=== PATIENT | female | born 1960 | race Caucasian/White ===

== ENCOUNTER 2022-11-18 07:51 | Outpatient (RCR) | payer BC, SELFPAY | END 2023-03-21 15:03 | disposition home or self-care (01) | LOC: PT 07:51 | DX: M54.16 Radiculopathy, lumbar region (principal) | CPT/HCPCS: 97012; 97110; 97112; 97140; 97162 ==

== ENCOUNTER 2022-12-25 09:05 | Outpatient (OUT) | payer BC, SELFPAY ==
--- NOTE | 2022-12-25 | CONS_ITS ---
CONSULTATION DATE: ??12/25/2022 TO:? Dr. Stacie Bowen/Maria Luisa Farooq CHIEF COMPLAINT:? Includes right hip pain, buttock pain. HISTORY OF PRESENT ILLNESS:? Review of systems, past medical/surgical history were obtained and documented on the health questionnaire and is available upon request. She is a 62-year-old female who reports having pain in the above mentioned areas for the last three years.? She says at times she has been on varying doses of various non-steroidal agents; most recently ibuprofen 800 mg one up to t.i.d. p.r.n.? She has had to use this almost on a daily basis, as she reports the pain in general is 4-7/10, sharp in character, increased with activities such as standing, walking and performing transitioning maneuvers.? She feels most comfortable in the semi-recumbent.? Denies any change in bowel and bladder habits or new sensorimotor changes in the lower extremities. EXAMINATION:? Notable for patient having no clinical radiculopathy or myelopathy involving the lower extremities. ??Patient did have dysesthesia and hyperesthesia overlying the distribution of the right superior gluteal nerve.? She had significant myofascial spasm of the right gluteus medius muscle, as well as myofascial spasm along the lumbar paravertebral muscles on the right side.? 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 RECOMMENDATIONS: At this point, I have recommended she continue with her physical therapy program.? I have placed her on baclofen 5 mg pills, half a pill to one pill at h.s., and to proceed with diagnostic right superior gluteal nerve injection under fluoroscopic guidance. As part of providing excellent, safe, comprehensive care, the following was completed at our patient's visit: 1. A medication reconciliation and review to ensure accurate knowledge of current/active medications, including asking our patients to inform us about any [id number] medications or herbal remedies/nutritional supplements/alternative remedies. 2. A review to specifically ensure our patients have had annual screening for: elevated body mass index (BMI, see intake chart for exact total), tobacco use, screening for depression, and screening for unhealthy alcohol use.? When screening is concerning, patients are provided with education and the specific recommendation to discuss the concerning health issue and treatment options with their primary care provider. SIMRAN
== END 2022-12-25 09:06 | disposition home or self-care (01) ==
PROVIDERS: Visit Provider Anesthesiology Pain Medicine
DX: G58.8 Other specified mononeuropathies (principal); G89.29 Other chronic pain; M62.838 Other muscle spasm
CPT/HCPCS: G0463

== ENCOUNTER 2023-01-14 06:54 | Day surgery (SDC) | payer BC, SELFPAY ==
[2023-01-14 07:27] VITALS: BP 136/69; PULSE 68; RESP 16; TEMP 36.3; O2SAT 95
[2023-01-14] MEDS: BUPIVACAINE HCL 0.25% PF 25 MG/10 ML VIAL INJ (07:51)
[2023-01-14 07:52] VITALS: BP 157/74; PULSE 70; RESP 18; O2SAT 97
[2023-01-14 07:53] VITALS: BP 148/82; PULSE 69; RESP 18; O2SAT 97
--- NOTE | 2023-01-14 09:01 | W.PM.PROCNOT ---
Date of procedure: 01/14/23 Pre-op diagnosis: Right superior gluteal nerve injection Post-op diagnosis: same as pre-op Procedure: Right superior gluteal nerve injection Performed under fluoroscopic guidance Immediate complications none Anesthesia: none Solution used for injection: In each syringe, 2 milliliters 0.25% Marcaine 2.5 mL is used for injection for each side Time out process compliant After informed consent obtained patient was brought to the procedure room placed in the prone position skin overlying the area was prepped and draped in a sterile fashion using betadine. 25 gauge spinal needle Insert over each of the target areas identified in fluoroscopy corresponding needles were advanced Under fluoroscopic guidance until the target/targets encountered , no indication of intravascular or Intraneuronal needle tip placement. Solution injected. [place] removed post procedurally. patient transferred to recovery room in stable condition to be discharged home after meeting criteria Anesthesia: Local Surgeon: Lilly Gutierrez Condition: stable
== END 2023-01-14 07:59 | disposition home or self-care (01) ==
LOC: SURGOUT 06:54
PROVIDERS: Visit Provider Anesthesiology Pain Medicine
DX: G58.8 Other specified mononeuropathies (principal)
CPT/HCPCS: 64450

== ENCOUNTER 2023-01-22 09:49 | Outpatient (OUT) | payer BC, SELFPAY ==
--- NOTE | 2023-01-22 09:48 | PM.CN ---
Consult Note: HPI Data of Consult Patient: known to practice within the last 3 years Requesting Physician: Seda Redd NP Primary Care Provider: Non-Staff Physician, Family Provider: ROCIO Consult Narrative Reason for consult: injection f/u Narrative: Saida renee pleasant 62 year old female presents to office for evaluation of chronic low back and right buttock. Most recently she underwent a Right superior gluteal nerve injection on 01/14/23 with >80% pain relief and functional improvement immediately following and hours after the procedure. Today rating her pain 8/10 in low right back and buttock. Patient would like to proceed with thermal RFA of right superior gluteal nerve. cc:: CC: Seda Redd NP Review of Systems ROS Status of ROS 10 or more systems reviewed and unremarkable except as noted in history and below Musculoskeletal Reports: back pain and other PFSH PFSH Medical History Surgical History Meds Home Medications and Allergies Home Medications Medication Instructions Recorded Confirmed Type amlodipine 5 mg tablet 5 mg PO DAILY 12/25/22 01/14/23 History simvastatin 40 mg tablet 40 mg PO DAILY 12/25/22 01/14/23 History ibuprofen 800 mg tablet 800 mg PO TID 01/14/23 01/14/23 History multivitamin 1 tab PO DAILY 01/14/23 01/14/23 History Allergies Allergy/AdvReac Type Severity Reaction Status Date / Time dextromethorphan Allergy Verified 01/14/23 07:30 [From NyQuil] doxylamine [From NyQuil] Allergy Verified 01/14/23 07:30 latex Allergy Verified 01/14/23 07:30 pseudoephedrine [From NyQuil] Allergy Verified 01/14/23 07:30 Exam Constitutional Documenting provider has reviewed patient's vital signs: yes Common normals: no apparent distress, oriented x3, healthy appearing, alert and well nourished General appearance: cooperative Nutritional appearance: overweight HENMT Common normals: normocephalic, hearing grossly normal bilaterally and moist oral mucous membranes Head and scalp: normocephalic Eye Common normals: PERRL Pupil: PERRL Neck & C-Spine Common normals: full ROM General: normal visual inspection Chest Common normals: inspection of chest normal Respiratory Common normals: normal respiratory effort, no retractions and no use of accessory muscles Back & Pelvis Lumbar spine/lower back: ROM limited and pain with ROM Sacroiliac joints: SI joint(s) abnormal Other: right sided low back and buttock pain without radiculopathy. tender over PSIS. positive [place], thigh thrust, clint exam. Extremity Common normals: normal to inspection and full ROM Neuro Common normals: oriented x3, CN's II-XII intact bilaterally, moves all extremities, no focal motor deficits, no sensory deficits noted and deep tendon reflexes 2+ bilaterally Sensorium/orientation: alert Speech: speech normal Gait (neuro): normal gait Motor exam: strength 5/5 throughout and no movement abnormalities noted Psych Common normals: mental status grossly normal, thought process normal, cooperative, affect normal, speech normal and activity/motor behavior normal Speech: normal speech Thought process: normal thought process Results Additional Findings Additional findings: I have checked an [place] report on this patient today and there are no aberrancies noted in the prescribing history.?? A drug screen was completed and reviewed within the last year, and if there has not been a drug screen completed we ordered one today to monitor higher risk, state monitored pain medication use. As part of providing excellent, safe, comprehensive care, the following was completed at our patient's visit: 1. A medication reconciliation and review to ensure accurate knowledge of current/active medications, including asking our patients to inform us about any [id number] medications or herbal remedies/nutritional supplements/alternative remedies. 2. A review to specifically ensure our patients have had annual screening for: elevated body mass index (BMI), tobacco use, screening for depression, and screening for unhealthy alcohol use. When screening is concerning, patients are provided with education and the specific recommendation to discuss the concerning health issue and treatment options with their primary care provider. Assessment and Plan Assessment and Plan (1) Neuritis: (2) Obesity (BMI 30.0-34.9): Assessment and Plan: The patient was counseled that proper dietary changes and consistent participation in a home exercise plan can lead to weight loss. Weight loss can help to improve functionality in patients with chronic pain.? (3) Hypertension: Assessment and Plan: Blood pressure is elevated today. No signs or symptoms of ME/CVA including chest pain, SOB, left sided acute neck, arm, or jaw pain (separate from chronic pain complaint), diaphoresis, facial drooping, new acute neuro changes in both upper and lower extremities (other than those mentioned in the note above). Recommend follow up with PCP for further evaluation and treatment.? Plan proceed with right superior gluteal nerve thermal RFA under fluoroscopy without sedation continue ibuprofen as needed continue HEP f/u 1 month after RFA
== END 2023-01-22 09:50 | disposition home or self-care (01) ==
LOC: PM 09:49
PROVIDERS: Visit Provider Nurse Practitioner
DX: M79.2 Neuralgia and neuritis, unspecified (principal); E66.9 Obesity, unspecified; I10 Essential (primary) hypertension
CPT/HCPCS: G0463

== ENCOUNTER 2023-02-25 08:44 | Day surgery (SDC) | payer BC, SELFPAY ==
[2023-02-25 09:12] VITALS: BP 140/84; PULSE 77; RESP 16; TEMP 36.5; O2SAT 98
[2023-02-25 10:11] VITALS: BP 162/77; PULSE 67; RESP 18; O2SAT 97
[2023-02-25 10:20] VITALS: BP 147/70; PULSE 70; RESP 18; O2SAT 97
[2023-02-25] MEDS: BUPIVACAINE HCL 0.25% PF 25 MG/10 ML VIAL 4 ML INJ (10:26)
[2023-02-25] MEDS: LIDOCAINE HCL 2% 400 MG/20 ML MDV 10 ML INJ (10:26)
[2023-02-25] MEDS: METHYLPREDNISOLONE ACETATE 40 MG/ML VIAL INJ (10:27)
--- NOTE | 2023-02-25 10:44 | W.PM.PROCNOT ---
Date of procedure: 02/25/23 Pre-op diagnosis: Right Superior Gluteal Neuritis Post-op diagnosis: same as pre-op Procedure: Right Superior Gluteal nerve Radiofrequency ablation PreOp diagnosis: pain secondary to include lateral cutaneous iliohypogastric neuritis Postop diagnosis same Under fluoroscopic guidance Rhizotomy was created using radio frequency ablation at 80?C for 90 seconds 1 to 2 lesions created at each site. Post lesioning injection of 2 mL each of 0.25% Marcaine and 2% lidocaine with Depo-Medrol 40mg. 0.5 to 1 mL injected at each site IV in place no If Intravenous fluids: NS at KVO Anesthesia local 2% lidocaine for Anesthesia Other: local Timeout process compliant After informed consent obtained. Patient brought to the procedure room placed in the prone position skin overlying the area was prepped and draped in a sterile fashion using betadine. 25 gauge needle was used to create a skin wheal over each of the targeted areas utilizing 2% lidocaine. A rhizotomy needle with a 10 mm active tip was inserted over each of the anesthetized areas and directed towards four different areas in the distribution of the lateral cutaneous branches of the iliohypogastric nerve, accomplished under fluoroscopic guidance. After encountering the same we had positive sensory stimulation, negative motor stimulation was noted. lesions were then created. Post lesioning, steroid solution was injected needles removed. Patient was transferred to recovery room in stable condition to be discharged home after meeting criteria. Anesthesia: Local Surgeon: Lilly Gutierrez Condition: stable
== END 2023-02-25 10:30 | disposition home or self-care (01) ==
PROVIDERS: Visit Provider Anesthesiology Pain Medicine
DX: G58.8 Other specified mononeuropathies (principal)
CPT/HCPCS: 64640; 77002; J1030

== ENCOUNTER 2023-03-27 08:09 | Outpatient (OUT) | payer BC, SELFPAY ==
--- NOTE | 2023-03-27 08:42 | P.CN_ITS ---
Consult Note: HPI Data of Consult Patient: known to practice within the last 3 years Requesting Physician: Seda Redd NP Primary Care Provider: Non-Staff Physician, Family Provider: DMISC Consult Narrative Reason for consult: f/u Narrative: Saida renee pleasant 62 year old female presents for follow up after right superior gluteal nerve RFA. Patient reporting 95-100% pain relief in that area, noticing functional improvement as well. Patient is able to rake leaves, do yard work, and sit for longer periods of time. cc:: CC: Seda Redd NP Review of Systems ROS Status of ROS 10 or more systems reviewed and unremarkable except as noted in history and below Musculoskeletal Reports: other [facility] Medical History Surgical History History of appendectomy ?Z90.49 - Acquired absence of other specified parts of digestive tract (ICD- 10) Meds Home Medications and Allergies Home Medications Medication Instructions Recorded Confirmed Type amlodipine 5 mg tablet 5 mg PO DAILY 12/25/22 02/25/23 History simvastatin 40 mg tablet 40 mg PO DAILY 12/25/22 02/25/23 History ibuprofen 800 mg tablet 800 mg PO TID 01/14/23 02/25/23 History multivitamin 1 tab PO DAILY 01/14/23 02/25/23 History Allergies Allergy/AdvReac Type Severity Reaction Status Date / Time dextromethorphan Allergy Verified 02/25/23 09:11 [From NyQuil] doxylamine [From NyQuil] Allergy Verified 02/25/23 09:11 latex Allergy Verified 02/25/23 09:11 pseudoephedrine [From NyQuil] Allergy Verified 02/25/23 09:11 Exam Constitutional Documenting provider has reviewed patient's vital signs: yes Common normals: no apparent distress, oriented x3, healthy appearing, alert and well nourished General appearance: cooperative Nutritional appearance: overweight HENMT Common normals: normocephalic, hearing grossly normal bilaterally and moist oral mucous membranes Head and scalp: normocephalic Eye Common normals: PERRL Pupil: PERRL Neck & C-Spine Common normals: full ROM General: normal visual inspection Chest Common normals: inspection of chest normal Respiratory Common normals: normal respiratory effort, no retractions and no use of accessory muscles Back & Pelvis Sacroiliac joints: SI joints normal Extremity Common normals: normal to inspection and full ROM Neuro Common normals: oriented x3, CN's II-XII intact bilaterally, moves all extremities, no focal motor deficits, no sensory deficits noted and deep tendon reflexes 2+ bilaterally Sensorium/orientation: alert Speech: speech normal Gait (neuro): normal gait Motor exam: strength 5/5 throughout and no movement abnormalities noted Psych Common normals: mental status grossly normal, thought process normal, cooperative, affect normal, speech normal and activity/motor behavior normal Speech: normal speech Thought process: normal thought process Assessment and Plan Assessment and Plan (1) Neuritis: Plan continue HEP f/u as needed
== END 2023-03-27 08:10 | disposition home or self-care (01) ==
LOC: PM 08:10
PROVIDERS: Visit Provider Nurse Practitioner
DX: M79.2 Neuralgia and neuritis, unspecified (principal)
CPT/HCPCS: G0463

== ENCOUNTER 2024-02-26 09:28 | Outpatient (OUT) | payer BC, SELFPAY ==
--- OUTSIDE RECORDS SUMMARY | 2024-02-26 09:42 | XMS_ITS | CCD ---
Author Organization 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 Name Role Phone CHAPARRO TAYLOR Unavailable Unavailable RHONDA BRENNER Unavailable Unavailable Sheets Stacie LOWE Primary Care Provider MISC, DR THOMAS Primary Care Unavailable ELTAHAWY, DR HART Attending Unavailable ELTAHAWY, DR HART Consulting Unavailable ELTAHAWY, DR HART Admitting Unavailable ALIS LOZOYA Consulting Unavailable MISC, DR THOMAS Consulting Unavailable ALISSA CORDERO Admitting Unavailable MISC, DR THOMAS Primary Care Unavailable ALISSA CORDERO Attending Unavailable ALISSA CORDERO Consulting Unavailable Sheets Stacie LOWE Primary Care Provider Sheets DOStacie Primary Care Provider [phone] Sheets, DO Stacie Martines Primary Care Provider Self, Referral Attending Provider Unavailable Maria Luisa Farooq Unavailable Sheets, DO Stacie Martines Primary Care Provider RAJNI Farooq Attending Provider STACIE FAIRBANKS Referring Unavailable SHEETS, STACIE C Primary Care Unavailable SHEETSAARONLY C Referring Unavailable SHEETS, STACIE C Primary Care Unavailable Sheets, DO Stacie C Primary Care Provider Sheets, DO Stacie Martines Referring Provider [phone] Self, Referral Attending Provider Unavailable Maria Luisa Farooq Admitting Unavailable Maria Luisa Farooq Attending Unavailable Stacie Fairbanks Primary Care Unavailable Afrooq, Maria Luisa Admitting Unavailable Farooq, Maria Luisa Attending Unavailable Sheets, Stacie Martines Primary Care Unavailable Farooq, Maria Luisa Admitting Unavailable Farooq, Maria Luisa Attending Unavailable Sheets, Stacie Martines Primary Care Unavailable Sheets, Stacie C Primary Care Unavailable Sheets, Stacie C Referring Unavailable Self, Referral Admitting Unavailable Self, Referral Attending Unavailable Sheets Stacie LOWE Primary Care Provider [phone] [facility] U navailable SHEETS, STACIE Martines Attending Unavailable SHEETS, STACIE Martines Primary Care Unavailable SHEETS, STACIE C Referring Unavailable SHEETS, STACIE Martines Attending Unavailable SHEETS, STACIE Martines Primary Care Unavailable ALISSA CORDERO Attending Unavailable HELEN MEEK Attending Unavailable Allergies Allergy Classification Reported Allergen(s) Allergy Type Date of Onset Reaction(s) Facility Acetaminophen / Dextromethorphan / Doxylamine / Pseudoephedrine (1 source) Acetaminophen / Dextromethorphan / Doxylamine / Pseudoephedrine Drug Allergy 12-21-19 16 Unknown [facility] Baclofen (1 source) Baclofen Drug Allergy 02-01-20 23 Other: See Comments [facility] cyclobenzaprine (1 source) cyclobenzaprine Drug Allergy 02-01-20 23 Other: See Comments [facility] HMG-CoA Reductase Inhibitors (statins) (1 source) rosuvastatin Drug Allergy 12-21-19 16 Diarrhea, Vomiting, Other: See Comments [facility] Latex (1 source) Latex Substance Allergy 12-27-19 15 Unknown [facility] Pheniramine (1 source) Pheniramine Drug Allergy 12-27-19 15 Unknown [facility] (20 sources) Acetaminophen / Dextromethorphan / Doxylamine / Pseudoephedrine; Translations: [[id number] CETAMINOPHEN] Drug Allergy 12-21-19 16 Unknown [facility] (20 sources) Latex; Translations: [LATEX] Propensity to adverse reactions to drug 12-27-19 15 Unknown [facility] (20 sources) Pheniramine; Translations: [PHENIRAMINE] Drug Allergy 12-27-19 15 Unknown [facility] (20 sources) rosuvastatin; Translations: [ROSUVASTATIN CALCIUM] Drug Allergy 12-21-19 16 Diarrhea, Vomiting, Other: See Comments [facility] (1 source) Latex Drug allergy (disorder) 01-04-20 16 [facility] Rep[facility] (1 source) Pseudoephedrine Drug Allergy [facility] (1 source) strawberry allergenic extract Drug Allergy [facility] (6 sources) NyQuil Drug allergy (disorder) Unknown [facility] (10 sources) Baclofen; Translations: [BACLOFEN] Drug Allergy 02-01-20 Other: See Comments [facility] (10 sources) cyclobenzaprine; Translations: [CYCLOBENZAPRINE] Drug Allergy 02-01-20 Other: See Comments [facility] (1 source) Acetaminophen Drug Allergy 03-12-20 [facility] Repository (1 source) Dextromethorphan Drug Allergy 03-12-20 [facility] Rep[facility] (1 source) Doxylamine Drug Allergy 03-12-20 [facility] Repository (1 source) Latex Drug allergy (disorder) 03-12-20 [facility] Rep[facility] (1 source) Pseudoephedrine Drug Allergy 03-12-20 [facility] Rep[facility] Medications Current Medications Medication Drug Class(es) Dates Sig (Normalized) Sig (Original) [id number] 200 actuat albuterol 0.09 mg/actuat metered dose inhaler (20 sources) beta2-Adrenergic Agonist Start: 12-15-2023 End: 12-15-2023 take 2 puff(s) by inhalation every four hours as needed albuterol HFA (PROVENTIL HFA, VENTOLIN HFA) 90 mcg/actuation inhaler 2 puff(s) every 4 hours as needed 1 Each 3 12/15/2023 Active Comment on above: 2 puff(s) every 4 ho urs as needed amLODIPine 5 mg oral tablet (20 sources) Dihydropyridine Calcium Channel James Start: 08-09-2016 take 1 tablet by mouth once daily amLODIPine (NORVASC) 5 mg tablet Take 5 mg by mouth once daily. 08/09/2016 Active Comment on above: Take 5 mg by mouth o nce daily. atorvastatin 40 mg oral tablet (8 sources) HMG-CoA Reductase Inhibitor Start: 01-31-2023 End: 01-27-2024 take 1 tablet by mouth once daily atorvastatin (LIPITOR) 40 mg tablet Indications: Mixed hyperlipidemia take 1 tablet by mouth every day 90 tablet 1 01/27/2024 Active Comment on above: Take 1 tablet by lon th once daily. take 1 tablet by lon th every day betamethasone 0.5 mg/ml topical cream (20 sources) Corticosteroid Start: 06-09-2023 betamethasone dipropionate (DIPROSONE) 0.05 % cream Indications: Dermatitis apply to affected area twice a day 45 g 5 06/09/2023 Active Start: 09-22-2020 End: 01-31-2023 betamethasone dipropionate ( DIPROSONE) 0.05 % cream Indications: Dermatitis Apply to affected area twice daily. APPLY TO AFFECTED AREA 45 g 5 01/31/2023 Active betamethasone di propionate, augmented (DIPROLENE) 0.05 % cream betamethasone, augmented 0.05 % topical cream Active Comment on above: betamethasone, augme nted 0.05 % topical cream Apply to affected ar ea twice daily. APPLY TO AFFECTED AR EA TWICE A DAY Apply to affected ar ea twice daily. APPLY TO AFFECTED AREA CBD gummies (5 sources) CBD gummies Acti ve cholecalciferol 0.025 mg oral tablet (20 sources) Vitamin D take 1 tablet by mouth once daily cholecalciferol (VITAMIN D3) 1,000 unit tab tablet Take 1,000 Units by mouth once daily. Active Comment on above: Take 1,000 Units by mouth once daily. Fish Oils (5 sources) take 1 capsule by mouth once daily Fish Oil 1000 MG 1 capsule Orally Once a day Active 120 actuat fluticasone propionate 0.11 mg/actuat metered dose inhaler (20 sources) Corticosteroid Start: 2015 take 1 puff(s) by inhalation twice daily fluticasone (FLOVENT) 110 mcg/actuation inhaler Indications: Asthma, chronic, moderate persistent, uncomplicated Inhale 1 Puff as instructed twice daily. 1 Inhaler 1 03/29/2016 Active Comment on above: Inhale 1 Puff as ins tructed twice daily. ibuprofen 800 mg oral tablet (20 sources) Nonsteroidal Anti-inflammatory Drug Start: 2020 take 1 tablet by mouth every eight hours as needed ibuprofen (MOTRIN) 800 mg tablet TAKE 1 TABLET BY MOUTH EVERY 8 HOURS NEEDED 90 tablet 11 08/13/2021 Active Comment on above: TAKE 1 TABLET BY LON EVERY 8 HOURS NEEDED lidocaine 0.05 mg/mg medicated patch (9 sources) Antiarrhythmic, Amide Local Anesthetic Start: 2022 Lidocaine 5 % 1 patch remove after 12 hours Externally Once a day for 30 days Dec, Active Metamucil Fiber (5 sources) Metamucil Fiber Active Multivitamin capsule (20 sources) take 1 capsule by mouth once daily Multivitamin capsule Take 1 capsule by mouth once daily. Active take 1 capsule by mouth once mila ly Multivitamin capsule Take 1 capsule by mouth once daily. 0 Active Comment on above: Take 1 capsule by mo [facility] once daily. omega-3 fatty acids (FISH OI L CONCENTRATE ORAL) (20 sources) omega-3 fatty ac ids (FISH OIL CONCENTRATE ORAL) Take by mouth. Active omega-3 fatty ac ids (FISH OIL CONCENTRATE ORAL) Take by mouth. 0 Active Comment on above: Take by mouth. OTC PRODUCT (20 sources) OTC PRODUCT CBD gummies as needed Active OTC PRODUCT CBD gummies as needed 0 Active End: 07-13-2021 OTC PRODUCT CBD oil occasion ally 0 07/13/2021 Discontinued (Other) Comment on above: CBD gummies as neede d CBD oil occasionally Vitamin C 1000 MG (5 sources) take 1 tablet by mouth once daily Vitamin C 1000 MG 1 tablet Orally Once a day Active Womens Multivitamin (5 sources) Womens Multivita min Active Zinc (5 sources) Zinc Active Completed/Discontinued Medications Medication Drug Class(es) Dates Sig (Normalized) Sig (Original) cyclobenzaprine hydrochloride 10 mg oral tablet (7 sources) Muscle Relaxant Start: 09-09-2022 End: 01-31-2023 take 5-10 mg by mouth every twenty-four hours as needed cyclobenzaprine (FLEXERIL) 10 mg tablet Take 0.5-1 tablets by mouth at bedtime as needed. 30 tablet 0 09/09/2022 01/31/2023 Discontinued (Other) Comment on above: Take 0.5-1 tablets b y mouth at bedtime as needed. simvastatin 40 mg oral tablet (20 sources) HMG-CoA Reductase Inhibitor Start: 02-08-2022 End: 01-31-2023 take 1 tablet by mouth once daily at bedtime simvastatin (ZOCOR) 40 mg tablet Indications: Mixed hyperlipidemia take 1 tablet by mouth everyday at bedtime 90 tablet 0 01/29/2023 01/31/2023 Discontinued Start: 07-16-2021 End: 02-08-2022 take 1 tablet by mouth once daily at bedtime simvastatin (ZOCOR) 20 mg tablet Indications: Mixed hyperlipidemia TAKE 1 TABLET BY MOUTH EVERYDAY AT BEDTIME 30 tablet 2 09/20/2021 02/08/2022 Discontinued Start: 08-07-2020 End: 07-16-2021 take 1 tablet by mouth once daily simvastatin (ZOCOR) 10 mg tablet Indications: Mixed hyperlipidemia TAKE 1 TABLET BY MOUTH EVERY DAY 90 tablet 0 08/07/2020 07/16/2021 Discontinued Comment on above: TAKE 1 TABLET BY LON TH EVERY DAY Take 1 tablet by lon th daily at bedtime. TAKE 1 TABLET BY LON TH EVERYDAY AT BEDTIME Problems Active Problems Problem Classification Problem Date Documented Date Episodic/Chronic Disorders of lipid metabolism (20 sources) Mixed hyperlipidemia; Translations: [Mixed hyperlipidemia] Onset: 09-27-2016 Resolved: 04-15-2017 04-15-2017 Chronic Essential hypertension (20 sources) Essential hypertension; Translations: [Essential (primary) hypertension] Onset: 09-27-2016 Chronic Nutritional deficiencies (3 sources) Vitamin D deficiency; Translations: [Vitamin D deficiency, unspecified] Chronic Osteoarthritis (5 sources) Osteoarthritis of right hip joint; Translations: [Unilateral primary osteoarthritis, right hip] Onset: 10-01-2023 Chronic Other connective tissue disease (2 sources) Trochanteric bursitis, right hip Episodic Other non-traumatic joint disorders (1 source) Pain in right hip joint; Translations: [Pain in right hip] Episodic Other nutritional; endocrine; and metabolic disorders (20 sources) Body mass index 30+ - obesity; Translations: [Body mass index (BMI) 36.0-36.9, adult] Onset: 03-24-2020 Chronic Other nutritional; endocrine; and metabolic disorders (6 sources) Obese class II; Translations: [Obesity, unspecified] Onset: 07-13-2021 Chronic Other nutritional; endocrine; and metabolic disorders (20 sources) Obese class I; Translations: [Obesity, unspecified] Onset: 07-13-2021 Chronic Other nutritional; endocrine; and metabolic disorders (3 sources) Body mass index (BMI) 33.0-33.9, adult Chronic Other nutritional; endocrine; and metabolic disorders (1 source) Obesity, unspecified; Translations: [Obesity, Class I, BMI 30-34.9] Onset: 01-17-2022 Chronic Other nutritional; endocrine; and metabolic disorders (1 source) Weight loss; Translations: [Abnormal weight loss] Episodic Other screening for suspected conditions (not mental disorders or infectious disease) (1 source) Patient encounter status; Translations: [Encounter for screening mammogram for malignant neoplasm of breast] Episodic Residual codes; unclassified (2 sources) Asymptomatic menopausal state Episodic Screening and history of mental health and substance abuse codes (2 sources) Encounter for screening for depression Episodic Spondylosis; intervertebral disc disorders; other back problems (9 sources) Inflammation of sacroiliac joint; Translations: [Sacroiliitis, not elsewhere classified] Chronic Unclassified (1 source) Encounter for screening mammogram for malignant neoplasm of breast; Translations: [Encounter for screening mammogram for malignant neoplasm of breast] Onset: 06-07-2023 Unclassified (1 source) Encounter for screening for osteoporosis; Translations: [Encounter for screening for osteoporosis] Onset: 12-02-2022 Past or Other Problems Problem Classification Problem Date Documented Da te Episodic/Chronic Allergic reactions (9 sources) Inflammatory dermatosis; Translations: [Dermatitis, unspecified] Onset: 01-31-2023 Episodic Other connective tissue disease (20 sources) Fibromyalgia; Translations: [Fibromyalgia] Onset: 08-01-2021 Episodic Other connective tissue disease (1 source) Fibromyalgia; Translations: [Fibromyalgia] Onset: 08-01-2021 Episodic Residual codes; unclassified (4 sources) Localized edema; Translations: [LOCALIZED EDEMA] Onset: 01-20-2021 Episodic Spondylosis; intervertebral disc disorders; other back problems (20 sources) Sciatica; Translations: [Sciatica, right side] Onset: 10-31-2022 Episodic Results Test Name Value Interpretation Reference Range Facility Office Visiton 02-18-2024 Follow-up visit [id number] Gisel Corbin 1960 F Date Provider Department Center 02/18/2024 [facility] CORDERO [facility] No family history on file Level of Service:73103 [facility] OFFICE/OUTPATIENT ESTABLISHED LOW MDM 20 MIN Reason for Visit and Comments: Hypertension [109224] Hyperlipidemia [182] Normal [facility] CNOVon 10-01-2023 CNOV Office Visit (SANDRA WALLACE) -------- SAIDA CORBIN ([id number]) 1960 F Date Time Provider Department 10/01/23 11:20 AM STACIE FAIRBANKS During your visit today, we recorded the following information about you: Temperature Pulse Respiration Blood pressure 97.6 degrees 62/minute 16/minute 114/68 Weight Height 97.5 kg 1.727 m Stacie Fairbanks DO 10/18/2023 11:49 AM Signed Subjective The history is provided by the patient. Hypertension This is a chronic problem. The current episode started more than 1 year ago. The problem is unchanged. The problem is controlled. Pertinent negatives include no blurred vision, chest pain, headaches, malaise/fatigue, palpitations or shortness of breath. She has pain all over from fibromyalgia She wears patches on her right leg all the time She is not sleeping well because of the pain She takes ibuprofen in the morning Tylenol does not work well She had a nerve root ablation in her lower back She was in PT, but she will be doing exercises in the water now that it is summer and does not want to go to PT at this time ALLERGIES Allergen Reactions Baclofen Other: See Comments Shaky, chest tightness, difficulty talking Crestor [Rosuvastat* Diarrhea, Vomiting, Other: See Comments Nausea Cyclobenzaprine Other: See Comments Shaky, chest tightness, difficulty talking Latex Unknown Nyquil [Doxylamin-P* Unknown Pheniramine Unknown Current Outpatient Medications Medication Sig Dispense Refill atorvastatin (LIPITOR) 40 mg tablet take 1 tablet by mouth every day 90 tablet 1 betamethasone dipropionate (DIPROSONE) 0.05 % cream apply to affected area twice a day 45 g 5 ibuprofen (MOTRIN) 800 mg tablet TAKE 1 TABLET BY MOUTH EVERY 8 HOURS NEEDED 90 tablet 11 OTC PRODUCT CBD gummies as needed omega-3 fatty acids (FISH OIL CONCENTRATE ORAL) Take by mouth. Multivitamin capsule Take 1 capsule by mouth once daily. cholecalciferol (VITAMIN D3) 1,000 unit tab tablet Take 1,000 Units by mouth once daily. betamethasone dipropionate, augmented (DIPROLENE) 0.05 % cream betamethasone, augmented 0.05 % topical cream amLODIPine (NORVASC) 5 mg tablet Take 5 mg by mouth once daily. fluticasone (FLOVENT) 110 mcg/actuation inhaler Inhale 1 Puff as instructed twice daily. 1 Inhaler 1 albuterol HFA (PROVENTIL HFA, VENTOLIN HFA) 90 mcg/actuation inhaler 2 puff(s) every 4 hours as needed No current facility-administered medications for this visit. ACTIVE PROBLEM LIST Essential Hypertension Mixed Hyperlipidemia Bmi 30.0-30.9,Adult Obesity, Class I, Bmi 30-34.9 Fibromyalgia Chronic Midline Low Back Pain Dermatitis Social History Tobacco Use Smoking status: Never Smokeless tobacco: Never Substance Use Topics Alcohol use: Yes Comment: wine Drug use: No Comment: No reported history Family History Problem Relation Age of Onset Alzheimer's Disease Father Hypertension Father Prostate Cancer Father Hypertension Mother Reviewed past medical history, family history and surgeries. All medications and supplements were reviewed with the patient. Review of Systems Constitutional: Negative for chills, diaphoresis, fever, malaise/fatigue and weight loss. HENT: Negative for ear pain and hearing loss. Eyes: Negative for blurred vision and double vision. Respiratory: Negative for cough and shortness of breath. Cardiovascular: Negative for chest pain, palpitations and leg swelling. Gastrointestinal: Negative for constipation, diarrhea and heartburn. Genitourinary: Negative for dysuria and frequency. Musculoskeletal: Positive for joint pain and myalgias. Negative for back pain and falls. Skin: Negative for itching and rash. Neurological: Negative for dizziness, weakness and headaches. Endo/Heme/Allergies: Does not bruise/bleed easily. Psychiatric/Behavioral: Negative for depression and substance abuse. The patient does not have insomnia. Objective BP 114/68 Pulse 62 Temp 36.4 ?C (97.6 ?F) Resp 16 Ht 172.7 cm (5' 8 ) Wt 97.5 kg (215 lb) SpO2 94% BMI 32.69 kg/m? Physical Exam Constitutional: Appearance: Normal appearance. She is obese. HENT: Head: Normocephalic and atraumatic. Nose: Nose normal. Mouth/Throat: Mouth: Mucous membranes are moist. Dentition: Normal dentition. Eyes: General: Lids are normal. Extraocular Movements: Extraocular movements intact. Conjunctiva/sclera: Conjunctivae normal. Pupils: Pupils are equal, round, and reactive to light. Neck: Thyroid: No thyroid mass or thyromegaly. Vascular: No carotid bruit. Trachea: Phonation normal. Cardiovascular: Rate and Rhythm: Normal rate and regular rhythm. Heart sounds: Normal heart sounds. No murmur heard. No friction rub. No gallop. Pulmonary: Effort: Pulmonary effort is normal. Breath sounds: Normal breath sounds. No wheezing or ra (more content not included)... Normal [facility] MM screening mammo BI w/CADo n 06-09-2023 MM screening mammo BI w/CAD [facility] [address] [place] [address] Mammography Report Signed Patient: Saida Corbin MR#: [id number] : 1960 Acct:[id number] Age/Sex: 62 / F ADM Date: 06/07/23 Loc: [place] Room: Type: [facility] Attending Dr: Referral Self Copies to: Stacie Fairbanks DO SELF,REFERRAL Ordering Provider: SELF,REFERRAL Date of Service: 06/07/23 MM/MM screening mammo BI w/CAD: SCREENING BILATERAL Screening Full Field digital mammogram with 3-D imaging. Full field digital CC and MLO imaging performed. CAD utilized. COMPARISON: 06/01/2022 HISTORY: Annual screening BREAST COMPOSITION: Scattered fibroglandular densities of the breast parenchyma identified BENIGN BREAST CALCIFICATIONS: Present VASCULAR CALCIFICATIONS: None DEVELOPING ARCHITECTURAL DISTORTION: None DEVELOPING BREAST NODULE: None DEVELOPING MALIGNANT CALCIFICATIONS: None AXILLARY LYMPH NODES: Normal POSTSURGICAL CHANGES: None MM/MM screening mammo BI w/CAD IMPRESSION: No mammographic evidence of malignancy. Routine follow-up recommended in one year. RESULT CODE: 2 Benign Findings(s) DENSITY CODE: 2 (approximately 25-50% glandular) FOLLOW UP: 1YR THE FALSE-NEGATIVE RATE OF MAMMOGRAPHY IS APPROXIMATELY 10%. IMAGING OF A PALPABLE ABNORMALITY MUST BE BASED ON CLINICAL GROUNDS. PATIENT WAS ENTERED INTO A REMINDER SYSTEM WITH A TARGET DUE DATE FOR THE NEXT MAMMOGRAM. Impression dictated by: Nicholas Man M.D.06/09/2023 7:49 AM Dictation Location: [facility] Transcribed By: [facility] 06/09/23 0749 Dictated By: Nicholas Man DO 06/09/23 0747 Signed By: 06/09/23 0749 [facility] CNPRenu 06-02-2023 CNPN Telephone (AGFAMPLE) -------- SAIDA CORBIN ([id number]) 1960 F Date Time Provider Department 06/02/23 STACIE FAIRBANKS During your visit today, we recorded the following information about you: Brynn Paulino MA 06/02/2023 8:10 AM Signed ----- Message from Hubert Nava MA sent at 05/06/2023 1:48 PM EST ----- Remind pt. Time to recheck FLP/LFT . CHICA Franks Kimberly C, DO 06/02/2023 10:57 AM Signed Order attached DO [place]di [place] Kimberly C, DO 06/02/2023 10:57 AM Signed Addended by: STACIE FAIRBANKS on: 06/02/2023 10:57 AM Modules accepted: Orders Hubert Nava MA 06/02/2023 11:02 AM Signed Lm on pt. with all information. Hubert Nava MA Allergies As of Date: 06/02/2023 Noted Allergy Reaction BACLOFEN 01/31/2023 14 - Other: See Comments Comments: Shaky, chest tightness, difficulty talking CRESTOR (ROSUVASTATIN CALCIUM) 12/21/2015 6 - Diarrhea 11 - Vomiting 14 - Other: See Comments Comments: Nausea CYCLOBENZAPRINE 01/31/2023 14 - Other: See Comments Comments: Shaky, chest tightness, difficulty talking LATEX 12/26/2014 16 - Unknown NYQUIL ([id number] IN*12/21/2015 16 - Unknown PHENIRAMINE 12/26/2014 16 - Unknown Date Reviewed: 01/31/2023 Reviewed by: Stacie Fairbanks DO - Fully Assessed Reason for Visit: Lab Orders [1688] Primary Visit Diagnosis:Mixed hyperlipidemia [E78.2] Order(s):LIPID PANEL BASIC [SQLIPB] Order #: [id number] FUTURE HEPATIC FUNCTION PNL [SQHFP] Order #: [id number] FUTURE Prescriptions as of 06/02/2023 - betamethasone dipropionate (DIPROSONE) 0.05 % cream Apply to affected area twice daily. APPLY TO AFFECTED AREA - atorvastatin (LIPITOR) 40 mg tablet Take 1 tablet by mouth once daily. - ibuprofen (MOTRIN) 800 mg tablet TAKE 1 TABLET BY MOUTH EVERY 8 HOURS NEEDED - OTC PRODUCT CBD gummies as needed - omega-3 fatty acids (FISH OIL CONCENTRATE ORAL) Take by mouth. - Multivitamin capsule Take 1 capsule by mouth once daily. - cholecalciferol (VITAMIN D3) 1,000 unit tab tablet Take 1,000 Units by mouth once daily. - betamethasone dipropionate, augmented (DIPROLENE) 0.05 % cream betamethasone, augmented 0.05 % topical cream - amLODIPine (NORVASC) 5 mg tablet Take 5 mg by mouth once daily. - fluticasone (FLOVENT) 110 mcg/actuation inhaler Inhale 1 Puff as instructed twice daily. - albuterol HFA (PROVENTIL HFA, VENTOLIN HFA) 90 mcg/actuation inhaler 2 puff(s) every 4 hours as needed Problem List As Of Date 06/02/2023 Noted Resolved Essential hypertension [I10] 09/27/2016 Hyperlipidemia [E78.5] 09/27/2016 04/15/2017 Mixed hyperlipidemia [E78.2] 04/15/2017 BMI 30.0-30.9,adult [Z68.30] 03/24/2020 Obesity, Class I, BMI 30-34.9 [E66.9] 07/13/2021 Fibromyalgia [M79.7] 08/01/2021 Chronic midline low back pain [M54.50, G89.29] 02/16/2023 Dermatitis [L30.9] 02/16/2023 Encounter Status:Closed by BRYNN PAULINO on 06/02/23 [facility] CNPNon 05-06-2023 CNPN Telephone (AGFAMPLE) -------- SAIDA CORBIN ([id number]) 1960 F Date Time Provider Department 05/06/23 STACIE FAIRBANKS AGFAMPLE During your visit today, we recorded the following information about you: Brynn Paulino MA 05/06/2023 7:29 AM Signed ----- Message from Brynn Paulino MA sent at 02/03/2023 8:17 AM EDT ----- FLP/LFT in 3 months Stacie Fairbanks DO 05/06/2023 1:31 PM Signed Please put reminder in for 06/01 thanks DO Vini Park Mary, MA 05/06/2023 1:48 PM Signed Reminder placed. Hubert Nava MA Allergies As of Date: 05/06/2023 Noted Allergy Reaction BACLOFEN 01/31/2023 14 - Other: See Comments Comments: Shaky, chest tightness, difficulty talking CRESTOR (ROSUVASTATIN CALCIUM) 12/21/2015 6 - Diarrhea 11 - Vomiting 14 - Other: See Comments Comments: Nausea CYCLOBENZAPRINE 01/31/2023 14 - Other: See Comments Comments: Shaky, chest tightness, difficulty talking LATEX 12/26/2014 16 - Unknown NYQUIL ([id number]-ACETAM IN*12/21/2015 16 - Unknown PHENIRAMINE 12/26/2014 16 - Unknown Date Reviewed: 01/31/2023 Reviewed by: Sheets, Stacie C, DO - Fully Assessed Reason for Visit: Lab Orders [7378] Prescriptions as of 05/06/2023 - betamethasone dipropionate (DIPROSONE) 0.05 % cream Apply to affected area twice daily. APPLY TO AFFECTED AREA - atorvastatin (LIPITOR) 40 mg tablet Take 1 tablet by mouth once daily. - ibuprofen (MOTRIN) 800 mg tablet TAKE 1 TABLET BY MOUTH EVERY 8 HOURS NEEDED - OTC PRODUCT CBD gummies as needed - omega-3 fatty acids (FISH OIL CONCENTRATE ORAL) Take by mouth. - Multivitamin capsule Take 1 capsule by mouth once daily. - cholecalciferol (VITAMIN D3) 1,000 unit tab tablet Take 1,000 Units by mouth once daily. - betamethasone dipropionate, augmented (DIPROLENE) 0.05 % cream betamethasone, augmented 0.05 % topical cream - amLODIPine (NORVASC) 5 mg tablet Take 5 mg by mouth once daily. - fluticasone (FLOVENT) 110 mcg/actuation inhaler Inhale 1 Puff as instructed twice daily. - albuterol HFA (PROVENTIL HFA, VENTOLIN HFA) 90 mcg/actuation inhaler 2 puff(s) every 4 hours as needed Problem List As Of Date 05/06/2023 Noted Resolved Essential hypertension [I10] 09/27/2016 Hyperlipidemia [E78.5] 09/27/2016 04/15/2017 Mixed hyperlipidemia [E78.2] 04/15/2017 BMI 30.0-30.9,adult [Z68.30] 03/24/2020 Obesity, Class I, BMI 30-34.9 [E66.9] 07/13/2021 Fibromyalgia [M79.7] 08/01/2021 Chronic midline low back pain [M54.50, G89.29] 02/16/2023 Dermatitis [L30.9] 02/16/2023 Encounter Status:Closed by BRYNN PAULINO on 05/06/23 [facility] Demar 03-04-2023 BATSHEVA Telephone (MARGO) -------- SAIDA CORBIN ([id number]) 1960 F Date Time Provider Department 03/04/23 HUBERT NAVA During your visit today, we recorded the following information about you: Hubert Nava MA 03/04/2023 10:38 AM Signed ----- Message from Stacie Fairbanks DO sent at 03/04/2023 10:11 AM EDT ----- Please notify pt her cholesterol is slightly elevated, but greatly improved. She should continue her current meds, follow low fat high fiber diet, exercise 30 minutes per day DO [place], [place] 03/04/2023 10:38 AM Signed Patient aware. Hubert Nava MA Allergies As of Date: 03/04/2023 Noted Allergy Reaction BACLOFEN 01/31/2023 14 - Other: See Comments Comments: Shaky, chest tightness, difficulty talking CRESTOR (ROSUVASTATIN CALCIUM) 12/21/2015 6 - Diarrhea 11 - Vomiting 14 - Other: See Comments Comments: Nausea CYCLOBENZAPRINE 01/31/2023 14 - Other: See Comments Comments: Shaky, chest tightness, difficulty talking LATEX 12/26/2014 16 - Unknown NYQUIL ([id number]-WT-ACETAM IN*12/21/2015 16 - Unknown PHENIRAMINE 12/26/2014 16 - Unknown Date Reviewed: 01/31/2023 Reviewed by: Stacie Fairbanks DO - Fully Assessed Reason for Visit: Results [95] Prescriptions as of 03/04/2023 - betamethasone dipropionate (DIPROSONE) 0.05 % cream Apply to affected area twice daily. APPLY TO AFFECTED AREA - atorvastatin (LIPITOR) 40 mg tablet Take 1 tablet by mouth once daily. - ibuprofen (MOTRIN) 800 mg tablet TAKE 1 TABLET BY MOUTH EVERY 8 HOURS NEEDED - OTC PRODUCT CBD gummies as needed - omega-3 fatty acids (FISH OIL CONCENTRATE ORAL) Take by mouth. - Multivitamin capsule Take 1 capsule by mouth once daily. - cholecalciferol (VITAMIN D3) 1,000 unit tab tablet Take 1,000 Units by mouth once daily. - betamethasone dipropionate, augmented (DIPROLENE) 0.05 % cream betamethasone, augmented 0.05 % topical cream - amLODIPine (NORVASC) 5 mg tablet Take 5 mg by mouth once daily. - fluticasone (FLOVENT) 110 mcg/actuation inhaler Inhale 1 Puff as instructed twice daily. - albuterol HFA (PROVENTIL HFA, VENTOLIN HFA) 90 mcg/actuation inhaler 2 puff(s) every 4 hours as needed Problem List As Of Date 03/04/2023 Noted Resolved Essential hypertension [I10] 09/27/2016 Hyperlipidemia [E78.5] 09/27/2016 04/15/2017 Mixed hyperlipidemia [E78.2] 04/15/2017 BMI 30.0-30.9,adult [Z68.30] 03/24/2020 Obesity, Class I, BMI 30-34.9 [E66.9] 07/13/2021 Fibromyalgia [M79.7] 08/01/2021 Chronic midline low back pain [M54.50, G89.29] 02/16/2023 Dermatitis [L30.9] 02/16/2023 Encounter Status:Closed by HUBERT NAVA on 03/04/23 Normal [facility] CBC panel Auto (Bld)on 02-27 Erythrocyte distribution width (RBC) [Ratio] 12.6 % Normal 11.5-15.0 [facility] Comment on above: Order Comment: Carlos mckeon Type: BLOOD SPECIMEN Ordering Facility: [facility] Address: [address] [place] [address] Performed By: #### 5 8410-2 #### [facility] CLIA [id number] [address] [facility] [address] [place] Hematocrit (Bld) [Volume fraction] 42.0 % Normal 36.0-46.0 [facility] Comment on above: Order Comment: Carlos mckeon Type: BLOOD SPECIMEN Ordering Facility: [facility] Address: [address] [place] [address] Performed By: #### 5 8410-2 #### [facility] CLIA [id number] [place] [address] [place] Hemoglobin (Bld) [Mass/Vol] 13.9 g/dL Normal 11.5-15.5 [facility] Comment on above: Order Comment: Speci men Type: BLOOD SPECIMEN Ordering Facility: [facility] Address: [address] [place] [address] Performed By: #### 5 8410-2 #### [facility] CLIA [id number] [place] [address] [place] MCH (RBC) [Entitic mass] 29.0 pg Normal 26.0-34.0 [facility] Comment on above: Order Comment: Speci men Type: BLOOD SPECIMEN Ordering Facility: [facility] Address: [address] [place] [address] Performed By: #### 5 8410-2 #### [facility] IA [id number] [address] [place] [address] [place] MCHC (RBC) [Mass/Vol] 33.1 g/dL Normal 30.5-36.0 [facility] Comment on above: Order Comment: Speci men Type: BLOOD SPECIMEN Ordering Facility: [facility] Address: [address] [place] [address] Performed By: #### 5 8410-2 #### [facility] IA [id number] [address] [place] [address] [place] MCV (RBC) [Entitic vol] 87.5 fL Normal 80.0-100.0 [facility] Comment on above: Order Comment: Speci men Type: BLOOD SPECIMEN Ordering Facility: [facility] Address: [address] [place] [address] Performed By: #### 5 8410-2 #### [facility] IA [id number] [address] [place] [address] [place] Nucleated RBC (Bld) [#/Vol] 10*3/uL Normal <0.01 [facility] Comment on above: Order Comment: Speci men Type: BLOOD SPECIMEN Ordering Facility: [facility] Address: [address] [place] [address] Performed By: #### 5 8410-2 #### [facility] CLIA [id number] [address] [place] [address] [place] Platelet mean volume (Bld) [Entitic vol] 9.8 fL Normal 9.0-12.7 [facility] Comment on above: Order Comment: Speci men Type: BLOOD SPECIMEN Ordering Facility: [facility] Address: [address] [place] [address] Performed By: #### 5 8410-2 #### [facility] CLIA [id number] [address] [place] [address] [place] Platelets (Bld) [#/Vol] 267 10*3/uL Normal 150-400 [facility] Comment on above: Order Comment: Speci men Type: BLOOD SPECIMEN Ordering Facility: [facility] Address: [address] [place] [address] Performed By: #### 5 8410-2 #### [facility] IA [id number] [address] [place] [address] [place] RBC (Bld) [#/Vol] 4.80 10*6/uL Normal 3.90-5.20 [facility] Comment on above: Order Comment: Speci men Type: BLOOD SPECIMEN Ordering Facility: [facility] Address: [address] [place] [address] Performed By: #### 5 8410-2 #### [facility] CLIA [id number] [address] [place] [address] [place] WBC (Bld) [#/Vol] 10.48 10*3/uL Normal 3.70-11.00 [facility] Comment on above: Order Comment: Speci men Type: BLOOD SPECIMEN Ordering Facility: [facility] Address: [address] [place] [address] Performed By: #### 5 8410-2 #### [facility] IA [id number] [address] [place] [address] [place] [facility] [place] Comprehensive metabolic 2000 panelon 02-27-2023 Albumin [Mass/Vol] 4.8 g/dL Normal 3.9-4.9 [facility] Comment on above: Order Comment: Speci men Type: BLOOD SPECIMEN Ordering Facility: [facility] Address: [address] [place] [address] Performed By: #### 2 4323-8, 82988-0 #### [facility] CLIA [id number] [address] [place] [address] [place] ALP [Catalytic activity/Vol] 108 U/L Normal 34-123 [facility] Comment on above: Order Comment: Speci men Type: BLOOD SPECIMEN Ordering Facility: [facility] Address: [address] [place] [address] Performed By: #### 2 432-8, 23060-6 #### [facility] CLIA [id number] [address] [place] [address] [place] ALT [Catalytic activity/Vol] 27 U/L Normal 7-38 [facility] Comment on above: Order Comment: Speci men Type: BLOOD SPECIMEN Ordering Facility: [facility] Address: [address] [place] [address] Performed By: #### 2 432-8, 37194-6 #### [facility] CLIA [id number] [address] [place] [address] [place] Anion gap [Moles/Vol] 11 mmol/L Normal 9-18 [facility] Comment on above: Order Comment: Speci men Type: BLOOD SPECIMEN Ordering Facility: [facility] Address: [address] [place] [address] Performed By: #### 2 432-8, 44939-3 #### [facility] CLIA [id number] [address] [place] [address] [place] AST [Catalytic activity/Vol] 22 U/L Normal 13-35 [facility] Comment on above: Order Comment: Speci men Type: BLOOD SPECIMEN Ordering Facility: [facility] Address: [address] [place] [address] Performed By: #### 2 4323-8, 66359-9 #### [facility] CLIA [id number] [address] [place] [address] [place] Bilirubin [Mass/Vol] 0.4 mg/dL Normal 0.2-1.3 [facility] Comment on above: Order Comment: Speci men Type: BLOOD SPECIMEN Ordering Facility: [facility] Address: [address] [place] [address] Performed By: #### 2 4323-8, 63701-5 #### [facility] CLIA [id number] [address] [place] [address] [place] Calcium [Mass/Vol] 9.9 mg/dL Normal 8.5-10.2 [facility] Comment on above: Order Comment: Speci men Type: BLOOD SPECIMEN Ordering Facility: [facility] Address: [address] [place] [address] Performed By: #### 2 4323-8, 98195-8 #### [facility] CLIA [id number] [address] [place] [address] [place] Chloride [Moles/Vol] 102 mmol/L Normal 97-105 [facility] Comment on above: Order Comment: Speci men Type: BLOOD SPECIMEN Ordering Facility: [facility] Address: [address] [place] [address] Performed By: #### 2 4323-8, 38882-6 #### [facility] CLIA [id number] [address] [place] [address] [place] CO2 [Moles/Vol] 28 mmol/L Normal 22-30 [facility] Comment on above: Order Comment: Speci men Type: BLOOD SPECIMEN Ordering Facility: [facility] Address: [address] [place] [address] Performed By: #### 2 4323-8, 26725-0 #### [facility] CLIA [id number] [address] [place] [address] [place] Creatinine [Mass/Vol] 0.63 mg/dL Normal 0.58-0.96 [facility] Comment on above: Order Comment: Speci men Type: BLOOD SPECIMEN Ordering Facility: [facility] Address: [address] [place] [address] Performed By: #### 2 4323-8, 41564-3 #### [facility] CLIA [id number] [address] [facility] [address] [place] Creatinine and Glomerular filtration rate.predicted panel (S/P/Bld) 100 mL/min/1.73m??? Normal >=60 [facility] Comment on above: Order Comment: Carlos mckeon Type: BLOOD SPECIMEN Ordering Facility: [facility] Address: [address] [place] [address] Result Comment: Kati mated Glomerular Filtration Rate (eGFR) is calculated using the 2020 CKD-EPI creatinine equation. This equation utilizes serum creatinine, sex, and age as parameters. The creatinine assay has traceable calibration to isotope dilution-mass spectrometry. Refer to KDIGO guidelines for clinical interpretation. In patients with unstable renal function, e.g. those with acute kidney injury, the eGFR may not accurately reflect actual GFR. Performed By: #### 2 4323-8, 82884-0 #### [facility] CLIA [id number] [address] [facility] [address] [place] Glucose [Mass/Vol] 95 mg/dL Normal 74-99 [facility] Comment on above: Order Comment: Carlos mckeon Type: BLOOD SPECIMEN Ordering Facility: [facility] Address: [address] [place] [address] Result Comment: The [place] Diabetes Association (ADA) provides guidance for cutoff values for fasting glucose and random glucose. The ADA defines fasting as no caloric intake for at least 8 hours. Fasting plasma glucose results between 100 to 125 mg/dL indicate increased risk for diabetes (prediabetes). Fasting plasma glucose results greater than or equal to 126 mg/dL meet the criteria for diagnosis of diabetes. In the absence of unequivocal hyperglycemia, results should be confirmed by repeat testing. In a patient with classic symptoms of hyperglycemia or hyperglycemic crisis, random plasma glucose results greater than or equal to 200 mg/dL meet the criteria for diagnosis of diabetes. Reference: Standards of Medical Care in Diabetes 2016, [place] [employer] Association. Diabetes Care. 2016.39(Suppl 1). Performed By: #### 2 4323-8, 61836-6 #### [facility] CLIA [id number] [address] [place] [address] [place] Potassium [Moles/Vol] 4.4 mmol/L Normal 3.7-5.1 [facility] Comment on above: Order Comment: Speci men Type: BLOOD SPECIMEN Ordering Facility: [facility] Address: [address] [place] [address] Performed By: #### 2 4323-8, 95868-1 #### [facility] CLIA [id number] [address] [place] [address] [place] Protein [Mass/Vol] 7.4 g/dL Normal 6.3-8.0 [facility] Comment on above: Order Comment: Speci men Type: BLOOD SPECIMEN Ordering Facility: [facility] Address: [address] [place] [address] Performed By: #### 2 4323-8, 04988-8 #### [facility] CLIA [id number] [address] [place] [address] [place] Sodium [Moles/Vol] 141 mmol/L Normal 136-144 [facility] Comment on above: Order Comment: Speci men Type: BLOOD SPECIMEN Ordering Facility: [facility] Address: [address] [place] [address] Performed By: #### 2 4323-8, 69289-5 #### [facility] CLIA [id number] [address] [place] [address] [place] Urea nitrogen [Mass/Vol] 16 mg/dL Normal 7-21 [facility] Comment on above: Order Comment: Speci men Type: BLOOD SPECIMEN Ordering Facility: [facility] Address: [address] [place] [address] Performed By: #### 2 4323-8, 18802-9 #### [facility] CLIA [id number] [address] [place] [address] [place] Lipid 1996 panelon 3 Cholesterol [Mass/Vol] 203 mg/dL High <200 [facility] Comment on above: Order Comment: Speci men Type: BLOOD SPECIMEN Ordering Facility: [facility] Address: [address] [place] [address] Result Comment: <200 mg/dL, Desirable 200-239 mg/dL, Borderline high >239 mg/dL, High Performed By: #### 2 4323-8, 00462-8 #### [facility] CLIA [id number] [address] [facility] [address] [facility] Cholesterol in HDL [Mass/Vol] 55 mg/dL Normal >39 [facility] Comment on above: Order Comment: Carlos mckeon Type: BLOOD SPECIMEN Ordering Facility: [facility] Address: [address] [place] [address] Result Comment: 40-5 9 mg/dL, Acceptable >59 mg/dL, High: Negative risk factor for coronary heart disease <40 mg/dL, Low: Positive risk factor for coronary heart disease Performed By: #### 2 4323-8, 35762-9 #### [facility] CLIA [id number] [address] [facility] [address] [facility] Cholesterol in LDL [Mass/Vol] 113 mg/dL High <100 [facility] Comment on above: Order Comment: Carlos mckeon Type: BLOOD SPECIMEN Ordering Facility: [facility] Address: [address] [place] [address] Result Comment: <100 mg/dL, Optimal 100-129 mg/dL, Near optimal/above optimal 130-159 mg/dL, Borderline high 160-189 mg/dL, High >189 mg/dL, Very high Secondary prevention optimal LDL Cholesterol levels are recommended to be < 70 mg/dL Performed By: #### 2 4323-8, 84052-3 #### [facility] CLIA [id number] [address] [facility] [address] [facility] Cholesterol in LDL/Cholesterol in HDL [Mass ratio] 2.05 {ratio} Normal <2.54 [facility] Comment on above: Order Comment: Carlos mckeon Type: BLOOD SPECIMEN Ordering Facility: [facility] Address: [address] [place] [address] Result Comment: Refe rence: 1. National Cholesterol Education Program ATP III Guideline At-A-Glance Quick Desk Reference: National Heart, Lung, and Blood [place]. National Institutes of Health. 2001: NIH Publication No. 01-3305. 2. An International Atherosclerosis Society position paper: global recommendations for the management of dyslipidemia: executive summary, Atherosclerosis. 2014: 232(2):410-413. Performed By: #### 2 4323-8, 81734-6 #### [facility] CLIA [id number] [address] [facility] [address] [facility] [place] Cholesterol in VLDL [Mass/Vol] 35 mg/dL High <30 [facility] Comment on above: Order Comment: Carlos men Type: BLOOD SPECIMEN Ordering Facility: [facility] Address: [address] [place] [address] Performed By: #### 2 4323-8, #### [facility] [place] [id number] [address] [facility] [place], [place] [address] [place] [address] [place] Cholesterol non HDL [Mass/Vol] 148 mg/dL High <130 [facility] Comment on above: Order Comment: Carlos mckeon Type: BLOOD SPECIMEN Ordering Facility: [facility] Address: [address] [place] [address] Result Comment: <130 mg/dL, Optimal 130-159 mg/dL, Near optimal/above optimal 160-189 mg/dL, Borderline high 190-219 mg/dL, High >219 mg/dL, Very high Secondary prevention optimal non HDL Cholesterol levels are recommended to be <100 mg/dL Performed By: #### 2 4323-8, 51057-6 #### [facility] CLIA [id number] [address] [facility] [address] [place] Cholesterol.total /Cholesterol in HDL [Mass ratio] 3.69 {ratio} Normal <5.10 [facility] Comment on above: Order Comment: Carlos [facility] Type: BLOOD SPECIMEN Ordering Facility: [facility] Address: [address] [place] [address] Performed By: #### 2 4323-8, #### [facility] CLIA [id number] [address] [facility] [address] [place] FASTING TIME 15 hrs Normal [facility] Comment on above: Order Comment: Carlos [facility] Type: BLOOD SPECIMEN Ordering Facility: [facility] Address: [place] [address] Performed By: #### 2 4323-8, 82082-0 #### [facility] CLIA [id number] [address] [place] [address] [facility] Triglyceride [Mass/Vol] 173 mg/dL High <150 [facility] Comment on above: Order Comment: Speci men Type: BLOOD SPECIMEN Ordering Facility: [facility] Address: [address] [place] [address] Result Comment: <150 mg/dL, Normal 150-199 mg/dL, Borderline high 200-499 mg/dL, High >499 mg/dL, Very high Performed By: #### 2 4323-8, 05720-0 #### [facility] CLIA [id number] [address] [place] [address] [facility] Office Visiton 02-27-2023 Follow-up visit [id number] Gisel Corbin 1960 F Date Provider Department Center 02/27/2023 [facility] No family history on file Level of Service:60693 [facility] OFFICE/OUTPATIENT ESTABLISHED LOW MDM 20-29 MIN Normal [facility] CNOVon 01-31-2023 CNOV Office Visit (AGSUSAN WALLACE) -------- SAIDA CORBIN ([id number]) 1960 F Date Time Provider Department 01/31/23 10:00 AM STACIE FAIRBANKS During your visit today, we recorded the following information about you: Temperature Pulse Respiration Blood pressure 97.5 degrees 52/minute 16/minute 118/70 Weight Height 89.7 kg 1.727 m Stacie Fairbanks DO 02/16/2023 8:08 PM Signed Subjective The history is provided by the patient and the spouse. Hypertension This is a chronic problem. The current episode started more than 1 year ago. The problem is unchanged. The problem is controlled. Pertinent negatives include no blurred vision, chest pain, headaches, malaise/fatigue, palpitations or shortness of breath. She has chronic back pain and is under the care of the neurosurgery dept at [facility], sees Maria Luisa Farooq NP She has been in PT for the pain, doing exercises at home She will be getting nerve root ablation by their office on 02/25 She had covid 19 in the past, and lost her sense of taste, and it has not come back ALLERGIES Allergen Reactions Baclofen Other: See Comments Shaky, chest tightness, difficulty talking Crestor [Rosuvastat* Diarrhea, Vomiting, Other: See Comments Nausea Cyclobenzaprine Other: See Comments Shaky, chest tightness, difficulty talking Latex Unknown Nyquil [Doxylamin-P* Unknown Pheniramine Unknown Current Outpatient Medications Medication Sig Dispense Refill simvastatin (ZOCOR) 40 mg tablet take 1 tablet by mouth everyday at bedtime 90 tablet 0 betamethasone dipropionate (DIPROSONE) 0.05 % cream APPLY TO AFFECTED AREA TWICE A DAY 45 g 5 ibuprofen (MOTRIN) 800 mg tablet TAKE 1 TABLET BY MOUTH EVERY 8 HOURS NEEDED 90 tablet 11 OTC PRODUCT CBD gummies as needed omega-3 fatty acids (FISH OIL CONCENTRATE ORAL) Take by mouth. Multivitamin capsule Take 1 capsule by mouth once daily. cholecalciferol (VITAMIN D3) 1,000 unit tab tablet Take 1,000 Units by mouth once daily. betamethasone dipropionate, augmented (DIPROLENE) 0.05 % cream betamethasone, augmented 0.05 % topical cream amLODIPine (NORVASC) 5 mg tablet Take 5 mg by mouth once daily. fluticasone (FLOVENT) 110 mcg/actuation inhaler Inhale 1 Puff as instructed twice daily. 1 Inhaler 1 albuterol HFA (PROVENTIL HFA, VENTOLIN HFA) 90 mcg/actuation inhaler 2 puff(s) every 4 hours as needed cyclobenzaprine (FLEXERIL) 10 mg tablet Take 0.5-1 tablets by mouth at bedtime as needed. (Patient not taking: Reported on 01/31/2023) 30 tablet 0 No current facility-administered medications for this visit. ACTIVE PROBLEM LIST Essential Hypertension Mixed Hyperlipidemia Bmi 30.0-30.9,Adult Obesity, Class I, Bmi 30-34.9 Fibromyalgia Social History Tobacco Use Smoking status: Never Smokeless tobacco: Never Substance Use Topics Alcohol use: Yes Comment: wine Drug use: No Comment: No reported history Family History Problem Relation Age of Onset Alzheimer's Disease Father Hypertension Father Prostate Cancer Father Hypertension Mother Reviewed past medical history, family history and surgeries. All medications and supplements were reviewed with the patient. Review of Systems Constitutional: Negative for chills, diaphoresis, fever, malaise/fatigue and weight loss. HENT: Negative for ear pain and hearing loss. Eyes: Negative for blurred vision and double vision. Respiratory: Negative for cough and shortness of breath. Cardiovascular: Negative for chest pain, palpitations and leg swelling. Gastrointestinal: Negative for constipation, diarrhea and heartburn. Genitourinary: Negative for dysuria and frequency. Musculoskeletal: Positive for back pain. Negative for falls, joint pain and myalgias. Skin: Negative for itching and rash. Neurological: Positive for sensory change. Negative for dizziness, weakness and headaches. Endo/Heme/Allergies: Does not bruise/bleed easily. Psychiatric/Behavioral: Negative for depression and substance abuse. The patient does not have insomnia. Objective BP 118/70 Pulse (!) 52 Temp 36.4 ?C (97.5 ?F) Resp 16 Ht 172.7 cm (5' 8 ) Wt 89.7 kg (197 lb 12.8 oz) SpO2 96% BMI 30.08 kg/m? Physical Exam Constitutional: Appearance: Normal appearance. She is obese. HENT: Head: Normocephalic and atraumatic. Nose: Nose normal. Mouth/Throat: Mouth: Mucous membranes are moist. Dentition: Normal dentition. Eyes: General: Lids are normal. Extraocular Movements: Extraocular movements intact. Conjunctiva/sclera: Conjunctivae normal. Pupils: Pupils are equal, round, and reactive to light. Neck: Thyroid: No thyroid mass or thyromegaly. Vascular: No carotid bruit. Trachea: Phonation normal. Cardiovascular: Rate and Rhythm: Normal rate and regular rhythm. Heart sounds: Normal heart sounds. No murmur heard. No friction ru (more content not included)... Normal [facility] 01-31-2023 CNPN Telephone (AGFAMPLE) -------- SAIDA CORBIN ([id number]) 1960 F Date Time Provider Department 01/31/23 STACIE FAIRBANKS AGFAMPRODRIGO During your visit today, we recorded the following information about you: Stacie Fairbanks DO 01/31/2023 5:39 PM Signed Please call pt- there is a possible interaction between simvastatin and amlodipine. Because of that, I would like for her to stop taking simvastatin, and I will send in Rx for atorvastatin. I would like for her to get FLP/LFT in 3 months DO Macrina Park Julie, MA 02/03/2023 8:17 AM Signed Patient is informed Brynn Paulino MA Allergies As of Date: 01/31/2023 Noted Allergy Reaction BACLOFEN 01/31/2023 14 - Other: See Comments Comments: Shaky, chest tightness, difficulty talking CRESTOR (ROSUVASTATIN CALCIUM) 12/21/2015 6 - Diarrhea 11 - Vomiting 14 - Other: See Comments Comments: Nausea CYCLOBENZAPRINE 01/31/2023 14 - Other: See Comments Comments: Shaky, chest tightness, difficulty talking LATEX 12/26/2014 16 - Unknown NYQUIL (LDNQQBMMV-ACM-LO-ACETAM IN*12/21/2015 16 - Unknown PHENIRAMINE 12/26/2014 16 - Unknown Date Reviewed: 01/31/2023 Reviewed by: Stacie Fairbanks DO - Fully Assessed Reason for Visit: Medication Problem [65] Primary Visit Diagnosis:Mixed hyperlipidemia [E78.2] Order(s):atorvastatin (LIPITOR) 40 mg tabletTake 1 tablet by mouth once daily.Disp: 90 tabletRfl: 1 Prescriptions as of 02/03/2023 - betamethasone dipropionate (DIPROSONE) 0.05 % cream Apply to affected area twice daily. APPLY TO AFFECTED AREA - atorvastatin (LIPITOR) 40 mg tablet Take 1 tablet by mouth once daily. - ibuprofen (MOTRIN) 800 mg tablet TAKE 1 TABLET BY MOUTH EVERY 8 HOURS NEEDED - OTC PRODUCT CBD gummies as needed - omega-3 fatty acids (FISH OIL CONCENTRATE ORAL) Take by mouth. - Multivitamin capsule Take 1 capsule by mouth once daily. - cholecalciferol (VITAMIN D3) 1,000 unit tab tablet Take 1,000 Units by mouth once daily. - betamethasone dipropionate, augmented (DIPROLENE) 0.05 % cream betamethasone, augmented 0.05 % topical cream - amLODIPine (NORVASC) 5 mg tablet Take 5 mg by mouth once daily. - fluticasone (FLOVENT) 110 mcg/actuation inhaler Inhale 1 Puff as instructed twice daily. - albuterol HFA (PROVENTIL HFA, VENTOLIN HFA) 90 mcg/actuation inhaler 2 puff(s) every 4 hours as needed Problem List As Of Date 01/31/2023 Noted Resolved Essential hypertension [I10] 09/27/2016 Hyperlipidemia [E78.5] 09/27/2016 04/15/2017 Mixed hyperlipidemia [E78.2] 04/15/2017 BMI 30.0-30.9,adult [Z68.30] 03/24/2020 Obesity, Class I, BMI 30-34.9 [E66.9] 07/13/2021 Fibromyalgia [M79.7] 08/01/2021 Prescriptions ordered this encounter Disp Refills Start End ATORVASTATIN 40 MG TABLET 90 t* 1 01/31/2023 Route: ORAL Sig: Take 1 tablet by mouth once daily. Encounter Status:Closed by BRYNN PAULINO on 02/03/23 [facility] CNPN Telephone (AGFAMPLE) -------- SAIDA CORBIN ([id number]) 1960 F Date Time Provider Department 01/31/23 STACIE FAIRBANKS During your visit today, we recorded the following information about you: Caterina Prakash MA 01/31/2023 2:41 PM Signed [facility] Prescriber Response Form regarding patient's amlodipine and simvastatin placed in Dr. Fairbanks green folder to be filled out signed. Caterina Prakash MA Allergies As of Date: 01/31/2023 Noted Allergy Reaction BACLOFEN 01/31/2023 14 - Other: See Comments Comments: Shaky, chest tightness, difficulty talking CRESTOR (ROSUVASTATIN CALCIUM) 12/21/2015 6 - Diarrhea 11 - Vomiting 14 - Other: See Comments Comments: Nausea CYCLOBENZAPRINE 01/31/2023 14 - Other: See Comments Comments: Shaky, chest tightness, difficulty talking LATEX 12/26/2014 16 - Unknown NYQUIL (CJWGGIGEN-YMP-HA-ACETAM IN*12/21/2015 16 - Unknown PHENIRAMINE 12/26/2014 16 - Unknown Date Reviewed: 01/31/2023 Reviewed by: Stacie Fairbanks DO - Fully Assessed Reason for Visit: Forms [913] Cmt: [facility] Prescriber Response Form regarding patient's amlodipine and simvastatin Prescriptions as of 01/31/2023 - betamethasone dipropionate (DIPROSONE) 0.05 % cream Apply to affected area twice daily. APPLY TO AFFECTED AREA - simvastatin (ZOCOR) 40 mg tablet take 1 tablet by mouth everyday at bedtime - ibuprofen (MOTRIN) 800 mg tablet TAKE 1 TABLET BY MOUTH EVERY 8 HOURS NEEDED - OTC PRODUCT CBD gummies as needed - omega-3 fatty acids (FISH OIL CONCENTRATE ORAL) Take by mouth. - Multivitamin capsule Take 1 capsule by mouth once daily. - cholecalciferol (VITAMIN D3) 1,000 unit tab tablet Take 1,000 Units by mouth once daily. - betamethasone dipropionate, augmented (DIPROLENE) 0.05 % cream betamethasone, augmented 0.05 % topical cream - amLODIPine (NORVASC) 5 mg tablet Take 5 mg by mouth once daily. - fluticasone (FLOVENT) 110 mcg/actuation inhaler Inhale 1 Puff as instructed twice daily. - albuterol HFA (PROVENTIL HFA, VENTOLIN HFA) 90 mcg/actuation inhaler 2 puff(s) every 4 hours as needed Problem List As Of Date 01/31/2023 Noted Resolved Essential hypertension [I10] 09/27/2016 Hyperlipidemia [E78.5] 09/27/2016 04/15/2017 Mixed hyperlipidemia [E78.2] 04/15/2017 BMI 30.0-30.9,adult [Z68.30] 03/24/2020 Obesity, Class I, BMI 30-34.9 [E66.9] 07/13/2021 Fibromyalgia [M79.7] 08/01/2021 Encounter Status:Closed by CATERINA PRAKASH on 01/31/23 Normal [facility] XR dexa axial skeletonon XR dexa axial skeleton [employer] Other MR lumbar spine wo conon MR lumbar spine wo con [facility] [address] MRI Report Signed Patient: Saida Corbin MR#: [id number] : 1960 Acct:[id number] Age/Sex: 62 / F ADM Date: 12/02/22 Loc: [facility] Room: [facility] Attending Dr: Maria Luisa URBAN Copies to: RAJNI Austin Ordering Provider: RAJNI Austin Date of Service: 12/02/22 MR/MR lumbar spine wo con: m54.16 MR lumbar spine wo con 12/02/2022 10:54 AM SIGNS AND SYMPTOMS: Low back pain with right gluteal pain. PROTOCOL: Multiplanar multisequence MR images of the lumbar spine were obtained without IV contrast COMPARISON: 09/09/2022 FINDINGS: The bones of the lumbar spine are in anatomic alignment. There is preservation of vertebral body heights. There is desiccation and mild disc height loss at L2-L3 and L3-L4. There is moderate disc height loss at L4-L5. There is mild disc height loss at L5-S1. Mild Modic type II fatty endplate degenerative changes noted at L3-L4, L4-5, and L5-S1. The marrow signal is within normal limits, otherwise. The conus terminates at the inferior endplate of the L1 vertebral body level. No epidural or paraspinous fluid collection is appreciated. At T12-L1: There is a normal disc, central canal, and neural foramen. At L1-L2: There is a normal disc, central canal, and neural foramen. At L2-L3: There is a broad-based disc bulge with facet hypertrophy. There is mild narrowing of the spinal canal with no significant neural foraminal stenosis. At L3-L4: There is a broad-based disc bulge with facet hypertrophy. There is mild spinal canal narrowing with mild to moderate right and mild left neural foraminal narrowing. At L4-L5: There is a broad-based disc bulge with facet hypertrophy. There is mild spinal canal stenosis. Endplate osteophyte formation is present. There is mild to moderate bilateral neural foraminal narrowing. At L5-S1: Facet hypertrophy is present bilaterally. No significant stenosis. MR/MR lumbar spine wo con IMPRESSION: At L2-L3: There is a broad-based disc bulge with facet hypertrophy. There is mild narrowing of the spinal canal with no significant neural foraminal stenosis. At L3-L4: There is a broad-based disc bulge with facet hypertrophy. There is mild spinal canal narrowing with mild to moderate right and mild left neural foraminal narrowing. At L4-L5: There is a broad-based disc bulge with facet hypertrophy. There is mild spinal canal stenosis. Endplate osteophyte formation is present. There is mild to moderate bilateral neural f oraminal narrowing. Impression dictated by: Colt Duran M.D.12/02/2022 2:13 PM Dictation Location: [place] [address] Transcribed By: [facility] 12/02/22 1413 Dictated By: Colt Duran II, MD 12/02/22 1407 Signed By: 12/02/22 1413 [facility] MR lumbar spine wo con [facility] [employer] Other MR lumbar spine wo con [facility] [employer] Other MR lumbar spine wo con [address] [place] [address] [employer] Other [place] [address] [employer] Other MR lumbar spine wo con MRI Report [employer] Other MR lumbar spine wo con Signed [employer] Other MR lumbar spine wo con Patient: Saida Corbin MR#: [id number] [employer] Other MR lumbar spine wo con 4038 [employer] Other MR lumbar spine wo con : 1960 Acct:[id number] [employer] Other MR lumbar spine wo con Age/Sex: 62 / F ADM Date: 12/02/22 [employer] Other MR lumbar spine wo con Loc: [facility] Room: [facility] [employer] Other MR lumbar spine wo con Attending Dr: Maria Luisa Farooq [employer] Other MR lumbar spine wo con Copies to: Maria Luisa Farooq [employer] Other MR lumbar spine wo con Ordering Provider: Maria Luisa Farooq [employer] Other MR lumbar spine wo con Date of Service: 12/02/22 [employer] Other MR lumbar spine wo con MR/MR lumbar spine wo con: m54.16 [employer] Other MR lumbar spine wo con MR lumbar spine wo con 12/02/2022 10:54 AM [employer] Other MR lumbar spine wo con SIGNS AND SYMPTOMS: Low back pain with right gluteal pain. [employer] Other MR lumbar spine wo con PROTOCOL: Multiplanar multisequence MR images of the lumbar spine were obtained without IV contrast [employer] Other MR lumbar spine wo con COMPARISON: 09/09/2022 [employer] Other MR lumbar spine wo con FINDINGS: The bones of the lumbar spine are in anatomic alignment. There is preservation of [employer] Other MR lumbar spine wo con vertebral body heights. There is desiccation and mild disc height loss at L2-L3 and L3-L4. There is [employer] Other MR lumbar spine wo con moderate disc height loss at L4-L5. There is mild disc height loss at L5-S1. Mild Modic type II [employer] Other MR lumbar spine wo con fatty endplate degenerative changes noted at L3-L4, L4-5, and L5-S1. The marrow signal is within [employer] Other MR lumbar spine wo con normal limits, otherwise. The conus terminates at the inferior endplate of the L1 vertebral body [employer] Other MR lumbar spine wo con level. No epidural or paraspinous fluid collection is appreciated. [employer] Other MR lumbar spine wo con At T12-L1: There is a normal disc, central canal, and neural foramen. [employer] Other MR lumbar spine wo con At L1-L2: There is a normal disc, central canal, and neural foramen. [employer] Other MR lumbar spine wo con At L2-L3: There is a broad-based disc bulge with facet hypertrophy. There is mild narrowing of the [employer] Other MR lumbar spine wo con spinal canal with no significant neural foraminal stenosis. [employer] Other MR lumbar spine wo con At L3-L4: There is a broad-based disc bulge with facet hypertrophy. There is mild spinal canal [employer] Other MR lumbar spine wo con narrowing with mild to moderate right and mild left neural foraminal narrowing. [employer] Other MR lumbar spine wo con At L4-L5: There is a broad-based disc bulge with facet hypertrophy. There is mild spinal canal [employer] Other MR lumbar spine wo con stenosis. Endplate osteophyte formation is present. There is mild to moderate bilateral neural [employer] Other MR lumbar spine wo con foraminal narrowing. [employer] Other MR lumbar spine wo con At L5-S1: Facet hypertrophy is present bilaterally. No significant stenosis. [employer] Other MR lumbar spine wo con MR/MR lumbar spine wo con [employer] Other MR lumbar spine wo con IMPRESSION: [employer] Other MR lumbar spine wo con stenosis. Endplate osteophyte formation is present. There is mild to moderate bilateral neural f [employer] Other MR lumbar spine wo con oraminal narrowing. [employer] Other MR lumbar spine wo con Impression dictated by: Colt Duran M.D.12/02/2022 2:13 PM [employer] Other MR lumbar spine wo con Dictation Location: [place] [address] [employer] Other MR lumbar spine wo con Transcribed By: MIRA 12/02/22 [facility] [employer] Other MR lumbar spine wo con Dictated By: Colt Duran II, MD 12/02/22 [facility] [employer] Other MR lumbar spine wo con Signed By: [employer] Other MR lumbar spine wo con 12/02/22 [facility] [employer] Other XR lumbar spine 6V w bending on 10-31-2022 XR lumbar spine 6V w bending [facility] [employer] Other XR lumbar spine 6V w bending [facility] [employer] Other XR lumbar spine 6V w bending [address] [place] [address] [employer] Other XR lumbar spine 6V [place] [address] [employer] Other XR lumbar spine 6V w bending XRay Report [employer] Other XR lumbar spine 6V w bending Signed [employer] Other XR lumbar spine 6V w bending Patient: Saida Corbin MR#: [id number] [employer] Other XR lumbar spine 6V w bending 4038 [employer] Other XR lumbar spine 6V w bending : 1960 Acct:[id number] [employer] Other XR lumbar spine 6V w bending Age/Sex: 62 / F ADM Date: 10/31/22 [employer] Other XR lumbar spine 6V w bending Loc: XD Room: [facility] [employer] Other XR lumbar spine 6V w bending Attending Dr: Maria Luisa GREENC [employer] Other XR lumbar spine 6V w bending Copies to: RAJNI Austin [employer] Other XR lumbar spine 6V w bending Ordering Provider: RAJNI Austin [employer] Other XR lumbar spine 6V w bending Date of Service: 10/31/22 [employer] Other XR lumbar spine 6V w bending XR/XR lumbar spine 6V w bending: M54.16 [employer] Other XR lumbar spine 6V w bending LUMBAR SPINE WITH FLEXION, EXTENSION AND BENDING VIEWS - 6 views: [employer] Other XR lumbar spine 6V w bending CLINICAL HISTORY: Low back pain radiating down the legs with numbness and tingling. No injury. [employer] Other XR lumbar spine 6V w bending COMPARISON: 09/09/2022 [employer] Other XR lumbar spine 6V w bending Standing AP neutral, right left bending and lateral views with neutral, flexion and extension were [employer] Other XR lumbar spine 6V w bending obtained. No acute fractures are identified. There is minimal retrolisthesis of L4 and L5. [employer] Other XR lumbar spine 6V w bending Alignment does not change significantly with flexion or extension. There is disc space narrowing at [employer] Other XR lumbar spine 6V w bending L4-5 and the lumbosacral junction. There is minor endplate spurring. There is lower lumbar facet [employer] Other XR lumbar spine 6V w bending disease. The SI joints are intact. No paraspinal soft tissue abnormalities are present. [employer] Other XR lumbar spine 6V w bending XR/XR lumbar spine 6V w bending [employer] Other XR lumbar spine 6V w bending IMPRESSION: [employer] Other XR lumbar spine 6V w bending LOWER LUMBAR DEGENERATIVE CHANGES. [employer] Other XR lumbar spine 6V w bending Impression dictated by: Maria Eugenia Yusuf M.D.10/31/2022 10:33 AM [employer] Other XR lumbar spine 6V w bending Dictation Location: [place] [address] [employer] Other XR lumbar spine 6V w bending Transcribed By: MIRA 10/31/22 1033 [employer] Other XR lumbar spine 6V w bending Dictated By: Maria Eugenia Yusuf MD 10/31/22 1032 [employer] Other XR lumbar spine 6V w bending Signed By: [employer] Other XR lumbar spine 6V w bending 10/31/22 1033 [employer] Other XR lumbar spine 6V w bending [facility] Main [place] [id number] XRay Report Signed Patient: Saida Corbin MR#: [id number] : 1960 Acct:[id number] Age/Sex: 62 / F ADM Date: 10/31/22 Loc: XD Room: [facility] Attending Dr: Maria Luisa Farooq NP-C Copies to: RAJNI Austin Ordering Provider: RAJNI Austin Date of Service: 10/31/22 XR/XR lumbar spine 6V w bending: M54.16 LUMBAR SPINE WITH FLEXION, EXTENSION AND BENDING VIEWS - 6 views: CLINICAL HISTORY: Low back pain radiating down the legs with numbness and tingling. No injury. COMPARISON: 09/09/2022 Standing AP neutral, right left bending and lateral views with neutral, flexion and extension were obtained. No acute fractures are identified. There is minimal retrolisthesis of L4 and L5. Alignment does not change significantly with flexion or extension. There is disc space narrowing at L4-5 and the lumbosacral junction. There is minor endplate spurring. There is lower lumbar facet disease. The SI joints are intact. No paraspinal soft tissue abnormalities are present. XR/XR lumbar spine 6V w bending IMPRESSION: LOWER LUMBAR DEGENERATIVE CHANGES. Impression dictated by: Maria Eugenia Yusuf M.D.10/31/2022 10:33 AM Dictation Location: [place] [address] Transcribed By: [facility] 10/31/22 1033 Dictated By: Maria Eugenia Yusuf MD 10/31/22 1032 Signed By: 10/31/22 1033 [facility] CBC panel Auto (Bld)on 09-09 Erythrocyte distribution width (RBC) [Ratio] 12.5 % 11.5 - 15.0 % [facility] Hematocrit (Bld) [Volume fraction] 43.6 % 36.0 - 46.0 % [facility] Hemoglobin (Bld) [Mass/Vol] 14.4 g/dL 11.5 - 15.5 g/dL [facility] MCH (RBC) [Entitic mass] 29.0 pg 26.0 - 34.0 pg [facility] MCHC (RBC) [Mass/Vol] 33.0 g/dL 30.5 - 36.0 g/dL [facility] MCV (RBC) [Entitic vol] 87.9 fL 80.0 - 100.0 fL [facility] Platelet mean volume (Bld) [Entitic vol] 9.9 fL 9.0 - 12.7 fL [facility] Platelets (Bld) [#/Vol] 263 10*3/uL 150 - 400 k/uL [facility] RBC (Bld) [#/Vol] 4.96 10*6/uL 3.90 - 5.2 0 m/uL [facility] WBC (Bld) [#/Vol] 8.87 10*3/uL 3.70 - 11. 00 k/uL [facility] Hepatic function 2000 panelo n 06-01-2022 Albumin [Mass/Vol] 4.7 g/dL Normal 3.9-4.9 [facility] Comment on above: Order Comment: Speci men Type: BLOOD SPECIMEN Ordering Facility: [facility] Address: [address] [place] [address] Performed By: #### 2 4325-3 #### [facility] CLIA [id number] [address] [place] [address] [place] ALP [Catalytic activity/Vol] 101 U/L Normal 34-123 [facility] Comment on above: Order Comment: Josephi men Type: BLOOD SPECIMEN Ordering Facility: [facility] Address: [address] [place] [address] Performed By: #### 2 4325-3 #### [facility] CLIA [id number] [address] [place] [address] [place] ALT [Catalytic activity/Vol] 19 U/L Normal 7-38 [facility] Comment on above: Order Comment: Josephi men Type: BLOOD SPECIMEN Ordering Facility: [facility] Address: [address] [place] [address] Performed By: #### 2 4325-3 #### [facility] CLIA [id number] [address] [place] [address] [place] AST [Catalytic activity/Vol] 23 U/L Normal 13-35 [facility] Comment on above: Order Comment: Speci men Type: BLOOD SPECIMEN Ordering Facility: [facility] Address: [address] [place] [address] Performed By: #### 2 4325-3 #### [facility] CLIA [id number] [place], [place] [id number] [place] [address] [place] Bilirubin [Mass/Vol] 0.3 mg/dL Normal 0.2-1.3 [facility] Comment on above: Order Comment: Speci men Type: BLOOD SPECIMEN Ordering Facility: [facility] Address: [address] [place] [address] Performed By: #### 2 4325-3 #### [facility] CLIA [id number] [place] Bilirubin.conjuga diamond [Mass/Vol] mg/dL Normal <0.2 [facility] Comment on above: Order Comment: Speci men Type: BLOOD SPECIMEN Ordering Facility: [facility] Address: [address] [place] [address] Performed By: #### 2 4325-3 #### [facility] CLIA [id number] [address] [place] [address] [place] Protein [Mass/Vol] 7.1 g/dL Normal 6.3-8.0 [facility] Comment on above: Order Comment: Speci men Type: BLOOD SPECIMEN Ordering Facility: [facility] Address: [address] [place] [address] Performed By: #### 2 4325-3 #### [facility] CLIA [id number] [address] [place] [address] [place] Lipid 1996 panelon 3 Cholesterol [Mass/Vol] 216 mg/dL High <200 [facility] Comment on above: Order Comment: Speci men Type: BLOOD SPECIMEN Ordering Facility: [facility] Address: [address] [place] [address] Result Comment: <200 mg/dL, Desirable 200-239 mg/dL, Borderline high >239 mg/dL, High Performed By: #### 2 4331-1 #### [facility] CLIA [id number] [facility] [address] [facility] Cholesterol in HDL [Mass/Vol] 53 mg/dL Normal >39 [facility] Comment on above: [facility]: [facility] Type: BLOOD SPECIMEN Ordering Facility: [facility] Address: [address] [place] [address] Result Comment: 40-5 9 mg/dL, Acceptable >59 mg/dL, High: Negative risk factor for coronary heart disease <40 mg/dL, Low: Positive risk factor for coronary heart disease Performed By: #### 2 4331-1 #### [facility] CLIA [id number] [address] [facility] [place], [place] [id number] [place] [address] [facility] Cholesterol in LDL [Mass/Vol] 135 mg/dL High <100 [facility] Comment on above: Order Comment: [facility] Type: BLOOD SPECIMEN Ordering Facility: [facility] Address: [address] [place] [address] Result Comment: <100 mg/dL, Optimal 100-129 mg/dL, Near optimal/above optimal 130-159 mg/dL, Borderline high 160-189 mg/dL, High >189 mg/dL, Very high Secondary prevention optimal LDL Cholesterol levels are recommended to be < 70 mg/dL Performed By: #### 2 4331-1 #### [facility] CLIA [id number] [address] [facility] [address] [facility] Cholesterol in LDL/Cholesterol in HDL [Mass ratio] 2.55 {ratio} High <2.54 [facility] Comment on above: Order Comment: [facility] Type: BLOOD SPECIMEN Ordering Facility: [facility] Address: [address] [address] Result Comment: Esvin rodgers: 1. National Cholesterol Education Program ATP III Guideline At-A-Glance Quick Desk Reference: National Heart, Lung, and Blood [place]. National Institutes of Health. 2001: NIH Publication No. 01-3305. 2. An International Atherosclerosis Society position paper: global recommendations for the management of dyslipidemia: executive summary, Atherosclerosis. 2014: 232(2):410-413. Performed By: #### 2 4331-1 #### [facility] [place] [id number] [facility] [address] [place] Cholesterol in VLDL [Mass/Vol] 28 mg/dL Normal <30 [facility] Comment on above: Order Comment: Speci men Type: BLOOD SPECIMEN Ordering Facility: [facility] Address: [address] [address] Performed By: #### 2 4331-1 #### [facility] [place] [id number] [facility] [address] [place] Cholesterol non HDL [Mass/Vol] 163 mg/dL High <130 [facility] Comment on above: Order Comment: Speci men Type: BLOOD SPECIMEN Ordering Facility: [facility] Address: [address] [place] [address] Result Comment: <130 mg/dL, Optimal 130-159 mg/dL, Near optimal/above optimal 160-189 mg/dL, Borderline high 190-219 mg/dL, High >219 mg/dL, Very high Secondary prevention optimal non HDL Cholesterol levels are recommended to be <100 mg/dL Performed By: #### 2 4331-1 #### [facility] [place] [id number] [address] [place] [id number] [place] Cholesterol.total /Cholesterol in HDL [Mass ratio] 4.08 {ratio} Normal <5.10 [facility] Comment on above: Order Comment: Speci men Type: BLOOD SPECIMEN Ordering Facility: [facility] Address: [address] [address] Performed By: #### 2 4331-1 #### [facility] [place] [id number] [facility] [address] [place] FASTING TIME 12 hrs Normal [facility] Comment on above: Order Comment: Speci men Type: BLOOD SPECIMEN Ordering Facility: [facility] Address: [address] [address] Performed By: #### 2 4331-1 #### [facility] [place] [id number] [facility] [address] [place] Triglyceride [Mass/Vol] 140 mg/dL Normal <150 [facility] Comment on above: Order Comment: Speci men Type: BLOOD SPECIMEN Ordering Facility: [facility] Address: [place] [address] Result Comment: <150 mg/dL, Normal 150-199 mg/dL, Borderline high 200-499 mg/dL, High >499 mg/dL, Very high Performed By: #### 2 4331-1 #### [facility] CLIA [id number] [place] [address] [facility] VITAMIN D 25 HYDROXYon 01-18 25-hydroxyvitamin D3 [Mass/Vol] 76.7 ng/mL >=30.0 ng/mL [facility] Comprehensive metabolic 2000 panelon 01-17-2022 Albumin [Mass/Vol] 5.1 g/dL High 3.9 - 4.9 g/dL [facility] ALP [Catalytic activity/Vol] 108 U/L 34 - 123 U/L [facility] ALT With P-5'-P [Catalytic activity/Vol] 30 U/L 7 - 38 U/L [facility] Anion gap [Moles/Vol] 11 mmol/L 9 - 18 mmol/L [facility] AST With P-5'-P [Catalytic activity/Vol] 24 U/L 13 - 35 U/L [facility] Bilirubin [Mass/Vol] 0.3 mg/dL 0.2 - 1.3 mg/dL [facility] Calcium [Mass/Vol] 10.1 mg/dL 8.5 - 10.2 mg/dL [facility] Chloride [Moles/Vol] 103 mmol/L 97 - 105 mmol/L [facility] CO2 [Moles/Vol] 28 mmol/L 22 - 30 mmol/L [facility] Creatinine [Mass/Vol] 0.62 mg/dL 0.58 - 0.96 mg/dL [facility] Estimated Glomerular Filtration Rate 101 mL/min/1.73m >=60 mL/min/1.73m [facility] Glucose [Mass/Vol] 107 mg/dL High 74 - 99 mg/dL [facility] Potassium [Moles/Vol] 4.5 mmol/L 3.7 - 5.1 mmol/L [facility] Protein [Mass/Vol] 7.4 g/dL 6.3 - 8.0 g/dL [facility] Sodium [Moles/Vol] 142 mmol/L 136 - 144 mmol/L [facility] Urea nitrogen [Mass/Vol] 15 mg/dL 7 - 21 mg/dL [facility] Lipid 1996 panelon Cholesterol [Mass/Vol] 223 mg/dL High <200 mg/dL [facility] Cholesterol in HDL [Mass/Vol] 40 mg/dL >39 mg/dL [facility] Cholesterol in LDL [Mass/Vol] 150 mg/dL High <100 mg/dL [facility] Cholesterol in LDL/Cholesterol in HDL [Mass ratio] 3.75 {ratio} High <2.54 [facility] Cholesterol in VLDL [Mass/Vol] 33 mg/dL High <30 mg/dL [facility] Cholesterol non HDL [Mass/Vol] 183 mg/dL High <130 mg/dL [facility] Cholesterol.total /Cholesterol in HDL [Mass ratio] 5.58 {ratio} High <5.10 [facility] Fasting Time 12 hrs [facility] Triglyceride [Mass/Vol] 163 mg/dL High <150 mg/dL [facility] TSH BLDon 01-17-2022 TSH Qn 2.300 m[IU]/L 0.270 - 4.200 mIU/L [facility] LIPID PROFILEon 10-31-2021 CHOL-HDL RATIO NORM SEE BELOW Normal [facility] Comment on above: Result Comment: 3.3 - 4.4 LOW RISK 4.4 - 7.1 AVERAGE RISK 7.1 - 11.0 MODERATE RISK >11.0 HIGH RISK Performed By: #### L SAY LIPID #### [facility] [address] [place] [address] Dr. Ivelisse Mendoza Cholesterol [Mass/Vol] 209 mg/dL Critically high <=200 [facility] Comment on above: Performed By: #### L SAY LIPID #### [facility] [address] [address] [address] Ivelisse Mendoza Cholesterol in HDL [Mass/Vol] 44 mg/dL Normal 40-60 [facility] Comment on above: Performed By: #### L SAY LIPID #### [facility] [address] [address] [address] Ivelisse Mendoza Cholesterol in LDL [Mass/Vol] 147.4 mg/dL Normal [facility] Comment on above: Performed By: #### L IVER, LIPID #### [facility] [address] [address] [address] Ivelisse Mendoza Cholesterol.total /Cholesterol in HDL [Mass ratio] 4.8 {ratio} Normal [facility] Comment on above: Performed By: #### L IVER, LIPID #### [facility] [address] [address] [address] Ivelisse Mendoza HDL NORMAL > or = 60 mg/dl - LO W CARDIOVASCULAR RISK <40 mg/dl - HIGH CARDIOVASCULAR RISK Normal [facility] Comment on above: Performed By: #### L IVER, LIPID #### [facility] [address] [address] [address] Ivelisse Mendoza LDL CALC NORMAL SEE BELOW Normal [facility] Comment on above: Result Comment: <100 mg/dl OPTIMAL 100 - 129 mg/dl NEAR OR ABOVE OPTIMAL 130 - 159 mg/dl BORDERLINE HIGH 160 - 189 mg/dl HIGH >190 mg/dl VERY HIGH Performed By: #### L IVER, LIPID #### [facility] [address] [address] [address] Ivelisse Mendoza Triglyceride [Mass/Vol] 88 mg/dL Normal <=150 [facility] Comment on above: Performed By: #### L IVER, LIPID #### [facility] [address] [address] [address] Ivelisse Mendoza VLDL CALC 17.6 mg/dL Normal [facility] Comment on above: Performed By: #### L IVER, LIPID #### [facility] [address] [address] [address] Ivelisse Mendoza LIVER PROFILEon 10-31-2021 Albumin [Mass/Vol] 4.2 g/dL Normal 3.4-5.0 [facility] Comment on above: Performed By: #### L IVER, LIPID #### [facility] [address] [address] [address] Ivelisse Mendoza Albumin/Globulin [Mass ratio] 1.3 {ratio} Normal [facility] Comment on above: Performed By: #### L IVER, LIPID #### [facility] [address] [address] [address] Ivelisse Mendoza ALP [Catalytic activity/Vol] 101 U/L Normal 46-116 [facility] Comment on above: Performed By: #### L IVER, LIPID #### [facility] [address] [address] [address] Ivelisse Mendoza ALT [Catalytic activity/Vol] 38 U/L Normal 14-59 [facility] Comment on above: Performed By: #### L IVER, LIPID #### [facility] [address] [address] [address] Ivelisse Mendoza AST [Catalytic activity/Vol] 20 U/L Normal 15-37 [facility] Comment on above: Performed By: #### L IVER, LIPID #### [facility] [address] [address] [address] Ivelisse Mendoza BILI, CONJUGATED 0.0 mg/dL Normal 0.0-0.2 [facility] Comment on above: Performed By: #### L IVER, LIPID #### [facility] [address] [address] [address] Ivelisse Mendoza Bilirubin [Mass/Vol] 0.3 mg/dL Normal 0.2-1.0 [facility] Comment on above: Performed By: #### L IVER, LIPID #### [facility] [address] [address] [address] Ivelisse Mendoza Globulin (S) [Mass/Vol] 3.3 g/dL Normal [facility] Comment on above: Performed By: #### L IVER, LIPID #### [facility] [address] [address] [address] Ivelisse Mendoza Protein [Mass/Vol] 7.5 g/dL Normal 6.4-8.2 [facility] Comment on above: Performed By: #### L IVER, LIPID #### [facility] [address] [address] [address] Ivelisse Benz 10-16-2021 CNPN Telephone ([facility]) -------- SAIDA CORBIN ([id number]) 1960 F Date Time Provider Department 10/16/21 STACIE FAIRBANKS During your visit today, we recorded the following information about you: Caterina Prakash MA 10/16/2021 7:10 AM Signed ----- Message from Hubert Nava MA sent at 07/16/2021 3:04 PM EST ----- Remind patient time to recheck FLP/LFT after starting zocor. CHICA Franks MA 10/16/2021 7:12 AM Signed ----- Message from Caterina Prakash MA sent at 07/16/2021 3:07 PM EST ----- Patient due for 3 month recheck vitamin D after starting 1000 units daily. CHICA Palma DO 10/16/2021 1:03 PM Signed Order for blood work attached DO Caterina Park MA 10/16/2021 1:29 PM Signed Patient informed of fasting lab orders. Caterina Prakash MA Allergies As of Date: 10/16/2021 Noted Allergy Reaction CRESTOR (ROSUVASTATIN CALCIUM) 12/21/2015 6 - Diarrhea 11 - Vomiting 14 - Other: See Comments Comments: Nausea LATEX 12/26/2014 16 - Unknown NYQUIL ([id number]-JTT-QT-ACETAM IN*12/21/2015 16 - Unknown PHENIRAMINE 12/26/2014 16 - Unknown Date Reviewed: 07/13/2021 Reviewed by: Stacie Fairbanks DO - Fully Assessed Reason for Visit: Lab Orders [1688] Primary Visit Diagnosis:Vitamin D deficiency [E55.9] Other Visit Diagnosis:Mixed hyperlipidemia [E78.2] Order(s):LIPID PANEL BASIC [SQLIPB] Order #: [id number] FUTURE HEPATIC FUNCTION PNL [SQHFP] Order #: [id number] FUTURE VITAMIN D 25 HYDROXY [SQVITD] Order #: [id number] FUTURE Prescriptions as of 10/16/2021 - simvastatin (ZOCOR) 20 mg tablet TAKE 1 TABLET BY MOUTH EVERYDAY AT BEDTIME - ibuprofen (MOTRIN) 800 mg tablet TAKE 1 TABLET BY MOUTH EVERY 8 HOURS NEEDED - betamethasone dipropionate (DIPROSONE) 0.05 % cream APPLY TO AFFECTED AREA TWICE A DAY - OTC PRODUCT CBD gummies as needed - omega-3 fatty acids (FISH OIL CONCENTRATE ORAL) Take by mouth. - Multivitamin capsule Take 1 capsule by mouth once daily. - cholecalciferol (VITAMIN D) 1,000 unit tab tablet Take 1,000 Units by mouth once daily. - betamethasone dipropionate, augmented (DIPROLENE) 0.05 % cream betamethasone, augmented 0.05 % topical cream - amLODIPine (NORVASC) 5 mg tablet Take 5 mg by mouth once daily. - fluticasone (FLOVENT) 110 mcg/actuation inhaler Inhale 1 Puff as instructed twice daily. - albuterol HFA (PROAIR HFA) 90 mcg/actuation inhaler 2 puff(s) every 4 hours as needed Problem List As Of Date 10/16/2021 Noted Resolved Essential hypertension [I10] 09/27/2016 Hyperlipidemia [E78.5] 09/27/2016 04/15/2017 Mixed hyperlipidemia [E78.2] 04/15/2017 BMI 36.0-36.9,adult [Z68.36] 03/24/2020 Obesity, Class II, BMI 35-39.9 [E66.9] 07/13/2021 Fibromyalgia [M79.7] 08/01/2021 Encounter Status:Closed by CATERINA PRAKASH on 10/16/21 [facility] 07-16-2021 BATSHEVA Telephone ([facility]) -------- SHAQUILLESAIDA ([id number]) 1960 F Date Time Provider Department 07/16/21 TSACIE FAIRBANKS During your visit today, we recorded the following information about you: Stacie Fairbanks DO 07/16/2021 1:48 PM Signed Please call pt - vitamin d level is low. Is she taking vitamin d 1000 international unit(s) Daily? Cholesterol is slightly elevated - I would like for her to increase zocor from 10 mg to 20 mg - is she willing to do that? DO Hubert Park MA 07/16/2021 1:57 PM Signed Patient states she stopped taking vitamin d 1000 international unit(s) about a month ago. She ran out. Patient is willing to take zocor 20mg. Please send to pharmacy and advised on vitamin d. Thanks. CHICA Franks DO 07/16/2021 3:01 PM Signed Rx for zocor 20 mg sent to pharmacy. Please put in reminder for pt to have FLP/LFT in 3 months DO Hubert Park MA 07/16/2021 3:04 PM Signed Patient wants to know how much vitamin d she should take. Please advise. Reminder placed. CIHCA Franks DO 07/16/2021 3:06 PM Signed Please have pt take 1000 international unit(s) Vitamin d daily, and we should recheck vitamin d level in 3 months when we check the FLP/LFT DO Caterina Park MA 07/16/2021 3:08 PM Signed Patient informed of vitamin D directions. Reminder placed for recheck. Caterina Prakash MA Allergies As of Date: 07/16/2021 Noted Allergy Reaction CRESTOR (ROSUVASTATIN CALCIUM) 12/21/2015 6 - Diarrhea 11 - Vomiting 14 - Other: See Comments Comments: Nausea LATEX 12/26/2014 16 - Unknown NYQUIL ([id number]-BFY-CQ-ACETAM IN*12/21/2015 16 - Unknown PHENIRAMINE 12/26/2014 16 - Unknown Date Reviewed: 07/13/2021 Reviewed by: Stacie Fairbanks DO - Fully Assessed Reason for Visit: Results [95] Visit Diagnosis:Mixed hyperlipidemia [E78.2] Order(s):simvastatin (ZOCOR) 20 mg tabletTake 1 tablet by mouth daily at bedtime.Disp: 30 tabletRfl: 2 Prescriptions as of 07/16/2021 - simvastatin (ZOCOR) 20 mg tablet Take 1 tablet by mouth daily at bedtime. - OTC PRODUCT CBD gummies as needed - omega-3 fatty acids (FISH OIL CONCENTRATE ORAL) Take by mouth. - Multivitamin capsule Take 1 capsule by mouth once daily. - cholecalciferol (VITAMIN D) 1,000 unit tab tablet Take 1,000 Units by mouth once daily. - betamethasone dipropionate (DIPROSONE) 0.05 % cream Apply to affected area twice daily. - ibuprofen (MOTRIN) 800 mg tablet TAKE 1 TABLET BY MOUTH EVERY 8 HOURS NEEDED - betamethasone dipropionate, augmented (DIPROLENE) 0.05 % cream betamethasone, augmented 0.05 % topical cream - amLODIPine (NORVASC) 5 mg tablet Take 5 mg by mouth once daily. - fluticasone (FLOVENT) 110 mcg/actuation inhaler Inhale 1 Puff as instructed twice daily. - albuterol HFA (PROAIR HFA) 90 mcg/actuation inhaler 2 puff(s) every 4 hours as needed Problem List As Of Date 07/16/2021 Noted Resolved Essential hypertension [I10] 09/27/2016 Hyperlipidemia [E78.5] 09/27/2016 04/15/2017 Mixed hyperlipidemia [E78.2] 04/15/2017 Obesity, Class I, BMI 30-34.9 [E66.9] 10/14/2017 BMI 34.0-34.9,adult [Z68.34] 03/24/2020 Obesity, Class II, BMI 35-39.9 [E66.9] 07/13/2021 Prescriptions ordered this encounter Disp Refills Start End SIMVASTATIN 20 MG TABLET 30 t* 2 07/16/2021 Route: ORAL Sig: Take 1 tablet by mouth daily at bedtime. Medications Discontinued During This Encounter Prescriptions - simvastatin (ZOCOR) 10 mg tablet (Discontinued) TAKE 1 TABLET BY MOUTH EVERY DAY Encounter Status:Closed by CATERINA PRAKASH on 07/16/21 [facility] CBC panel Auto (Bld)on 07-13 Erythrocyte distribution width (RBC) [Ratio] 13.3 % 11.5 - 15.0 % [facility] Hematocrit (Bld) [Volume fraction] 43.3 % 36.0 - 46.0 % [facility] Hemoglobin (Bld) [Mass/Vol] 14.2 g/dL 11.5 - 15.5 g/dL [facility] MCH (RBC) [Entitic mass] 29.2 pg 26.0 - 34.0 pg [facility] MCHC (RBC) [Mass/Vol] 32.8 g/dL 30.5 - 36.0 g/dL [facility] MCV (RBC) [Entitic vol] 88.9 fL 80.0 - 100.0 fL [facility] Platelet mean volume (Bld) [Entitic vol] 9.4 fL 9.0 - 12.7 fL [facility] Platelets (Bld) [#/Vol] 256 10*3/uL 150 - 400 k/uL [facility] RBC (Bld) [#/Vol] 4.87 10*6/uL 3.90 - 5.2 0 m/uL [facility] WBC (Bld) [#/Vol] 9.43 10*3/uL 3.70 - 11. 00 k/uL [facility] CNOVon 07-13-2021 CNALEJANDRO Office Visit ([facility]A [facility]) -------- SAIDA CORBIN ([id number]) 1960 F Date Time Provider Department 07/13/21 9:20 AM STACIE FAIRBANKS During your visit today, we recorded the following information about you: Temperature Pulse Respiration Blood pressure 97.9 degrees 65/minute 16/minute 128/74 Weight Height 108.5 kg 1.727 m Stacie Fairbanks DO 08/01/2021 3:36 PM Signed Subjective The history is provided by the patient. Hypertension This is a chronic problem. The current episode started more than 1 year ago. The problem is unchanged. The problem is controlled. Pertinent negatives include no blurred vision, chest pain, headaches, malaise/fatigue, palpitations or shortness of breath. There are no associated agents to hypertension. Risk factors for coronary artery disease include obesity and post-menopausal state. Has chronic lower back pain She is seeing a chiropractor He puts her in antigravity chair and does manipulations She sees him once a month, which helps a lot She is not sure she wants to see pain management Feels like her fibromyalgia is getting worse She has tried CBD oil, which works She has a handicapped placard, which has helped her greatly ALLERGIES Allergen Reactions - Crestor [Rosuvastat* Diarrhea, Vomiting, Other: See Comments Nausea - Latex Unknown - Nyquil [Doxylamin-P* Unknown - Pheniramine Unknown Current Outpatient Medications Medication Sig Dispense Refill - OTC PRODUCT CBD gummies as needed - omega-3 fatty acids (FISH OIL CONCENTRATE ORAL) Take by mouth. - Multivitamin capsule Take 1 capsule by mouth once daily. - cholecalciferol (VITAMIN D) 1,000 unit tab tablet Take 1,000 Units by mouth once daily. - betamethasone dipropionate (DIPROSONE) 0.05 % cream Apply to affected area twice daily. 45 g 5 - simvastatin (ZOCOR) 10 mg tablet TAKE 1 TABLET BY MOUTH EVERY DAY 90 tablet 0 - ibuprofen (MOTRIN) 800 mg tablet TAKE 1 TABLET BY MOUTH EVERY 8 HOURS NEEDED 90 tablet 11 - betamethasone dipropionate, augmented (DIPROLENE) 0.05 % cream betamethasone, augmented 0.05 % topical cream - amLODIPine (NORVASC) 5 mg tablet Take 5 mg by mouth once daily. - fluticasone (FLOVENT) 110 mcg/actuation inhaler Inhale 1 Puff as instructed twice daily. 1 Inhaler 1 - albuterol HFA (PROAIR HFA) 90 mcg/actuation inhaler 2 puff(s) every 4 hours as needed - zoster vaccine, recombinant, adjuvanted, (SHINGRIX) 50 mcg/0.5 mL injection Inject 0.5 mL intramuscularly now and repeat 2nd dose in 2-6 months (Patient not taking: Reported on 07/13/2021 ) 1 Each 1 No current facility-administered medications for this visit. ACTIVE PROBLEM LIST Essential Hypertension Mixed Hyperlipidemia Obesity, Class I, Bmi 30-34.9 Bmi 34.0-34.9,Adult Obesity, Class II, Bmi 35-39.9 Social History Tobacco Use - Smoking status: Never Smoker - Smokeless tobacco: Never Used Substance Use Topics - Alcohol use: Yes Comment: wine - Drug use: No Comment: No reported history Family History Problem Relation Age of Onset - Alzheimer's Disease Father - Hypertension Father - Prostate Cancer Father - Hypertension Mother Reviewed past medical history and surgeries Review of Systems Constitutional: Negative for chills, diaphoresis, fever, malaise/fatigue and weight loss. HENT: Negative for ear pain and hearing loss. Eyes: Negative for blurred vision and double vision. Respiratory: Negative for cough and shortness of breath. Cardiovascular: Negative for chest pain, palpitations and leg swelling. Gastrointestinal: Negative for constipation, diarrhea and heartburn. Genitourinary: Negative for dysuria and frequency. Musculoskeletal: Positive for joint pain and myalgias. Negative for back pain and falls. Skin: Negative for itching and rash. Neurological: Negative for dizziness, weakness and headaches. Endo/Heme/Allergies: Does not bruise/bleed easily. Psychiatric/Behavioral: Negative for depression and substance abuse. The patient does not have insomnia. Objective BP 128/74 (BP Site: Left Arm, BP Position: Sitting, BP Cuff Size: Regular Adult) Pulse 65 Temp 36.6 ?C (97.9 ?F) Resp 16 Ht 172.7 cm (5' 8 ) Wt 108.5 kg (239 lb 3.2 oz) SpO2 98% BMI 36.37 kg/m? Physical Exam Constitutional: Appearance: Normal appearance. She is obese. HENT: Head: Normocephalic and atraumatic. Nose: Nose normal. Mouth/Throat: Mouth: Mucous membranes are moist. Dentition: Normal dentition. Eyes: General: Lids are normal. Extraocular Movements: Extraocular movements intact. Conjunctiva/sclera: Conjunctivae normal. Pupils: Pupils are equal, round, and reactive to light. Neck: Thyroid: No thyroid mass or thyromegaly. Vascular: No carotid bruit. Trachea: Phonation normal. Cardiovascular: Rate and Rhythm: Normal rate and regular rhythm. Heart sounds: Normal hear (more content not included)... Normal [facility] metabolic 2000 panelon 07-13-2021 Albumin [Mass/Vol] 5.0 g/dL High 3.9 - 4.9 g/dL [facility] ALP [Catalytic activity/Vol] 127 U/L High 34 - 123 U/L [facility] ALT With P-5'-P [Catalytic activity/Vol] 75 U/L High 7 - 38 U/L [facility] Anion gap [Moles/Vol] 14 mmol/L 9 - 18 mmol/L [facility] AST With P-5'-P [Catalytic activity/Vol] 40 U/L High 13 - 35 U/L [facility] Bilirubin [Mass/Vol] 0.4 mg/dL 0.2 - 1.3 mg/dL [facility] Calcium [Mass/Vol] 10.1 mg/dL 8.5 - 10.2 mg/dL [facility] Chloride [Moles/Vol] 103 mmol/L 97 - 105 mmol/L [facility] CO2 [Moles/Vol] 26 mmol/L 22 - 30 mmol/L [facility] Creatinine [Mass/Vol] 0.67 mg/dL 0.58 - 0.96 mg/dL [facility] Estimated Glomerular Filtration Rate 100 mL/min/1.73m >=60 mL/min/1.73m [facility] Glucose [Mass/Vol] 107 mg/dL High 74 - 99 mg/dL [facility] Potassium [Moles/Vol] 4.3 mmol/L 3.7 - 5.1 mmol/L [facility] Protein [Mass/Vol] 7.7 g/dL 6.3 - 8.0 g/dL [facility] Sodium [Moles/Vol] 143 mmol/L 136 - 144 mmol/L [facility] Urea nitrogen [Mass/Vol] 12 mg/dL 7 - 21 mg/dL [facility] LIPID PANEL BASICon 07-14-19 22 Cholesterol [Mass/Vol] 214 mg/dL High <200 mg/dL [facility] Cholesterol in HDL [Mass/Vol] 53 mg/dL >39 mg/dL [facility] Cholesterol in LDL [Mass/Vol] 125 mg/dL High <100 mg/dL [facility] Cholesterol in LDL/Cholesterol in HDL [Mass ratio] 2.36 {ratio} <2.54 [facility] Cholesterol in VLDL [Mass/Vol] 36 mg/dL High <30 mg/dL [facility] Cholesterol non HDL [Mass/Vol] 161 mg/dL High <130 mg/dL [facility] Cholesterol.total /Cholesterol in HDL [Mass ratio] 4.04 {ratio} <5.10 [facility] Fasting Time 12 hrs [facility] Triglyceride [Mass/Vol] 182 mg/dL High <150 mg/dL [facility] VITAMIN D 25 HYDROXYon 07-13 25-hydroxyvitamin D3 [Mass/Vol] 25.8 ng/mL Low 30.0 - 100.0 ng/mL [facility] CNPNon 05-14-2021 CNPN Telephone ([facility]) -------- SAIDA CORBIN ([id number]) 1960 F Date Time Provider Department 05/14/21 STACIE FAIRBANKS During your visit today, we recorded the following information about you: Caterina Prakash MA 05/14/2021 4:32 PM Signed Patient states she has been seeing a chiropractor for the last year for right hip pain and he told her that it is not anything that would need surgery. Patient states it keeps going out on her, is painful and she has trouble walking long distances and has been using a cane. Patient states she asked her chiropractor for an order for a handicap parking placard and he told her that would have to come from Dr. Fairbanks. Patient would like it mailed to her if possible. Please advise. CHICA Palma DO 05/14/2021 5:11 PM Signed order attached DO Bruna Park MA 05/14/2021 5:25 PM Signed Called patient and left vm and Informed her that Dr. Fairbanks placed the order. CHICA Gutierrez MA 05/15/2021 8:04 AM Signed Patient informed order placed and mailed to her. Caterina Prakash MA Allergies As of Date: 05/14/2021 Noted Allergy Reaction CRESTOR (ROSUVASTATIN CALCIUM) 12/21/2015 6 - Diarrhea 11 - Vomiting 14 - Other: See Comments Comments: Nausea LATEX 12/26/2014 16 - Unknown NYQUIL ([id number] IN*12/21/2015 16 - Unknown PHENIRAMINE 12/26/2014 16 - Unknown Date Reviewed: 09/22/2020 Reviewed by: Stacie Fairbanks DO - Fully Assessed Reason for Visit: Patient Question [1097] Primary Visit Diagnosis:Impaired gait [R26.9] Order(s):PARKING FOR HANDICAPPED [[id number]] Order #: [id number] Prescriptions as of 05/15/2021 - omega-3 fatty acids (FISH OIL CONCENTRATE ORAL) Take by mouth. - Multivitamin capsule Take 1 capsule by mouth once daily. - cholecalciferol (VITAMIN D) 1,000 unit tab tablet Take 1,000 Units by mouth once daily. - betamethasone dipropionate (DIPROSONE) 0.05 % cream Apply to affected area twice daily. - zoster vaccine, recombinant, adjuvanted, (SHINGRIX) 50 mcg/0.5 mL injection Inject 0.5 mL intramuscularly now and repeat 2nd dose in 2-6 months - simvastatin (ZOCOR) 10 mg tablet TAKE 1 TABLET BY MOUTH EVERY DAY - ibuprofen (MOTRIN) 800 mg tablet TAKE 1 TABLET BY MOUTH EVERY 8 HOURS NEEDED - betamethasone dipropionate, augmented (DIPROLENE) 0.05 % cream betamethasone, augmented 0.05 % topical cream - amLODIPine (NORVASC) 5 mg tablet Take 5 mg by mouth once daily. - fluticasone (FLOVENT) 110 mcg/actuation inhaler Inhale 1 Puff as instructed twice daily. - albuterol HFA (PROAIR HFA) 90 mcg/actuation inhaler 2 puff(s) every 4 hours as needed Problem List As Of Date 05/14/2021 Noted Resolved Essential hypertension [I10] 09/27/2016 Hyperlipidemia [E78.5] 09/27/2016 04/15/2017 Mixed hyperlipidemia [E78.2] 04/15/2017 Obesity, Class I, BMI 30-34.9 [E66.9] 10/14/2017 BMI 34.0-34.9,adult [Z68.34] 03/24/2020 Encounter Status:Closed by BRUNA GREEN on 05/14/21 Normal [facility] JOAN DOP LEG LTon 01-22-20 JOAN DOP LEG LT LEFT LOWER EXTREMITY VENOUS DUPLEX CLINICAL HISTORY: Localized edema. COMPARISON: None. FINDINGS: Duplex Doppler evaluation of the deep venous system of the left lower extremity from the common femoral vein to the popliteal vein including color Doppler and spectral/pulsed waveform analysis was performed. The right iliac vein where visualized is patent. The left iliac vein also appears to be patent. The common femoral vein demonstrates appropriate compressibility and waveform variability. There is compressibility/patency of the great saphenous vein at the proximal thigh. The femoral vein demonstrates appropriate compressibility and waveform variability. The deep femoral vein demonstrates appropriate compressibility and waveform variability. The popliteal vein demonstrates appropriate compressibility and waveform variability. The limited visualized vessels distal to the popliteal vein where imaged appear to be unremarkable with no acute process. IMPRESSION: No left femoropopliteal venous thrombosis. If clinical concern/symptoms persist or worsen, short-interval follow-up study is suggested. Electronically authenticated by: ALIS LOZOYA Date: 2021-01-20 23:17 Normal [facility] Demar 12-26-2020 BATSHEVA Telephone (MARGO) -------- SAIDA CORBIN ([id number]) 1960 F Date Time Provider Department 12/26/20 STACIE FAIRBANKS During your visit today, we recorded the following information about you: Caterina Prakash MA 12/26/2020 1:30 PM Signed [facility] Prescriber Response Form regarding amlodipine and ibuprofen use placed in Dr. Magdi siddiqui folder to be filled out and signed. Caterina Prakash MA Allergies As of Date: 12/26/2020 Noted Allergy Reaction CRESTOR (ROSUVASTATIN CALCIUM) 12/21/2015 6 - Diarrhea 11 - Vomiting 14 - Other: See Comments Comments: Nausea LATEX 12/26/2014 16 - Unknown NYQUIL ([id number]-ACETAM IN*12/21/2015 16 - Unknown PHENIRAMINE 12/26/2014 16 - Unknown Date Reviewed: 09/22/2020 Reviewed by: Stacie Fairbanks DO - Fully Assessed Reason for Visit: Forms [913] Cmt: [facility] Prescriber Response Form regarding amlodipine and ibuprofen use Prescriptions as of 01/30/2021 - omega-3 fatty acids (FISH OIL CONCENTRATE ORAL) Take by mouth. - Multivitamin capsule Take 1 capsule by mouth once daily. - cholecalciferol (VITAMIN D) 1,000 unit tab tablet Take 1,000 Units by mouth once daily. - betamethasone dipropionate (DIPROSONE) 0.05 % cream Apply to affected area twice daily. - zoster vaccine, recombinant, adjuvanted, (SHINGRIX) 50 mcg/0.5 mL injection Inject 0.5 mL intramuscularly now and repeat 2nd dose in 2-6 months - simvastatin (ZOCOR) 10 mg tablet TAKE 1 TABLET BY MOUTH EVERY DAY - ibuprofen (MOTRIN) 800 mg tablet TAKE 1 TABLET BY MOUTH EVERY 8 HOURS NEEDED - betamethasone dipropionate, augmented (DIPROLENE) 0.05 % cream betamethasone, augmented 0.05 % topical cream - amLODIPine (NORVASC) 5 mg tablet Take 5 mg by mouth once daily. - fluticasone (FLOVENT) 110 mcg/actuation inhaler Inhale 1 Puff as instructed twice daily. - albuterol HFA (PROAIR HFA) 90 mcg/actuation inhaler 2 puff(s) every 4 hours as needed Problem List As Of Date 12/26/2020 Noted Resolved Essential hypertension [I10] 09/27/2016 Hyperlipidemia [E78.5] 09/27/2016 04/15/2017 Mixed hyperlipidemia [E78.2] 04/15/2017 Obesity, Class I, BMI 30-34.9 [E66.9] 10/14/2017 BMI 34.0-34.9,adult [Z68.34] 03/24/2020 Encounter Status:Closed by CATERINA PRAKASH on 01/30/21 [facility] SURGICAL PATH REPORTon 10-03 SURGICAL PATH REPORT [facility] Department [id number] [facility], [phone]: SAIDA CORBIN : 1960 [facility] [id number] Number:Gender: [facility] Kyle [facility]LOR: Provider: Ordering CHAPARRO TAYLOR Provider:Consulting: Surgical Pathology ReportACCESSION: COLLECTED DATE/TIME: RECEIVED DATE/TIME: PATHOLOGIST:[id number] 10/01/2017 16:30 EDT 10/02/2017 13:43 EDT LASHONDA DAVIS, DOLORES Silva DiagnosisReport for [facility] FALLOPIAN TUBE AND OVARY:- OVARIAN MATURE CYSTIC TERATOMA; DERMOID CYST. - ASSOCIATED ATROPHIC OVARY WITH SIMPLE CYSTS AND CORPORA ALBICANS - FOCI OF DYSTROPHIC CALCIFICATION PRESENT. - ACCOMPANYING COMPLETE TRANSVERSE TRANSVERSE FALLOPIAN TUBE WITH FIMBRIATED END; NO PATHOLOGIC CHANGE.DOLORES REDDYEPATHOLOGIST(Elec tronic Signature)Date Verified 10/03/2017 VBClinical DataPRE-OP DIAGNOSIS: Not specifiedPOST-OP DIAGNOSIS: Left ovarian dermoid cystPROCEDURES: Diagnostic laparoscopy with left salpingo-oophorectomySPE CIMEN: Left fallopian tube and left ovaryVISIT #[id number] / ambulatory surgeryGross DescriptionReceived in formalin is a left fallopian tube and a left ovary. The fallopian tube consists of a cylindrical segment which is pink purple to red. It includes one end which is fimbriated. On its apparent proximal portion is an area of discontinuity. The included segment measures 6.0 cm in length and has a cross diameter ranging from 0.3 to 0.5 cm proximal to distal. The left ovary weighs 18 grams and is a fluctuant cystic structure. It is hernandez pink and measures Accession [id number] Print Date/ 10/03/2017 15:29 EDTNumber: Time: General Department [id number] [place], [place] [phone]: SAIDA CORBIN : 1960 [facility] [id number] Number:Gender: Female Location: [facility] 57 years Attending Kyle TAYLOR: Provider: Ordering CHAPARRO TAYLOR Provider:Consulting: Surgical Pathology ReportACCESSION: COLLECTED DATE/TIME: RECEIVED DATE/TIME: PATHOLOGIST:[id number] 10/01/2017 16:30 EDT 10/02/2017 13:43 EDT LASHONDA DAVIS, DOLORES GODOYross Description 4.8 x 3.5 x 2.0 cm. On cut section it is filled with hernandez yellow pasty material and hair. [employer] Faculty Member sections are submitted in five cassettes.MP:[id number] 18Tissue pathology report for: [facility], OHIOPATHOLOGY SERVICES PROVIDED BY [employer] (CLIA #[id number]) in cooperation with [facility] at [address] [place] [address] (CLIA #[id number])CodesCPT CODE: [id number] Accession [id number] Print Date10/03/2017 15:29 EDTNumber: Time: [facility] Comment on above: Performed By: #### [id number] ####[facility] [id number] [place] [address] Medical Director: Denzel Juarez MD Vital Signs Date Time Vital Sign Value Performing Clinician Facility 10-01-2023 11:18-0400 Body height 172.7 cm Stacie Sheets DO Work Phone: [facility] 10-01-2023 11:18-0400 Body mass index (BMI) [Ratio] 32.69 kg/m2 Stacie Sheets DO Work Phone: [facility] 10-01-2023 11:18-0400 Body temperature 97.59 [degF] Stacie Sheets DO Work Phone: [facility] 10-01-2023 11:18-0400 Body weight 97.52 kg Stacie Sheets DO Work Phone: [facility] 10-01-2023 11:18-0400 Diastolic blood pressure 68 mm[Hg] Stacie Sheets DO Work Phone: [facility] 10-01-2023 11:18-0400 Heart rate 62 /min Stacie Sheets DO Work Phone: [facility] 10-01-2023 11:18-0400 Respiratory rate 16 /min Stacie Sheets DO Work Phone: [facility] 10-01-2023 11:18-0400 SaO2% (BldA) [Mass fraction] 94 % Stacie Sheets DO Work Phone: [facility] 10-01-2023 11:18-0400 Systolic blood pressure 114 mm[Hg] Stacie Sheets DO Work Phone: [facility] 03-12-2023 09:20-0400 Body height 165.1 cm Maria Luisa Farooq Other [employer] Other 03-12-2023 09:20-0400 Body mass index (BMI) [Ratio] 32.95 kg/m2 Maria Luisa Farooq Other [employer] Other 03-12-2023 09:20-0400 Body weight 89.81 kg Maria Luisa Farooq Other [employer] Other 01-31-2023 10:14-0400 Body height 172.7 cm Stacie Sheets DO Work Phone: [facility] 01-31-2023 10:14-0400 Body temperature 97.5 [degF] Stacie Sheets DO Work Phone: [facility] 01-31-2023 10:14-0400 Body weight 89.72 kg Stacie Sheets DO Work Phone: [facility] 01-31-2023 10:14-0400 Diastolic blood pressure 70 mm[Hg] Stacie Sheets DO Work Phone: [facility] 01-31-2023 10:14-0400 Heart rate 52 /min Stacie Sheets DO Work Phone: [facility] 01-31-2023 10:14-0400 Respiratory rate 16 /min Stacie Sheets DO Work Phone: [facility] 01-31-2023 10:14-0400 SaO2% (BldA) [Mass fraction] 96 % Stacie Sheets DO Work Phone: [facility] 01-31-2023 10:14-0400 Systolic blood pressure 118 mm[Hg] Stacie Sheets DO Work Phone: [facility] 12-10-2022 09:20-0400 Body height 165.1 cm Maria Luisa Farooq Other [employer] Other 12-10-2022 09:20-0400 Body mass index (BMI) [Ratio] 33.94 kg/m2 Maria Luisa Farooq Other [employer] Other 12-10-2022 09:20-0400 Body weight 92.53 kg Maria Luisa Farooq Other [employer] Other 12-10-2022 09:20-0400 Diastolic blood pressure 82 mm[Hg] Maria LuisaViacor Other [employer] Other 12-10-2022 09:20-0400 Systolic blood pressure 130 mm[Hg] Maria LuisaBackdoor Other [employer] Other 10-31-2022 08:20-0400 Body height 165.1 cm Maria LuisaBackdoor Other [employer] Other 10-31-2022 08:20-0400 Body mass index (BMI) [Ratio] 33.78 kg/m2 Maria LuisaBackdoor Other [employer] Other 10-31-2022 08:20-0400 Body weight 92.08 kg Maria LuisaBackdoor Other [employer] Other 10-31-2022 08:20-0400 Diastolic blood pressure 78 mm[Hg] Maria LuisaViacor Other [employer] Other 10-31-2022 08:20-0400 Systolic blood pressure 136 mm[Hg] Maria LuisaBackdoor Other [employer] Other 09-09-2022 13:41-0400 Body height 172.7 cm Stacie Sheets DO Work Phone: [facility] 09-09-2022 13:41-0400 Body temperature 98.01 [degF] Stacie Sheets DO Work Phone: [facility] 09-09-2022 13:41-0400 Body weight 90.9 kg Stacie Sheets DO Work Phone: [facility] 09-09-2022 13:41-0400 Diastolic blood pressure 74 mm[Hg] Stacie Sheets DO Work Phone: [facility] 09-09-2022 13:41-0400 Heart rate 58 /min Stacie Sheets DO Work Phone: [facility] 09-09-2022 13:41-0400 Respiratory rate 16 /min Stacie Sheets DO Work Phone: [facility] 09-09-2022 13:41-0400 SaO2% (BldA) [Mass fraction] 97 % Stacie Sheets DO Work Phone: [facility] 09-09-2022 13:41-0400 Systolic blood pressure 128 mm[Hg] Stacie Sheets DO Work Phone: [facility] 01-17-2022 09:00-0400 Body height 172.7 cm Stacie Sheets DO Work Phone: [facility] 01-17-2022 09:00-0400 Body temperature 97.81 [degF] Stacie Sheets DO Work Phone: [facility] 01-17-2022 09:00-0400 Body weight 91.81 kg Stacie Sheets DO Work Phone: [facility] 01-17-2022 09:00-0400 Diastolic blood pressure 72 mm[Hg] Stacie Sheets DO Work Phone: [facility] 01-17-2022 09:00-0400 Heart rate 59 /min Stacie Sheets DO Work Phone: [facility] 01-17-2022 09:00-0400 Respiratory rate 16 /min Stacie Sheets DO Work Phone: [facility] 01-17-2022 09:00-0400 SaO2% (BldA) [Mass fraction] 98 % Stacie Sheets DO Work Phone: [facility] 01-17-2022 09:00-0400 Systolic blood pressure 128 mm[Hg] Stacie Sheets DO Work Phone: [facility] 07-13-2021 09:12-0500 Body height 172.7 cm Stacie Sheets DO Work Phone: [facility] 07-13-2021 09:12-0500 Body temperature 97.9 [degF] Stacie Sheets DO Work Phone: [facility] 07-13-2021 09:12-0500 Body weight 108.5 kg Stacie Sheets DO Work Phone: [facility] 07-13-2021 09:12-0500 Diastolic blood pressure 74 mm[Hg] Stacie Sheets DO Work Phone: [facility] 07-13-2021 09:12-0500 Heart rate 65 /min Stacie Sheets DO Work Phone: [facility] 07-13-2021 09:12-0500 Respiratory rate 16 /min Stacie Sheets DO Work Phone: [facility] 07-13-2021 09:12-0500 SaO2% (BldA) [Mass fraction] 98 % Stacie Sheets DO Work Phone: [facility] 07-13-2021 09:12-0500 Systolic blood pressure 128 mm[Hg] Stacie Sheets DO Work Phone: [facility] Encounters Encounter Date Encounter Type Care Provider Facility Start: 02-18-2024 End: 02-18-2024 [facility] Start: 01-24-2024 End: 01-27-2024 Refill Stacie C Sheets DO Work Phone: [facility] Comment on above: Refill Request Start: 12-15-2023 Refill Stacie C She ets DO Work Phone: [facility] Comment on above: Refill Request Start: 10-01-2023 End: 10-01-2023 Patient encounter procedure Stacie C Sheets DO Work Phone: [facility] Comment on above: Essential hypertensi on (Primary Dx); Mixed hyperlipidemia; Chronic midline low back pain, unspecified whether sciatica present; Obesity, Class I, BMI 30-34.9 Start: 10-01-2023 End: 10-01-2023 ambulatory STACIE C SHEETS Facility:[facility] Start: 07-26-2023 Refill Stacie C She ets DO Work Phone: [facility] Comment on above: Refill Request Start: 06-07-2023 End: 06-07-2023 ambulatory Stacie C Sheets Facility:[facility] Start: 06-07-2023 End: 06-07-2023 ambulatory DO Stacie C Sheets Work Phone: [facility] Work Phone: Start: 06-07-2023 End: 06-07-2023 Patient encounter procedure DO Stacie Sheets Work Phone: [facility] Work Phone: Start: 03-12-2023 End: 03-12-2023 ambulatory Maria Luisa Oseas Other [facility] [employer] Other Start: 03-12-2023 Office outpatient vi sit 15 minutes Maria Luisa Farooq [facility] Start: 03-12-2023 End: 03-12-2023 Patient encounter procedure DO Stacie Sheets Work Phone: [facility] Work Phone: Start: 03-04-2023 Telephone encounter Hubert Nava MA [facility] Comment on above: Results Start: 02-27-2023 End: 02-27-2023 ambulatory [facility] Start: 02-27-2023 End: 02-28-2023 ambulatory STACIE C SHEETS Facility:[facility] Start: 01-31-2023 Telephone encounter Stacie C Sheets DO Work Phone: [facility] Comment on above: Forms ([facility] Prescriber Response Form regarding patient's amlodipine and simvastatin) Medication Problem Start: 01-31-2023 End: 01-31-2023 Patient encounter procedure Stacie C Sheets DO Work Phone: [facility] Comment on above: Essential hypertensi on (Primary Dx); Dermatitis; Mixed hyperlipidemia; Fibromyalgia; Chronic midline low back pain, unspecified whether sciatica present; Obesity, Class I, BMI 30-34.9 Start: 01-31-2023 End: 01-31-2023 ambulatory STACEI C SHEETS Facility:[facility] Start: 01-29-2023 Refill Stacie C She ets DO Work Phone: [facility] Comment on above: Refill Request Start: 12-10-2022 End: 12-10-2022 ambulatory Maria Luisa Farooq Other [facility] [employer] Other Start: 12-10-2022 Office outpatient vi sit 15 minutes Maria Luisa Farooq [facility] Start: 12-09-2022 End: 12-09-2022 ambulatory Maria Luisa Farooq Other [facility] [employer] Other Start: 12-09-2022 Telephone encounter Maria Luisa Farooq [facility] [employer] Start: 12-02-2022 End: 12-02-2022 ambulatory Maria Luisa Farooq Facility:[facility] Start: 12-02-2022 End: 12-02-2022 ambulatory Maria Luisa Farooq Facility:[facility] Start: 11-02-2022 Refill Stacie C She ets DO Work Phone: [facility] Comment on above: Refill Request Start: 10-31-2022 Encounter for other specified special examinations Maria Luisa Farooq [facility] Start: 10-31-2022 Office outpatient ne w 45 minutes Maria Luisa Farooq [facility] Start: 10-31-2022 End: 10-31-2022 ambulatory DO Stacie C Sheets Work Phone: [facility] Work Phone: Start: 10-31-2022 End: 10-31-2022 Patient encounter procedure DO Stacie Sheets Work Phone: [facility] [place] Work Phone: Start: 09-23-2022 Telephone encounter Stacie C Sheets DO Work Phone: [facility] Comment on above: Referral Request Start: 09-17-2022 Telephone encounter Stacie C Sheets DO Work Phone: [facility] Comment on above: Results Start: 09-09-2022 End: 09-09-2022 Subsequent hospital visit by physician [facility] Comment on above: Lumbar back pain [M5 4.50] Start: 09-09-2022 End: 09-09-2022 Patient encounter procedure Stacie C Sheets DO Work Phone: [facility] Comment on above: Essential hypertensi on (Primary Dx); Sciatica, right side; Lumbar back pain; Obesity, Class I, BMI 30-34.9 Start: 08-03-2022 Refill Stacie C She ets DO Work Phone: [facility] Comment on above: Refill Request Start: 06-04-2022 Telephone encounter Stacie C Sheets DO Work Phone: [facility] Comment on above: Results Start: 06-01-2022 End: 06-02-2022 ambulatory STACIE C SHEETS Facility:[facility] Start: 06-01-2022 End: 06-01-2022 ambulatory DO Stacie C Sheets Work Phone: [facility] Work Phone: Start: 06-01-2022 End: 06-01-2022 Patient encounter procedure DO Stacie Sheets Work Phone: [facility] Work Phone: Start: 05-10-2022 Telephone encounter Stacie C Sheets DO Work Phone: [facility] Comment on above: Lab Orders Start: 05-06-2022 Refill Stacie C She ets DO Work Phone: [facility] Comment on above: Refill Request Start: 02-07-2022 Telephone encounter Stacie Martines Sheets DO Work Phone: [facility] Comment on above: Results Start: 01-17-2022 End: 01-17-2022 Patient encounter procedure Stacie C Sheets DO Work Phone: [facility] Comment on above: Well adult exam (Yulissa hubert Dx); Essential hypertension; Mixed hyperlipidemia; Vitamin D deficiency; Weight loss; Encounter for screening mammogram for breast cancer; Obesity, Class I, BMI 30-34.9; BMI 30.0-30.9,adult Start: 01-17-2022 End: 01-17-2022 Patient encounter status Stacie C Sheets DO Work Phone: [facility] Start: 10-31-2021 End: 11-01-[address] DOCTOR GARCIA Facility: Start: 10-16-2021 Telephone encounter Stacie Martines Sheets DO Work Phone: [facility] Comment on above: Lab Orders Start: 09-20-2021 Refill Stacie Crump ets DO Work Phone: [facility] Comment on above: Refill Request Start: 08-24-2021 Refill Stacie C She ets DO Work Phone: [facility] Comment on above: Refill Request Start: 08-07-2021 Refill Stacie Martines She ets DO Work Phone: [facility] Comment on above: Refill Request Start: 07-13-2021 End: 07-13-2021 Patient encounter procedure Stacie C Sheets DO Work Phone: [facility] Comment on above: Essential hypertensi on (Primary Dx); Vitamin D deficiency; Fibromyalgia; BMI 36.0-36.9,adult; Obesity, Class II, BMI 35-39.9 Start: 01-20-2021 End: 01-21-[address] DOCTOR GARCIA Facility: Start: 10-01-2017 End: 10-02-2017 Ambulatory CHAPARRO TAYLOR Facility:[facility] Procedures Date Procedure Procedure Detail Performing Clinician Start: 02-27-2023 Lipid 1996 panel - S ami or Plasma Hubert Nava MA Start: 10-31-2022 X-ray of lumbar spin e, six views including bending views DO Stacie Sheets Work Phone: Start: 06-01-2022 Lipid 1996 panel - S ami or Plasma Stacie Sheets DO Work Phone: Start: 06-01-2022 Mammography Stacie S heets DO Work Phone: Start: 01-17-2022 Adult depression scr eening assessment Stacie Sheets DO Work Phone: Start: 04-09-2021 Mammography Stacie S heets DO Work Phone: Start: 09-22-2020 Adult depression scr eening assessment Stacie Sheets DO Work Phone: Start: 01-04-2016 Colonoscopy Stacie S heets DO Work Phone: Plan of Treatment Date Care Activity Detail Author Start: 09-22-2030 Urine microalbumin profile [facility] Start: 02-28-2028 Lipid 1996 panel - Serum or Plasma Lipid Screening [facility] Start: 02-28-2028 Lipid panel Lipid Screening [facility] Start: 06-01-2027 Lipid 1996 panel - Serum or Plasma Lipid Screening [facility] Start: 06-01-2027 LIPID SCREEN LIPID SCREEN [facility] Start: 01-17-2027 LIPID SCREEN LIPID SCREEN [facility] Start: 07-13-2026 LIPID SCREEN LIPID SCREEN [facility] Start: 02-27-2026 Diabetes Screening Diabetes Screenin [facility] Start: 01-17-2025 DIABETES [facility]CREEN [facility] Start: 01-17-2025 Diabetes Screening Diabetes Screenin g [facility] Start: 09-30-2024 Annual PCP Team Collet Maker maría elena Disease Visit Annual PCP Team Chronic Disease Visit [facility] Start: 09-30-2024 BP Controlled (<130/80) BP Controlle d (<130/80) [facility] Start: 09-30-2024 RSV Vaccine (1 - 1-d ose 60+ series) RSV Vaccine (1 - 1-dose 60+ series) [facility] Comment on above: Postponed from 07/10 (Declined at this time) Start: 07-13-2024 COLORECTAL CANCER SCREENING COLORECTAL CANCER SCREENING [facility] Comment on above: Postponed from 07/10 (Postponed To Appropriate Date) Start: 07-13-2024 DIABETES SCREEN DIABETES SCREEN [facility] Start: 07-13-2024 Screening for malign ant neoplasm of colon Colorectal Cancer Screening [facility] Comment on above: Postponed from 07/10 (Postponed To Appropriate Date) Start: 06-07-2024 Screening for malign ant neoplasm of breast Mammogram Screening [facility] Start: 03-09-2024 COLOGUARD (FIT-DNA) COLOGUARD (FIT-D NA) [facility] Start: 03-09-2024 Screening for malign ant neoplasm of colon Cologuard (FIT-DNA) [facility] Start: 02-01-2024 Annual PCP Team Collet Maker maría elena Disease Visit Annual PCP Team Chronic Disease Visit [facility] Start: 02-01-2024 BP Controlled (<130/80) BP Controlle d (<130/80) [facility] Start: 12-11-2023 HPV TESTING HPV TESTING [facility] Start: 12-11-2023 PAP TESTING PAP TESTING [facility] Start: 12-11-2023 Screening for malign ant neoplasm of cervix [facility] Start: 09-10-2023 ANNUAL PCP TEAM PRINCIPAL TECHNICAL SPECIALIST MARÍA ELENA DISEASE VISIT ANNUAL PCP TEAM CHRONIC DISEASE VISIT [facility] Start: 09-10-2023 BP CONTROLLED (<130/80) BP CONTROLLE D (<130/80) [facility] Start: 06-07-2023 MG Breast - bilatera l Screening [facility] Start: 06-07-2023 Screening mammograph y of bilateral breasts MM screening mammo BI w/CAD [facility] Start: 06-01-2023 Mammography [facility] Start: 06-01-2023 Screening for malign ant neoplasm of breast Mammogram Screening [facility] Start: 05-12-2023 Behavioral Health Screening Behavioral Health Screening [facility] Start: 05-12-2023 Depression Assessment Depression Ass essment [facility] Start: 01-31-2023 End: 04-02-2023 CBC panel - Blood by Automated count CBC Lab Routine Essential hypertension Expected: 01/31/2023, Expires: 04/02/2023 [facility] Work Phone: Comment on above: Expected: 01/31/2023 , Expires: 04/02/2023 Start: 01-31-2023 End: 04-02-2023 Comprehensive metabolic 2000 panel - Serum or Plasma COMP METABOLIC PANEL Lab Routine Essential hypertension Expected: 01/31/2023, Expires: 04/02/2023 [facility] Work Phone: Comment on above: Expected: 01/31/2023 , Expires: 04/02/2023 Start: 01-31-2023 End: 04-02-2023 Lipid 1996 panel - Serum or Plasma LIPID PANEL BASIC Lab Routine Mixed hyperlipidemia Expected: 01/31/2023, Expires: 04/02/2023 [facility] Work Phone: Comment on above: Expected: 01/31/2023 , Expires: 04/02/2023 Start: 01-17-2023 Adult depression screening assessment DEPRESSION SCREENING [facility] Start: 01-17-2023 ANNUAL PCP TEAM PRINCIPAL TECHNICAL SPECIALIST MARÍA ELENA DISEASE VISIT ANNUAL PCP TEAM CHRONIC DISEASE VISIT [facility] Start: 01-17-2023 BP CONTROLLED (<130/80) BP CONTROLLE D (<130/80) [facility] Start: 01-10-2023 Influenza vaccination C [facility] Start: 11-08-2022 Influenza vaccination INFLUENZA (#1) [facility] Comment on above: Postponed from 01/10 (Declined at this time) Start: 07-13-2022 ANNUAL PCP TEAM PRINCIPAL TECHNICAL SPECIALIST MARÍA ELENA DISEASE VISIT ANNUAL PCP TEAM CHRONIC DISEASE VISIT [facility] Start: 07-13-2022 BP CONTROLLED (<130/80) BP CONTROLLE D (<130/80) [facility] Start: 07-13-2022 COVID-19 VACCINE (#1) COVID-19 VACCI NE (#1) [facility] Comment on above: Postponed from 07/10 (Declined at this time) Postponed from 01/10 (Declined at this time) Start: 07-13-2022 COVID-19 VACCINE (1) COVID-19 VACCIN E (1) [facility] Comment on above: Postponed from 07/10 (Declined at this time) Start: 06-01-2022 MG Breast - bilatera l Screening [facility] Start: 06-01-2022 Screening mammograph y of bilateral breasts MM screening mammo BI w/CAD [facility] Start: 05-12-2022 DEPRESSION ASSESSMENT DEPRESSION ASS ESSMENT [facility] Start: 05-10-2022 End: 2022 Hepatic function 2000 panel - Serum or Plasma HEPATIC FUNCTION PNL Lab Routine Mixed hyperlipidemia Expected: 05/10/2022, Expires: 2022 [facility] Work Phone: Comment on above: Expected: 05/10/2022 , Expires: 2022 Start: 05-10-2022 End: 2022 Lipid 1996 panel - Serum or Plasma LIPID PANEL BASIC Lab Routine Mixed hyperlipidemia Expected: 05/10/2022, Expires: 2022 [facility] Work Phone: Comment on above: Expected: 05/10/2022 , Expires: 2022 Start: 04-09-2022 Mammography MAMMOGRAM [facility] Start: 01-10-2022 Influenza vaccination INFLUENZA (Sea son Ended) [facility] Start: 12-10-2021 Screening for malign ant neoplasm of cervix Cervical Cancer Screening [facility] Start: 11-08-2021 Influenza vaccination INFLUENZA (#1) [facility] Comment on above: Postponed from 01/10 (Declined at this time) Start: 10-16-2021 End: 12-16-2021 HEPATIC FUNCTION PNL HEPATIC FUNCTION PNL Lab Routine Mixed hyperlipidemia Expected: 10/16/2021, Expires: 12/16/2021 [facility] Work Phone: Comment on above: Expected: 10/16/2021 , Expires: 12/16/2021 Start: 10-16-2021 End: 12-16-2021 LIPID PANEL BASIC LIPID PANEL BASIC Lab Routine Mixed hyperlipidemia Expected: 10/16/2021, Expires: 12/16/2021 [facility] Work Phone: Comment on above: Expected: 10/16/2021 , Expires: 12/16/2021 Start: 10-16-2021 End: 12-16-2021 VITAMIN D 25 HYDROXY VITAMIN D 25 HYDROXY Lab Routine Vitamin D deficiency Expected: 10/16/2021, Expires: 12/16/2021 [facility] Work Phone: Comment on above: Expected: 10/16/2021 , Expires: 12/16/2021 Start: 09-22-2021 Adult depression screening assessment DEPRESSION SCREENING [facility] Start: 05-12-2021 DEPRESSION ASSESSMENT DEPRESSION ASS ESSMENT [facility] Start: 01-03-2021 Colonoscopy COLONOSCOPY [facility] Start: 01-03-2021 Screening for malign ant neoplasm of colon Colonoscopy [facility] Start: 2020 RSV Vaccine (1 - 1-d ose 60+ series) RSV Vaccine (1 - 1-dose 60+ series) [facility] Start: [address] COLONOGRAPHY [facility] Start: 2005 FECAL OCCULT BLOOD FECAL OCCULT BLOO D [facility] Start: 2005 Screening for malign ant neoplasm of colon [facility] Start: 2005 SIGMOIDOSCOPY SIGMOIDOSCOPY [facility] Start: 1978 Anxiety Screening Anxiety Screening [facility] Start: 1978 Depression Screening Depression Scre ening [facility] Start: 01-10-1961 COVID-19 VACCINE (#1) COVID-19 VACCI NE (#1) [facility] End: 10-09-2023 Radex spine lumbosacral minimum 4 views XR LUMBAR PARS DEFECT 4V AP/LAT/BOTH OBL Radiology Routine Lumbar back pain 1 Occurrences starting 09/09/2022 until 10/09/2023 [facility] Work Phone: Comment on above: 1 Occurrences starti ng 09/09/2022 until 10/09/2023 End: 09-09-2022 Radex spine lumbosacral minimum 4 views [facility] Work Phone: Comment on above: 1 Occurrences starti ng 09/09/2022 until 09/09/2022 End: 02-16-2023 Screening mammography bi 2-view breast inc cad MITCH SCREENING Radiology Routine Encounter for screening mammogram for breast cancer 1 Occurrences starting 01/17/2022 until 02/16/2023 [facility] Work Phone: Comment on above: 1 Occurrences starti ng 01/17/2022 until 02/16/2023 End: 10-17-2023 XR HIP GENERAL 3V PELV/AP/LAT RIGHT XR HIP GENERAL 3V PELV/AP/LAT RIGHT Radiology Routine Right hip pain 1 Occurrences starting 09/17/2022 until 10/17/2023 [facility] Work Phone: Comment on above: 1 Occurrences starti ng 09/17/2022 until 10/17/2023 [facility] Immunizations Immunization Date Immunization Notes Care Provider Anthony baltazar 12-12-2020 zoster vaccine recombinant Stacie Sheets DO Work Phone: [facility] 09-25-2020 zoster vaccine recombinant Stacie Sheets DO Work Phone: [facility] 09-22-2020 tetanus toxoid, redu ana maria diphtheria toxoid, and acellular pertussis vaccine, adsorbed Stacie Sheets DO Work Phone: [facility] 09-22-2020 zoster vaccine, recombinant, adjuvanted, (SHINGRIX) 50 mcg/0.5 mL injection Stacie Sheets DO Work Phone: [facility] Work Phone: Comment on above: Inject 0.5 mL intram uscularly now and repeat 2nd dose in 2-6 months Payers Date Payer Category Payer Self-pay [id number] 2022 Unknown [id number] 2017 Unknown 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 2017 Unknown [id number] 1960 Unknown [id number] 1960 Unknown [id number] 1959 Unknown [id number] 1959 Unknown [id number] Unknown [id number] Unknown [id number] Unknown [id number] Unknown [id number] Social History Date Type Detail Facility Start: 09-27-2016 Tobacco smoking stat [facility] Never smoked tobacco [facility] Work Phone: Start: 08-01-2021 End: 10-01-2023 Alcohol intake Current drinker of alcohol (finding) [facility] Start: 09-27-2016 History SDOH Alcohol Comment wine [facility] Start: 1960 Sex Assigned At Not on file C [facility] Start: 06-13-2021 End: 01-17-2022 Exposure to SARS-CoV-2 (event) Not sure [facility] Start: 09-27-2016 Tobacco use and exposure Smokeless tobacco non-user [facility] Start: 1960 Sex Assigned At Female F [facility] Start: 09-09-2022 End: 01-31-2023 Sex Assigned At [facility] Work Phone: Start: 09-09-2022 End: 01-31-2023 History of Social function [facility] Work Phone: Adult Depression Screening Assessment 0 [facility] Work Phone: Clinical Notes 09-27-2016 to 02-18-2024 Telephone Encounter - Estela Odonnell Student - 01/26/2024 1:12 PM EDTTelephone Encounter - Estela Odonnell Student - 01/26/2024 1:12 PM EDTSmaria fernanda, Stacie Martines, - 10/01/2023 11:25 AM EDT Note Date & Type Note Facility 02-18-2024 Note Cardiovascular Medic [facility] SUBJECTIVE Chief Complaint Patient presents with Hypertension Hyperlipidemia Saida Corbin is a 63 y.o. female here for follow-up. 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 Was worse with taking 40mg vs 20mg so she is currently only taking 20mg daily. Staying active, she was swimming over the summer. LE edema occurs at the end of the day. Stable. Denies c/o CP, dyspnea, orthopnea, PND, dizziness/LH, palpitations, syncope. She works for [employer]. Works typically 6m out of the year. Hoping to retire soon as her is retired. Patient Active Problem List Diagnosis BMI 30.0-30.9,adult Cardiac arrest (CMS/HCC) Dermatitis Chronic midline low back pain Hot flashes Hypertensive disorder Mixed hyperlipidemia Primary osteoarthritis of right hip Past Medical History: Diagnosis Date Hyperlipidemia Hypertension No family history on file. Allergies Allergen Reactions Baclofen Other Shaky, chest tightness, difficulty talking Cyclobenzaprine Other Shaky, chest tightness, difficulty talking Latex Other and Unknown ROS Constitutional: Positive for weight gain (19# since Feb 2023). Cardiovascular: Positive for leg swelling (resolves by morning). Musculoskeletal: Positive for joint pain. All other systems reviewed and are negative. OBJECTIVE Visit Vitals BP 138/80 (BP Location: Right arm, Patient Position: Sitting) Pulse 69 Ht 1.651 m (5' 5 ) Wt 98 kg (216 lb) SpO2 97% BMI 35.94 kg/m??? BSA 2.12 m??? Medications: Current Outpatient Medications: amLODIPine (Norvasc) 5 mg tablet, Take 1 tablet (5 mg) by mouth once daily as directed., Disp: 90 tablet, Rfl: 3 atorvastatin (Lipitor) 40 mg tablet, Take 20 mg by mouth in the morning., Disp: , Rfl: cholecalciferol (Vitamin D-3) 25 MCG (1000 units) tablet, Take 1,000 Units by mouth in the morning., Disp: , Rfl: Physical Exam Vitals reviewed. Constitutional: Appearance: Normal appearance. She is normal weight. HENT: Head: Normocephalic and atraumatic. Right Ear: External ear normal. Left Ear: External ear normal. Eyes: Extraocular Movements: Extraocular movements intact. Conjunctiva/sclera: Conjunctivae normal. Pupils: Pupils are equal, round, and reactive to light. Neck: Vascular: No carotid bruit. Cardiovascular: Rate and Rhythm: Normal rate and regular rhythm. Pulses: Normal pulses. Heart sounds: Normal heart sounds. Pulmonary: Effort: Pulmonary effort is normal. Breath sounds: Normal breath sounds. Abdominal: General: Bowel sounds are normal. Palpations: Abdomen is soft. Musculoskeletal: Cervical back: Neck supple. Right lower leg: No edema. Left lower leg: No edema. Skin: General: Skin is warm and dry. Neurological: General: No focal deficit present. Mental Status: She is alert and oriented to person, place, and time. Psychiatric: Mood and Affect: Mood normal. Behavior: Behavior normal. Thought Content: Thought content normal. Judgment: Judgment normal. Labs: 02/27/2023 Hgb 13.9, plt 267 Cr 0.63, BUN 16, K 4.4, Na 141, eGFR 100, AST 22, ALT 27 Chol 203, trig 173, HDL 55, LDL 113, VLDL 35 10/31/2021 AST 20, ALT 38 Chol 209, HDL 44, trig 88, LDL 147.4 Labs 07/13/2021: CBC-unremarkable CMP-creatinine 0.67, BUN 12, K4.3, GFR greater than 60, AST 48, ALT 75 Lipids: Cholesterol 214, trig 182, HDL 53, LDL 125 Testing/Procedures: Stress test, treadmill myoview 03/26/2016 No evidence of ischemia on perfusion No ischemic EKG changes ECHO 03/26/2016 LVEF 65%, normal diastolic function Normal RV systolic function No significant valvular abnormalities ASSESSMENT/PLAN: Diagnoses and all orders for this visit: Mixed hyperlipidemia - CBC; Future - Comprehensive metabolic panel; Future - Lipid panel; Future Essential hypertension - amLODIPine (Norvasc) 5 mg tablet; Take 1 tablet (5 mg) by mouth once daily as directed. - CBC; Future - Comprehensive metabolic panel; Future #HTN -BP is fairly controlled. Discussed BP goal of <130/90. She will resume checking at home and will let us know if it runs above this on average. -Continue amlodipine 5mg daily. -Continue routine exercise and heart healthy diet. -Routine labs ordered #HLD -LDL and triglycerides were elevated last year. VLDL also elevated at 35. -She is currently taking atorvastatin 20mg daily - she c/o joint achiness with this. Achiness worsens when she increases atorvastatin to 40mg daily. -Will check lipid panel and plan to switch to crestor. Can start out with every other day and increase to daily after a few weeks. -Limit intake of carbs, sugars, alcohol. Follow up in about 1 year (around 02/17/2025). Alissa Cordero NP [facility] 02-18-2024 Note Patient here for 1 y ear follow up hypertension and hyperlipidemia. No recent labs or imaging. She denies chest pain, SOB, and palpitations. Review of Systems Constitutional: Positive for weight gain (19# since Feb 2023). Cardiovascular: Positive for leg swelling (resolves by morning). Musculoskeletal: Positive for joint pain. All other systems reviewed and are negative. [facility] 01-26-2024 Telephone encounter Note pharmacy requesting refills as follows: Last office visit: 10/01/23 Last refill: 07/28/23 Requested Prescriptions Pending Prescriptions Disp Refills atorvastatin (LIPITOR) 40 mg tablet [Pharmacy Med Name: ATORVASTATIN 40 MG TABLET] 90 tablet 1 Sig: take 1 tablet by mouth every day Please review and advise. Estela Odonnell, Student [facility] 01-26-2024 Miscellaneous Notes pharmacy requesting refills as follows: Last office visit: 10/01/23 Last refill: 07/28/23 Requested Prescriptions Pending Prescriptions Disp Refills atorvastatin (LIPITOR) 40 mg tablet [Pharmacy Med Name: ATORVASTATIN 40 MG TABLET] 90 tablet 1 Sig: take 1 tablet by mouth every day Please review and advise. Tiffanie Bernardo documented in this encounter [facility] 12-15-2023 Telephone encounter Note Patient phones requesting refills as follows: Last seen 10/01/23. Requested Prescriptions Pending Prescriptions Disp Refills albuterol HFA (PROVENTIL HFA, VENTOLIN HFA) 90 mcg/actuation inhaler 1 Each 3 Si puff(s) every 4 hours as needed Please review and advise. Caterina Prakash MA [facility] 12-15-2023 Miscellaneous Notes Patient phones requesting refills as follows: Last seen 10/01/23. Requested Prescriptions Pending Prescriptions Disp Refills albuterol HFA (PROVENTIL HFA, VENTOLIN HFA) 90 mcg/actuation inhaler 1 Each 3 Si puff(s) every 4 hours as needed Please review and advise. Caterina Prakash MA documented in this encounter [facility] 10-01-2023 Note HNO ID: [id number] Author: STACIE FAIRBANKS, DO Service: ? Author Type: Physician Type: Progress Notes Filed: 10/18/2023 11:49 Note Text: Subjective The history is provided by the patient. Hypertension This is a chronic problem. The current episode started more than 1 year ago. The problem is unchanged. The problem is controlled. Pertinent negatives include no blurred vision, chest pain, headaches, malaise/fatigue, palpitations or shortness of breath. She has pain all over from fibromyalgia She wears patches on her right leg all the time She is not sleeping well because of the pain She takes ibuprofen in the morning Tylenol does not work well She had a nerve root ablation in her lower back She was in PT, but she will be doing exercises in the water now that it is summer and does not want to go to PT at this time ALLERGIES Allergen Reactions Baclofen Other: See Comments Shaky, chest tightness, difficulty talking Crestor [Rosuvastat* Diarrhea, Vomiting, Other: See Comments Nausea Cyclobenzaprine Other: See Comments Shaky, chest tightness, difficulty talking Latex Unknown Nyquil [Doxylamin-P* Unknown Pheniramine Unknown Current Outpatient Medications Medication Sig Dispense Refill atorvastatin (LIPITOR) 40 mg tablet take 1 tablet by mouth every day 90 tablet 1 betamethasone dipropionate (DIPROSONE) 0.05 % cream apply to affected area twice a day 45 g 5 ibuprofen (MOTRIN) 800 mg tablet TAKE 1 TABLET BY MOUTH EVERY 8 HOURS NEEDED 90 tablet 11 OTC PRODUCT CBD gummies as needed omega-3 fatty acids (FISH OIL CONCENTRATE ORAL) Take by mouth. Multivitamin capsule Take 1 capsule by mouth once daily. cholecalciferol (VITAMIN D3) 1,000 unit tab tablet Take 1,000 Units by mouth once daily. betamethasone dipropionate, augmented (DIPROLENE) 0.05 % cream betamethasone, augmented 0.05 % topical cream amLODIPine (NORVASC) 5 mg tablet Take 5 mg by mouth once daily. fluticasone (FLOVENT) 110 mcg/actuation inhaler Inhale 1 Puff as instructed twice daily. 1 Inhaler 1 albuterol HFA (PROVENTIL HFA, VENTOLIN HFA) 90 mcg/actuation inhaler 2 puff(s) every 4 hours as needed No current facility-administered medications for this visit. ACTIVE PROBLEM LIST Essential Hypertension Mixed Hyperlipidemia Bmi 30.0-30.9,Adult Obesity, Class I, Bmi 30-34.9 Fibromyalgia Chronic Midline Low Back Pain Dermatitis Social History Tobacco Use Smoking status: Never Smokeless tobacco: Never Substance Use Topics Alcohol use: Yes Comment: wine Drug use: No Comment: No reported history Family History Problem Relation Age of Onset Alzheimer's Disease Father Hypertension Father Prostate Cancer Father Hypertension Mother Reviewed past medical history, family history and surgeries. All medications and supplements were reviewed with the patient. Review of Systems Constitutional: Negative for chills, diaphoresis, fever, malaise/fatigue and weight loss. HENT: Negative for ear pain and hearing loss. Eyes: Negative for blurred vision and double vision. Respiratory: Negative for cough and shortness of breath. Cardiovascular: Negative for chest pain, palpitations and leg swelling. Gastrointestinal: Negative for constipation, diarrhea and heartburn. Genitourinary: Negative for dysuria and frequency. Musculoskeletal: Positive for joint pain and myalgias. Negative for back pain and falls. Skin: Negative for itching and rash. Neurological: Negative for dizziness, weakness and headaches. Endo/Heme/Allergies: Does not bruise/bleed easily. Psychiatric/Behavioral: Negative for depression and substance abuse. The patient does not have insomnia. Objective BP 114/68 Pulse 62 Temp 36.4 ?C (97.6 ?F) Resp 16 Ht 172.7 cm (5' 8 ) Wt 97.5 kg (215 lb) SpO2 94% BMI 32.69 kg/m? Physical Exam Constitutional: Appearance: Normal appearance. She is obese. HENT: Head: Normocephalic and atraumatic. Nose: Nose normal. Mouth/Throat: Mouth: Mucous membranes are moist. Dentition: Normal dentition. Eyes: General: Lids are normal. Extraocular Movements: Extraocular movements intact. Conjunctiva/sclera: Conjunctivae normal. Pupils: Pupils are equal, round, and reactive to light. Neck: Thyroid: No thyroid mass or thyromegaly. Vascular: No carotid bruit. Trachea: Phonation normal. Cardiovascular: Rate and Rhythm: Normal rate and regular rhythm. Heart sounds: Normal heart sounds. No murmur heard. No friction rub. No gallop. Pulmonary: Effort: Pulmonary effort is normal. Breath sounds: Normal breath sounds. No wheezing or rales. Abdominal: General: Bowel sounds are normal. There is no distension. Palpations: Abdomen is soft. There is no mass. Tenderness: There is no abdominal tenderness. Musculoskeletal: General: No swelling or tenderness. Normal range of motion. Cervical back: Normal range of motion and neck supple. No edema. Lymph (more content not included)... [facility] 10-01-2023 History of Presen t illness Narrative Subjective The history is provided by the patient. Hypertension This is a chronic problem. The current episode started more than 1 year ago. The problem is unchanged. The problem is controlled. Pertinent negatives include no blurred vision, chest pain, headaches, malaise/fatigue, palpitations or shortness of breath. She has pain all over from fibromyalgia She wears patches on her right leg all the time She is not sleeping well because of the pain She takes ibuprofen in the morning Tylenol does not work well She had a nerve root ablation in her lower back She was in PT, but she will be doing exercises in the water now that it is summer and does not want to go to PT at this time ALLERGIES Allergen Reactions Baclofen Other: See Comments Shaky, chest tightness, difficulty talking Crestor [Rosuvastat* Diarrhea, Vomiting, Other: See Comments Nausea Cyclobenzaprine Other: See Comments Shaky, chest tightness, difficulty talking Latex Unknown Nyquil [Doxylamin-P* Unknown Pheniramine Unknown Current Outpatient Medications Medication Sig Dispense Refill atorvastatin (LIPITOR) 40 mg tablet take 1 tablet by mouth every day 90 tablet 1 betamethasone dipropionate (DIPROSONE) 0.05 % cream apply to affected area twice a day 45 g 5 ibuprofen (MOTRIN) 800 mg tablet TAKE 1 TABLET BY MOUTH EVERY 8 HOURS NEEDED 90 tablet 11 OTC PRODUCT CBD gummies as needed omega-3 fatty acids (FISH OIL CONCENTRATE ORAL) Take by mouth. Multivitamin capsule Take 1 capsule by mouth once daily. cholecalciferol (VITAMIN D3) 1,000 unit tab tablet Take 1,000 Units by mouth once daily. betamethasone dipropionate, augmented (DIPROLENE) 0.05 % cream betamethasone, augmented 0.05 % topical cream amLODIPine (NORVASC) 5 mg tablet Take 5 mg by mouth once daily. fluticasone (FLOVENT) 110 mcg/actuation inhaler Inhale 1 Puff as instructed twice daily. 1 Inhaler 1 albuterol HFA (PROVENTIL HFA, VENTOLIN HFA) 90 mcg/actuation inhaler 2 puff(s) every 4 hours as needed No current facility-administered medications for this visit. ACTIVE PROBLEM LIST Essential Hypertension Mixed Hyperlipidemia Bmi 30.0-30.9,Adult Obesity, Class I, Bmi 30-34.9 Fibromyalgia Chronic Midline Low Back Pain Dermatitis Social History Tobacco Use Smoking status: Never Smokeless tobacco: Never Substance Use Topics Alcohol use: Yes Comment: wine Drug use: No Comment: No reported history Family History Problem Relation Age of Onset Alzheimer's Disease Father Hypertension Father Prostate Cancer Father Hypertension Mother Reviewed past medical history, family history and surgeries. All medications and supplements were reviewed with the patient. Review of Systems Constitutional: Negative for chills, diaphoresis, fever, malaise/fatigue and weight loss. HENT: Negative for ear pain and hearing loss. Eyes: Negative for blurred vision and double vision. Respiratory: Negative for cough and shortness of breath. Cardiovascular: Negative for chest pain, palpitations and leg swelling. Gastrointestinal: Negative for constipation, diarrhea and heartburn. Genitourinary: Negative for dysuria and frequency. Musculoskeletal: Positive for joint pain and myalgias. Negative for back pain and falls. Skin: Negative for itching and rash. Neurological: Negative for dizziness, weakness and headaches. Endo/Heme/Allergies: Does not bruise/bleed easily. Psychiatric/Behavioral: Negative for depression and substance abuse. The patient does not have insomnia. Objective BP 114/68 Pulse 62 Temp 36.4 C (97.6 F) Resp 16 Ht 172.7 cm (5' 8 ) Wt 97.5 kg (215 lb) SpO2 94% BMI 32.69 kg/m Physical Exam Constitutional: Appearance: Normal appearance. She is obese. HENT: Head: Normocephalic and atraumatic. Nose: Nose normal. Mouth/Throat: Mouth: Mucous membranes are moist. Dentition: Normal dentition. Eyes: General: Lids are normal. Extraocular Movements: Extraocular movements intact. Conjunctiva/sclera: Conjunctivae normal. Pupils: Pupils are equal, round, and reactive to light. Neck: Thyroid: No thyroid mass or thyromegaly. Vascular: No carotid bruit. Trachea: Phonation normal. Cardiovascular: Rate and Rhythm: Normal rate and regular rhythm. Heart sounds: Normal heart sounds. No murmur heard. No friction rub. No gallop. Pulmonary: Effort: Pulmonary effort is normal. Breath sounds: Normal breath sounds. No wheezing or rales. Abdominal: General: Bowel sounds are normal. There is no distension. Palpations: Abdomen is soft. There is no mass. Tenderness: There is no abdominal tenderness. Musculoskeletal: General: No swelling or tenderness. Normal range of motion. Cervical back: Normal range of motion and neck supple. No edema. Lymphadenopathy: Cervical: No cervical adenopathy. Skin: General: Skin is warm and dry. Findings: No erythema or rash. Nails: There is no clubbing. Neurological: Mental Status: She is alert and oriented to person, place, and time. Cranial Nerves: No cranial nerve deficit. Motor: Motor function is intact. Coordination: Coordination normal. Gait: Gait is intact. Psychiatric: Attention and Perception: Attention normal. Mood and Affect: Mood and affect normal. Speech: Speech normal. Behavior: Behavior normal. Behavior is cooperative. Thought Content: Thought content normal. Cognition and Memory: Cognition and memory normal. Judgment: Judgment normal. ASSESSMENT/PLAN: 1. Essential hypertension - ICD9: 401.9, ICD10: I10 (primary diagnosis) - Controlled - Recommend home blood pressure monitoring, to bring results to next visit - Encouraged sodium restriction, DASH or Mediterranean diet - Recommend regular aerobic exercise 2. Mixed hyperlipidemia - ICD9: 272.2, ICD10: E78.2 Continue lipitor 40 mg daily 3. Chronic midline low back pain, unspecified whether sciatica present - ICD9: 724.2, 338.29, ICD10: M54.50, G89.29 Under the care of pain management 4. Obesity, Class I, BMI 30-34.9 - ICD9: 278.00, ICD10: E66.9 Lifestyle modification recommended Stacie Fairbanks DO documented in this encounter [facility] 07-28-2023 Miscellaneous Notes Pharmacy requesting refills as follows: Last Office Visit 01/31/23 nov 10/01/23. Last Refill 01/31/23. Requested Prescriptions Pending Prescriptions Disp Refills atorvastatin (LIPITOR) 40 mg tablet [Pharmacy Med Name: ATORVASTATIN 40 MG TABLET] 90 tablet 1 Sig: take 1 tablet by mouth every day Please review and advise. Brynn Paulino MA documented in this encounter [facility] 03-12-2023 Evaluation note Encounter Date Diagnosis Assessment Notes Mar, Sacroiliac inflammation (ICD-10 - M46.1) She is doing well. [facility] sonservative thearpy, PT and Pain management are working well. States has not had any pain or concerns after recent Pain management procedure. Pharmacological management will continue with current medications as prescribed. Will follow up in 6 months. Mar, Lumbar radiculopathy (ICD-10 - M54.16) [employer] Other [id number] Miscellaneous Notes* Telephone Encounter - Hubert Nava MA - 03/04/2023 10:38 AM EDT Patient aware. Hubert Nava MA * Telephone Encounter - Hubert Nava MA - 03/04/2023 10:38 AM EDT ----- Message from Stacie Fairbanks DO sent at 03/04/2023 10:11 AM EDT ----- Please notify pt her cholesterol is slightly elevated, but greatly improved. She should continue her current meds, follow low fat high fiber diet, exercise 30 minutes per day Stacie Fairbanks DO [facility] Note Chief Complaint: Patient here for 1.5 year follow up hypertension and hyperlipidemia. PCP switched her to atorvastatin since last visit. She had routine labs done this morning. She denies chest pain, SOB, and palpitations. Has lost 22# since visit in September 2021 and is doing great. HPI: Saida Corbin is a 62 y.o. female Here in routine follow-up Doing well. No cardiovascular symptoms. Lipid profile shows an LDL of 111 and an elevated triglyceride level. She denies alcohol use. She is not diabetic. Cardiology ROS: Review of Systems Constitutional: Positive for weight loss (down 22# since September 2021). All other systems reviewed and are negative. Past Medical History She has no past medical history on file. Surgical History She has no past surgical history on file. Social History She has no history on file for tobacco use, alcohol use, and drug use. Family History No family history on file. Allergies Latex Medications Current Outpatient Medications: amLODIPine (Norvasc) 5 mg tablet, Take 1 tablet (5 mg) by mouth in the morning. TAKE 1 TABLET EVERY DAY, Disp: 90 tablet, Rfl: 3 Last Recorded Vitals BP 141/67 (BP Location: Right arm, Patient Position: Sitting) Pulse 78 Ht 1.651 m (5' 5 ) Wt 89.4 kg (197 lb) SpO2 98% BMI 32.78 kg/m??? Physical Examination: GENERAL: alert and oriented x3, well developed, in no acute distress. HEAD: atraumatic, normocephalic. EYES: KARAN, EOMI. NECK: trachea midline, no JVD present, no carotid bruits present. CARDIAC: S1, S2 present. RRR. No murmur, rubs, or gallops. RESPIRATORY: CTAB, no increased effort of breathing, no rales, rhonchi, or wheezing. ABDOMEN: soft, nontender, nondistended. EXTREMITIES: no lower extremity edema, peripheral pulses are 2+ bilaterally. No rash/skin discoloration present. NEURO: strength/sensation equal and symmetric in bilateral upper and lower extremities. PSYCH: appropriate mood, affect, and judgement. Assessment: Essential hypertension Dyslipidemia Plan: Continue current medical therapy; consider increasing Lipitor to 80 mg a day Monitor heart rate and blood pressure at home and let us know of any significant fluctuations Return to clinic in 1 year or sooner should problems arise Helen Meek MD, MPH, [facility], [facility], [facility] Interventional Cardiology Pager Email: [email or web address]09-25-2023 Miscellaneous Notes* Telephone Encounter - Brynn Paulino MA - 02/03/2023 8:17 AM EDT Patient is informed Brynn Paulino MA * Telephone Encounter - Stacie Fairbanks DO - 01/31/2023 5:38 PM EDT Please call pt- there is a possible interaction between simvastatin and amlodipine. Because of that, I would like for her to stop taking simvastatin, and I will send in Rx for atorvastatin. I would like for her to get FLP/LFT in 3 months Stacie Fairbanks DO documented in this encounter[facility]09-22-2023 Miscellaneous Notes* Telephone Encounter - Caterina Prakash MA - 01/31/2023 2:39 PM EDT [facility] Prescriber Response Form regarding patient's amlodipine and simvastatin placed in Dr. Fairbanks green folder to be filled out signed. Caterina Prakash MA documented in this encounterM[facility]09-22-2023 NoteHNO ID: [id number] Author: Stacie Fairbanks DO Service: ? Author Type: Physician Type: Progress Notes Filed: 02/16/2023 8:08 PM Note Text: Subjective The history is provided by the patient and the spouse. Hypertension This is a chronic problem. The current episode started more than 1 year ago. The problem is unchanged. The problem is controlled. Pertinent negatives include no blurred vision, chest pain, headaches, malaise/fatigue, palpitations or shortness of breath. She has chronic back pain and is under the care of the neurosurgery dept at [facility], sees Maria Luisa Farooq NP She has been in PT for the pain, doing exercises at home She will be getting nerve root ablation by their office on 02/25 She had covid 19 in the past, and lost her sense of taste, and it has not come back ALLERGIES Allergen Reactions Baclofen Other: See Comments Shaky, chest tightness, difficulty talking Crestor [Rosuvastat* Diarrhea, Vomiting, Other: See Comments Nausea Cyclobenzaprine Other: See Comments Shaky, chest tightness, difficulty talking Latex Unknown Nyquil [Doxylamin-P* Unknown Pheniramine Unknown Current Outpatient Medications Medication Sig Dispense Refill simvastatin (ZOCOR) 40 mg tablet take 1 tablet by mouth everyday at bedtime 90 tablet 0 betamethasone dipropionate (DIPROSONE) 0.05 % cream APPLY TO AFFECTED AREA TWICE A DAY 45 g 5 ibuprofen (MOTRIN) 800 mg tablet TAKE 1 TABLET BY MOUTH EVERY 8 HOURS NEEDED 90 tablet 11 OTC PRODUCT CBD gummies as needed omega-3 fatty acids (FISH OIL CONCENTRATE ORAL) Take by mouth. Multivitamin capsule Take 1 capsule by mouth once daily. cholecalciferol (VITAMIN D3) 1,000 unit tab tablet Take 1,000 Units by mouth once daily. betamethasone dipropionate, augmented (DIPROLENE) 0.05 % cream betamethasone, augmented 0.05 % topical cream amLODIPine (NORVASC) 5 mg tablet Take 5 mg by mouth once daily. fluticasone (FLOVENT) 110 mcg/actuation inhaler Inhale 1 Puff as instructed twice daily. 1 Inhaler 1 albuterol HFA (PROVENTIL HFA, VENTOLIN HFA) 90 mcg/actuation inhaler 2 puff(s) every 4 hours as needed cyclobenzaprine (FLEXERIL) 10 mg tablet Take 0.5-1 tablets by mouth at bedtime as needed. (Patient not taking: Reported on 01/31/2023) 30 tablet 0 No current facility-administered medications for this visit. ACTIVE PROBLEM LIST Essential Hypertension Mixed Hyperlipidemia Bmi 30.0-30.9,Adult Obesity, Class I, Bmi 30-34.9 Fibromyalgia Social History Tobacco Use Smoking status: Never Smokeless tobacco: Never Substance Use Topics Alcohol use: Yes Comment: wine Drug use: No Comment: No reported history Family History Problem Relation Age of Onset Alzheimer's Disease Father Hypertension Father Prostate Cancer Father Hypertension Mother Reviewed past medical history, family history and surgeries. All medications and supplements were reviewed with the patient. Review of Systems Constitutional: Negative for chills, diaphoresis, fever, malaise/fatigue and weight loss. HENT: Negative for ear pain and hearing loss. Eyes: Negative for blurred vision and double vision. Respiratory: Negative for cough and shortness of breath. Cardiovascular: Negative for chest pain, palpitations and leg swelling. Gastrointestinal: Negative for constipation, diarrhea and heartburn. Genitourinary: Negative for dysuria and frequency. Musculoskeletal: Positive for back pain. Negative for falls, joint pain and myalgias. Skin: Negative for itching and rash. Neurological: Positive for sensory change. Negative for dizziness, weakness and headaches. Endo/Heme/Allergies: Does not bruise/bleed easily. Psychiatric/Behavioral: Negative for depression and substance abuse. The patient does not have insomnia. Objective BP 118/70 Pulse (!) 52 Temp 36.4 ?C (97.5 ?F) Resp 16 Ht 172.7 cm (5' 8 ) Wt 89.7 kg (197 lb 12.8 oz) SpO2 96% BMI 30.08 kg/m? Physical Exam Constitutional: Appearance: Normal appearance. She is obese. HENT: Head: Normocephalic and atraumatic. Nose: Nose normal. Mouth/Throat: Mouth: Mucous membranes are moist. Dentition: Normal dentition. Eyes: General: Lids are normal. Extraocular Movements: Extraocular movements intact. Conjunctiva/sclera: Conjunctivae normal. Pupils: Pupils are equal, round, and reactive to light. Neck: Thyroid: No thyroid mass or thyromegaly. Vascular: No carotid bruit. Trachea: Phonation normal. Cardiovascular: Rate and Rhythm: Normal rate and regular rhythm. Heart sounds: Normal heart sounds. No murmur heard. No friction rub. No gallop. Pulmonary: Effort: Pulmonary effort is normal. Breath sounds: Normal breath sounds. No wheezing or rales. Abdominal: General: Bowel sounds are normal. There is no distension. Palpations: Abdomen is soft. There is no mass. Tenderness: There is no abdominal tenderness. Musculoskeletal: General: N (more content not included)...[facility]09-22-2023 History of Present illness Narrative* Stacie Fairbanks DO - 01/31/2023 10:45 AM EDT Subjective The history is provided by the patient and the spouse. Hypertension This is a chronic problem. The current episode started more than 1 year ago. The problem is unchanged. The problem is controlled. Pertinent negatives include no blurred vision, chest pain, headaches,malaise/fatigue, palpitations or shortness of breath. She has chronic back pain and is under the care of the neurosurgery dept at [facility], sees Maria Luisa Farooq NP She has been in PT for the pain, doing exercises at home She will be getting nerve root ablation by their office on 02/25 She had covid 19 in the past, and lost her sense of taste, and it has not come back ALLERGIES Allergen Reactions Baclofen Other: See Comments Shaky, chest tightness, difficulty talking Crestor [Rosuvastat* Diarrhea, Vomiting, Other: See Comments Nausea Cyclobenzaprine Other: See Comments Shaky, chest tightness, difficulty talking Latex Unknown Nyquil [Doxylamin-P* Unknown Pheniramine Unknown Current Outpatient Medications Medication Sig Dispense Refill simvastatin (ZOCOR) 40 mg tablet take 1 tablet by mouth everyday at bedtime 90 tablet 0 betamethasone dipropionate (DIPROSONE) 0.05 % cream APPLY TO AFFECTED AREA TWICE A DAY 45 g 5 ibuprofen (MOTRIN) 800 mg tablet TAKE 1 TABLET BY MOUTH EVERY 8 HOURS NEEDED 90 tablet 11 OTC PRODUCT CBD gummies as needed omega-3 fatty acids (FISH OIL CONCENTRATE ORAL) Take by mouth. Multivitamin capsule Take 1 capsule by mouth once daily. cholecalciferol (VITAMIN D3) 1,000 unit tab tablet Take 1,000 Units by mouth once daily. betamethasone dipropionate, augmented (DIPROLENE) 0.05 % cream betamethasone, augmented 0.05 % topical cream amLODIPine (NORVASC) 5 mg tablet Take 5 mg by mouth once daily. fluticasone (FLOVENT) 110 mcg/actuation inhaler Inhale 1 Puff as instructed twice daily. 1 Inhaler 1 albuterol HFA (PROVENTIL HFA, VENTOLIN HFA) 90 mcg/actuation inhaler 2 puff(s) every 4 hours as needed cyclobenzaprine (FLEXERIL) 10 mg tablet Take 0.5-1 tablets by mouth at bedtime as needed. (Patient not taking: Reported on 01/31/2023) 30 tablet 0 No current facility-administered medications for this visit. ACTIVE PROBLEM LIST Essential Hypertension Mixed Hyperlipidemia Bmi 30.0-30.9,Adult Obesity, Class I, Bmi 30-34.9 Fibromyalgia Social History Tobacco Use Smoking status: Never Smokeless tobacco: Never Substance Use Topics Alcohol use: Yes Comment: wine Drug use: No Comment: No reported history Family History Problem Relation Age of Onset Alzheimer's Disease Father Hypertension Father Prostate Cancer Father Hypertension Mother Reviewed past medical history, family history and surgeries. All medications and supplements were reviewed with the patient. Review of Systems Constitutional: Negative for chills, diaphoresis, fever, malaise/fatigue and weight loss. HENT: Negative for ear pain and hearing loss. Eyes: Negative for blurred vision and double vision. Respiratory: Negative for cough and shortness of breath. Cardiovascular: Negative for chest pain, palpitations and leg swelling. Gastrointestinal: Negative for constipation, diarrhea and heartburn. Genitourinary: Negative for dysuria and frequency. Musculoskeletal: Positive for back pain. Negative for falls, joint pain and myalgias. Skin: Negative for itching and rash. Neurological: Positive for sensory change. Negative for dizziness, weakness and headaches. Endo/Heme/Allergies: Does not bruise/bleed easily. Psychiatric/Behavioral: Negative for depression and substance abuse. The patient does not have insomnia. Objective BP 118/70 Pulse (!) 52 Temp 36.4 C (97.5 F) Resp 16 Ht 172.7 cm (5' 8 ) Wt 89.7 kg (197 lb 12.8 oz) SpO2 96% BMI 30.08 kg/m Physical Exam Constitutional: Appearance: Normal appearance. She is obese. HENT: Head: Normocephalic and atraumatic. Nose: Nose normal. Mouth/Throat: Mouth: Mucous membranes are moist. Dentition: Normal dentition. Eyes: General: Lids are normal. Extraocular Movements: Extraocular movements intact. Conjunctiva/sclera: Conjunctivae normal. Pupils: Pupils are equal, round, and reactive to light. Neck: Thyroid: No thyroid mass or thyromegaly. Vascular: No carotid bruit. Trachea: Phonation normal. Cardiovascular: Rate and Rhythm: Normal rate and regular rhythm. Heart sounds: Normal heart sounds. No murmur heard. No friction rub. No gallop. Pulmonary: Effort: Pulmonary effort is normal. Breath sounds: Normal breath sounds. No wheezing or rales. Abdominal: General: Bowel sounds are normal. There is no distension. Palpations: Abdomen is soft. There is no mass. Tenderness: There is no abdominal tenderness. Musculoskeletal: General: No swelling or tenderness. Normal range of motion. Cervical back: Normal range of motion and neck supple. No edema. Lymphadenopathy: Cervical: No cervical adenopathy. Skin: General: Skin is warm and dry. Findings: No erythema or rash. Nails: There is no clubbing. Neurological: Mental Status: She is alert and oriented to person, place, and time. Cranial Nerves: No cranial nerve deficit. Motor: Motor function is intact. Coordination: Coordination normal. Gait: Gait is intact. Psychiatric: Attention and Perception: Attention normal. Mood and Affect: Mood and affect normal. Speech: Speech normal. Behavior: Behavior normal. Behavior is cooperative. Thought Content: Thought content normal. Cognition and Memory: Cognition and memory normal. Judgment: Judgment normal. ASSESSMENT/PLAN: 1. Essential hypertension - ICD9: 401.9, ICD10: I10 (primary diagnosis) - Controlled - Recommend home blood pressure monitoring, to bring results to next visit - Encouraged sodium restriction, DASH or Mediterranean diet - Recommend regular aerobic exercise - CBC - COMP METABOLIC PANEL 2. Dermatitis - ICD9: 692.9, ICD10: L30.9 - BETAMETHASONE DIPROPIONATE 0.05 % TOPICAL CREAM 3. Mixed hyperlipidemia - ICD9: 272.2, ICD10: E78.2 Continue lipitor 40 mg daily - LIPID PANEL BASIC 4. Fibromyalgia - ICD9: 729.1, ICD10: M79.7 5. Chronic midline low back pain, unspecified whether sciatica present - ICD9: 724.2, 338.29, ICD10: M54.50, G89.29 Under the care of pain management 6. Obesity, Class I, BMI 30-34.9 - ICD9: 278.00, ICD10: E66.9 Lifestyle modification recommended Stacie Fairbanks DO documented [facility]23 Miscellaneous Notes* Telephone Encounter - Hubert Nava MA - 01/29/2023 7:21 AM EDT pt requesting refills: Last office visit 09/09/22. Last refill 11/04/22 nov 01/31/23 Requested Prescriptions Pending Prescriptions Disp Refills simvastatin (ZOCOR) 40 mg tablet [Pharmacy Med Name: SIMVASTATIN 40 MG TABLET] 90 tablet 0 Sig: take 1 tablet by mouth everyday at bedtime Please review and advise. Hubert Nava MA p documented in this encounterM[facility]08-[facility]23 Evaluation note* Encounter Date Diagnosis Assessment Notes Treatment Notes Treatment Clinical Notes Dec, Sacroiliac inflammation (ICD-10 - M46.1) Dec, Lumbar stenosis without neurogenic claudication (ICD-10 - M48.061) Doing well overall improvement of the Leg pain and denies having leg pain today. States back pain continues but again has improved. WIll continue with conservative therapy. Discussion of pain management in which patient has not followed up with. Advised that patient would likely benefit from SI injection. Pharmacological management patient will continue with current medications as prescribed. Follow-up in 12 weeks. Dec, BMI 33.0-33.9,adult (ICD-10 - Z68.33) Education completed on diet, exercise, sugary and caloric intake. Education on 1lb weight has 4lbs of pressure to the spine. [employer] Other 06-26-2023 Miscellaneous Notes* Telephone Encounter - Hubert Nava MA - 11/04/2022 7:30 AM EDT Pharmacy requesting refills: Last office visit 09/09/2022. Last refill 08/05/2022 nov 03/13/2023 Requested Prescriptions Pending Prescriptions Disp Refills simvastatin (ZOCOR) 40 mg tablet [Pharmacy Med Name: SIMVASTATIN 40 MG TABLET] 90 tablet 0 Sig: TAKE 1 TABLET BY MOUTH EVERYDAY AT BEDTIME Please review and advise. Hubert Nava MA documented in this encounterM[facility]06-22-2023 Evaluation note* Encounter Date Diagnosis Assessment Notes Treatment Notes Treatment Clinical Notes Oct, Lumbar radiculopathy (ICD-10 - M54.16) I will orderxray Lumbar 6view along with bilateral Hip/Pelvis xray. Will order MRI Lumbar spine to rule out cord compression. Will refer to Aqua therapy at [place]. Patient would likely benefit from Sacroiliac and Right Greater Trochanter Bursisit injection with Pain management Dr Crowell. WIll order DEXA scan with forearm. Follow up in 6 weeks. Medical decision making shows a new problem to me with further workup planned or suggested with the potential for extensive treatment options that were considered with the most applicable given this patient's situation as noted above. Treatment options considered include a combination of physical therapy approaches, pharmacologic management, and interventional procedures. Those most applicable to the patient were discussed at this time. Risk of complications and/or morbidity and mortality is high given that acute and chronic pain poses a threat to life and bodily function if undertreated, poorly treated or with failure to maintain adequate treatment and timely follow up. Given the serious and fluctuating nature of pain with extensive consideration for whenever pain changes, there always remains the possibility of prolonged functional impairment requiring constant patient reassessment and high-level medical decision making. The amount and complexity of data reviewed is high given that patient labs, radiology reports, and other test were obtained, reviewed and summarized as applicable from the physician portal and/or outside medical records. Pertinent positive and negative findings were considered in medical decision-making. Oct, Greater trochanteric bursitis, right (ICD-10 - M70.61) Oct, Sacroiliac inflammation (ICD-10 - M46.1) Oct, BMI 33.0-33.9,adult (ICD-10 - Z68.33) Oct, Depression screening (ICD-10 - Z13.31) Oct, Encounter for screening for tobacco use (ICD-10 - Z01.89) Oct, Post menopausal syndrome (ICD-10 - Z78.0) [employer] Other 05-15-2023 Miscellaneous Notes* Telephone Encounter - Hubert Nava MA - 09/23/2022 3:39 PM EDT Lm on referral placed and faxed. Hubert Nava MA * Telephone Encounter - Stacie Fairbanks DO - 09/23/2022 2:05 PM EDT Referral to Dr. Garduno attached Stacie Fairbanks DO * Telephone Encounter - Brynn Paulino MA - 09/23/2022 1:53 PM EDT Patient called and left a message requesting a referral to a Dr. Garduno ortho fax number is [phone] Brynn Paulion MA documented in this encounterM[facility]05-09-2023 Miscellaneous Notes* Telephone Encounter - Stacie Fairbanks DO - 09/17/2022 12:15 PM EDT She does not need to stop seeing the chiropractor, if she believes it is helping. However, if she has arthritis in the hip, health care coach probably will not help much. Does she have the name of anortho she would prefer to see? Stacie Fairbanks DO * Telephone Encounter - Hubert Nava MA - 09/17/2022 11:44 AM EDT Patient notified and voiced understanding. Patient is requesting referral to ortho (in [place]) she states she will follow up with ortho and see if they want x-rays ordered. Patient wants to know ifshe should stop seeing chiropractor. Please advise . After we call pt. Back she would like referral mailed to her. * Addendum Note - Stacie Fairbanks DO - 09/17/2022 11:29 AM EDTAddended by: STACIE FAIRBANKS on: 09/17/2022 11:29 AM Modules accepted: Orders * Telephone Encounter - Stacie Fairbanks DO - 09/17/2022 11:27 AM EDT Xray shows degenerative changes of the lumbar spine, and advanced arthritis of the right hip. I canorder an xray of the right hip and refer her to ortho. Does she want to see ortho close to her home? Stacie Fairbanks DO * Telephone Encounter - Brynn Paulino MA - 09/17/2022 8:50 AM EDT Patient is requesting x-ray results Brynn Paulino MA documented in this encounterM[facility]field Hospital05-01-[facility]23 History of Present illness Narrative* Stacie Fairbanks - 09/09/2022 2:13 PM EDT Subjective The history is provided by the patient and the spouse. Hypertension This is a chronic problem. The current episode started more than 1 year ago. The problem is unchanged. Pertinent negatives include no blurred vision, chest pain, headaches, malaise/fatigue, palpitations or shortness of breath. She has right sided sciatica The pain starts in her right lower back, and radiates to her right knee The pain is 8/10, constant, but waxes and wanes She takes a CBD gummie at bedtime, uses CBD cream over the painful area She is following the [employer] plan for weight loss and that is working She quit drinking alcohol one year ago for her diet She has lost 60 pounds She walks for exercise and does a lot of yardwork ALLERGIES Allergen Reactions Crestor [Rosuvastat* Diarrhea, Vomiting, Other: See Comments Nausea Latex Unknown Nyquil [Doxylamin-P* Unknown Pheniramine Unknown Current Outpatient Medications Medication Sig Dispense Refill simvastatin (ZOCOR) 40 mg tablet TAKE 1 TABLET BY MOUTH EVERYDAY AT BEDTIME 90 tablet 0 betamethasone dipropionate (DIPROSONE) 0.05 % cream APPLY TO AFFECTED AREA TWICE A DAY 45 g 5 ibuprofen (MOTRIN) 800 mg tablet TAKE 1 TABLET BY MOUTH EVERY 8 HOURS NEEDED 90 tablet 11 OTC PRODUCT CBD gummies as needed omega-3 fatty acids (FISH OIL CONCENTRATE ORAL) Take by mouth. Multivitamin capsule Take 1 capsule by mouth once daily. cholecalciferol (VITAMIN D3) 1,000 unit tab tablet Take 1,000 Units by mouth once daily. betamethasone dipropionate, augmented (DIPROLENE) 0.05 % cream betamethasone, augmented 0.05 % topical cream amLODIPine (NORVASC) 5 mg tablet Take 5 mg by mouth once daily. fluticasone (FLOVENT) 110 mcg/actuation inhaler Inhale 1 Puff as instructed twice daily. 1 Inhaler 1 albuterol HFA (PROVENTIL HFA, VENTOLIN HFA) 90 mcg/actuation inhaler 2 puff(s) every 4 hours as needed No current facility-administered medications for this visit. ACTIVE PROBLEM LIST Essential Hypertension Mixed Hyperlipidemia Bmi 30.0-30.9,Adult Obesity, Class I, Bmi 30-34.9 Fibromyalgia Social History Tobacco Use Smoking status: Never Smokeless tobacco: Never Substance Use Topics Alcohol use: Yes Comment: wine Drug use: No Comment: No reported history Family History Problem Relation Age of Onset Alzheimer's Disease Father Hypertension Father Prostate Cancer Father Hypertension Mother Reviewed past medical history, family history and surgeries. All medications and supplements were reviewed with the patient. Review of Systems Constitutional: Negative for chills, diaphoresis, fever, malaise/fatigue and weight loss. HENT: Negative for ear pain and hearing loss. Eyes: Negative for blurred vision and double vision. Respiratory: Negative for cough and shortness of breath. Cardiovascular: Negative for chest pain, palpitations and leg swelling. Gastrointestinal: Negative for constipation, diarrhea and heartburn. Genitourinary: Negative for dysuria and frequency. Musculoskeletal: Positive for back pain. Negative for falls, joint pain and myalgias. Skin: Negative for itching and rash. Neurological: Negative for dizziness, focal weakness, weakness and headaches. Endo/Heme/Allergies: Does not bruise/bleed easily. Psychiatric/Behavioral: Negative for depression and substance abuse. The patient does not have insomnia. Objective BP 128/74 Pulse (!) 58 Temp 36.7 C (98 F) Resp 16 Ht 172.7 cm (5' 8 ) Wt 90.9 kg (200 lb 6.4 oz) SpO2 97% BMI 30.47 kg/m Physical Exam Constitutional: Appearance: Normal appearance. HENT: Head: Normocephalic and atraumatic. Nose: Nose normal. Mouth/Throat: Mouth: Mucous membranes are moist. Dentition: Normal dentition. Eyes: General: Lids are normal. Extraocular Movements: Extraocular movements intact. Conjunctiva/sclera: Conjunctivae normal. Pupils: Pupils are equal, round, and reactive to light. Neck: Thyroid: No thyroid mass or thyromegaly. Vascular: No carotid bruit. Trachea: Phonation normal. Cardiovascular: Rate and Rhythm: Normal rate and regular rhythm. Heart sounds: Normal heart sounds. No murmur heard. No friction rub. No gallop. Pulmonary: Effort: Pulmonary effort is normal. Breath sounds: Normal breath sounds. No wheezing or rales. Abdominal: General: Bowel sounds are normal. There is no distension. Palpations: Abdomen is soft. There is no mass. Tenderness: There is no abdominal tenderness. Musculoskeletal: General: Tenderness (over right sciatic notch) present. No swelling. Normal range of motion. Cervical back: Normal range of motion and neck supple. No edema. Lymphadenopathy: Cervical: No cervical adenopathy. Skin: General: Skin is warm and dry. Findings: No erythema or rash. Nails: There is no clubbing. Neurological: Mental Status: She is alert and oriented to person, place, and time. Cranial Nerves: No cranial nerve deficit. Motor: Motor function is intact. Coordination: Coordination normal. Gait: Gait is intact. Psychiatric: Attention and Perception: Attention normal. Mood and Affect: Mood and affect normal. Speech: Speech normal. Behavior: Behavior normal. Behavior is cooperative. Thought Content: Thought content normal. Cognition and Memory: Cognition and memory normal. Judgment: Judgment normal. ASSESSMENT/PLAN: 1. Essential hypertension - ICD9: 401.9, ICD10: I10 (primary diagnosis) - good control - Recommended regular aerobic exercise. - Recommend home blood pressure monitoring, to bring results in on next visit - Goal of BP <130/80 - CBC 2. Sciatica, right side - ICD9: 724.3, ICD10: M54.31 - CONSULT TO PAIN MGT 3. Lumbar back pain - ICD9: 724.2, ICD10: M54.50 - XR LUMBAR PARS DEFECT 4V AP/LAT/BOTH OBL 4. Obesity, Class I, BMI 30-34.9 - ICD9: 278.00, ICD10: E66.9 Lifestyle modification recommended Stacie Fairbanks DO [facility]23 Miscellaneous Notes* Telephone Encounter - Brynn Paulino MA - 08/05/2022 7:59 AM EDT Pharmacy requesting refills as follows: Last Office Visit 01/17/22. Last Refill 12/27/22. Requested Prescriptions Pending Prescriptions Disp Refills simvastatin (ZOCOR) 40 mg tablet [Pharmacy Med Name: SIMVASTATIN 40 MG TABLET] 90 tablet Sig: TAKE 1 TABLET BY MOUTH EVERYDAY AT BEDTIME Please review and advise. Brynn Paulino MA documented in this encounterM[facility]01-24-2023 Miscellaneous Notes* Telephone Encounter - Brynn Paulino MA - 06/04/2022 5:09 PM EST Patient is informed Brynn Paulino MA * Telephone Encounter - Stacie Fairbanks DO - 06/04/2022 5:05 PM EST Please notify pt her mammogram showed benign findings, and a repeat in one year is recommended. Also, her blood work shows that her cholesterol has greatly improved, and her liver test was normal. She should continue her current medications Stacie Fairbanks DO * Telephone Encounter - Caterina Prakash MA - 06/04/2022 3:59 PM EST Received patient's mammogram results that she completed at [facility]. Placed in Dr. Fairbanks green folder to review. Please advise on results. Caterina Prakash MA documented in this encounterM[facility]01-03-2023 Miscellaneous Notes* Telephone Encounter - Hubert Nava MA - 05/14/2022 11:52 AM EST Patient notified. * Telephone Encounter - Stacie Fairbanks DO - 05/10/2022 8:16 PM EST Order attached Stacie Fairbanks DO * Telephone Encounter - Caterina Prakash MA - 05/10/2022 7:43 AM EST ----- Message from Hubert Nava MA sent at 02/08/2022 1:26 PM EDT ----- Remind pt time to madelin lipid panel after medication increased. Hubert Nava MA documented in this encounterM[facility]12-27-2022 Miscellaneous Notes* Telephone Encounter - Hubert Nava MA - 05/07/2022 9:02 AM EST Pharmacy requesting refills: Last office visit 01/17/2022. Last refill 02/08/2022 nov 07/18/2022 Requested Prescriptions Pending Prescriptions Disp Refills simvastatin (ZOCOR) 40 mg tablet [Pharmacy Med Name: SIMVASTATIN 40 MG TABLET] 30 tablet 2 Sig: TAKE 1 TABLET BY MOUTH EVERYDAY AT BEDTIME Please review and advise. Hubert Nava MA documented in this encounterM[facility]09-30-2022 Miscellaneous Notes* Telephone Encounter - Hubert Nava MA - 02/08/2022 2:41 PM EDT Reminder placed. Hubert Nava MA * Addendum Note - Stacie Fairbanks DO - 02/08/2022 1:36 PM EDTAddended by: STACIE FAIRBANKS on: 02/08/2022 01:36 PM Modules accepted: Orders * Telephone Encounter - Stacie Fairbanks DO - 02/08/2022 1:35 PM EDT Please put in reminder for FLP/LFT in 3 months thanks Stacie Fairbanks DO * Telephone Encounter - Hubert Nava MA - 02/08/2022 1:24 PM EDT Patient notified and is willing to increase medication. Pt is requesting us to order blood work in 3 months. Order placed. Hubert Nava MA * Telephone Encounter - Stacie Fairbanks DO - 02/07/2022 6:22 PM EDT Please call pt- her cholesterol is still elevated. I would like to increase her zocor to 40 mg per day - is she willing to do that? Stacie Fairbanks DO documented in this encounterM[facility]09-08-2022 History of Present illness Narrative* Stacie Fairbanks DO - 01/17/2022 9:16 AM EDT SUBJECTIVE: 61 year old female here with her for annual routine pap and checkup. I have fully reviewed the past medical, surgical, social and family history and updated the Histories section of [facility]. She is following the [employer] diet plan and is losing about 1 pound per week This is a high protein, high fiber, low fat diet with supplements from the program She has lost 37 pounds since July She sees a chiropractor for back pain. Since she has lost weight, her knee swelling has gone down and they do not hurt. He eczema is better since she stopped eating wheat. She has been walking for exercise, but is not working out because of hip and back pain. She is under the care of Dr. Meek, blow torch burner. No LMP recorded. ALLERGIES Allergen Reactions Crestor [Rosuvastat* Diarrhea, Vomiting, Other: See Comments Nausea Latex Unknown Nyquil [Doxylamin-P* Unknown Pheniramine Unknown Current Outpatient Medications Medication Sig Dispense Refill simvastatin (ZOCOR) 20 mg tablet TAKE 1 TABLET BY MOUTH EVERYDAY AT BEDTIME 30 tablet 2 betamethasone dipropionate (DIPROSONE) 0.05 % cream APPLY TO AFFECTED AREA TWICE A DAY 45 g 5 ibuprofen (MOTRIN) 800 mg tablet TAKE 1 TABLET BY MOUTH EVERY 8 HOURS NEEDED 90 tablet 11 OTC PRODUCT CBD gummies as needed omega-3 fatty acids (FISH OIL CONCENTRATE ORAL) Take by mouth. Multivitamin capsule Take 1 capsule by mouth once daily. cholecalciferol (VITAMIN D3) 1,000 unit tab tablet Take 1,000 Units by mouth once daily. betamethasone dipropionate, augmented (DIPROLENE) 0.05 % cream betamethasone, augmented 0.05 % topical cream amLODIPine (NORVASC) 5 mg tablet Take 5 mg by mouth once daily. fluticasone (FLOVENT) 110 mcg/actuation inhaler Inhale 1 Puff as instructed twice daily. 1 Inhaler 1 albuterol HFA (PROVENTIL HFA, VENTOLIN HFA) 90 mcg/actuation inhaler 2 puff(s) every 4 hours as needed No current facility-administered medications for this visit. ACTIVE PROBLEM LIST Essential Hypertension Mixed Hyperlipidemia Bmi 36.0-36.9,Adult Obesity, Class II, Bmi 35-39.9 Fibromyalgia Social History Tobacco Use Smoking status: Never Smokeless tobacco: Never Substance Use Topics Alcohol use: Yes Comment: wine Drug use: No Comment: No reported history Family History Problem Relation Age of Onset Alzheimer's Disease Father Hypertension Father Prostate Cancer Father Hypertension Mother Reviewed past medical history, family history and surgeries. All medications and supplements were reviewed with the patient. REVIEW OF SYSTEMS GENERAL: No weight loss, malaise or fevers HEENT: Negative for frequent or significant headaches, No changes in hearing or vision, no nose bleeds or other nasal problems NECK: Negative for lumps, goiter, pain and significant neck swelling RESPIRATORY: Negative for cough, hemoptysis, wheezing, COPD, dyspnea or shortness of breath CARDIOVASCULAR: Negative for chest pain, leg swelling, hypertension, CHF or palpitations GI: No nausea, vomiting, or diarrhea : No history of dysuria, frequency or incontinence MUSCULOSKELETAL: Positive for back pain SKIN: Negative for lesions, rash, and itching PSYCH: Negative for sleep disturbance, mood disorder and recent psychosocial stressors HEMATOLOGY/LYMPHOLOGY: Negative for prolonged bleeding, bruising easily or swollen nodes ENDOCRINE: Negative for cold or heat intolerance, polyuria, polydipsia and goiter NEURO: No history of headaches, syncope, paralysis, seizures or tremors PHYSICAL EXAMINATION: BP 128/72 (BP Site: Right Arm, BP Position: Sitting, BP Cuff Size: Regular Adult) Pulse (!) 59 Temp 36.6 C (97.8 F) Resp 16 Ht 172.7 cm (5' 8 ) Wt 91.8 kg (202 lb 6.4 oz) SpO2 98% BMI 30.77 kg/m General appearance: Well appearing, alert, in no acute distress, well-hydrated, obese. Skin: Skin color, texture, turgor normal, no suspicious rashes or lesions Head: Normocephalic, no masses, lesions, tenderness or abnormalities Eyes: Anicteric sclera. Pupils are equally round and reactive to light. Extraocular movements are intact. Ears: External ears normal, canals clear Nose/Sinuses: Nares normal, septum midline, mucosa normal, no drainage or sinus tenderness Oropharynx: Lips, mucosa, and tongue normal, teeth and gums normal, oropharynx normal Neck: Supple, no adenopathy; thyroid symmetric, normal size, no bruits Back: Normal exam Lungs: Lungs clear to auscultation. No wheezing, rhonchi, rales. Heart: RRR without murmur, gallop, or rubs. No ectopy Abdomen: Normal abdominal exam, Abdomen soft, non-tender. Bowel sounds normal. No masses, organomegaly Extremities: No deformities, edema, skin discoloration, clubbing or cyanosis. Good capillary refill. Musculoskeletal: No joint swelling, deformity, or tenderness Peripheral pulses: Normal Neuro: Gait normal. Reflexes normal and symmetric. Sensation grossly intact. ASSESSMENT/PLAN: 1. Well adult exam - ICD9: V70.0, ICD10: Z00.00 (primary diagnosis) - Counseled on healthy diet and regular exercise - Calcium intake with supplements or by diet of 1000 mg/day for under 50, 1200- 1500 mg/day for 50+ 2. Essential hypertension - ICD9: 401.9, ICD10: I10 - good control - Recommended regular aerobic exercise. - Recommend home blood pressure monitoring, to bring results in on next visit - Goal of BP <130/80 - COMP METABOLIC PANEL 3. Mixed hyperlipidemia - ICD9: 272.2, ICD10: E78.2 - good control - LIPID PANEL BASIC 4. Vitamin D deficiency - ICD9: 268.9, ICD10: E55.9 - VITAMIN D 25 HYDROXY 5. Weight loss - ICD9: 783.21, ICD10: R63.4 - TSH BLD 6. Encounter for screening mammogram for breast cancer - ICD9: V76.12, ICD10: Z12.31 - MITCH SCREENING 7. Obesity, Class I, BMI 30-34.9 - ICD9: 278.00, ICD10: E66.9 Weight decreasing 8. BMI 30.0-30.9,adult - ICD9: V85.30, ICD10: Z68.30 On [employer] diet Stacie Fairbanks DO documented in this encounterM[facility]06-07-2022 Miscellaneous Notes* Telephone Encounter - Caterina Prakash MA - 10/16/2021 1:29 PM EDT Patient informed of fasting lab orders. Caterina Prakash MA * Telephone Encounter - Stacie Fairbanks DO - 10/16/2021 1:03 PM EDT Order for blood work attached Stacie Fairbanks DO * Telephone Encounter - Caterina Prakash MA - 10/16/2021 7:12 AM EDT ----- Message from Caterina Prakash MA sent at 07/16/2021 3:07 PM EST ----- Patient due for 3 month recheck vitamin D after starting 1000 units daily. Caterina Prakash MA * Telephone Encounter - Caterina Prakash MA - 10/16/2021 7:10 AM EDT ----- Message from Hubert Nava MA sent at 07/16/2021 3:04 PM EST ----- Remind patient time to recheck FLP/LFT after starting zocor. Hubert Nava MA documented in this encounterM[facility]05-12-2022 Miscellaneous Notes* Telephone Encounter - Brynn Paulino MA - 09/20/2021 10:33 AM EDT pharmacy requesting refills as follows: Last Office Visit 07/13/21 nov 01/17/22. Last Refill 07/16/21. Pending Prescriptions Disp Refills SIMVASTATIN 20 MG TABLET 30 tablet 2 Sig: TAKE 1 TABLET BY MOUTH EVERYDAY AT BEDTIME CHINO: Yes Please review and advise. Brynn Paulino MA documented in this encounterM[facility]04-15-2022 Miscellaneous Notes* Telephone Encounter - Hubert Nava MA - 08/24/2021 3:13 PM EDT Pharmacy requesting refills: Last office visit 07/13/2021. Last refill on history ?? Last time it was filled 01/17/2022 Pending Prescriptions Disp Refills BETAMETHASONE DIPROPIONATE 0.05 % TOPICAL CREAM 45 g 5 Sig: APPLY TO AFFECTED AREA TWICE A DAY CHINO: Yes Please review and advise. Hubert Nava MA documented in this [facility]03-29-2022 Miscellaneous Notes* Telephone Encounter - Caterina Prakash MA - 08/07/2021 1:53 PM EDT Script was sent in 07/16/21 for #30 with 2 refills, new script not needed until 10/15/21. Caterina Prakash MA documented in this encounterM[facility]03-04-2022 NoteHNO ID: [id number] Author: Stacie Fairbanks, DO Service: ? Author Type: Physician Type: Progress Notes Filed: 08/01/2021 3:36 PM Note Text: Subjective The history is provided by the patient. Hypertension This is a chronic problem. The current episode started more than 1 year ago. The problem is unchanged. The problem is controlled. Pertinent negatives include no blurred vision, chest pain, headaches, malaise/fatigue, palpitations or shortness of breath. There are no associated agents to hypertension. Risk factors for coronary artery disease include obesity and post-menopausal state. Has chronic lower back pain She is seeing a chiropractor He puts her in antigravity chair and does manipulations She sees him once a month, which helps a lot She is not sure she wants to see pain management Feels like her fibromyalgia is getting worse She has tried CBD oil, which works She has a handicapped placard, which has helped her greatly ALLERGIES Allergen Reactions - Crestor [Rosuvastat* Diarrhea, Vomiting, Other: See Comments Nausea - Latex Unknown - Nyquil [Doxylamin-P* Unknown - Pheniramine Unknown Current Outpatient Medications Medication Sig Dispense Refill - OTC PRODUCT CBD gummies as needed - omega-3 fatty acids (FISH OIL CONCENTRATE ORAL) Take by mouth. - Multivitamin capsule Take 1 capsule by mouth once daily. - cholecalciferol (VITAMIN D) 1,000 unit tab tablet Take 1,000 Units by mouth once daily. - betamethasone dipropionate (DIPROSONE) 0.05 % cream Apply to affected area twice daily. 45 g 5 - simvastatin (ZOCOR) 10 mg tablet TAKE 1 TABLET BY MOUTH EVERY DAY 90 tablet 0 - ibuprofen (MOTRIN) 800 mg tablet TAKE 1 TABLET BY MOUTH EVERY 8 HOURS NEEDED 90 tablet 11 - betamethasone dipropionate, augmented (DIPROLENE) 0.05 % cream betamethasone, augmented 0.05 % topical cream - amLODIPine (NORVASC) 5 mg tablet Take 5 mg by mouth once daily. - fluticasone (FLOVENT) 110 mcg/actuation inhaler Inhale 1 Puff as instructed twice daily. 1 Inhaler 1 - albuterol HFA (PROAIR HFA) 90 mcg/actuation inhaler 2 puff(s) every 4 hours as needed - zoster vaccine, recombinant, adjuvanted, (SHINGRIX) 50 mcg/0.5 mL injection Inject 0.5 mL intramuscularly now and repeat 2nd dose in 2-6 months (Patient not taking: Reported on 07/13/2021 ) 1 Each 1 No current facility-administered medications for this visit. ACTIVE PROBLEM LIST Essential Hypertension Mixed Hyperlipidemia Obesity, Class I, Bmi 30-34.9 Bmi 34.0-34.9,Adult Obesity, Class II, Bmi 35-39.9 Social History Tobacco Use - Smoking status: Never Smoker - Smokeless tobacco: Never Used Substance Use Topics - Alcohol use: Yes Comment: wine - Drug use: No Comment: No reported history Family History Problem Relation Age of Onset - Alzheimer's Disease Father - Hypertension Father - Prostate Cancer Father - Hypertension Mother Reviewed past medical history and surgeries Review of Systems Constitutional: Negative for chills, diaphoresis, fever, malaise/fatigue and weight loss. HENT: Negative for ear pain and hearing loss. Eyes: Negative for blurred vision and double vision. Respiratory: Negative for cough and shortness of breath. Cardiovascular: Negative for chest pain, palpitations and leg swelling. Gastrointestinal: Negative for constipation, diarrhea and heartburn. Genitourinary: Negative for dysuria and frequency. Musculoskeletal: Positive for joint pain and myalgias. Negative for back pain and falls. Skin: Negative for itching and rash. Neurological: Negative for dizziness, weakness and headaches. Endo/Heme/Allergies: Does not bruise/bleed easily. Psychiatric/Behavioral: Negative for depression and substance abuse. The patient does not have insomnia. Objective BP 128/74 (BP Site: Left Arm, BP Position: Sitting, BP Cuff Size: Regular Adult) Pulse 65 Temp 36.6 ?C (97.9 ?F) Resp 16 Ht 172.7 cm (5' 8 ) Wt 108.5 kg (239 lb 3.2 oz) SpO2 98% BMI 36.37 kg/m? Physical Exam Constitutional: Appearance: Normal appearance. She is obese. HENT: Head: Normocephalic and atraumatic. Nose: Nose normal. Mouth/Throat: Mouth: Mucous membranes are moist. Dentition: Normal dentition. Eyes: General: Lids are normal. Extraocular Movements: Extraocular movements intact. Conjunctiva/sclera: Conjunctivae normal. Pupils: Pupils are equal, round, and reactive to light. Neck: Thyroid: No thyroid mass or thyromegaly. Vascular: No carotid bruit. Trachea: Phonation normal. Cardiovascular: Rate and Rhythm: Normal rate and regular rhythm. Heart sounds: Normal heart sounds. No murmur heard. No friction rub. No gallop. Pulmonary: Effort: Pulmonary effort is normal. Breath sounds: Normal breath sounds. No wheezing or rales. Abdominal: General: Bowel sounds are normal. There is no distension. Palpations: Abdomen is soft. There is no mass. Tenderness: There is no abdo (more content not included)...[facility]03-04-2022 Instructions* Patient Instructions* Stacie Fairbanks DO - 07/13/2021 9:31 AM EST Medical marijuana provider Address: [address] [place] [address] [id number], [place] [phone] documented in this encounterM[facility]03-04-2022 History of Present illness Narrative* Stacie Fairbanks DO - 07/13/2021 9:24 AM EST Subjective The history is provided by the patient. Hypertension This is a chronic problem. The current episode started more than 1 year ago. The problem is unchanged. The problem is controlled. Pertinent negatives include no blurred vision, chest pain, headaches,malaise/fatigue, palpitations or shortness of breath. There are no associated agents to hypertension. Risk factors for coronary artery disease include obesity and post-menopausal state. Has chronic lower back pain She is seeing a chiropractor He puts her in antigravity chair and does manipulations She sees him once a month, which helps a lot She is not sure she wants to see pain management Feels like her fibromyalgia is getting worse She has tried CBD oil, which works She has a handicapped placard, which has helped her greatly ALLERGIES Allergen Reactions Crestor [Rosuvastat* Diarrhea, Vomiting, Other: See Comments Nausea Latex Unknown Nyquil [Doxylamin-P* Unknown Pheniramine Unknown Current Outpatient Medications Medication Sig Dispense Refill OTC PRODUCT CBD gummies as needed omega-3 fatty acids (FISH OIL CONCENTRATE ORAL) Take by mouth. Multivitamin capsule Take 1 capsule by mouth once daily. cholecalciferol (VITAMIN D) 1,000 unit tab tablet Take 1,000 Units by mouth once daily. betamethasone dipropionate (DIPROSONE) 0.05 % cream Apply to affected area twice daily. 45 g 5 simvastatin (ZOCOR) 10 mg tablet TAKE 1 TABLET BY MOUTH EVERY DAY 90 tablet 0 ibuprofen (MOTRIN) 800 mg tablet TAKE 1 TABLET BY MOUTH EVERY 8 HOURS NEEDED 90 tablet 11 betamethasone dipropionate, augmented (DIPROLENE) 0.05 % cream betamethasone, augmented 0.05 % topical cream amLODIPine (NORVASC) 5 mg tablet Take 5 mg by mouth once daily. fluticasone (FLOVENT) 110 mcg/actuation inhaler Inhale 1 Puff as instructed twice daily. 1 Inhaler 1 albuterol HFA (PROAIR HFA) 90 mcg/actuation inhaler 2 puff(s) every 4 hours as needed zoster vaccine, recombinant, adjuvanted, (SHINGRIX) 50 mcg/0.5 mL injection Inject 0.5 mL intramuscularly now and repeat 2nd dose in 2-6 months (Patient not taking: Reported on 07/13/2021 ) 1 Each 1 No current facility-administered medications for this visit. ACTIVE PROBLEM LIST Essential Hypertension Mixed Hyperlipidemia Obesity, Class I, Bmi 30-34.9 Bmi 34.0-34.9,Adult Obesity, Class II, Bmi 35-39.9 Social History Tobacco Use Smoking status: Never Smoker Smokeless tobacco: Never Used Substance Use Topics Alcohol use: Yes Comment: wine Drug use: No Comment: No reported history Family History Problem Relation Age of Onset Alzheimer's Disease Father Hypertension Father Prostate Cancer Father Hypertension Mother Reviewed past medical history and surgeries Review of Systems Constitutional: Negative for chills, diaphoresis, fever, malaise/fatigue and weight loss. HENT: Negative for ear pain and hearing loss. Eyes: Negative for blurred vision and double vision. Respiratory: Negative for cough and shortness of breath. Cardiovascular: Negative for chest pain, palpitations and leg swelling. Gastrointestinal: Negative for constipation, diarrhea and heartburn. Genitourinary: Negative for dysuria and frequency. Musculoskeletal: Positive for joint pain and myalgias. Negative for back pain and falls. Skin: Negative for itching and rash. Neurological: Negative for dizziness, weakness and headaches. Endo/Heme/Allergies: Does not bruise/bleed easily. Psychiatric/Behavioral: Negative for depression and substance abuse. The patient does not have insomnia. Objective BP 128/74 (BP Site: Left Arm, BP Position: Sitting, BP Cuff Size: Regular Adult) Pulse 65 Temp 36.6 C (97.9 F) Resp 16 Ht 172.7 cm (5' 8 ) Wt 108.5 kg (239 lb 3.2 oz) SpO2 98% BMI 36.37kg/m Physical Exam Constitutional: Appearance: Normal appearance. She is obese. HENT: Head: Normocephalic and atraumatic. Nose: Nose normal. Mouth/Throat: Mouth: Mucous membranes are moist. Dentition: Normal dentition. Eyes: General: Lids are normal. Extraocular Movements: Extraocular movements intact. Conjunctiva/sclera: Conjunctivae normal. Pupils: Pupils are equal, round, and reactive to light. Neck: Thyroid: No thyroid mass or thyromegaly. Vascular: No carotid bruit. Trachea: Phonation normal. Cardiovascular: Rate and Rhythm: Normal rate and regular rhythm. Heart sounds: Normal heart sounds. No murmur heard. No friction rub. No gallop. Pulmonary: Effort: Pulmonary effort is normal. Breath sounds: Normal breath sounds. No wheezing or rales. Abdominal: General: Bowel sounds are normal. There is no distension. Palpations: Abdomen is soft. There is no mass. Tenderness: There is no abdominal tenderness. Musculoskeletal: General: No swelling or tenderness. Normal range of motion. Cervical back: Normal range of motion and neck supple. No edema. Lymphadenopathy: Cervical: No cervical adenopathy. Skin: General: Skin is warm and dry. Findings: No erythema or rash. Nails: There is no clubbing. Neurological: Mental Status: She is alert and oriented to person, place, and time. Cranial Nerves: No cranial nerve deficit. Motor: Motor function is intact. Coordination: Coordination normal. Gait: Gait is intact. Psychiatric: Attention and Perception: Attention normal. Mood and Affect: Mood and affect normal. Speech: Speech normal. Behavior: Behavior normal. Behavior is cooperative. Thought Content: Thought content normal. Cognition and Memory: Cognition and memory normal. Judgment: Judgment normal. ASSESSMENT/PLAN: 1. Essential hypertension - ICD9: 401.9, ICD10: I10 (primary diagnosis) - LIPID PANEL BASIC - CBC - COMP METABOLIC PANEL 2. Vitamin D deficiency - ICD9: 268.9, ICD10: E55.9 - VITAMIN D 25 HYDROXY 3. 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 BMI 36.0-36.9,adult - ICD9: V85.36, ICD10: Z68.36 Lifestyle modification recommended 5. Obesity, Class II, BMI 35-39.9 - ICD9: 278.00, ICD10: E66.9 Lifestyle modification recommended Stacie Fairbanks DO documented in this encounter[address]19-2017 History of Past illness Narrative* Problem Noted Date Resolved Date Hyperlipidemia 09/27/2016 04/15/2017 documented as of this encounter (statuses as of 08/01/2021) [address]19-2017 History of Past illness Narrative* Problem Noted Date Resolved Date Hyperlipidemia 09/27/2016 04/15/2017 documented as of this encounter (statuses as of 08/07/2021) [address]19-2017 History of Past illness Narrative* Problem Noted Date Resolved Date Hyperlipidemia 09/27/2016 04/15/2017 documented as of this encounter (statuses as of 08/24/2021) [facility] History of Past illness Narrative* Problem Noted Date Resolved Date Hyperlipidemia 09/27/2016 04/15/2017 documented as of this encounter (statuses as of 09/20/2021) [facility] History of Past illness Narrative* Problem Noted Date Resolved Date Hyperlipidemia 09/27/2016 04/15/2017 documented as of this encounter (statuses as of 10/16/2021) [address]19-2017 History of Past illness Narrative* Problem Noted Date Resolved Date Hyperlipidemia 09/27/2016 04/15/2017 documented as of this encounter (statuses as of 02/01/2022) [address]19-2017 History of Past illness Narrative* Problem Noted Date Resolved Date Hyperlipidemia 09/27/2016 04/15/2017 documented as of this encounter (statuses as of 02/08/2022) [address]19-2017 History of Past illness Narrative* Problem Noted Date Resolved Date Hyperlipidemia 09/27/2016 04/15/2017 documented as of this encounter (statuses as of 05/13/2022) [address]19-2017 History of Past illness Narrative* Problem Noted Date Resolved Date Hyperlipidemia 09/27/2016 04/15/2017 documented as of this encounter (statuses as of 05/16/2022) [facility] History of Past illness Narrative* Problem Noted Date Resolved Date Hyperlipidemia 09/27/2016 04/15/2017 documented as of this encounter (statuses as of 06/05/2022) [address]19-2017 History of Past illness Narrative* Problem Noted Date Resolved Date Hyperlipidemia 09/27/2016 04/15/2017 documented as of this encounter (statuses as of 08/05/2022) [address]19-2017 History of Past illness Narrative* Problem Noted Date Resolved Date Hyperlipidemia 09/27/2016 04/15/2017 documented as of this encounter (statuses as of 09/10/2022) [address]19-2017 History of Past illness Narrative* Problem Noted Date Resolved Date Hyperlipidemia 09/27/2016 04/15/2017 documented as of this encounter (statuses as of 09/10/2022) [address]19-2017 History of Past illness Narrative* Problem Noted Date Resolved Date Hyperlipidemia 09/27/2016 04/15/2017 documented as of this encounter (statuses as of 09/17/2022) [facility] History of Past illness Narrative* Problem Noted Date Resolved Date Hyperlipidemia 09/27/2016 04/15/2017 documented as of this encounter (statuses as of 09/24/2022) [facility] History of Past illness Narrative* Problem Noted Date Resolved Date Hyperlipidemia 09/27/2016 04/15/2017 documented as of this encounter (statuses as of 11/04/2022) [facility] History of Past illness Narrative* Problem Noted Date Diagnosed Date Resolved Date Hyperlipidemia 09/27/2016 04/15/2017 documented as of this encounter (statuses as of 01/29/2023) [facility] History of Past illness Narrative* Problem Noted Date Diagnosed Date Resolved Date Hyperlipidemia 09/27/2016 04/15/2017 documented as of this encounter (statuses as of 02/01/2023) [facility] History of Past illness Narrative* Problem Noted Date Diagnosed Date Resolved Date Hyperlipidemia 09/27/2016 04/15/2017 documented as of this encounter (statuses as of 02/03/2023) [address]2017 History of Past illness Narrative* Problem Noted Date Diagnosed Date Resolved Date Hyperlipidemia 09/27/2016 04/15/2017 documented as of this encounter (statuses as of 02/17/2023) [facility] History of Past illness Narrative* Problem Noted Date Diagnosed Date Resolved Date Hyperlipidemia 09/27/2016 04/15/2017 documented as of this encounter (statuses as of 03/04/2023) [facility] History of Past illness Narrative* Problem Noted Date Diagnosed Date Resolved Date Hyperlipidemia 09/27/2016 04/15/2017 documented as of this encounter (statuses as of 07/28/2023) [facility] Diagnosis Essential hypertension- Primary Unspecified essential hypertension Vitamin D deficiency Unspecified vitamin D deficiency Fibromyalgia Mylagia and myositis, unspecified BMI 36.0-36.9,adult Body Mass Index 36.0-36.9, adult Obesity, Class II, BMI 35-39.9 Obesity, unspecified [facility] Diagnosis Mixed hyperlipidemia [facility]* Diagnosis Dermatitis Contact dermatitis and other eczema, due to unspecified cause [facility] Diagnosis Mixed hyperlipidemia [facility] Diagnosis Vitamin D deficiency- Primary Unspecified vitamin D deficiency Mixed hyperlipidemia [facility]* Diagnosis Well adult exam- Primary Routine general medical examination at a health care facility Essential hypertension Unspecified essential hypertension Mixed hyperlipidemia Vitamin D deficiency Unspecified vitamin D deficiency Weight loss Loss of weight Encounter for screening mammogram for breast cancer Obesity, Class I, BMI 30-34.9 Obesity, unspecified BMI 30.0-30.9,adult Body Mass Index 30.0-30.9, adult [facility] Diagnosis Mixed hyperlipidemia [facility] Diagnosis Mixed hyperlipidemia- Primary [facility] noteNo assessment information availableOhio[facility] Work Phone: Evaluation note* Diagnosis Essential hypertension- Primary Unspecified essential hypertension Sciatica, right side Lumbar back pain Lumbago Obesity, Class I, BMI 30-34.9 Obesity, unspecified documented in this encounter [facility] note* Diagnosis Lumbar back pain Lumbago documented in this encounter [facility] note* Diagnosis Right hip pain- Primary Pain in joint, pelvic region and thigh documented in this encounter [facility] note* Diagnosis Primary osteoarthritis of right hip- Primary Primary localized osteoarthrosis, pelvic region and thigh documented in this encounter [facility] noteNo [facility]NoR[facility] [employer] Other evaluation note* Diagnosis Mixed hyperlipidemia documented in this encounter [facility] note* Diagnosis Mixed hyperlipidemia- Primary documented in this encounter [facility] note* Diagnosis Essential hypertension- Primary Unspecified essential hypertension Dermatitis Contact dermatitis and other eczema, due to unspecified cause Mixed hyperlipidemia Fibromyalgia Mylagia and myositis, unspecified Chronic midline low back pain, unspecified whether sciatica present Obesity, Class I, BMI 30-34.9 Obesity, unspecified documented in this encounter [facility] note* Diagnosis Mixed hyperlipidemia documented in this encounter [facility] note* Diagnosis Essential hypertension- Primary Unspecified essential hypertension Mixed hyperlipidemia Chronic midline low back pain, unspecified whether sciatica present Obesity, Class I, BMI 30-34.9 Obesity, unspecified documented in this encounter [facility] note* Diagnosis Mixed hyperlipidemia documented in this encounter [facility] Narrative - Reported* Type Description Date Medical History appendicitis Medical History Hypertension Medical History high cholesterol Medical History fibromyalgia [facility] [employer] Other reason for referral (narrative)* Diagnostic Procedure Only (Routine) - Pending Review Specialty Diagnoses / Procedures Referred By Jose D askew Referred To Contact [facility] Diagnoses Encounter for screening mammogram for breast cancer Procedures MITCH SCREENING SCREENING MAMMOGRAPHY BI 2-VIEW BREAST INC CAD Sheets, Stacie Martines, [address] [place] [address] [facility] [address] [place] [address] Referral ID Status Reason Start Date Expiration Date Visits Requested Visits Authorized [id number] Pending Review Auto-Generat ed Referral 01/17/2022 02/16/2023 1 1 [facility] for referral (narrative)* Diagnostic Procedure Only (Routine) - Closed Specialty Diagnoses / Procedures Referred By Contac t Referred To Contact XR IMAGING Diagnoses Lumbar back pain Procedures XR LUMBAR PARS DEFECT 4V AP/LAT/BOTH OBL RADEX SPINE LUMBOSACRAL MINIMUM 4 VIEWS Stacie Fairbanks, DO [address] [place] [address] Xr Imaging Referral ID Status Reason Start Date Expiration Date V isits Requested Visits Authorized [id number] Closed Auto-Generate d Referral 09/09/2022 10/09/2023 1 1 * Transition of Care (Routine) - Ref Not Required Specialty Diagnoses / Procedures Referred By Contac t Referred To Contact Pain Management / [facility] Department Diagnoses Sciatica, right side Procedures CONSULT TO PAIN MGT Stacie Fairbanks, DO [address] [place] [address] Morris Malin MD [address] [place] [address] Referral ID Status Reason Start Date Expiration Date Visits Requested Visits Authorized [id number] Ref Not Required PCP Requested Referral 09/09/2022 09/09/2023 1 1 [facility] for referral (narrative)* Diagnostic Procedure Only (Routine) - Closed Specialty Diagnoses / Procedures Referred By Contac t Referred To Contact XR IMAGING Diagnoses Lumbar back pain Procedures XR LUMBAR PARS DEFECT 4V AP/LAT/BOTH OBL RADEX SPINE LUMBOSACRAL MINIMUM 4 VIEWS Stacie Fairbanks DO [address] [place] [address] Xr Imaging Referral ID Status Reason Start Date Expiration Date V isits Requested Visits Authorized [id number] Closed Auto-Generate d Referral 09/09/2022 10/09/2023 1 1 [facility] for referral (narrative)* Diagnostic Procedure Only (Routine) - Pending Review Specialty Diagnoses / Procedures Referred By Contac t Referred To Contact XR IMAGING Diagnoses Right hip pain Procedures XR HIP GENERAL 3V PELV/AP/LAT RIGHT RADEX HIP UNILATERAL WITH PELVIS 2-3 VIEWS Stacie Fairbanks, DO [address] [place] [address] Xr Imaging Referral ID Status Reason Start Date Expiration Date Visits Requested Visits Authorized [id number] Pending Review Auto-Generat ed Referral 09/17/2022 10/17/2023 1 1 [facility] for visit Narrative* Diagnostic Procedure Only (Routine) - Closed Specialty Diagnoses / Procedures Referred By Contac t Referred To Contact XR IMAGING Diagnoses Lumbar back pain Procedures XR LUMBAR PARS DEFECT 4V AP/LAT/BOTH OBL RADEX SPINE LUMBOSACRAL MINIMUM 4 VIEWS Stacie Fairbanks, DO [address] [place] [address] Xr Imaging Referral ID Status Reason Start Date Expiration Date V isits Requested Visits Authorized [id number] Closed Auto-Generate d Referral 09/09/2022 10/09/2023 1 1 [facility] for visit NarrativePain Medicine Referral [facility] [employer] Other Summary Purpose Family History No Family History Records FoundNo Family History Records FoundNo Family History Records FoundNo Family History Records FoundNo Family History Records FoundNo Family History Records FoundNo Family History Records Found Advance Directives No Advanced Directives Records Found Advance Directive Response Recorded Date/ Time Advance Directives No March 05, 2017 4:34pm Advance Directive Response Recorded Date/ Time Advance Directives No March 05, 2017 5:34pm Chief Complaint and Reason for Visit Chief Complaint Screening Chief Complaint M54.16 Chief Complaint Low Back Pain F/U Screening Reason for Referral Specialty Diagnoses / Procedures Referred By Contac t Referred To Contact Diagnoses Primary osteoarthritis of right hip Procedures CONSULT TO ORTHOPAEDICS OFFICE/OUTPATIENT [facility] 60-74 MINUTES Stacie Fairbanks, DO [address] [place] [address] Uri Garduno [address] [address] Referral ID Status Reason Start Date Expiration Date Visits Requested Visits Authorized [id number] Authorized PCP Requested Referral 09/23/2022 09/23/2023 1 1 Reason evaluate and treat Diagnosis 1 Lumbar radiculopathy (M54.16) Referral Organization [facility] Referring Provider First Name Maria Luisa Referring Provider Last Name Oseas Referring Provider Specialty Nurse Pract itioner Referred Organization [facility] Referred Address [address] [place], [place],[address] Referred Provider Specialty Physical The rapist Referral Priority Routine Reason evaluate and treat Diagnosis 1 Lumbar radiculopathy (M54.16) [facility] Referring Provider First Name Maria Luisa Referring Provider Last Name Oseas Referring Provider Specialty Nurse Pract itioner Referred Organization [facility] Referred Provider Malik Gutierrez Referred Address [address] [place], [place],[address] Referred Provider Specialty Pain Medicin e Referral Priority Routine Reason evaluate and treat Diagnosis 1 Lumbar radiculopathy (M54.16) Referral Organization [facility] Referring Provider First Name Maria Luisa Referring Provider Last Name Oseas Referring Provider Specialty Nurse Pract itioner Referred Organization [facility] Referred Address [address] [place], [place],[address] Referred Provider Specialty Physical The rapist Referral Priority Routine General Notes Ana Lilia Reddy i 11/18/2022 12:03:26 PM > notes in chart Reason DECLINED evaluate and treat Diagnosis 1 Lumbar radiculopathy (M54.16) Referral Organization [facility] Referring Provider First Name Maria Luisa Referring Provider Last Name Oseas Referring Provider Specialty Nurse Pracazar itionesiria Referred Organization [facility] Referred Provider Malik Gutierrez Referred Address [address] [place], [place],[address] Referred Provider Specialty Pain Medicin e Referral Priority Routine General Notes Kaelyn Fritz 023 10:08:59 AM >Received today. [facility]'s office request us to fill out form and fax referral to them and they will review the referral and call patient. Referral was fax Kaelyn Fritz 11/08/2022 09:16:50 AM >Spoke with Cee at [facility]'s office and patient declined to schedule her appointment. Patient stated that she is getting ready to start her physical therapy and wants to go through that and if it does not work then she will schedule. I will hold this referral until end of November. If patient is not scheduled by November 30, 2022 then the referral will be closed Kaelyn Fritz 12/09/2022 10:33:08 AM >Spoke with Cee at [facility]'s office and patient did not call to schedule appointment. Kaelyn Fritz 12/09/2022 10:36:24 AM >Telephone encounter was sent Clinical Notes Office [phone] Additional Source Comments INFORMATION SOURCE (unrecogn ized section and content) DATE CREATED AUTHOR 10/29/2017 [facility] DATE CREATED AUTHOR AUTHOR'S ORGANIZ ATION 10/17/[address] [facility] DATE CREATED AUTHOR AUTHOR'S ORGANIZ ATION 12/24/2021 [facility] DATE CREATED AUTHOR AUTHOR'S ORGANIZ ATION 03/01/2023 [facility] DATE CREATED AUTHOR AUTHOR'S ORGANIZ ATION 06/20/2023 [facility] DATE CREATED AUTHOR AUTHOR'S ORGANIZ ATION 10/19/2023 [facility] DATE CREATED AUTHOR AUTHOR'S ORGANIZ ATION 02/20/2024 [facility] Source Comments (unrecognize d section and content) In the event this informatio n is protected by the Federal Confidentiality of Alcohol and Drug Abuse Patient Records regulations: The Federal rules restrict any use of the information to criminally investigate or prosecute any alcohol or drug abuse patient.[facility] the event this information is protected by the Federal Confidentiality of Alcohol and Drug Abuse Patient Records regulations: The Federal rules restrict any use of the information to criminally investigate or prosecute any alcohol or drug abuse patient.[facility] the event this information is protected by the Federal Confidentiality of Alcohol and Drug Abuse Patient Records regulations: The Federal rules restrict any use of the information to criminally investigate or prosecute any alcohol or drug abuse patient.[facility] the event this information is protected by the Federal Confidentiality of Alcohol and Drug Abuse Patient Records regulations: The Federal rules restrict any use of the information to criminally investigate or prosecute any alcohol or drug abuse patient.[facility] the event this information is protected by the Federal Confidentiality of Alcohol and Drug Abuse Patient Records regulations: The Federal rules restrict any use of the information to criminally investigate or prosecute any alcohol or drug abuse patient.[facility] the event this information is protected by the Federal Confidentiality of Alcohol and Drug Abuse Patient Records regulations: The Federal rules restrict any use of the information to criminally investigate or prosecute any alcohol or drug abuse patient.[facility] the event this information is protected by the Federal Confidentiality of Alcohol and Drug Abuse Patient Records regulations: The Federal rules restrict any use of the information to criminally investigate or prosecute any alcohol or drug abuse patient.[facility] the event this information is protected by the Federal Confidentiality of Alcohol and Drug Abuse Patient Records regulations: The Federal rules restrict any use of the information to criminally investigate or prosecute any alcohol or drug abuse patient.[facility] the event this information is protected by the Federal Confidentiality of Alcohol and Drug Abuse Patient Records regulations: The Federal rules restrict any use of the information to criminally investigate or prosecute any alcohol or drug abuse patient.[facility] the event this information is protected by the Federal Confidentiality of Alcohol and Drug Abuse Patient Records regulations: The Federal rules restrict any use of the information to criminally investigate or prosecute any alcohol or drug abuse patient.[facility] the event this information is protected by the Federal Confidentiality of Alcohol and Drug Abuse Patient Records regulations: The Federal rules restrict any use of the information to criminally investigate or prosecute any alcohol or drug abuse patient.[facility] the event this information is protected by the Federal Confidentiality of Alcohol and Drug Abuse Patient Records regulations: The Federal rules restrict any use of the information to criminally investigate or prosecute any alcohol or drug abuse patient.[facility] Hospital[facility] the event this information is protected by the Federal Confidentiality of Alcohol and Drug Abuse Patient Records regulations: The Federal rules restrict any use of the information to criminally investigate or prosecute any alcohol or drug abuse patient.[facility] the event this information is protected by the Federal Confidentiality of Alcohol and Drug Abuse Patient Records regulations: The Federal rules restrict any use of the information to criminally investigate or prosecute any alcohol or drug abuse patient.[facility] the event this information is protected by the Federal Confidentiality of Alcohol and Drug Abuse Patient Records regulations: The Federal rules restrict any use of the information to criminally investigate or prosecute any alcohol or drug abuse patient.[facility] the event this information is protected by the Federal Confidentiality of Alcohol and Drug Abuse Patient Records regulations: The Federal rules restrict any use of the information to criminally investigate or prosecute any alcohol or drug abuse patient.[facility] the event this information is protected by the Federal Confidentiality of Alcohol and Drug Abuse Patient Records regulations: The Federal rules restrict any use of the information to criminally investigate or prosecute any alcohol or drug abuse patient.[facility] HospitalIn the event this information is protected by the Federal Confidentiality of Alcohol and Drug Abuse Patient Records regulations: The Federal rules restrict any use of the information to criminally investigate or prosecute any alcohol or drug abuse patient.[facility] the event this information is protected by the Federal Confidentiality of Alcohol and Drug Abuse Patient Records regulations: The Federal rules restrict any use of the information to criminally investigate or prosecute any alcohol or drug abuse patient.[facility]In the event this information is protected by the Federal Confidentiality of Alcohol and Drug Abuse Patient Records regulations: The Federal rules restrict any use of the information to criminally investigate or prosecute any alcohol or drug abuse patient.[facility] HospitalIn the event this information is protected by the Federal Confidentiality of Alcohol and Drug Abuse Patient Records regulations: The Federal rules restrict any use of the information to criminally investigate or prosecute any alcohol or drug abuse patient.[facility] HospitalIn the event this information is protected by the Federal Confidentiality of Alcohol and Drug Abuse Patient Records regulations: The Federal rules restrict any use of the information to criminally investigate or prosecute any alcohol or drug abuse patient.[facility] HospitalIn the event this information is protected by the Federal Confidentiality of Alcohol and Drug Abuse Patient Records regulations: The Federal rules restrict any use of the information to criminally investigate or prosecute any alcohol or drug abuse patient.[facility] HospitalIn the event this information is protected by the Federal Confidentiality of Alcohol and Drug Abuse Patient Records regulations: The Federal rules restrict any use of the information to criminally investigate or prosecute any alcohol or drug abuse patient.[facility] HospitalIn the event this information is protected by the Federal Confidentiality of Alcohol and Drug Abuse Patient Records regulations: The Federal rules restrict any use of the information to criminally investigate or prosecute any alcohol or drug abuse patient.[facility] Reason for Visit (unrecogniz ed section and content) Reason Comments Hypertension 6 month follow up Reason Comments Refill Request Reason Comments Lab Orders Reason Comments F/U 6 Month HTN Reason Comments Results Reason Comments Hypertension 6 month follow up Reason Comments Results Reason Comments Referral Request Reason Comments Forms [facility] Prescri vicente Response Form regarding patient's amlodipine and simvastatin Reason Comments Medication Problem Reason Comments Hypertension Follow up. Will be g etting a nerve ablation in her back on 02/25/23 and is still doing therapy for 3 days a week Reason Comments Hypertension Follow up Reason Onset Date Comments Refill Request 12/15/2023 Care Teams (unrecognized sec tion and content) Team Status: Active Member Role Status Dates Stacie Fairbanks DO Primary Care Provider Active Team Status: Inactive Member Role Status Dates Stacie Fairbanks , DO Primary Care Provider Active RAJNI William Attending Provider Active Vehicle Dynamics Engineer Relationship Specialty Start Date End Date Stacie Fairbanks DO PCP - General 01/23/15 Vehicle Dynamics Engineer Relationship Specialty Start Date End Date Stacie Fairbanks DO PCP - General 01/23/15 Vehicle Dynamics Engineer Relationship Specialty Start Date End Date Stacie Fairbanks DO PCP - General 01/23/15 Vehicle Dynamics Engineer Relationship Specialty Start Date End Date Stacie Fairbanks DO PCP - General 01/23/15 Vehicle Dynamics Engineer Relationship Specialty Start Date End Date Sheets, Stacie Martines DO PCP - General 01/23/15 Vehicle Dynamics Engineer Relationship Specialty Start Date End Date Sheets, Stacie Martines DO PCP - General 01/23/15 Team Status: Inactive Member Role Status Dates Stacie Martines Sheets , DO Primary Care Provider Active Referral Self Attending Provider Active Vehicle Dynamics Engineer Relationship Specialty Start Date End Date Sheets, Stacie Martines DO PCP - General 01/23/15 Vehicle Dynamics Engineer Relationship Specialty Start Date End Date Sheets, Stacie Martines DO PCP - General 01/23/15 Vehicle Dynamics Engineer Relationship Specialty Start Date End Date Sheets, Stacie Martines DO PCP - General 01/23/15 Vehicle Dynamics Engineer Relationship Specialty Start Date End Date Sheets, Stacie Martines DO PCP - General 01/23/15 Vehicle Dynamics Engineer Relationship Specialty Start Date End Date Sheets, Stacie Martines DO PCP - General 01/23/15 Vehicle Dynamics Engineer Relationship Specialty Start Date End Date Sheets, Stacie Martines DO PCP - General 01/23/15 Vehicle Dynamics Engineer Relationship Specialty Start Date End Date SheetsStacie DO PCP - General 01/23/15 Vehicle Dynamics Engineer Relationship Specialty Start Date End Date Sheets, Stacie Martines DO PCP - General 01/23/15 Vehicle Dynamics Engineer Relationship Specialty Start Date End Date MagdiStacie DO PCP - General 01/23/15 Team Status: Inactive Member Role Status Dates RAJNI William Attending Provider Active Start: March 12, 2023 End: March 12, 2023 Team Status: Inactive Member Role Status Dates Stacie Fairbanks DO Primary Care Prov ider, Referring Provider Active Start: June 07, 2023 End: June 07, 2023 Referral Self Attending Provider Active Start: Yoel [email or web address] End: June 07, 2023 Vehicle Dynamics Engineer Relationship Specialty Start Date End Date Stacie Fairbanks DO PCP General 01/23/15 Vehicle Dynamics Engineer Relationship Specialty Start Date End Date Stacie Fairbanks DO PCP General 01/23/15 [facility] [address] [place] [address] 10/01/23 10/01/23 Vehicle Dynamics Engineer Relationship Specialty Start Date End Date Stacie Fairbanks DO PCP - General 01/23/15 Vehicle Dynamics Engineer Relationship Specialty Start Date End Date Stacie Fairbanks DO PCP - General 01/23/15 Goals (unrecognized section and content) Goals may be documented in a n alternate sectionNo InformationGoals may be documented in an alternate sectionNo InformationNo InformationNo InformationNo InformationGoals may be documented in an alternate section FOR RECORDS PERTAINING TO PATIENTS WHO ARE OR HAVE BEEN ENROLLED IN A CHEMICAL DEPENDENCY/SUBSTANCEABUSE PROGRAM, SOME INFORMATION MAY BE OMITTED. This clinical summary was aggregated from multiple sources. Caution should be exercised in using it in the provision of clinical care. This summary normalizes information from multiple sources, and as a consequence, information in this document may materially change the coding, format and clinical context of patient data. In addition, data may be omitted in some cases. CLINICAL DECISIONS SHOULD BE BASED ON THE PRIMARY CLINICAL RECORDS. [employer] [facility]. provides no warranty or guarantee of the accuracy or completeness of information in this document.
[2024-02-26 10:07] LABS: Basophils Absolute Auto 0.1 10^3/uL (0.0-0.1); Basophils Percent Auto 1.2 % (0.2-2.0); Eosinophils Absolute Auto 0.3 10^3/uL (0.0-0.7); Eosinophils Percent Auto 3.8 % (0.9-7.0); Hematocrit 41.4 % (36.0-48.0); Hemoglobin 13.7 g/dL (12.0-16.0); Immature Granulocytes Abs Auto 0.03 10^3/uL (0.00-0.03); Immature Granulocytes Pct Auto 0.5 % (0.0-0.5); Lymphocytes Absolute Auto 1.6 10^3/uL (1.2-3.8); Lymphocytes Percent Auto 23.7 % (20.5-60.0); Mean Corpuscular HGB Conc 33.1 g/dL (29.9-35.2); Mean Corpuscular Hemoglobin 29.3 pg (26.7-34.0); Mean Corpuscular Volume 88.5 fL (81.0-99.0); Mean Platelet Volume 9.5 fL (9.5-13.5); Monocytes Absolute Auto 0.6 10^3/uL (0.3-0.8); Monocytes Percent Auto 8.7 % (1.7-12.0); Neutrophils Absolute Auto 4.1 10^3/uL (1.4-6.5); Neutrophils Percent Auto 62.1 % (43.0-75.0); Platelet Count 230 10^3/uL (150-450); Red Blood Count 4.68 10^6/uL (4.20-5.40); Red Cell Distribution Width 12.8 % (11.0-15.0); White Blood Count 6.5 10^3/uL (4.0-11.0)
[2024-02-26 11:23] LABS: Alanine Aminotransferase 36 U/L (14-59); Albumin Globulin Ratio 1.3; Albumin Level 3.9 g/dL (3.4-5.0); Alkaline Phosphatase 114 U/L (46-116); Aspartate Amino Transferase 21 U/L (15-37); BUN Creatinine Ratio 22.1; Bilirubin Total 0.5 mg/dL (0.2-1.0); Calcium 9.6 mg/dL (8.5-10.1); Carbon Dioxide 27.6 mmol/L (21.0-32.0); Chloride 107 mmol/L (98-107); Chol HDL Ratio 3.3; Cholesterol 190 mg/dL (<=200); Estimated GFR (African America >60 (>=60 mL/min/1.73m^2); Estimated GFR (Non-African Ame >60 (>=60 mL/min/1.73m^2); Globulin 3.1 g/dL; Glucose 113 mg/dL (74-106); HDL Cholesterol 58 mg/dL (40-60); LDL Cholesterol Calculated 105.2 mg/dL; Potassium 4.6 mmol/L (3.5-5.1); Sodium 143 mmol/L (136-145); Triglycerides 134 mg/dL (<=150); VLDL CHOLESTEROL 26.8 mg/dL
== END 2024-02-26 09:29 | disposition home or self-care (01) ==
LOC: LAB 09:29
PROVIDERS: Visit Provider Nurse Practitioner Family
DX: E78.2 Mixed hyperlipidemia (principal); I10 Essential (primary) hypertension
CPT/HCPCS: 36415; 80053; 80061; 85025

== ENCOUNTER 2025-03-29 15:51 | Outpatient (REF) | payer BC, SELFPAY ==
--- OUTSIDE RECORDS SUMMARY | 2025-03-29 15:57 | XMS_ITS | Clinical Summary ---
Author Organization [facility] tem Address [id number] [address] [place] [address] Care Team Providers Care Machine Hostler Name Role Phone Unavailable Primary Care Provider Unavailabl e Social History Tobacco UseTypesPacks/DayYears UsedDateSmoking Tobacco: Never AssessedChildcare AnswerDate IwtmrjwsJwtbfktkgOcqyrye94/12/2019EmploymentAnswerDate Recorded AtomuhfpozWdlsbej49/12/2019Purpose - LifeAnswerDate RecordedPurpose and direction in qwkpYldorxa48/11/2021CommentsUnknownSex and Gender InformationValueDate RecordedSex Assigned at BirthNot on fileLegal SexFemale 01/17/2016 9:36 AM EDTGender IdentityNot on fileSexual OrientationNot on file Plan of Treatment Health MaintenanceDue DateLast InicWabxgrwyNbahfigejdv92/01/1961Depression Xtsutuhqu31/01/1973Tobacco Dljhhqirk34/01/1973Adult BMI Pawompxvg32/01/1979 DTaP,Tdap and Td Vaccines (1 - Tdap)07/11/1979Pap Smear1981Zoster (Shingles) Vaccine (1 of 2)2010Influenza Oezxqnx3401/10/2025RSV ( or age 60+ yrs) (1 - 1-dose 75+ series)07/11/2035 Medical Devices Not on file
--- OUTSIDE RECORDS SUMMARY | 2025-03-29 16:00 | XMS_ITS | CCD ---
Author Organization [facility] Care Team Providers Care Exercise Physiologist Certified Name Role Phone CHAPARRO TAYLOR Unavailable Unavailable [...] Care Provider Sheets DOStacie Primary Care Provider Sheets, DO [...] Provider Sheets, DO Stacie C Referring Provider Self, Referral Attending Provider Unavailable Maria [...] Unavailable Sheets DOLianetca Martines Primary Care Provider [phone] [facility] Unavailable Primary Care Provider Unavailriaz e ADORE [...] source)Acetaminophen / Dextromethorphan / Doxylamine / PseudoephedrineDrug Shmgfbj90-68-0046SohscxcRnnhdgfif ClinicBaclofen (1 source)BaclofenDrug Lrocwgx80-47-4771Euwef: See [facility] cyclobenzaprine (1 source)cyclobenzaprineDrug Jfbrlwo35-80-3818Nrrxy: See [facility] HospitalHMG-CoA Reductase Inhibitors (statins) (1 source)rosuvastatinDrug Xlhxqvd18-99-2960Cyrftrrm, Vomiting, Other: See [facility] HospitalLatex (1 source)LatexSubstance Mlwspkm81-03-8177VndtighXrmexxngs ClinicPheniramine (1 source)PheniramineDrug Upbjfya86-39-7491JpouapcHdypxkafp Clinic (20 sources)Acetaminophen / Dextromethorphan / Doxylamine / Pseudoephedrine; Translations: [PQVIQWOZU-KNG-KB-ACETAMINOPHEN]Drug Zciqslz94-85-9040Iaajyvo [facility] (20 sources)Latex; Translations: [LATEX]Propensity to adverse reactions to drug 77-92-6211CmxjxckDjkjpksbj Clinic (20 sources)Pheniramine; Translations: [PHENIRAMINE]Drug Dscmhbz37-49-0326 UnknownFisher-Titus Medical Center (20 sources)rosuvastatin; Translations: [ROSUVASTATIN CALCIUM]Drug Allergy 95-80-1528Madgdnru, Vomiting, Other: See CommentsFisher-Titus Medical Center (1 source)LatexDrug allergy (disorder)39-41-0272Pwn [facility] (1 source)PseudoephedrineDrug AllergyThe [facility] (1 source)strawberry allergenic extractDrug AllergyThe [facility] (6 sources)NyQuilDrug allergy (disorder)UnknownThe [facility] (14 sources)Baclofen; Translations: [BACLOFEN]Drug Yvcqczx72-13-8508Rgavo: See CommentsFisher-Titus Medical Center (15 sources)cyclobenzaprine; Translations: [CYCLOBENZAPRINE]Drug Allergy 94-24-4233Nxnax: See Comments, [place] (1 source)AcetaminophenDrug Ndstfmm23-65-7725UxcdsnpnhMercy Health St. [facility] (1 source)DextromethorphanDrug Diaxsqi81-29-4594FphzwegchMercy Health St. [facility] (1 source)DoxylamineDrug Duixcco47-91-0418QjpxdutyqMercy Health St[facility] (1 source)LatexDrug allergy (disorder)12-38-9438JitppkiouMercy Health St. [facility] (1 source)PseudoephedrineDrug Qsmihfa75-48-0383FchappcwuMercy Health St. [facility] (1 source)LatexAllergy to -56-8828Iosld, UnknownNOUniversity Hospital (1 source)Propylamine derivative antihistaminePropensity to adverse reactions 70-58-2980YbttnkzCPEX Healthcare (1 source)Rosuvastatin calciumPropensity to adverse zmyocvglk81-46-5256Lksmxzvv, Other, GI intoleranceNOUniversity Hospital (5 sources)HMG-CoA reductase inhibitor; Translations: [PKHBKVR-EAO-LVR REDUCTASE INHIBITORS]Drug Lfeopfwhtth55-23-2658JloflpqMlhpgzdsr Clinic (1 source)ANTIHISTAMINES - ALKYLAMINE; Translations: [ANTIHISTAMINES - ALKYLAMINE]Propensity to adverse reactions to drug (disorder)12-26-2014 [facility] Medications Current Medications MedicationDrug Class(es)DatesSig (Normalized)Sig (Original)[id number] 200 actuat albuterol 0.09 mg/actuat metered dose inhaler (20 sources)beta2-Adrenergic AgonistStart: 12-15-2023 End: 30-51-1009vynn 2 puff(s) by inhalation every four hours [...] oral tablet (20 sources)Dihydropyridine Calcium Channel BlockerStart: 54-83-1365bcid 1 tablet by mouth once dailyamLODIPine (NORVASC) 5 mg tablet Take 5 mg by mouth once daily. 08/09/2016 ActiveComment on above:Take 5 mg by mouth once daily. betamethasone 0.5 mg/ml topical cream (20 sources)CorticosteroidStart: 43-81-0924rxjxgmgkowupn dipropionate (DIPROSONE) 0.05 % cream Indications: Dermatitis apply to affected area twice a day 45 g 5 06/09/2023 ActiveStart: 09-22-2020 End: 89-69-0696ulexxjlgiimnn dipropionate (DIPROSONE) 0.05 % cream Indications: Dermatitis [...] MG 1 capsule Orally Once a day Gertqa167 actuat fluticasone propionate 0.11 mg/actuat metered dose inhaler (20 sources)CorticosteroidStart: 52-31-7492dfva 1 puff(s) by inhalation twice dailyfluticasone (FLOVENT) 110 mcg/actuation inhaler Indications: Asthma, chronic, moderate persistent, uncomplicated (HCC) Inhale 1 Puff as instructed twice daily. 1 Inhaler 1 03/29/2016 ActiveComment on above:Inhale 1 Puff as instructed twice daily.ibuprofen 800 mg oral tablet (20 sources)Nonsteroidal Anti-inflammatory DrugStart: 07-27-2020 End: 25-47-6695tplq 1 tablet by mouth every eight hours as needed for pain ibuprofen (MOTRIN) 800 mg tablet Indications: Chronic midline low back pain without sciatica Take 1tablet by mouth every 8 hours as needed for pain. 90 tablet 11 01/19/2025 ActiveComment on above:TAKE 1 TABLET BY MOUTH EVERY 8 HOURS NEEDEDlidocaine 0.05 mg/mg medicated patch (9 sources)Antiarrhythmic, Amide Local AnestheticStart: 11-02-6014Cbcntyiov 5 % 1 patch remove after 12 hours Externally Once a day for 30 days Dec, ActiveMetamucil Fiber (5 sources)Metamucil Fiber Ezbyif88 hr metoprolol succinate 25 mg extended release [...] mg oral tablet (1 source)HMG-CoA Reductase InhibitorStart: 15-03-2126rlatzcvkftjz (Crestor) 10 MG tablet Take by mouth 03/15/2024 ActivetraMADol hydrochloride 50 mg oral tablet (1 source)Opioid AgonistStart: 01-19-2025 End: 51-25-7533eevz 0.5-1 tablets by mouth every six hours [...] tablet (11 sources)HMG-CoA Reductase InhibitorStart: 01-31-2023 End: 69-10-6682gnnl 1 tablet by mouth once dailyatorvastatin (LIPITOR) 40 mg tablet Indications: Mixed hyperlipidemia take 1 tablet by mouth every day 90 tablet 1 01/27/2024 01/19/2025 Discontinued (Other)Comment on above:Take 1 tablet by mouth once daily.take 1 tablet by mouth every daycyclobenzaprine hydrochloride 10 mg oral tablet (7 sources)Muscle RelaxantStart: 09-09-2022 End: 55-62-2683grmd 5-10 mg by mouth every twenty-four hours as needed cyclobenzaprine (FLEXERIL) 10 mg tablet Take 0.5-1 tablets by mouth at bedtime as needed. 30 tablet0 09/09/2022 01/31/2023 Discontinued (Other)Comment on above:Take 0.5-1 tablets by mouth at bedtime as needed.OTC PRODUCT (20 sources) End: 06-85-2717UZO PRODUCT CBD gummies as needed 01/19/2025 Discontinued (Other) OTC PRODUCT CBD gummies as needed ActiveOTC PRODUCT CBD gummies as needed 0 Active End: 67-74-8060CVC PRODUCT CBD oil occasionally 0 07/13/2021 Discontinued (Other)Comment on above:CBD gummies as neededCBD oil occasionallysimvastatin 40 mg oral tablet (20 sources)HMG-CoA Reductase InhibitorStart: 02-08-2022 End: 55-30-2539rfop 1 tablet by mouth once daily at bedtimesimvastatin (ZOCOR) 40 mg tablet Indications: Mixed hyperlipidemia take 1 tablet by mouth everyday a t bedtime 90 tablet 0 01/29/2023 01/31/2023 DiscontinuedStart: 07-16-2021 End: 17-31-7765yaxx 1 tablet by mouth once daily at bedtimesimvastatin (ZOCOR) 20 mg tablet Indications: Mixed hyperlipidemia TAKE 1 TABLET BY MOUTH EVERYDAY A T BEDTIME 30 tablet 2 09/20/2021 02/08/2022 DiscontinuedStart: 08-07-2020 End: 85-15-8798dmfo 1 tablet by mouth once dailysimvastatin (ZOCOR) 10 mg tablet Indications: Mixed hyperlipidemia TAKE 1 TABLET BY MOUTH EVERY DAY90 tablet 0 08/07/2020 07/16/2021 DiscontinuedComment on above:TAKE 1 TABLET BY MOUTH EVERY DAYTake 1 tablet by mouth daily at bedtime.TAKE 1 TABLET BY MOUTH EVERYDAY AT BEDTIME Problems Active Problems Problem ClassificationProblemDateDocumented DateEpisodic/ChronicAsthma (2 sources)Mild intermittent asthma; Translations: [Mild intermittent asthma, uncomplicated]Onset: 499188-40-9808HaytwmpLifwknby (1 source)Bilateral cortical age-related cataract eyes; Translations: [Cortical age-related cataract, bilateral]76-08-3884WfxjxjpGnniagfvw of lipid metabolism (20 sources)Mixed hyperlipidemia; Translations: [Mixed hyperlipidemia]Onset: 09-27-2016 Resolved: 313509-50-1761JdeikwnJvijavcue hypertension (20 sources)Essential hypertension; Translations: [Essential (primary) hypertension]Onset: 77-36-4874OzgoiklMqynmdzcxnef with complications and secondary hypertension (2 sources)Hypertensive heart disease without heart failure; Translations: [Hypertensive heart disease withoutheart failure]Onset: 39-38-7590Ousqzht Nutritional deficiencies (3 sources)Vitamin D deficiency; Translations: [Vitamin D deficiency, unspecified]ChronicOsteoarthritis (10 sources)Osteoarthritis of right hip joint; Translations: [Unilateral primary osteoarthritis, right hip]Onset: 43-30-5462PulwoofFitvk connective tissue disease (2 sources)Trochanteric bursitis, right hipEpisodicOther nervous system disorders (1 source)Other chronic pain; Translations: [Chronic midline low back pain without sciatica]Onset: 32-74-3529FhhxppsTynna non-traumatic joint disorders (1 source)Pain in right hip joint; Translations: [Pain in right hip]Episodic Other non-traumatic joint disorders (1 source)Pain in right hip; Translations: [Pain in right hip]Onset: 03-09-2025 EpisodicOther nutritional; endocrine; and metabolic disorders (20 sources)Body mass index 30+ - obesity; Translations: [Body mass index (BMI) 36.0-36.9, adult]Onset: 94-92-6132GweqabxFismi nutritional; endocrine; and metabolic disorders (8 sources)Obese [...] screening mammogram for malignant neoplasm of breast]Onset: 54-54-5676NojxccgpQbadyrst codes; unclassified (2 sources)Asymptomatic menopausal stateEpisodicResidual codes; unclassified (3 sources)Other specified health status; Translations: [Other drug allergy] Onset: 541770-36-2103KysmtzssQyhjckdhd and history of mental health and substance [...] screening mammogram for malignant neoplasm of breast]Onset: 88-16-1656Nftocwkhaezo (1 source)Encounter for screening for osteoporosis; Translations: [Encounter for screening for osteoporosis]Onset: 44-22-8990Okhxzfiivszp (1 source)Chronic midline low back pain without sciatica; Translations: [Chronic midline low back pain without sciatica]Onset: 19-20-6084Tcjhrufrgkgu (1 source)Obesity, Class II, BMI 35-39.9; Translations: [Obesity, Class II, BMI 35-39.9]Onset: 01-19-2025 Past or Other Problems Problem ClassificationProblemDateDocumented DateEpisodic/ChronicAllergic reactions (10 sources)Inflammatory dermatosis; Translations: [Dermatitis, unspecified] Onset: 93-15-3512QughdqwwByciz connective tissue disease (20 sources)Fibromyalgia; Translations: [Fibromyalgia]Onset: 76-85-1344Fqfxwyxa Residual codes; unclassified (4 sources)Localized edema; Translations: [LOCALIZED EDEMA]Onset: 01-20-2021 EpisodicUnclassified (1 source)Patient encounter amzaxj30-42-8299 Results Test NameValueInterpretationReference RangeFacilityXR HIP 2V AP/LAT RTon 08-48-9143DB HIP 2V AP/LAT RT* * *Final Report* [...] as discussed under Results portion of report. Solar Systems Designer: PSCB Transcribe Date/Time: Mar 14 2025 8:30A Dictated by : JOSEPHINE SENIOR DO This examination was interpreted and the report reviewed and electronically signed by: JOSEPHINE SENIOR DO on Mar 14 2025 8:32AM EST [id number] [id number] by: LIZZIE COTTON on: 03/02/2025 10:40 AM Modules accepted: OrdersNormalUniversity of Usmd Hospital At ArlingtonDocumentationon [id number] Saida Corbin 1960 F Date Provider Department Center 03/02/2025 [id number]-EAKXJLIZZIE COTTON PHARMACO Medical [facility] Family History Family Status - Relation Status Age at Mother Father Reason for Visit and Comments: Pharmacist Consult - Referral [Other]NormalOhio State East Hospital Office Visiton 64-06-7708Mvtssn-up [id number] Saida Corbin 1960 Date Provider Department Center 03/01/2025 Add[place]-ALISSA CORDERO RL [place] Family History Family Status - Relation Status Age at Mother Father Level of Service:40856 ME OFFICE/OUTPATIENT ESTABLISHED LOW MDM 20 MIN Reason for Visit and Comments: Follow-up [669336] - Patient is here today for a 1 year follow up. Patient is no longer taking any statins due to sever body aches and muscle pain. Patient states she using the mushroom coffee and feels so much better. Patient denies chest pain, sob/lopez, fatigue, Cardiac Arrest [408370] Hypertension [876950] Hyperlipidemia [182] Edema [[id number]] - Bilateral leg swellingNormalUniversCleveland Clinic Medina HospitalCBC panel Auto (Bld)on 51-96-2232Lfwouesitiv distribution width (RBC) [Ratio]13.0 %11.5 - 15.0 %[facility] Medical CenterHematocrit (Bld) [Volume fraction]42.7 %36.0 - 46.0 %[facility] Medical CenterHemoglobin (Bld) [Mass/Vol]14.2 g/dL11.5 - 15.5 g/dLFisher-Titus Medical CenterInterpretation and review of laboratory resultsNormal The Christ HospitalH (RBC) [Entitic mass]29.6 pg26.0 - 34.0 pgCSamaritan North Health Center MCHC (RBC) [Mass/Vol]33.3 g/dL30.5 - 36.0 g/dLFisher-Titus Medical CenterMCV (RBC) [Entitic vol]89.1 fL80.0 - 100.0 fLCSamaritan North Health CenterPlatelet mean volume (Bld) [Entitic vol]9.3 fL9.0 - 12.7 fLClevelcarepartners rehabilitation hospital ClinicPlatelets (Bld) [#/Vol]292 10*3/uL [facility] Medical CenterRBC (Bld) [#/Vol]4.79 10*6/uL3.90 - 5.20 m/uLFisher-Titus Medical CenterWBC (Bld) [#/Vol]8.74 10*3/uLMetroHealth Main Campus Medical CenterErythrocyte distribution width (RBC) [Ratio]13.0 %Jfwacy09.5-15.0[facility] Coast HospitalComment on above:Order Comment: Specimen Type: BLOOD SPECIMEN Ordering Facility: [facility] Address: [address] [place], [place] [address]Performed By: #### 47881-1 #### [facility] CLIA [id number] [address] [place] [address] [facility]ICAL CENTERHematocrit (Bld) [Volume fraction]42.7 % Ifmvst99.0-46.0[facility] HospitalComment on above:Order Comment: Specimen Type: BLOOD SPECIMEN Ordering Facility: [facility] Address: [address] [place], [place] [address]Performed By: #### 65471-4 #### [facility] CLIA [id number] [address] [place], [place] [address] [place], [place] [address]Hemoglobin (Bld) [Mass/Vol]14.2 g/dL Iiylni66.5-15.5ALafourche, St. Charles and Terrebonne parishesComment on above:Order Comment: Specimen Type: BLOOD SPECIMEN Ordering Facility: [facility] Address: [address] [place], [place] [address]Performed By: #### 90642-8 #### [facility] CLIA [id number] [address] [place], [place] [address] [place], [place] [address]MCH (RBC) [Entitic mass]29.6 pgNormal 26.0-34.0[facility] HospitalComment on above:Order Comment: Specimen Type: BLOOD SPECIMEN Ordering Facility: [facility] Address: [address] [place], [place] [address]Performed By: #### 30139-1 #### [facility] CLIA [id number] [address]MCHC (RBC) [Mass/Vol]33.3 g/dLNormal 30.5-36.0[facility] HospitalComment on above:Order Comment: Specimen Type: BLOOD SPECIMEN Ordering Facility: [facility] Address: [address] [place], [place] [address]Performed By: #### 42804-0 #### [facility] CLIA [id number] [address] [place] [id number] [facility] CENTERMCV (RBC) [Entitic vol]89.1 fLNormal 80.0-100.0[facility] HospitalComment on above:Order Comment: Specimen Type: BLOOD SPECIMEN Ordering Facility: [facility] Address: [address] [place], [place] [address]Performed By: #### 16225-4 #### [facility] CLIA [id number] [address]Platelet mean volume (Bld) [Entitic vol] 9.3 fLNormal9.0-12.7ALafourche, St. Charles and Terrebonne parishesComment on above:Order Comment: Specimen Type: BLOOD SPECIMEN Ordering Facility: [facility] Address: [address] [place], [place] [address]Performed By: #### 49481-5 #### [facility] CLIA [id number] [address] [place] [address] [facility] CENTERPlateworcester city hospital (d) [#/Vol]292 10*3/uLNormal 150-400[facility] HospitalComment on above:Order Comment: Specimen Type: BLOOD SPECIMEN Ordering Facility: [facility] Address: [address] [place], [place] [address]Performed By: #### 96772-1 #### [facility] CLIA [id number] [address] [place] [address] [facility] (d) [#/Vol]4.79 10*6/uLNormal 3.90-5.20[facility] HospitalComment on above:Order Comment: Specimen Type: BLOOD SPECIMEN Ordering Facility: [facility] Address: [address] [place], [place] [address]Performed By: #### 31529-3 #### [facility] CLIA [id number] [address] [place] [address] [facility]ENTERW ([facility]) [#/Vol]8.74 10*3/uLNormal 3.70-11.00[facility] HospitalComment on above:Order Comment: Specimen Type: BLOOD SPECIMEN Ordering Facility: [facility] Address: [address] [place], [place] [address]Performed By: #### 84302-0 #### [facility] CLIA [id number] [address] [place] [address] [facility]ICAL CENTERCNOVon 52-55-9493OXEQAdmmbu Visit (MARGO) SAIDA CORBIN ([id number]) 1960 F Date Time Provider Department 01/19/25 [...] Latex Unknown Nyquil [Doxylamin-P* Unknown Pheniramine Unknown Ulsqccj-Tbz-Jff Red* Myalgia cramping Current Outpatient Medications Medication [...] Coordination normal. Psychiatric: Judgm (more content not included)...NormalNorthern Light Maine Coast Hospital Comprehensive metabolic 2000 panelon 30-43-8336Vitvtpg [Mass/Vol]4.9 g/dL3.9 - 4.9 g/dLClegreen cross hospital ClinicALP [Catalytic activity/Vol]131 U/LHigh34 - 123 U/L [facility] ClinicALT With P-5'-P [Catalytic activity/Vol]20 U/L7 - 38 U/L [facility] Medical CenterAnion gap [Moles/Vol]14 mmol/L8 - 15 mmol/LCleveland ClinicAST With P-5'-P [Catalytic activity/Vol]18 U/L13 - 35 U/LCleveland ClinicBilirubin [Mass/Vol]0.4 mg/dL0.2 - 1.3 mg/dLShippensburg ClinicCalcium [Mass/Vol]10.2 mg/dL 8.5 - 10.2 mg/dLShippensburg ClinicChloride [Moles/Vol]101 mmol/L98 - 107 mmol/L [facility] ClinicCO2 [Moles/Vol]25 mmol/L22 - 30 mmol/LCleveland ClinicCreatinine [Mass/Vol]0.78 mg/dL0.58 - 0.96 mg/dLShippensburg ClinicGFR/1.73 sq M.predicted among non-blacks MDRD (S/P/Bld) [Vol rate/Area]85 mL/min/{1.73_m2}- PINF [facility] Medical CenterComment on above:Estimated Glomerular Filtration Rate (eGFR) is calculated using the 202 CKD-EPI creatinine equation. This equation utilizes serum creatinine, sex, and age as parameters. The creatinine assay has traceable calibration to isotope dilution-mass spectrometry. Refer to KDIGO guidelines for clinical interpretation. In patients with unstable renal function, e.g. those with acute kidney injury, the eGFRmay not accurately reflect actual GFR.Glucose [Mass/Vol]105 mg/bXAmnx01 - 99 mg/dLFisher-Titus Medical CenterComment on above:The [place] Diabetes Association (ADA) provides guidance for cutoff [...] Standards of Medical Care in Diabetes 2016, [place] Diabetes Association. Diabetes Care. 2016.39(Suppl 1). Potassium [Moles/Vol]4.6 mmol/L3.7 - 5.1 mmol/LCleveland ClinicProtein [Mass/Vol]7.5 g/dL6.3 - 8.0 g/dLShippensburg ClinicSodium [Moles/Vol]140 mmol/L136 - 144 mmol/LCleveland ClinicUrea nitrogen [Mass/Vol]16 mg/dL7 - 21 mg/dL [facility] ClinicAlbumin [Mass/Vol]4.9 g/dLNormal3.9-4.9ALafourche, St. Charles and Terrebonne parishesComment on above:Order Comment: Specimen Type: BLOOD SPECIMEN Ordering Facility: [facility] Address: [address] [place], [place] [address]Performed By: #### 00016-1, 48172-0 #### [facility] CLIA [id number] [address] STATES OF AMERICAALP [Catalytic activity/Vol]131 U/LHigh 34-123[facility] HospitalComment on above:Order Comment: Specimen Type: BLOOD SPECIMEN Ordering Facility: [facility] Address: [address] [place], [place] [address]Performed By: #### 68022-6, 48290-1 #### [facility] CLIA [id number] [address] [place] [address] [place] AMERICAALT With P-5'-P [Catalytic activity/Vol] 20 U/LNormal7-38[facility] HospitalComment on above:Order Comment: Specimen Type: BLOOD SPECIMEN Ordering Facility: [facility] Address: [address] [place], [place] [address]Performed By: #### 13149-2, 33628-8 #### [facility] CLIA [id number] [address] [place] [address] [place] AMERICAAnion gap [Moles/Vol]14 mmol/LNormal8-15 [facility] HospitalComment on above:Order Comment: Specimen Type: BLOOD SPECIMEN Ordering Facility: [facility] Address: [address] [place], [place] [address]Performed By: #### 67676-7, 23963-7 #### [facility] CLIA [id number] [address] [place] [address] [place] AMERICAAST With P-5'-P [Catalytic activity/Vol] 18 U/CIbrvmi17-35UcibvNorthern Light Maine Coast HospitalComment on above:Order Comment: Specimen Type: BLOOD SPECIMEN Ordering Facility: [facility] Address: [address] [place], [place] [address]Performed By: #### 65807-3, 48645-2 #### [facility] CLIA [id number] [address] [place] [address] [place] AMERICABilirubin [Mass/Vol]0.4 mg/dLNormal 0.2-1.3ALafourche, St. Charles and Terrebonne parishesComment on above:Order Comment: Specimen Type: BLOOD SPECIMEN Ordering Facility: [facility] Address: [address] [place], [place] [address]Performed By: #### 76985-9, 94922-5 #### [facility] CLIA [id number] [address] [place] [address] [place] AMERICACalcium [Mass/Vol]10.2 mg/dLNormal 8.5-10.2ALafourche, St. Charles and Terrebonne parishesComment on above:Order Comment: Specimen Type: BLOOD SPECIMEN Ordering Facility: [facility] Address: [address] [place], [place] [address]Performed By: #### 02103-5, 13517-7 #### [facility] CLIA [id number] [address] [place] [address] [place] AMERICAChloride [Moles/Vol]101 mmol/LNormal 98-107[facility] HospitalComment on above:Order Comment: Specimen Type: BLOOD SPECIMEN Ordering Facility: [facility] Address: [address] [place], [place] [address]Performed By: #### 83805-7, 94869-1 #### [facility] CLIA [id number] [address] [place] [address] [place] AMERICACO2 [Moles/Vol]25 mmol/QIythvo01-05EiibmNorthern Light Maine Coast HospitalComment on above:Order Comment: Specimen Type: BLOOD SPECIMEN Ordering Facility: [facility] Address: [address] [place], [place] [address]Performed By: #### 47048-3, 06173-5 #### [facility] CLIA [id number] [address] [place] [address] [place] AMERICACreatinine [Mass/Vol]0.78 mg/dLNormal 0.58-0.96[facility] HospitalComment on above:Order Comment: Specimen Type: BLOOD SPECIMEN Ordering Facility: [facility] Address: [address] [place], [place] [address]Performed By: #### 26783-6, 44473-5 #### [facility] CLIA [id number] [address] [place] [address] [place] AMERICAeGFRcr SerPlBld CKD-EPI 527908 mL/min/1.73m???Normal>=60[facility] Coast HospitalComment on above:Order Comment: Specimen Type: BLOOD SPECIMEN Ordering Facility: [facility] Address: [address] [place], [place] [address]Result Comment: Estimated Glomerular Filtration Rate (eGFR) is [...] not accurately reflect actual GFR.Performed By: #### 22334-6, 66047-3 #### [facility] CLIA [id number] [address] [place] [address] [place] AMERICAGlucose [Mass/Vol]105 mg/nBVwqw83-15MvzhbNorthern Light Maine Coast HospitalComment on above:Order Comment: Specimen Type: BLOOD SPECIMEN Ordering Facility: [facility] Address: [address] [place], [place] [address]Result Comment: The [place] Diabetes Association (ADA) provides guidance for cutoff [...] Standards of Medical Care in Diabetes 2016, Italian Diabetes Association. Diabetes Care. 2016.39(Suppl 1).Performed By: #### 00905-5, 50631-2 #### [facility] CLIA [id number] [address] [place] [address] [place] OF AMERICAPotassium [Moles/Vol]4.6 mmol/LNormal 3.7-5.1ALafourche, St. Charles and Terrebonne parishesComment on above:Order Comment: Specimen Type: BLOOD SPECIMEN Ordering Facility: [facility] Address: [address] [id number] By: #### 69723-5, 69390-3 #### [facility] CLIA [id number] [address] [place] [address] [place] AMERICAProtein [Mass/Vol]7.5 g/dLNormal6.3-8.0 [facility] HospitalComment on above:Order Comment: Specimen Type: BLOOD SPECIMEN Ordering Facility: [facility] Address: [address] [place], [place] [address]Performed By: #### 47109-2, 96584-7 #### [facility] CLIA [id number] [address] [place] [address] [place] AMERICASodium [Moles/Vol]140 mmol/HLktvno052-290 [facility] HospitalComment on above:Order Comment: Specimen Type: BLOOD SPECIMEN Ordering Facility: [facility] Address: [address] [place], [place] [address]Performed By: #### 50389-1, 55037-7 #### [facility] CLIA [id number] [address] [place] [address] [place] AMERICAUrea nitrogen [Mass/Vol]16 mg/dLNormal 7-21[facility] HospitalComment on above:Order Comment: Specimen Type: BLOOD SPECIMEN Ordering Facility: [facility] Address: [address] [place], [place] [address]Performed By: #### 22256-3, 10637-9 #### [facility] CLIA [id number] [address] [place] [address] [place] AMERICALipid 1996 panelon 31-22-9545Eyhtqashads [Mass/Vol]326 mg/dLHighNINF - 200 mg/dLFisher-Titus Medical CenterComment on above:<200 mg/dL, Desirable 200-239 mg/dL, Borderline high >239 mg/dL, High Cholesterol in HDL [Mass/Vol]51 mg/dL39 - PINF mg/dLFisher-Titus Medical CenterComment on above:40-59 mg/dL, Acceptable >59 mg/dL, High: Negative risk factor for coronary heart disease <40 mg/dL, Low: Positive risk factor for coronary heart disease Cholesterol in LDL [Mass/Vol]214 mg/dLHighNINF - 100 mg/dLFisher-Titus Medical Center Comment on above:<100 mg/dL, Optimal 100-129 mg/dL, Near optimal/above optimal 130-159 mg/dL, Borderline high 160-189 mg/dL, High >189 mg/dL, Very high Secondary prevention optimal LDL Cholesterol levels are recommended to be <70 mg/dL LDL cholesterol is calculated using the Alvarez-NIH equation. Cholesterol in LDL/Cholesterol in HDL [Mass ratio]4.20 {ratio}HighNINF - 2.54 [facility] Medical CenterComment on above:Reference: 1. National Cholesterol Education Program ATP III Guideline At-A-Glance Quick Desk Reference: National Heart, Lung, and Blood [place]. National Institutes of Health. 2001: NIH Publication No. 01-3305. 2. An International Atherosclerosis Society position paper: global recommendations for the management of dyslipidemia: executive summary, Atherosclerosis. 2014: 232(2):410-413. Cholesterol in VLDL [Mass/Vol]66 mg/dLHighNINF - 30 mg/dLFisher-Titus Medical Center Cholesterol non HDL [Mass/Vol]275 mg/dLHighNINF - 130 mg/dLFisher-[facility] Medical Center Comment on above:<130 mg/dL, Optimal 130-159 mg/dL, Near optimal/above optimal 160-189 mg/dL, Borderline high 190-219 mg/dL, High >219 mg/dL, Very high Secondary prevention optimal non HDL Cholesterol levels are recommended to be <100 mg/dL Cholesterol.total/Cholesterol in HDL [Mass ratio]6.39 {ratio}HighNINF - 5.10 [facility] Medical CenterFasting Nqgm28iblJsnfejkka ClinicTriglyceride [Mass/Vol]298 mg/dLHighNINF - 150 mg/dLFisher-Titus Medical CenterComment on above:<150 mg/dL, Normal 150-199 mg/dL, Borderline high 200-499 mg/dL, High >499 mg/dL, Very high Cholesterol [Mass/Vol]326 mg/dLHigh<200[facility] HospitalComment on above:Order Comment: Specimen Type: BLOOD SPECIMEN Ordering Facility: [facility] Address: [address] [place], [place] [address]Sa[place]of Comment: <200 mg/dL, Desirable 200-239 mg/dL, Borderline high >239 mg/dL, HighPerformed By: #### 61518-4, 99200-4 #### [facility] CLIA [id number] [address] [place] [address] [place] [facility] HOSPITALCholesterol in HDL [Mass/Vol]51 mg/dL Normal>39[facility] HospitalComment on above:Order Comment: Specimen Type: BLOOD SPECIMEN Ordering Facility: [facility] Address: [address] [place] [address] Comment: 40-59 mg/dL, Acceptable >59 mg/dL, High: Negative risk factor for coronary heart disease <40 mg/dL, Low: Positive risk factor for coronary heart diseasePerformed By: #### 09543-2, 02696-9 #### [facility] CLIA [id number] [address] [place] [address] [place] AMERICACholesterol in LDL [Mass/Vol]214 mg/dL High<100[facility] HospitalComment on above:Order Comment: Specimen Type: BLOOD SPECIMEN Ordering Facility: [facility] Address: [address] [place], [place] [address]Result Comment: <100 mg/dL, Optimal 100-129 mg/dL, Near optimal/above optimal 130-159 mg/dL, Borderline high 160-189 mg/dL, High >189 mg/dL, Very high Secondary prevention optimal LDL Cholesterol levels are recommended to be <70 mg/dL LDL cholesterol is calculated using the Alvarez-NIH equation.Performed By: #### 64481-6, 09055-9 #### [facility] CLIA [id number] [address] [place] [address] [place] AMERICACholesterol in LDL/Cholesterol in HDL [Mass ratio]4.20 {ratio}High<2.54[facility] HospitalComment on above: Order Comment: Specimen Type: BLOOD SPECIMEN Ordering Facility: [facility] Address: [address] [place], [place] [address]Result Comment: Reference: 1. National Cholesterol Education Program ATP III Guideline At-A-Glance Quick Desk Reference: National Heart, Lung, and Blood [place]. National Institutes of Health. 2001: NIH Publication No. 01-3305. 2. An International Atherosclerosis Society position paper: global recommendations for the management of dyslipidemia: executive summary, Atherosclerosis. 2014: 232(2):410-413.Performed By: #### 75971-3, 30019-4 #### [facility] CLIA [id number] [address] [place] [address] [place] AMERICACholesterol in VLDL [Mass/Vol]66 mg/dL High<30[facility] HospitalComment on above:Order Comment: Specimen Type: BLOOD SPECIMEN Ordering Facility: [facility] Address: [address] [place], [place] [address]Performed By: #### 77850-4, 24691-1 #### [facility] CLIA [id number] [address] [place] [address] [place] AMERICACholesterol non HDL [Mass/Vol]275 mg/dL High<130[facility] HospitalComment on above:Order Comment: Specimen Type: BLOOD SPECIMEN Ordering Facility: [facility] Address: [address] [place], [place] [address]Result Comment: <130 mg/dL, Optimal 130-159 mg/dL, Near optimal/above optimal 160-189 mg/dL, Borderline high 190-219 mg/dL, High >219 mg/dL, Very high Secondary prevention optimal non HDL Cholesterol levels are recommended to be <100 mg/dLPerformed By: #### 09332-6, 62026-1 #### [facility] CLIA [id number] [address] [place] [address] [place] AMERICACholesterol.total/Cholesterol in HDL [Mass ratio]6.39 {ratio}High<5.10ALafourche, St. Charles and Terrebonne parishesComment on above: Order Comment: Specimen Type: BLOOD SPECIMEN Ordering Facility: [facility] Address: [address] [place], [place] [address]Performed By: #### 85639-6, 89053-5 #### [facility] CLIA [id number] [address] [place] [address] [place] OF AMERICAFASTING TIME11 hrsNormalALafourche, [address] Charles and Terrebonne parishesComment on above:Order Comment: Specimen Type: BLOOD SPECIMEN Ordering Facility: [facility] Address: [address] [place], [place] [address]Performed By: #### 97312-7, 46991-9 #### [facility] CLIA [id number] [address] [place] [address] [place] AMERICATriglyceride [Mass/Vol]298 mg/dLHigh<150 [facility] HospitalComment on above:Order Comment: Specimen Type: BLOOD SPECIMEN Ordering Facility: [facility] Address: [address], [place], [place] [address]Ssojaa Comment: <150 mg/dL, Normal 150-199 mg/dL, Borderline high 200-499 mg/dL, High >499 mg/dL, Very highPerformed By: #### 76171-3, 94032-7 #### [facility] CLIA [id number] [address] [place] [address] [facility] Panel Informationon 01-19-2025 Interpretation and review of laboratory resultsAbnoChildren's Hospital for Rehabilitation36on [id number] has been informed and will stay off the statin for 2 weeks and try pravastatin starting with every other day and increase to daily if tolerated. Prescription has been sent to the pharmacyNormalUniversC[facility]36Please have her hold off on any statins for 2 weeks. We can try pravastatin 40mg daily instead to see if she can tolerate this better. Start with every other day for 2 weeks then increase to daily if tolerated. ThanksNormalUniversmarymount hospital of [facility]36Patient called and states you had switched her from Atorvastatin to Rosuvastatin. Patient states she is having extreme muscle cramping with the Rosuvastatin and has stopped taking it. Patient wanted to know if you had any other suggestions on a different statin, if not she said she could tolerate the Atorvastatin much better. Please AdviseNormalUniversmarymount hospital of [facility]36on [id number] let her know her labs showed her [...] diet. Follow-up lipid panel/LFTs in 3 months. Thanks!Holzer Health SystemMM screening mammo BI w/CADon 86-37-0859QS screening mammo BI w/[facility] [place] [address] [place] [address] Mammography Report Signed Patient: Saida Corbin MR#: [id number] : 1960 Acct:[id number] Age/Sex: 62 / F ADM Date: 06/07/23 Loc: [place] Room: Type: [facility] CLI Attending Dr: Referral Self [...] Nicholas Man M.D.06/09/2023 7:49 AM Dictation Location: [facility] Transcribed By: [facility] 06/09/23 0749 Dictated By: Nicholas Man DO 06/09/23 0747 Signed By: 06/09/23 0749NoOur Lady of Mercy Hospital - AndersonC panel Auto (Bld)on 28-41-9323Hzzhoznzpku distribution width (RBC) [Ratio]12.6 %Wgjicy75.5-15.0Avon HospitalComment on above:Order Comment: Specimen Type: BLOOD SPECIMEN Ordering Facility: [facility] Address: [address] [place], [place] [address]Performed By: #### 02300-9 #### [facility] [place] [id number] [address] [place] [address] [facility] HOSPITALHematocrit (Bld) [Volume fraction]42.0 % Yjowoa78.0-46.0Av HospitalComment on above:Order Comment: Specimen Type: BLOOD SPECIMEN Ordering Facility: [facility] Address: [address] [place], [place] [address]Performed By: #### 21583-6 #### [facility] IA [id number] [address] [place] [address] [facility] HOSPITALHemoglobin (Bld) [Mass/Vol]13.9 g/dL Bdebrf76.5-15.5Avo HospitalComment on above:Order Comment: Specimen Type: BLOOD SPECIMEN Ordering Facility: [facility] Address: [address] [place], [place] [address]Performed By: #### 83328-4 #### [facility] IA [id number] [address] [place] [address] [facility]H (RBC) [Entitic mass]29.0 pgNormal 26.0-34.0Av HospitalComment on above:Order Comment: Specimen Type: BLOOD SPECIMEN Ordering Facility: [facility] Address: [address] [place], [place] [address]Performed By: #### 38876-7 #### [facility] IA [id number] [address] [place] [address] [place] [facility] BELLEVUE HOSPITALMCHC (RBC) [Mass/Vol]33.1 g/dLNormal 30.5-36.0Av HospitalComment on above:Order Comment: Specimen Type: BLOOD SPECIMEN Ordering Facility: [facility] Address: [address] [place], [place] [address]Performed By: #### 58307-2 #### [facility] IA [id number] [address] [place] [address] [facility] SOUTHV (RBC) [Entitic vol]87.5 fLNormal 80.0-100.0Avon HospitalComment on above:Order Comment: Specimen Type: BLOOD SPECIMEN Ordering Facility: [facility] Address: [address] [place], [place] [address]Performed By: #### 17226-8 #### [facility] IA [id number] [address] [address] [place] AMERICANucleated RBC (Bld) [#/Vol]10*3/uLNormal <0.01Avon HospitalComment on above:Order Comment: Specimen Type: BLOOD SPECIMEN Ordering Facility: [facility] Address: [address] [place], [place] [address]Performed By: #### 57187-5 #### [facility] [place] [id number] [address] [facility] [place] [address] [place] AMERICAPlatelet mean volume (Bld) [Entitic vol] 9.8 fLNormal9.0-12.7Avon HospitalComment on above:Order Comment: Specimen Type: BLOOD SPECIMEN Ordering Facility: [facility] Address: [address] [place], [place] [address]Performed By: #### 82497-7 #### [facility] [place] [id number] [address] [facility] [place] [address] [place] AMERICAPlatelets (Bld) [#/Vol]267 10*3/uLNormal 150-400Avon HospitalComment on above:Order Comment: Specimen Type: BLOOD SPECIMEN Ordering Facility: [facility] Address: [address] [place], [place] [address]Performed By: #### 81356-6 #### [facility] IA [id number] [address] [place] [address] [place] AMERICARBC (Bld) [#/Vol]4.80 10*6/uLNormal 3.90-5.20Avon HospitalComment on above:Order Comment: Specimen Type: BLOOD SPECIMEN Ordering Facility: [facility] Address: [address] [place], [place] [address]Performed By: #### 52942-6 #### [facility] [place] [id number] [address] [facility] [place] [address] [place] AMERICAWBC (Bld) [#/Vol]10.48 10*3/uLNormal 3.70-11.00Bridgeport HospitalComment on above:Order Comment: Specimen Type: BLOOD SPECIMEN Ordering Facility: [facility] Address: [address] [place], [place] [address]Performed By: #### 19776-9 #### [facility] IA [id number] [address] [place] [address] [place] AMERICAComprehensive metabolic 2000 panelon 97-13-9817Nmhjdas [Mass/Vol]4.8 g/dLNormal3.9-4.9[facility] HospitalComment on above: Order Comment: Specimen Type: BLOOD SPECIMEN Ordering Facility: [facility] Address: [address] [place], [place] [address]Performed By: #### 33085-6, 02295-7 #### [facility] IA [id number] [address] [place] [address] [place] AMERICAALP [Catalytic activity/Vol]108 U/LNormal 34-123Bridgeport HospitalComment on above:Order Comment: Specimen Type: BLOOD SPECIMEN Ordering Facility: [facility] Address: [address] [place], [place] [address]Performed By: #### 82344-0, 01383-6 #### [facility] [place] [id number] [address] [facility] [place] [address] [place] AMERICAALT [Catalytic activity/Vol]27 U/LNormal 7-38Bridgeport HospitalComment on above:Order Comment: Specimen Type: BLOOD SPECIMEN Ordering Facility: [facility] Address: [address] [place], [place] [address]Performed By: #### 40559-1, 43237-5 #### [facility] IA [id number] [address] [facility] [place] [address] [place] AMERICAAnion gap [Moles/Vol]11 mmol/LNormal9-18 Bridgeport HospitalComment on above:Order Comment: Specimen Type: BLOOD SPECIMEN Ordering Facility: [facility] Address: [address] [place], [place] [address]Performed By: #### 62676-5, 39801-0 #### [facility] CLIA [id number] [address] [place] [address] [place] AMERICAAST [Catalytic activity/Vol]22 U/LNormal 13-35Bridgeport HospitalComment on above:Order Comment: Specimen Type: BLOOD SPECIMEN Ordering Facility: [facility] Address: [address] [place], [place] [address]Performed By: #### 15759-5, 04645-3 #### [facility] CLIA [id number] [address] [place] [address] [place] AMERICABilirubin [Mass/Vol]0.4 mg/dLNormal 0.2-1.3Avon HospitalComment on above:Order Comment: Specimen Type: BLOOD SPECIMEN Ordering Facility: [facility] Address: [address] [place], [place] [address]Performed By: #### 57218-0, 47971-2 #### [facility] CLIA [id number] [address] [place] [address] [place] AMERICACalcium [Mass/Vol]9.9 mg/dLNormal8.5-10.2 [facility] HospitalComment on above:Order Comment: Specimen Type: BLOOD SPECIMEN Ordering Facility: [facility] Address: [address] [place], [place] [address]Performed By: #### 72439-3, 59209-4 #### [facility] CLIA [id number] [address] [place] [address] [place] AMERICAChloride [Moles/Vol]102 mmol/LNormal 97-105Av HospitalComment on above:Order Comment: Specimen Type: BLOOD SPECIMEN Ordering Facility: [facility] Address: [address] [place], [place] [address]Performed By: #### 47948-0, 43245-1 #### [facility] CLIA [id number] [address] [place] [address] [place] AMERICACO2 [Moles/Vol]28 mmol/FXqxdii69-96Puuu HospitalComment on above:Order Comment: Specimen Type: BLOOD SPECIMEN Ordering Facility: [facility] Address: [address] [place], [place] [address]Performed By: #### 94386-5, 83943-3 #### [facility] CLIA [id number] [address] [place] [address] [place] AMERICACreatinine [Mass/Vol]0.63 mg/dLNormal 0.58-0.96Av HospitalComment on above:Order Comment: Specimen Type: BLOOD SPECIMEN Ordering Facility: [facility] Address: [address] [place], [place] [address]Performed By: #### 16465-8, 63862-8 #### [facility] CLIA [id number] [address] [place] [address] [place] AMERICACreatinine and Glomerular filtration rate.predicted panel (S/P/Bld)100 mL/min/1.73m???Normal>=60Av HospitalComment on above:Order Comment: Specimen Type: BLOOD SPECIMEN Ordering Facility: [facility] Address: [address] [place], [place] [address]Result Comment: Estimated Glomerular Filtration Rate (eGFR) is [...] not accurately reflect actual GFR.Performed By: #### 41780-3, 09590-8 #### [facility] CLIA [id number] [address] [place] [address] [place] AMERICAGlucose [Mass/Vol]95 mg/jHSzeavd19-77Quor HospitalComment on above:Order Comment: Specimen Type: BLOOD SPECIMEN Ordering Facility: [facility] Address: [address] [place], [place] [address]Result Comment: The Italian Diabetes Association (ADA) provides guidance for cutoff [...] Standards of Medical Care in Diabetes 2016, [place] Diabetes Association. Diabetes Care. 2016.39(Suppl 1).Performed By: #### 34080-1, 37818-7 #### [facility] CLIA [id number] [address] [place] [address] [place] AMERICAPotassium [Moles/Vol]4.4 mmol/LNormal 3.7-5.1[facility] HospitalComment on above:Order Comment: Specimen Type: BLOOD SPECIMEN Ordering Facility: [facility] Address: [address] [place], [place] [address]Performed By: #### 55406-0, 84589-1 #### [facility] CLIA [id number] [address] [place] [address] [place] AMERICAProtein [Mass/Vol]7.4 g/dLNormal6.3-8.0 [facility] HospitalComment on above:Order Comment: Specimen Type: BLOOD SPECIMEN Ordering Facility: [facility] Address: [address] [place], [place] [address]Performed By: #### 14082-5, 72654-4 #### [facility] CLIA [id number] [address] [place] [address] [place] AMERICASodium [Moles/Vol]141 mmol/DWlldzp985-299 [facility] HospitalComment on above:Order Comment: Specimen Type: BLOOD SPECIMEN Ordering Facility: [facility] Address: [address] [place], [place] [address]Performed By: #### 21076-0, 84908-4 #### [facility] CLIA [id number] [address] [facility] [place] [address] [place] AMERICAUrea nitrogen [Mass/Vol]16 mg/dLNormal 7-21Avon HospitalComment on above:Order Comment: Specimen Type: BLOOD SPECIMEN Ordering Facility: [facility] Address: [address] [place], [place] [address]Performed By: #### 61211-7, 55649-3 #### [facility] CLIA [id number] [address] [place] [address] [place] AMERICALipid 1996 panelon 70-82-7981Ofhdpqdvoic [Mass/Vol]203 mg/dLHigh<200Avon HospitalComment on above:Order Comment: Specimen Type: BLOOD SPECIMEN Ordering Facility: [facility] Address: [address] [place], [place] [address]Result Comment: <200 mg/dL, Desirable 200-239 mg/dL, Borderline high >239 mg/dL, HighPerformed By: #### 54706-9, 37150-0 #### [facility] CLIA [id number] [address] [place] [address] [place] AMERICACholesterol in HDL [Mass/Vol]55 mg/dL Normal>39Avon HospitalComment on above:Order Comment: Specimen Type: BLOOD SPECIMEN Ordering Facility: [facility] Address: [address] [place], [place] [address]Result Comment: 40-59 mg/dL, Acceptable >59 mg/dL, High: Negative risk factor for coronary heart disease <40 mg/dL, Low: Positive risk factor for coronary heart diseasePerformed By: #### 68297-8, 72501-8 #### [facility] CLIA [id number] [address] [place] [address] [place] AMERICACholesterol in LDL [Mass/Vol]113 mg/dL High<100Avon HospitalComment on above:Order Comment: Specimen Type: BLOOD SPECIMEN Ordering Facility: [facility] Address: [address] [place], [place] [address]Result Comment: <100 mg/dL, Optimal 100-129 mg/dL, Near optimal/above optimal 130-159 mg/dL, Borderline high 160-189 mg/dL, High >189 mg/dL, Very high Secondary prevention optimal LDL Cholesterol levels are recommended to be < 70 mg/dLPerformed By: #### 49328-2, 31167-8 #### [facility] CLIA [id number] [address] [facility] [place] [address] [place] AMERICACholesterol in LDL/Cholesterol in HDL [Mass ratio]2.05 {ratio}Normal<2.54Avon HospitalComment on above:Order Comment: Specimen Type: BLOOD SPECIMEN Ordering Facility: [facility] Address: [address] [place], [place] [address]Result Comment: Reference: 1. National Cholesterol Education Program ATP III Guideline At-A-Glance Quick Desk Reference: National Heart, Lung, and Blood [place]. National Institutes of Health. 2001: NIH Publication No. 01-3305. 2. An International Atherosclerosis Society position paper: global recommendations for the management of dyslipidemia: executive summary, Atherosclerosis. 2014: 232(2):410-413.Performed By: #### 12156-6, 87969-1 #### [facility] CLIA [id number] [address] [facility] [place] [address] [place] AMERICACholesterol in VLDL [Mass/Vol]35 mg/dL High<30Avon HospitalComment on above:Order Comment: Specimen Type: BLOOD SPECIMEN Ordering Facility: [facility] Address: [address] [place], [place] [address]Performed By: #### 71332-2, 84308-3 #### [facility] CLIA [id number] [address] [facility] [place] [address] [place] AMERICACholesterol non HDL [Mass/Vol]148 mg/dL High<130Avon HospitalComment on above:Order Comment: Specimen Type: BLOOD SPECIMEN [facility]ing Facility: [facility] [facility] Address: [address] [id number] Comment: <130 mg/dL, Optimal 130-159 mg/dL, Near optimal/above optimal 160-189 mg/dL, Borderline high 190-219 mg/dL, High >219 mg/dL, Very high Secondary prevention optimal non HDL Cholesterol levels are recommended to be <100 mg/dLPerformed By: #### 73561-6, 42729-1 #### [facility] CLIA [id number] [place] [address] [place] OF AMERICACholesterol.total/Cholesterol in HDL [Mass ratio]3.69 {ratio}Normal<5.10[facility] rehabilitation HospitalComment on above:Order Comment: Specimen Type: BLOOD SPECIMEN Ordering Facility: [facility] Address: [address] [place], [place] [address]Performed By: #### 29807-4, 40511-1 #### [facility] IA [id number] [address] [place] [address] [place] OF AMERICAFASTING [address] [place] [address] Comment on above:Order Comment: Specimen Type: BLOOD SPECIMEN Ordering Facility: [facility] Address: [address] [place], [place] [address]Performed By: #### 21782-3, 77024-7 #### [facility] IA [id number] [address] [place] [address] [place] OF AMERICATriglyceride [Mass/Vol]173 mg/dLHigh<150 [facility] HospitalComment on above:Order Comment: Specimen Type: BLOOD SPECIMEN Ordering Facility: [facility] Address: [address] [place], [place] [address]Result Comment: <150 mg/dL, Normal 150-199 mg/dL, Borderline high 200-499 mg/dL, High >499 mg/dL, Very highPerformed By: #### 22454-8, 09966-7 #### [facility] IA [id number] [address] [place] [address] [place] OF AMERICAXR dexa axial skeletonon 78-11-3246EM dexa axial skeletonNortOpenCurriculum Other MR lumbar spine wo conon 74-93-2630KR lumbar spine [place] [address] MRI Report Signed Patient: Saida Corbin MR#: [id number] : 1960 Acct:[id number] Age/Sex: 62 / F ADM Date: 12/02/22 Loc: [facility] Room: Type: [facility] Attending Dr: Maria Luisa URBAN Copies [...] Colt Duran M.D.12/02/2022 2:13 PM Dictation Location: [facility]--13 Transcribed By: [facility] 12/02/22 1413 Dictated By: Colt Duran II, MD 12/02/22 1407 Signed By: 12/02/22 1413[facility] Medical CenterMR lumbar spine wo con [facility] [employer] Other MR lumbar spine wo [facility] [employer] Other MR lumbar spine wo [id number] [place] [address] [employer] Other MR lumbar spine wo [facility] InstitutecynM[place], [place] [address]Bbskt [employer] Other MR lumbar spine wo conMRI [facility] [employer] Other MR lumbar spine wo conSignedWoodlawn [employer] Other MR lumbar spine wo conPatient: Saida Corbin MR#: [id number] [employer] Other MR lumbar spine wo [id number] [employer] Other MR lumbar spine wo conDOB: 1960 Acct:[id number] [place] [employer] Other MR lumbar spine wo conAge/Sex: 62 / F ADM Date: 12/02/22[place] [employer] Other MR lumbar spine wo conLoc: ICMR Room: Type: [facility] [employer]0 Other MR lumbar spine wo conAttending Dr: Maria Luisa Farooq [employer]-[facility] [employer] Other MR lumbar spine wo conCopies to: Maria Luisa Farooq, [employer] Other MR lumbar spine wo conOrdering Provider: Maria Luisa Farooq, [employer] Other MR lumbar spine wo conDate of Service: 12/02/22[facility] HospitalOpenCurriculum Other MR lumbar spine wo conAccession #: ([id number]) MR/MR lumbar spine wo con: m54.16[employer] Other MR lumbar spine wo conMR lumbar spine wo con 12/02/2022 10:54 [facility] [employer] Other MR lumbar spine wo conSIGNS AND SYMPTOMS: Low back pain with right gluteal pain.[employer] Other MR lumbar spine wo conPROTOCOL: Multiplanar multisequence MR images of the lumbar spine were obtained without IV contrast [employer] Other MR lumbar spine wo conCOMPARISON: 09/09/2022[employer] Other MR lumbar spine wo conFINDINGS: The bones of the lumbar spine are in anatomic alignment. There is preservation ofT[employer] Other MR lumbar spine wo convertebral body heights. There is desiccation and mild disc height loss at L2-L3 and L3-L4. There isNoT[employer] Other MR lumbar spine wo conmoderate disc height loss at L4- L5. There is mild disc height loss at L5-S1. Mild Modic type IITru-Friends Other MR lumbar spine wo confatty endplate degenerative changes noted at L3-L4, L4-5, and L5-S1. The marrow signal is withinT[employer] Other MR lumbar spine wo connormal limits, otherwise. The conus terminates at the inferior endplate of the L1 vertebral bodyfake company 2.0 Other MR lumbar spine wo conlevel. No epidural or paraspinous fluid collection is appreciated.[employer] Other MR lumbar spine wo conAt T12-L1: There is a normal disc, central canal, and neural foramen.[employer] Other MR lumbar spine wo conAt L1-L2: There is a normal disc, central canal, and neural foramen.[employer]0 Other MR lumbar spine wo conAt L2-L3: There is a broad-based disc bulge with facet hypertrophy. There is mild narrowing of [employer] Other MR lumbar spine wo conspinal canal with no significant neural foraminal stenosis.[employer].0 Other MR lumbar spine wo conAt L3-L4: There is a broad-based disc bulge with facet hypertrophy. There is mild spinal canalNortOpenCurriculum Other MR lumbar spine wo connarrowing with mild to moderate right and mild left neural foraminal narrowing.[employer]0 Other MR lumbar spine wo conAt L4-L5: There is a broad-based disc bulge with facet hypertrophy. There is mild spinal canalNortOpenCurriculum Other MR lumbar spine wo constenosis. Endplate osteophyte formation is present. There is mild to moderate bilateral neuralNort [employer] Other MR lumbar spine wo conforaminal narrowing.[employer] Other MR lumbar spine wo conAt L5-S1: Facet hypertrophy is present bilaterally. 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 Endplate osteophyte formation is present. There is mild to moderate bilateral neural fNBIO-PATH [employer]INGS Other MR lumbar spine wo conoraminal narrowing.[facility] [employer] Other MR lumbar spine wo conImpression dictated by: Colt Duran M.D.12/02/2022 2:13 [facility] [employer] Other MR lumbar spine wo conDictation Location: [facility]--13 [facility] [employer] Other MR lumbar spine wo conTranscribed By: PWS 12/02/[address] [place] [address] [employer] Other MR lumbar spine wo conDictated By: Colt Duran II, MD 12/02/[address] [place] [address] [employer] Other MR lumbar spine wo conSigned By:[facility] [employer] Other MR lumbar spine wo con12/02/[address] [place] [address] [employer] Other XR lumbar spine 6V w bendingon 33-69-7421CX lumbar spine 6V w bendingZanesville City Hospital [employer] Other XR lumbar spine 6V w [facility] [employer] Other XR lumbar spine 6V w jrhnnyv[address] [place] [address] [employer] Other XR lumbar spine 6V w bending[address] [employer] Other XR lumbar spine 6V w bendingXRRockledge Regional Medical Center [employer] Other XR lumbar spine 6V w bendingSiHannibal Regional Hospital [employer] Other XR lumbar spine 6V w bendingPatient: Saida Corbin MR#: [id number] [employer] Other XR lumbar spine 6V w [id number] [employer] Other XR lumbar spine 6V w bendingDOB: 1960 Acct:[id number] [employer] Other XR lumbar spine 6V w bendingAge/Sex: 62 / F ADM Date: 10/31/22[facility] HospitalOpenCurriculum Other XR lumbar spine 6V w bendingLoc: XD Room: Type: [facility] [employer] Other XR lumbar spine 6V w bendingAttending Dr: Maria Luisa Farooq [facility] CENTERRaySat Other XR lumbar spine 6V w bendingCopies to: Maria Luisa Farooq, [facility] CENTERRaySat Other XR lumbar spine 6V w bendingOrdering Provider: Maria Luisa Farooq, [facility] CENTERRaySat Other XR lumbar spine 6V w bendingDate of Service: 10/31/22 [employer] Other XR lumbar spine 6V w bendingAccession #: ([id number]) XR/XR lumbar spine 6V w bending: M54.16[facility] HospitalOpenCurriculum Other XR lumbar spine 6V w bendingLUMBAR SPINE WITH FLEXION, EXTENSION AND BENDING VIEWS - 6 views:[employer] Other XR lumbar spine 6V w bendingCLINICAL HISTORY: Low back pain radiating down the legs with numbness and tingling. No injury.[employer] Other XR lumbar spine 6V w bendingCOMPARISON: 09/09/2022[employer] Other XR lumbar spine 6V w bendingStanding AP neutral, right left bending and lateral views with neutral, flexion and extension wereT[employer]riends Other XR lumbar spine 6V w bendingobtained. No acute fractures are identified. There is minimal retrolisthesis of L4 and L5.[employer] Other XR lumbar spine 6V w bendingAlignment does not change significantly with flexion or extension. There is disc space narrowing atTru-Friends Other XR lumbar spine 6V w bendingL4-5 and the lumbosacral junction. There is minor endplate spurring. There is lower lumbar facetNocox monett [employer] Other XR lumbar spine 6V w bendingdisease. The SI joints are intact. No paraspinal soft tissue abnormalities are present.[employer] Other XR lumbar spine 6V w bendingORDER #: [id number] XR/XR lumbar spine 6V w bendingNocox monett [employer] Other XR lumbar spine 6V w bendingIMPRESSION:[employer] Other XR lumbar spine 6V w bendingLOWER LUMBAR DEGENERATIVE CHANGES.[employer] Other XR lumbar spine 6V w bendingImpression dictated by: Maria Eugenia Yusuf M.D.10/31/2022 10:33 [facility] [employer] Other XR lumbar spine 6V w bendingDictation Location: [id number] [employer] Other XR lumbar spine 6V w bendingTranscribed By: PWS 10/31/22 [facility] Hospitalfake [facility] 2.0 Other XR lumbar spine 6V w bendingDictated By: Maria Eugenia Yusuf MD 10/31/22 [facility] Systemfake company 2.0 Other XR lumbar spine 6V w bendingSigned By:[employer] 2.[employer] Other XR lumbar spine 6V w lrwsnwo57/22/23 [facility] Hospitalfake company 2.0 Other XR lumbar spine 6V w bendingHOLZER [facility] [place] [address] [place] [address] XRay Report Signed Patient: Saida Corbin MR#: [id number] : 1960 Acct:[id number] Age/Sex: 62 / F ADM Date: 10/31/22 Loc: XD Room: Type: [facility] Attending Dr: Maria Luisa URBAN Copies [...] Eugenia Yusuf M.D.10/31/2022 10:33 AM Dictation Location: [address] [address] Transcribed By: [facility] 10/31/22 1033 Dictated By: Maria Eugenia Yusuf MD 10/31/22 1032 Signed By: 10/31/22 1033[facility] Medical CenterCB panel Auto (Bld)on 70-60-1390Lteubnrwqus distribution width (RBC) [Ratio]12.5 %11.5 - 15.0 % [facility] Medical CenterHematocrit (Bld) [Volume fraction]43.6 %36.0 - 46.0 %[facility] Medical CenterHemoglobin (Bld) [Mass/Vol]14.4 g/dL11.5 - 15.5 g/dLThe Christ HospitalH (RBC) [Entitic mass]29.0 pg26.0 - 34.0 pgCProMedica Defiance Regional HospitalHC (RBC) [Mass/Vol] 33.0 g/dL30.5 - 36.0 g/dLThe Christ HospitalV (RBC) [Entitic vol]87.9 fL80.0 - 100.0 fLClevelcarepartners rehabilitation hospital ClinicPlatelet mean volume (Bld) [Entitic vol]9.9 fL9.0 - 12.7 fLCkindred hospital dayton ClinicPlatelets (Bld) [#/Vol]263 10*3/uL150 - 400 k/uLCleveland ClinicRBC (Bld) [#/Vol]4.96 10*6/uL3.90 - 5.20 m/[facility] HospitalWBC (Bld) [#/Vol]8.87 10*3/uL3.70 - 11.00 k/[facility] HospitalHepatic function 2000 panel on 51-15-0218Gsamxoq [Mass/Vol]4.7 g/dLNormal3.9-4.9Avon HospitalComment on above:Order Comment: Specimen Type: BLOOD SPECIMEN Ordering Facility: [facility] Address: [address] [place], [place] [address]Performed By: #### 75411-9 #### [facility] IA [id number] [address] [place] [address] [place] AMERICAALP [Catalytic activity/Vol]101 U/LNormal 34-123Av HospitalComment on above:Order Comment: Specimen Type: BLOOD SPECIMEN Ordering Facility: [facility] Address: [address] [place], [place] [address]Performed By: #### 90402-7 #### [facility] IA [id number] [address] [place] [address] [place] AMERICAALT [Catalytic activity/Vol]19 U/LNormal 7-38Av HospitalComment on above:Order Comment: Specimen Type: BLOOD SPECIMEN Ordering Facility: [facility] Address: [address] [place], [place] [address]Performed By: #### 95573-4 #### [facility] IA [id number] [address] [place] [address] [place] OF AMERICAAST [Catalytic activity/Vol]23 U/LNormal 13-35Av HospitalComment on above:Order Comment: Specimen Type: BLOOD SPECIMEN Ordering Facility: [facility] Address: [address] [place], [place] [address]Performed By: #### 42920-6 #### [facility] IA [id number] [address] [place] [address] [place] AMERICABilirubin [Mass/Vol]0.3 mg/dLNormal 0.2-1.3Avon HospitalComment on above:Order Comment: Specimen Type: BLOOD SPECIMEN Ordering Facility: [facility] Address: [address] [place], [place] [address]Performed By: #### 57909-0 #### [facility] CLIA [id number] [address] [place] [address] [place] AMERICABilirubin.conjugated [Mass/Vol]mg/dL Normal<0.2Avon HospitalComment on above:Order Comment: Specimen Type: BLOOD SPECIMEN Ordering Facility: [facility] Address: [address] [place], [place] [address]Performed By: #### 33136-5 #### [facility] CLIA [id number] [address] [place] [address] [place] AMERICAProtein [Mass/Vol]7.1 g/dLNormal6.3-8.0 [facility] HospitalComment on above:Order Comment: Specimen Type: BLOOD SPECIMEN Ordering Facility: [facility] Address: [address] [place], [place] [address]Performed By: #### 40565-5 #### [facility] IA [id number] [address] [place] [address] [place] OF AMERICALipid 1996 panelon 65-65-3885Vpgiifqxrcb [Mass/Vol]216 mg/dLHigh<200Avon HospitalComment on above:Order Comment: Specimen Type: BLOOD SPECIMEN Ordering Facility: [facility] Address: [address] [place], [place] [address]Result Comment: <200 mg/dL, Desirable 200-239 mg/dL, Borderline high >239 mg/dL, HighPerformed By: #### 97172-1 #### [facility] CLIA [id number] [address] [place] [address] [place] AMERICACholesterol in HDL [Mass/Vol]53 mg/dL Normal>39Avon HospitalComment on above:Order Comment: Specimen Type: BLOOD SPECIMEN Ordering Facility: [facility] Address: [address] [place], [place] [address]Result Comment: 40-59 mg/dL, Acceptable >59 mg/dL, High: Negative risk factor for coronary heart disease <40 mg/dL, Low: Positive risk factor for coronary heart diseasePerformed By: #### 02483-9 #### [facility] CLIA [id number] [address] [facility] [place] [address] [place] AMERICACholesterol in LDL [Mass/Vol]135 mg/dL High<100Avon HospitalComment on above:Order Comment: Specimen Type: BLOOD SPECIMEN Ordering Facility: [facility] Address: [address] [place], [place] [address]Result Comment: <100 mg/dL, Optimal 100-129 mg/dL, Near optimal/above optimal 130-159 mg/dL, Borderline high 160-189 mg/dL, High >189 mg/dL, Very high Secondary prevention optimal LDL Cholesterol levels are recommended to be < 70 mg/dLPerformed By: #### 41928-2 #### [facility] CLIA [id number] [address] [facility] [place] [address] [place] AMERICACholesterol in LDL/Cholesterol in HDL [Mass ratio]2.55 {ratio}High<2.54Avon HospitalComment on above:Order Comment: Specimen Type: BLOOD SPECIMEN Ordering Facility: [facility] Address: [address] [place], [place] [address]Result Comment: Reference: 1. National Cholesterol Education Program ATP III Guideline At-A-Glance Quick Desk Reference: National Heart, Lung, and Blood [place]. National Institutes of Health. 2001: NIH Publication No. 01-3305. 2. An International Atherosclerosis Society position paper: global recommendations for the management of dyslipidemia: executive summary, Atherosclerosis. 2014: 232(2):410-413.Performed By: #### 14234-1 #### [facility] CLIA [id number] [address] [facility] [place] [address] [place] AMERICACholesterol in VLDL [Mass/Vol]28 mg/dL Normal<30Avon HospitalComment on above:Order Comment: Specimen Type: BLOOD SPECIMEN Ordering Facility: [facility] Address: [address] [place] [address]Performed By: #### 49762-5 #### [facility] IA [id number] [address] [place] [address] [place] AMERICACholesterol non HDL [Mass/Vol]163 mg/dL High<130Avon HospitalComment on above:Order Comment: Specimen Type: BLOOD SPECIMEN Ordering Facility: [facility] Address: [address] [place], [place] [address]Result Comment: <130 mg/dL, Optimal 130-159 mg/dL, Near optimal/above optimal 160-189 mg/dL, Borderline high 190-219 mg/dL, High >219 mg/dL, Very high Secondary prevention optimal non HDL Cholesterol levels are recommended to be <100 mg/dLPerformed By: #### 44772-8 #### [facility] IA [id number] [address] [place] [address] [place] AMERICACholesterol.total/Cholesterol in HDL [Mass ratio]4.08 {ratio}Normal<5.10Avo HospitalComment on above:Order Comment: Specimen Type: BLOOD SPECIMEN Ordering Facility: [facility] Address: [address] [place], [place] [address]Performed By: #### 06797-5 #### [facility] IA [id number] [address] [place] [address] [place] AMERICAFASTING TIME[address] [place] [address] Comment on above:Order Comment: Specimen Type: BLOOD SPECIMEN Ordering Facility: [facility] Address: [address] [place], [place] [address]Performed By: #### 99688-8 #### [facility] IA [id number] [address] [place] [address] [place] AMERICATriglyceride [Mass/Vol]140 mg/dLNormal <150Avon HospitalComment on above:Order Comment: Specimen Type: BLOOD SPECIMEN Ordering Facility: [facility] Address: [address] [place], [place] [address]Result Comment: <150 mg/dL, Normal 150-199 mg/dL, Borderline high 200-499 mg/dL, High >499 mg/dL, Very highPerformed By: #### 83555-7 #### [facility] CLIA [id number] [address] [facility] [place] [address] [place] OF AMERICAVITAMIN D 25 HYDROXYon 87-84-992325- hydroxyvitamin D3 [Mass/Vol]76.7 ng/mL>=30.0 ng/mLCleveland ClinicComprehensive metabolic 1999 panelon 94-11-2824Jagdfmt [Mass/Vol]5.1 g/dLHigh3.9 - 4.9 g/dL [place] ClinicALP [Catalytic activity/Vol]108 U/L34 - 123 U/LCleveland Clinic ALT With P-5'-P [Catalytic activity/Vol]30 U/L7 - 38 U/LCleveland ClinicAnion gap [Moles/Vol]11 mmol/L9 - 18 mmol/LCleveland ClinicAST With P-5'-P [Catalytic activity/Vol]24 U/L13 - 35 U/LCleveland ClinicBilirubin [Mass/Vol]0.3 mg/dL0.2 - 1.3 mg/dLShippensburg ClinicCalcium [Mass/Vol]10.1 mg/dL8.5 - 10.2 mg/dLShippensburg ClinicChloride [Moles/Vol]103 mmol/L97 - 105 mmol/LCleveland ClinicCO2 [Moles/Vol]28 mmol/L22 - 30 mmol/LCleveland ClinicCreatinine [Mass/Vol]0.62 mg/dL0.58 - 0.96 mg/dLFisher-Titus Medical CenterEstimated Glomerular Filtration Bwfj342 mL/min/1.73m>=60 mL/min/1.73mCleveland ClinicGlucose [Mass/Vol]107 mg/tENsmx24 - 99 mg/dLFisher-Titus Medical CenterPotassium [Moles/Vol]4.5 mmol/L3.7 - 5.1 mmol/L [place] ClinicProtein [Mass/Vol]7.4 g/dL6.3 - 8.0 g/dLShippensburg ClinicSodium [Moles/Vol]142 mmol/L136 - 144 mmol/LCleveland ClinicUrea nitrogen [Mass/Vol]15 mg/dL7 - 21 mg/dLFisher-Titus Medical CenterLipid 1995 panelon 20-46-3282Uuhglfjjade [Mass/Vol]223 mg/dLHigh<200 mg/dLClegreen cross hospital ClinicCholesterol in HDL [Mass/Vol]40 mg/dL>39 mg/dLClegreen cross hospital ClinicCholesterol in LDL [Mass/Vol]150 mg/dLHigh<100 mg/dLClegreen cross hospital ClinicCholesterol in LDL/Cholesterol in HDL [Mass ratio]3.75 {ratio}High<2.54Clegreen cross hospital ClinicCholesterol in VLDL [Mass/Vol]33 mg/dLHigh<30 mg/dLShippensburg ClinicCholesterol non HDL [Mass/Vol]183 mg/dLHigh<130 mg/dL Nixon ClinicCholesterol.total/Cholesterol in HDL [Mass ratio]5.58 {ratio} High<5.10Fisher-Titus Medical CenterFasting Time12 hrsCleJ.W. Ruby Memorial HospitalTriglyceride [Mass/Vol]163 mg/dLHigh<150 mg/dLFisher-Titus Medical CenterTSH BLDon 85-82-7143YGA Qn2.300 m[IU]/L0.270 - 4.200 mIU/LCleveland ClinicLIPID PROFILEon 06-85-5730LEKP-HDL RATIO NORMSEE [facility] Main CampusComment on above:Result Comment: 3.3 - 4.4 LOW RISK 4.4 - 7.1 AVERAGE RISK 7.1 - 11.0 MODERATE RISK >11.0 HIGH RISKPerformed By: #### LIVER, LIPID #### [facility] [address] [address] [address] Ivelisse MendozaCholesterol [Mass/Vol]209 mg/dLCritically high<=200The [facility] on above:Performed By: #### LIVER, LIPID #### [facility] [address] [address] [address] Ivelisse MendozaCholesterol in HDL [Mass/Vol]44 mg/qZTgvqhy10-93KslTriHealth on above:Performed By: #### LIVER, LIPID #### [facility] [address] [address] [address] Ivelisse MendozaCholesterol in LDL [Mass/Vol]147.4 mg/dLCleveland Clinic Marymount HospitalComment on above:Performed By: #### LIVER, LIPID #### [facility] [address] [address] [address] Ivelisse MendozaCholesterol.total/Cholesterol in HDL [Mass ratio]4.8 {ratio} NormalThe [facility] MiamisburgComment on above:Performed By: #### LIVER, LIPID #### [facility] [address] [address] [address] Ivelisse Hollingsworth NORMAL> or = 60 mg/dl - LOW CARDIOVASCULAR RISK <40 mg/dl - HIGH CARDIOVASCULAR RISKCleveland Clinic Marymount HospitalComment on above:Performed By: #### LIVER, LIPID #### [facility] [address] [address] [address] Ivelisse MendozaLDL CALC NORMALSEE BELOWCleveland Clinic Marymount HospitalComment on above:Result Comment: <100 mg/dl OPTIMAL 100 - 129 mg/dl NEAR OR ABOVE OPTIMAL 130 - 159 mg/dl BORDERLINE HIGH 160 - 189 mg/dl HIGH >190 mg/dl VERY HIGH Performed By: #### LIVER, LIPID #### [facility] [address] [place] [address] Dr. Ivelisse MendozaTriglyceride [Mass/Vol]88 mg/dLNormal<=150[facility] Comment on above:Performed By: #### LIVER, LIPID #### [facility] [address] [place] [address] Dr. Ivelisse Alberts CALC17.6 mg/dLNoMercy HealthComhelen devos children's hospital on above: Performed By: #### LIVER, LIPID #### [facility] [address] [address] [address] Ivelisse Fu PROFILEon 18-56-2433Nmggzwv [Mass/Vol]4.2 g/dLNormal3.4-5.0 The [facility] MiamisburgComhelen devos children's hospital on above:Performed By: #### LIVER, LIPID #### [facility] [address] [place] [address] Dr. Ivelisse MendozaAlbumin/Globulin [Mass ratio]1.3 {ratio}NormalThe [facility] MiamisburgComment on above:Performed By: #### LIVER, LIPID #### [facility] [address] [address] [address] Ivelisse Vicente [Catalytic activity/Vol]101 U/EOtzxey01-743Mkh [facility] MiamisburgComment on above:Performed By: #### LIVER, LIPID #### [facility] [address] [address] [address] Ivelisse Vergara [Catalytic activity/Vol]38 U/RBithje17-66Qwe [facility]burgComment on above:Performed By: #### LIVER, LIPID #### [facility] [address] [address] [address] Ivelisse Martin [Catalytic activity/Vol]20 U/BMrlcjv25-09Elb [facility]burgComment on above:Performed By: #### LIVER, LIPID #### [facility] [address] [place] [address] Dr. Ivelisse MartinI, CONJUGATED0.0 mg/dLNormal0.0-0.2The [facility] Comment on above:Performed By: #### LIVER, LIPID #### [facility] [address] [place] [address] Dr. Ivelisse Martinirubin [Mass/Vol]0.3 mg/dLNormal0.2-1.0The [facility] Comment on above:Performed By: #### LIVER, LIPID #### [facility] [address] [address] [address] Ivelisse MendozaGlobulin (S) [Mass/Vol]3.3 g/dLNormalThe [facility]burgComment on above:Performed By: #### LIVER, LIPID #### [facility] [address] [place] [address] Dr. Ivelisse MendozaProtein [Mass/Vol]7.5 g/dLNormal6.4-8.2The [facility] Comment on above:Performed By: #### LIVER, LIPID #### [facility] [address] [place], [place] [address] Dr. Ivelisse MendozaCBC panel Auto (Bld)on 91-10-9141Gvgkuavhtcm distribution width (RBC) [Ratio]13.3 %11.5 - 15.0 %[facility] CenterHematocrit (Bld) [Volume fraction]43.3 %36.0 - 46.0 %[facility] CenterHemoglobin (Bld) [Mass/Vol]14.2 g/dL 11.5 - 15.5 g/dLThe Christ HospitalH (RBC) [Entitic mass]29.2 pg26.0 - 34.0 pg The [facility] HospitalHC (RBC) [Mass/Vol]32.8 g/dL30.5 - 36.0 g/dLFisher-Titus Medical Center MCV (RBC) [Entitic vol]88.9 fL80.0 - 100.0 fLCkindred hospital dayton ClinicPlatelet mean volume (Bld) [Entitic vol]9.4 fL9.0 - 12.7 fLCkindred hospital dayton ClinicPlatelets (Bld) [#/Vol]256 10*3/uL150 - 400 k/uLFisher-Titus Medical CenterRBC (Bld) [#/Vol]4.87 10*6/uL 3.90 - 5.20 m/uLFisher-Titus Medical CenterWBC (Bld) [#/Vol]9.43 10*3/uL3.70 - 11.00 k/uL [facility] CenterComprehensive metabolic 2000 panelon 73-86-7954Zcwvtqm [Mass/Vol]5.0 g/dLHigh3.9 - 4.9 g/dLShippensburg ClinicALP [Catalytic activity/Vol] 127 U/LHigh34 - 123 U/LCleveland ClinicALT With P-5'-P [Catalytic activity/Vol] 75 U/LHigh7 - 38 U/LCleveland ClinicAnion gap [Moles/Vol]14 mmol/L9 - 18 mmol/L [facility] CenterAST With P-5'-P [Catalytic activity/Vol]40 U/LHigh13 - 35 U/L [facility] CenterBilirubin [Mass/Vol]0.4 mg/dL0.2 - 1.3 mg/dLFisher-Titus Medical Center Calcium [Mass/Vol]10.1 mg/dL8.5 - 10.2 mg/dLFisher-Titus Medical CenterChloride [Moles/Vol] 103 mmol/L97 - 105 mmol/LCleveland ClinicCO2 [Moles/Vol]26 mmol/L22 - 30 mmol/L [facility] CenterCreatinine [Mass/Vol]0.67 mg/dL0.58 - 0.96 mg/dLFisher-Titus Medical Center Estimated Glomerular Filtration Fanh250 mL/min/1.73m>=60 mL/min/1.73mCSamaritan North Health CenterGlucose [Mass/Vol]107 mg/gEXkfq35 - 99 mg/dLFisher-Titus Medical CenterPotassium [Moles/Vol]4.3 mmol/L3.7 - 5.1 mmol/LClevelcarepartners rehabilitation hospital ClinicProtein [Mass/Vol]7.7 g/dL 6.3 - 8.0 g/dLGood Samaritan Hospitalodium [Moles/Vol]143 mmol/L136 - 144 mmol/L [facility] CenterUrea nitrogen [Mass/Vol]12 mg/dL7 - 21 mg/dLFisher-Titus Medical Center LIPID PANEL BASICon 54-13-3786Schuzvhnyjc [Mass/Vol]214 mg/dLHigh<200 mg/dL [facility] CenterCholesterol in HDL [Mass/Vol]53 mg/dL>39 mg/dLFisher-Titus Medical Center Cholesterol in LDL [Mass/Vol]125 mg/dLHigh<100 mg/dLFisher-Titus Medical CenterCholesterol in LDL/Cholesterol in HDL [Mass ratio]2.36 {ratio}<2.54[facility] Cholesterol in VLDL [Mass/Vol]36 mg/dLHigh<30 mg/dLFisher-Titus Medical CenterCholesterol non HDL [Mass/Vol]161 mg/dLHigh<130 mg/dLFisher-Titus Medical Center Cholesterol.total/Cholesterol in HDL [Mass ratio]4.04 {ratio}<5.10[facility] CenterFasting Time12 hrsCleJ.W. Ruby Memorial HospitalTriglyceride [Mass/Vol]182 mg/dLHigh<150 mg/dLFisher-Titus Medical CenterVITAMIN D 25 HYDROXYon 97-21-338356361714-qxcwrnocvutddw D3 [Mass/Vol]25.8 ng/mLLow30.0 - 100.0 ng/mLCleveland St. Elizabeths Medical CenterUS JOAN DOP LEG LTon 77-74-5512QX JOAN DOP LEG LTLEFT LOWER EXTREMITY VENOUS [...] Electronically authenticated by: ALIS LOZOYA Date: 2021-01-20 23:17[facility] SystemURGICAL PATH REPORTon 36-23-2181ACAAMKGK PATH REPORTSMedina Hospital Department [id number] [place], [place] Name: SAIDA CORBIN : 1960 [facility] [id number] Number:Gender: Female[facility]Admit 57 years Attending Kyle TAYLOR: Provider: Ordering CHAPARRO TAYLOR Provider:Consulting: Surgical Pathology ReportACCESSION: COLLECTED DATE/TIME: RECEIVED DATE/TIME: PATHOLOGIST:[id number] 10/01/2017 16:30 EDT 10/02/2017 13:43 EDT DOLORES GALLEGO MD DiagnosisReport for [facility] FALLOPIAN TUBE AND OVARY:- OVARIAN MATURE [...] salpingo-oophorectomySPECIMEN: Left fallopian tube and left ovaryVISIT #[id number] / ambulatory surgeryGross DescriptionReceived in formalin is [...] It is hernandez pink and measures Accession [id number] Print Date10/03/2017 15:29 EDTNumber: Time: General Department [id number] [place], [place] [address] Name: SAIDA CORBIN : 1960 [facility] [id number] Number:Gender: Female Location: [facility] 57 years Attending Kyle TAYLOR: Provider: Ordering CHAPARRO TAYLOR Provider:Consulting: Surgical Pathology ReportACCESSION: COLLECTED DATE/TIME: RECEIVED DATE/TIME: PATHOLOGIST:[id number] 10/01/2017 16:30 EDT 10/02/2017 13:43 EDT LASHONDA DAVIS, DOLORES HGrossDescription 4.8 x 3.5 x 2.0 cm. On cut section it is filled with hernandez yellow pasty material and hair. Flow Manager sections are submitted in five cassettes.MP:vcb10/02/2017Tissue pathology report for: THE [facility], OHIOPATHOLOGY SERVICES PROVIDED BY [employer] (CLIA #[id number]) in cooperation with [facility] at [address] [place] [address] (CLIA #[id number])CodesCPT CODE: 88307 Accession [id number] Print Date10/03/2017 15:29EDTNumber: Time: Clinic [facility] HospitalComment on above:Performed By: #### [id number] ####[facility] [id number] [phone] Director: Denzel Juarez MD Vital Signs Date TimeVital SignValuePerforming JjttmyudkEkipdxmv76-99-2661 10:37-0400 Diastolic blood nrenpdxw55 mm[Hg]Stacie Sheets DO Work Phone: [facility]09-10-2025 10:37-0400Systolic blood viseixpb047 mm[Hg]Stacie Sheets DO Work Phone: [facility]09-10-2025 10:09-0400Body pzcfao148.1 cmKimberly Sheets DO Work Phone: [facility]09-10-2025 10:09-0400Body mass index (BMI) [Ratio]36.61 kg/u1Zacqrteb Sheets DO Work Phone: [facility]09-10-2025 10:09-0400Body temperature 97.9 [degF]Stacie Sheets DO Work Phone: [facility]09-10-2025 10:09-0400Body ivhpiu90.79 kgKimberly Sheets DO Work Phone: [facility]09-10-2025 10:09-0400Heart rate65 /min Stacie Sheets DO Work Phone: [facility]09-10-2025 10:09-0400Respiratory rate 16 /minKimberly Sheets DO Work Phone: [facility]09-10-2025 10:09-8203TbS9% (BldA) [Mass fraction]95 %Stacie Sheets DO Work Phone: [facility]05-22-2024 11:18-0400Body .7 cmKimberly Sheets DO Work Phone: [facility]05-22-2024 11:18-0400Body mass index (BMI) [Ratio]32.69 kg/a9Tbhepmrn Sheets DO Work Phone: [facility]05-22-2024 11:18-0400Body temperature 97.59 [degF]Stacie Sheets DO Work Phone: [facility]05-22-2024 11:18-0400Body xixxmg84.52 kgKimberly Sheets DO Work Phone: [facility]05-22-2024 11:18-0400Diastolic blood alhvrlvy67 mm[Hg]Stacie Sheets DO Work Phone: [facility]05-22-2024 11:18-0400Heart rate62 /min Stacie Sheets DO Work Phone: [facility]05-22-2024 11:18-0400Respiratory rate 16 /minKimberly Sheets DO Work Phone: [facility]05-22-2024 11:18-7960LsL9% (BldA) [Mass fraction]94 %Stacie Sheets DO Work Phone: [facility]05-22-2024 11:18-0400Systolic blood egwolwzx588 mm[Hg]Stacie Sheets DO Work Phone: [facility]11-01-2023 09:20-0400Body ehhevb039.1 cmMaria Luisa Farooq Other [employer] Other 11-01-2023 09:20-0400Body mass index (BMI) [Ratio] 32.95 kg/o6Zseqcdh Farooq Other [employer] Other 11-01-2023 09:20-0400Body jtalcs33.81 kgJest. mark's hospital Farooq Other [employer] Other 09-22-2023 10:140400Body gqfudy108.7 cmKimberly Sheets DO Work Phone: [facility]09-22-2023 10:14040Body temperature 97.5 [degF]Stacie Sheets DO Work Phone: [facility]09-22-2023 10:14Body peadqm64.72 kgKimberly Sheets DO Work Phone: [facility]09-22-2023 10:140Diastolic blood udaeujkq02 mm[Hg]Stacie Sheets DO Work Phone: [facility]09-22-2023 10:140Heart rate52 /min Stacie Sheets DO Work Phone: [facility]09-22-2023 10:140Respiratory rate 16 /minKimberly Sheets DO Work Phone: [facility]09-22-2023 10:148117KuG1% (BldA) [Mass fraction]96 %Stacie Sheets DO Work Phone: [facility]09-22-2023 10:14Systolic blood jakhsdiq986 mm[Hg]Stacie Sheets DO Work Phone: [facility]08-01-2023 09:20-0400Body fssyjf092.1 cmJest. mark's hospital Farooq Other [employer] Other 08-01-2023 09:20-0400Body mass index (BMI) [Ratio] 33.94 kg/d6Vadxqsr Farooq Other [employer] Other 08-01-2023 09:20-0400Body wqcuwq71.53 kgJessjackson Farooq Other [employer] Other 08-01-2023 09:20-0400Diastolic blood rqnrmpah22 mm[Hg] Maria Luisa Farooq Other [employer] Other 08-01-2023 09:20-0400Systolic blood tynoauac770 mm[Hg] Maria Luisa Farooq Other [employer] Other 06-22-2023 08:20-0400Body knpowi955.1 cmMaria Luisa Farooq Other [employer] Other 06-22-2023 08:20-0400Body mass index (BMI) [Ratio] 33.78 kg/h7Msdtuzl Farooq Other [employer] Other Phone: [phone] 08:20-0400Body ucfama26.08 kgMaria Luisa Farooq Other [employer] Other 06-22-2023 08:20-0400Diastolic blood prrsexhd73 mm[Hg] Maria Luisa Farooq Other [employer] Other 06-22-2023 08:20-0400Systolic blood rlloqoyb974 mm[Hg] Maria Luisa Farooq Other [employer] Other 05-01-2023 13:41-0400Body fmgtbe507.7 cmKimberly Sheets DO Work Phone: [facility]05-01-2023 13:41-0400Body temperature 98.01 [degF]Stacie Sheets DO Work Phone: [facility]05-01-2023 13:41-0400Body jhewcv09.9 kgKimberly Sheets DO Work Phone: [facility]05-01-2023 13:41-0400Diastolic blood eubysirg29 mm[Hg]Stacie Sheets DO Work Phone: [facility]05-01-2023 13:41-0400Heart rate58 /min Stacie Sheets DO Work Phone: [facility]05-01-2023 13:41-0400Respiratory rate 16 /minKimberly Sheets DO Work Phone: [facility]05-01-2023 13:41-4341SlG6% (BldA) [Mass fraction]97 %Stacie Sheets DO Work Phone: [facility]05-01-2023 13:41-0400Systolic blood pvumgmew955 mm[Hg]Stacie Sheets DO Work Phone: [phone]09-08-2022 09:00-0400Body njiwik968.7 cmKimberly Sheets DO Work Phone: [facility]09-08-2022 09:00-0400Body temperature 97.81 [degF]Stacie Sheets DO Work Phone: [phone] [place], [place] [address]909-08-2022 09:00-0400Body .81 kgKimberly Sheets DO Work Phone: [phone]09-08-2022 09:00-0400Diastolic blood bwqmjgur39 mm[Hg]Stacie Sheets DO Work Phone: [facility]09-08-2022 09:00-0400Heart rate59 /min Stacie Sheets DO Work Phone: [facility]09-08-2022 09:00-0400Respiratory rate 16 /minKimberly Sheets DO Work Phone: [facility]09-08-2022 09:00-6416HlU4% (BldA) [Mass fraction]98 %Stacie Sheets DO Work Phone: [facility]09-08-2022 09:00-0400Systolic blood tgwepxht770 mm[Hg]Stacie Sheets DO Work Phone: [facility]03-04-2022 09:12-0500Body jreujq961.7 cmKimberly Sheets DO Work Phone: [facility]03-04-2022 09:12-0500Body temperature 97.9 [degF]Stacie Sheets DO Work Phone: [facility]03-04-2022 09:12-0500Body agmlgm770.5 kgKimberly Sheets DO Work Phone: [facility]03-04-2022 09:12-0500Diastolic blood mm[Hg]Stacie Sheets DO Work Phone: [facility]03-04-2022 09:12-0500Heart rate65 /min Stacie Sheets DO Work Phone: [facility]03-04-2022 09:12-0500Respiratory rate 16 /minKimberly Sheets DO Work Phone: [facility]03-04-2022 09:12-2228ZsR5% (BldA) [Mass fraction]98 %Stacie Sheets DO Work Phone: [facility]03-04-2022 09:12-0500Systolic blood zguidheu076 mm[Hg]Stacie Sheets DO Work Phone: [facility] Encounters Encounter DateEncounter TypeCare ProviderFacilityStart: 03-09-2025 End: 49-44-7271ebittwilrjAGKNGEA E SZIRAKYFacility:[facility] Start: 03-01-2025 End: 00-66-5893uwrkalmzsxGSGOZCE [facility]: 01-19-2025 End: 90-05-1291oywoqwkenjONRYKWPZ C SHEETSFacility:[facility]tart: 01-19-2025 End: 54-13-9637Fkcttuj encounter procedureKimberly C Sheets DO Work Phone: [facility] HospitalComment on above:Well adult exam (Primary Dx); Essential hypertension; Mixed hyperlipidemia; Screening for colon cancer; Chronic midline low back pain without sciatica; Primary osteoarthritis of right hip; Mild intermittent asthma, uncomplicated (HCC); Statin intolerance; Obesity, Class II, BMI 35-39.9Start: 01-19-2025 End: 18-25-5364Zoichqc encounter statusKihaoerly C Sheets DO Work Phone: [facility] Hospitaltart: 01-19-2025 End: 75-64-7029ojfgymastlDESNJUHU C SHEETSFacility:[facility] Hospitaltart: 02-67-5027Xjwsccsoc for general adult medical examination without abnormal findingsSTACIE FAIRBANKSDorothea Dix Psychiatric Centertart: 09-16-2024 End: 76-24-6168Tkirpx Logan Shin MD Work Phone: [facility] OPHTStart: 09-16-2024 End: 36-28-6117Oajkxzsamantha Shin MD Work Phone: [facility] OPHTStart: 09-16-2024 End: 32-91-2632Qnghaf outpatient new 45 minutesAdore Shin MD Work Phone: [facility] NB OPHTComment on above:Cortical age-related cataract of both eyes (Primary Dx)Start: 09-16-2024 End: 56-31-4913tfhdithuwjPBGNV M ALLENNot AvailableStart: 09-14-2024 End: 03-93-7072lpsoccglycVjsdsare C Sheets DO Work Phone: [facility]: 01-24-2024 End: 92-96-6951GclfjeKdepssrh C Sheets DO Work Phone: [facility] HospitalComment on above:Refill RequestStart: 05-77-4438WvadiuXoqkjieb C Sheets DO Work Phone: [facility] HospitalComment on above:Refill RequestStart: 10-01-2023 End: 55-19-7968Cynlkds encounter procedureKimberly C Sheets DO Work Phone: [facility] HospitalComment on above:Essential hypertension (Primary Dx); Mixed hyperlipidemia; Chronic midline low back pain, unspecified whether sciatica present; Obesity, Class I, BMI 30-34.9Start: 10-14-6797OtubwxVuexpnce C Sheets DO Work Phone: [facility] HospitalComment on above:Refill RequestStart: 06-07-2023 End: 07-03-5146htvthnipwsPvgkkgco C SheetsFacility:[facility]art: 06-07-2023 End: 41-42-6104debtpjzxnzOI Stacie C Sheets Work Phone: [facility] Work Phone: Start: 06-07-2023 End: 66-41-2077Dqwkfjv encounter procedureDO Stacie Sheets Work Phone: [facility] Work Phone: Start: 03-12-2023 End: 72-06-7112alijjaikjaDlkupgl [employer] Other [employer] Other start: 09-00-5791Yvolyv outpatient visit 15 minutes Maria Luisa FarooqJackson-[facility] NeurosurgeryStart: 03-12-2023 End: 41-70-0520Aztwgit encounter procedureDO Stacie Sheets Work Phone: [facility] Neurosurgery Work Phone: start: 31-74-4143Fmgycbnyy encounterTameka Justin [facility] ServicesComment on above:ResultsStart: 02-27-2023 End: 59-21-2215pqgqjsmolkXDZSNPBJ C SHEETSFacility:[facility] Hospitaltart: 69-03-1756Jhcutshwn encounterKimberly C Sheets DO Work Phone: [facility] CenterComment on above:Forms ([employer] Prescriber Response Form regarding patient's amlodipine and simvastatin)Medication ProblemStart: 01-31-2023 End: 42-87-2344Travzho encounter procedureKimberly C Sheets DO Work Phone: [facility] HospitalComment on above:Essential hypertension (Primary Dx); Dermatitis; Mixed hyperlipidemia; Fibromyalgia; Chronic midline low back pain, unspecified whether sciatica present; Obesity, Class I, BMI 30-34.9Start: 85-56-2334SqzeksCgqqzpsy C Sheets DO Work Phone: [facility] HospitalComment on above:Refill RequestStart: 12-10-2022 End: 25-85-3849kdtpbylsmaBamufyd [employer] Other [employer] Other start: 34-70-1454Zanecg outpatient visit 15 minutes Maria Luisa [facility]oreSk[facility] NeurosurgeryStart: 12-09-2022 End: 80-51-5427fyyunuswjfDydtxdm [employer] Other [employer] Other start: 08-46-6652Ngfgbsaas encounterMaria Luisa Farooq [facility] Referral CoordinatorStart: 12-02-2022 End: 10-01-2186yxuxrfnkzxNpolsgv SpringerFacility:[facility]htart: 12-02-2022 End: 98-00-3471juhhuoimjgZrojuth SpringerFacility:[facility]althtart: 85-35-5365Uqwenvg encounter procedureDO Stacie Sheets Work Phone: [facility] Work Phone: Start: 12-02-2022 End: 18-62-9045vvkxeomyycRN Stacie C Sheets Work Phone: [facility] Work Phone: Start: 12-02-2022 End: 11-09-3879Rcjqaoa encounter procedureDO Stacie Sheets Work Phone: [facility]-MRI [address] Work Phone: Start: 05-20-9576QwepdjYjppqrge C Sheets DO Work Phone: [facility] HospitalComment on above:Refill RequestStart: 50-56-7707Rskwtezap for other specified special examinations Maria Luisa [facility] NeurosurgeryStart: 69-74-7118Cjhmsd outpatient new 45 minutesJemia [facility] NeurosurgeryStart: 10-31-2022 End: 76-31-7325yyikpdtlspZU Stacie C Sheets Work Phone: [facility] Work Phone: Start: 10-31-2022 End: 11-64-2700Nryclnr encounter procedureDO Stacie Sheets Work Phone: [facility]-XRay [facility] Work Phone: Start: 64-62-8364Neeutdbwp encounterKimberly C Sheets DO Work Phone: [facility] HospitalComment on above:Referral RequestStart: 78-73-8718Hsfelvsyl encounterKimberly C Sheets DO Work Phone: [facility] HospitalComment on above:Results Start: 09-09-2022 End: 20-00-8130Tqlpylqett hospital visit by physicianLos Angeles Metropolitan Med CenterComment on above:Lumbar back pain [M54.50]Start: 09-09-2022 End: 87-24-7317Lsuojit encounter procedureKimberly C Sheets DO Work Phone: [facility] HospitalComment on above:Essential hypertension (Primary Dx); Sciatica, right side; Lumbar back pain; Obesity, Class I, BMI 30-34.9Start: 96-14-0012KmglqkXufsjplt C Sheets DO Work Phone: [facility] HospitalComment on above:Refill RequestStart: 22-19-8982Slnllcnht encounterKimberly C Sheets DO Work Phone: [facility] HospitalComment on above:Results Start: 06-01-2022 End: 95-66-1753hjbxnhqrhxIIRMXOBH C SHEETSFacility:[facility] HospitalStart: 06-01-2022 End: 14-50-9560gztdlowsdiOB Stacie C Sheets Work Phone: [facility] Work Phone: Start: 06-01-2022 End: 82-27-9779Nderbvk encounter procedureDO Stacie Sheets Work Phone: [facility] Work Phone: Start: 88-49-4755Uvvqmzrgp encounterKimberly C Sheets DO Work Phone: [facility] HospitalComment on above:Lab Orders Start: 49-37-6101WtrzydGcdfkudn C Sheets DO Work Phone: [facility] HospitalComment on above:Refill RequestStart: 05-58-1745Kslldbure encounterKimberly C Sheets DO Work Phone: [facility] HospitalComment on above:Results Start: 01-17-2022 End: 31-82-0788Twfisxx encounter procedureKimberly C Sheets DO Work Phone: [facility] HospitalComment on above:Well adult exam (Primary Dx); Essential hypertension; Mixed hyperlipidemia; Vitamin D deficiency; Weight loss; Encounter for screening mammogram for breast cancer; Obesity, Class I, BMI 30-34.9; BMI 30.0-30.9,adultStart: 01-17-2022 End: 54-61-6354Oijkepe encounter statusKimberly C Sheets DO Work Phone: [facility]ertart: 10-31-2021 End: 42-08-5303oitixukulmMB DOCTOR MISCFacility:S5Aqpxi: 38-82-8642Sunestpgh encounterKimberly C Sheets DO Work Phone: [facility] HospitalComment on above:Lab Orders Start: 44-10-9044LpvtokTnmjvzrf C Sheets DO Work Phone: [facility] HospitalComment on above:Refill RequestStart: 40-56-3997MxupsiKnodhqis C Sheets DO Work Phone: [facility] HospitalComment on above:Refill RequestStart: 13-20-9567HzjgpfWpgtmyxt C Sheets DO Work Phone: [facility] HospitalComment on above:Refill RequestStart: 07-13-2021 End: 83-27-9113Njiyzmt encounter procedureKimberly C Sheets DO Work Phone: [facility] HospitalComment on above:Essential hypertension (Primary Dx); Vitamin D deficiency; Fibromyalgia; BMI 36.0-36.9,adult; Obesity, Class II, BMI 35-39.9Start: 01-20-2021 End: 72-87-8817mvrplpikmqWT DOCTOR MISCFacility:T6Pxasq: 10-01-2017 End: 27-44-9938MrgcxjwdrvFMMFKA MOOREFacility:[facility]YL Procedures DateProcedureProcedure DetailPerforming ClinicianStart: 84-86-7371Ljaih 1995 panel - Serum or PlasmaRehanaerly Sheets DO Work Phone: Start: 97-58-5253Vpnss 1995 panel - Serum or Plasma Tameka Martini MAStart: 91-26-1373Nqgm energy X-ray absorptiometryDO Stacie Sheets Work Phone: Start: 16-78-7417EO lumbar spine wo conDO Stacie Sheets Work Phone: Start: 83-34-6726H-ray of lumbar spine, six views including bending viewsDO Stacie Sheets Work Phone: Start: 09-87-2708Cvgwr 1995 panel - Serum or Plasma Stacie Sheets DO Work Phone: Start: 90-26-5802VoxmtedhcwmNdiseqhn Sheets DO Work Phone: Start: 56-90-8048Tuoca depression screening assessment Stacie Sheets DO Work Phone: Start: 03-18-7928SacxdcqjjobMnynwmjk Sheets DO Work Phone: Start: 63-52-2792Qxfrw depression screening assessment Stacie Sheets DO Work Phone: Start: 89-65-5845HzmpvmgmhsiYfcrzhxm Sheets DO Work Phone: Plan of Treatment DateCare ActivityDetailAuthorStart: 29-34-2642RRG Vaccine (1 - 1-dose 75+ series)RSV Vaccine (1 - 1-dose 75+ series)[facility]tart: 57-26-0681Hgscx microalbumin profileGood Samaritan Hospitaltart: 44-95-5170Uikyw panelLipid Screening [facility] Hospitaltart: 37-55-7654Koudu 1996 panel - Serum or PlasmaLipid ScreeningGood Samaritan Hospitaltart: 59-15-3571Bgcpm panelLipid ScreeningGood Samaritan Hospitaltart: 07-50-1457Etdjynum ScreeningDiabetes ScreeningFisher-[facility] Start: 69-35-6177Jwoxr 1996 panel - Serum or PlasmaLipid ScreeningGood Samaritan Hospitaltart: 82-77-0543NZLWX SCREENLIPID SCREENGood Samaritan Hospitaltart: 01-17-2027 LIPID SCREENLIPID SCREENGood Samaritan Hospitaltart: 02-57-1665SFLQC SCREENLIPID SCREENGood Samaritan Hospitaltart: 55-24-4002Pvdclyaj ScreeningDiabetes Screening [facility] Hospitaltart: 41-12-3387Gunfev PCP Team Chronic Disease VisitAnnual PCP Team Chronic Disease VisitGood Samaritan Hospitaltart: 63-91-3900Qfojsij Screening Anxiety ScreeningCleJ.W. Ruby Memorial HospitalComment on above:Postponed from 1978 (Postponed To Appropriate Date)Start: 71-87-2290Bnuwfyvyid ScreeningDepression ScreeningCleJ.W. Ruby Memorial HospitalComment on above:Postponed from 1978 (Postponed To Appropriate Date)Start: 18-86-7529Ouyptrzuybou Vaccine: 50+ (1 of 1 - PCV) Pneumococcal Vaccine: 50+ (1 of 1 - PCV)[facility] CenterComment on above: Postponed from 2010 (Declined at this time)Start: 89-79-6966Kdvhxedtq for malignant neoplasm of cervixCervical Cancer ScreeningFisher-Titus Medical CenterComment on above:Postponed from 12/10/2021 (Declined at this time)Start: 04-25-2025 End: 07-44-1695Nevlxfl encounter edtidzqec35/15/2025 11:20 AM EST Office Visit [facility] [address] [place] [address] Stacie Fairbanks DO [address], [place] [id number] rthip painSchuyler Memorial HospitalComment on above:rt hip painStart: 03-09-2025 End: 86-69-8558Tsoixwu encounter gwysvkwnh34/29/2025 3:15 PM EDT Office Visit Orthopaedics [address] [address] Antoni Brooks MD [address] [phone] Consult Primary osteoarthritis of right hip [M16.11] OrthopaedicsComment on above:Consult Primary osteoarthritis of right hip [M16.11]Start: 01-19-2025 End: 49-42-9451Ktilmsq encounter /10/2025 10:40 AM EDT Office Visit [facility] [address] [place] [address] Stacie Fairbanks DO [address], [place] [phone] physicalSchuyler Memorial HospitalComment on above:physicalStart: 19-12-9618BFVYNTIF SCREENDIABETES SCREENGood Samaritan Hospitaltart: 01-17-2025 Diabetes ScreeningDiabetes ScreeningGood Samaritan Hospitaltart: 47-78-8973Amlfgq PCP Team Chronic Disease VisitAnnual PCP Team Chronic Disease VisitFisher-Titus Medical Center Start: 88-21-2993CV Controlled (<130/80)BP Controlled (<130/80)[facility] Start: 07-79-0370QBM Vaccine (1 - 1-dose 60+ series)RSV Vaccine (1 - 1-dose 60+ series)[facility]itus Medical CenterComment on above:Postponed from 2020 (Declined at this time)Start: 09-16-2024 End: 91-62-7150Znbbmho encounter zdqcaloxk09/08/2025 1:30 PM EDT Office Visit [facility] [address] [place] [phone] Adore Shin MD [address] [place] [address] ArrivedNOMS DANIEL OPHTComment on above:ArrivedStart: 07-13-2024 COLORECTAL CANCER SCREENINGCOLORECTAL CANCER SCREENINGFisher-Titus Medical CenterComment on above:Postponed from 2005 (Postponed To Appropriate Date)Start: 27-72-2658GQLEIGBW SCREENDIABETES SCREENGood Samaritan Hospitaltart: 07-13-2024 Screening for malignant neoplasm of colonColorectal Cancer ScreeningFisher-Titus Medical CenterComment on above:Postponed from 2005 (Postponed To Appropriate Date) Start: 04-69-5203Jtjynsvhj for malignant neoplasm of breastMammogram Screening [facility]: 66-20-6817TTEWTWKOD (FIT-DNA)COLOGUARD (FIT-DNA)[facility]: 95-48-8860Kegsusmst for malignant neoplasm of colonCologuard (FIT-DNA)[facility]: 77-99-8907Jfwpej PCP Team Chronic Disease Visit Annual PCP Team Chronic Disease VisitGood Samaritan Hospitaltart: 39-87-4620DZ Controlled (<130/80)BP Controlled (<130/80)[facility]: 95-63-7746PSD TESTINGHPV TESTINGGood Samaritan Hospitaltart: 35-83-7404QDM TESTINGPAP TESTING [facility]: 13-79-7093Rhkeqarin for malignant neoplasm of cervix [facility]: 97-37-7747VCXRUE PCP TEAM CHRONIC DISEASE VISITANNUAL PCP TEAM CHRONIC DISEASE VISITGood Samaritan Hospitaltart: 36-40-4085WM CONTROLLED (<130/80)BP CONTROLLED (<130/80)[facility]: 37-13-2900VS Breast - bilateral ScreeningPremier Healthtart: 88-77-5343Voexmvgst mammography of bilateral breastsMM screening mammo BI w/CADPremier Healthtart: 64-18-4114AlsnnfdyyhaUrkdjwzbe ClinicStart: 06-01-2023 Screening for malignant neoplasm of breastMammogram ScreeningFisher-Titus Medical Center Start: 30-15-0349Lgnzxscryp Health ScreeningBehavioral Health ScreeningGood Samaritan Hospitaltart: 79-66-1442Skehzardfm AssessmentDepression AssessmentGood Samaritan Hospitaltart: 01-31-2023 End: 02-84-0063CUO panel - Blood by Automated countCBC Lab Routine Essential hypertension Expected: 01/31/2023, Expires: 04/02/2023[facility] Work Phone: Comment on above:Expected: 01/31/2023, Expires: 04/02/2023Start: 01-31-2023 End: 49-56-3003Xihunrjzdejqb metabolic 2000 panel - Serum or PlasmaCOMP METABOLIC PANEL Lab Routine Essential hypertension Expected: 01/31/2023, Expires: 04/02/2023[facility] Work Phone: Comment on above:Expected: 01/31/2023, Expires: 04/02/2023Start: 01-31-2023 End: 38-20-4767Htrba 1996 panel - Serum or PlasmaLIPID PANEL BASIC Lab Routine Mixed hyperlipidemia Expected: 01/31/2023, Expires: 04/02/2023[facility] Work Phone: Comment on above:Expected: 01/31/2023, Expires: 04/02/2023Start: 57-50-4332Oumqh depression screening assessmentDEPRESSION SCREENINGGood Samaritan Hospitaltart: 94-45-1313ASOZKS PCP TEAM CHRONIC DISEASE VISIT ANNUAL PCP TEAM CHRONIC DISEASE VISITGood Samaritan Hospitaltart: 54-54-7878QM CONTROLLED (<130/80)BP CONTROLLED (<130/80)[facility]: 01-10-2023 Influenza vaccinationGood Samaritan Hospitaltart: 62-12-2603Kpuqggqdc vaccination INFLUENZA (#1)[facility] CenterComment on above:Postponed from 01/10/2022 (Declined at this time)Start: 14-83-6956TKYWXM PCP TEAM CHRONIC DISEASE VISIT ANNUAL PCP TEAM CHRONIC DISEASE VISITGood Samaritan Hospitaltart: 62-07-3759SR CONTROLLED (<130/80)BP CONTROLLED (<130/80)[facility]: 07-13-2022 COVID-19 VACCINE (#1)COVID-19 VACCINE (#1)[facility] Medical CenterComment on above: Postponed from 1965 (Declined at this time)Postponed from 01/10/1961 (Declined at this time)Start: 15-68-9650UMGCU-19 VACCINE (1)COVID-19 VACCINE (1) [facility] Medical CenterComment on above:Postponed from 1965 (Declined at this time)Start: 13-48-3857JF Breast - bilateral ScreeningPremier Healthtart: 23-47-7556Dtwflslsj mammography of bilateral breastsMM screening mammo BI w/CADPremier Healthtart: 78-94-0693HIHYNNYRAG ASSESSMENTDEPRESSION ASSESSMENTGood Samaritan Hospitaltart: 05-10-2022 End: 28-78-5482Klfbszq function 2000 panel - Serum or PlasmaHEPATIC FUNCTION PNL Lab Routine Mixed hyperlipidemia Expected: 05/10/2022, Expires: 2022 [facility] Work Phone: Comment on above:Expected: 05/10/2022, Expires: 2022Start: 05-10-2022 End: 15-97-0404Qjxvj 1996 panel - Serum or PlasmaLIPID PANEL BASIC Lab Routine Mixed hyperlipidemia Expected: 05/10/2022, Expires: 2022[facility] Work Phone: Comment on above:Expected: 05/10/2022, Expires: 2022Start: 87-20-2760WejatwitefaOPAWWMIVNNxhkajspn ClinicStart: 01-10-2022 Influenza vaccinationINFLUENZA (Season Ended)[facility]: 12-10-2021 Screening for malignant neoplasm of cervixCervical Cancer ScreeningGood Samaritan Hospitaltart: 01-57-6963Gsikvikyq vaccinationINFLUENZA (#1)[facility] Comment on above:Postponed from 01/10/2021 (Declined at this time)Start: 10-16-2021 End: 70-56-2078SWKWNNQ FUNCTION PNLHEPATIC FUNCTION PNL Lab Routine Mixed hyperlipidemia Expected: 10/16/2021, Expires: [address] [place] [address] Work Phone: Comment on above:Expected: 10/16/2021, Expires: 12/16/2021tart: 10-16-2021 End: 18-82-7638BAGAQ PANEL BASICLIPID PANEL BASIC Lab Routine Mixed hyperlipidemia Expected: 10/16/2021, Expires: [address] [place] [address] Work Phone: Comment on above:Expected: 10/16/2021, Expires: 12/16/2021tart: 10-16-2021 End: 61-41-2574PDAFBMS D 25 HYDROXYVITAMIN D 25 HYDROXY Lab Routine Vitamin D deficiency Expected: 10/16/2021, Expires: [address] [place] [address] Work Phone: Comment on above:Expected: 10/16/2021, Expires: 12/16/2021tart: 25-72-1752Fwqfl depression screening assessmentDEPRESSION SCREENINGGood Samaritan Hospitaltart: 20-55-8758GWYNAFTZFG ASSESSMENTDEPRESSION ASSESSMENTGood Samaritan Hospitaltart: 00-46-0849Plbkflzbd for malignant neoplasm of colonColorectal Cancer ScreeningGood Samaritan Hospitaltart: 04-49-7124Gpdngewvnkb COLONOSCOPYGood Samaritan Hospitaltart: 40-25-7097Ablqrakly for malignant neoplasm of colonColonoscopyGood Samaritan Hospitaltart: 75-21-6205HMD Vaccine (1 - 1-dose 60+ series)RSV Vaccine (1 - 1-dose 60+ series)[facility]: 2010 Pneumococcal Vaccine: 50+ (1 of 1 - PCV)Pneumococcal Vaccine: 50+ (1 of 1 - PCV) [facility]: 64-53-6074MU COLONOGRAPHYCT COLONOGRAPHYFisher-Titus Medical Center Start: 79-32-6272IJPGC OCCULT BLOODFECAL OCCULT BLOODGood Samaritan Hospitaltart: 52-87-3294Xzaikkbib for malignant neoplasm of colonGood Samaritan Hospitaltart: 74-29-5077VTLKIBLWHMNUZZVPOERKDYFNIHZnzjsrxey ClinicStart: 00-76-3277Cqnkoag ScreeningAnxiety ScreeningGood Samaritan Hospitaltart: 57-58-1615VH Controlled (<130/80)BP Controlled (<130/80)[facility]: 42-56-1891Mlokzswkev ScreeningDepression ScreeningGood Samaritan Hospitaltart: 08-37-5921AUYFF-19 VACCINE (#1)COVID-19 VACCINE (#1)[facility] Medical CenterCOLOGUARDCOLOGUARD Lab Routine Screening for colon cancer Ordered: 01/19/2025[facility] Work Phone: Comment on above:Ordered: 01/19/2025 End: 61-76-4491DZB Breast - bilateral screeningMAM SCREENING W RANDI Radiology Routine Encounter for screening mammogram for breast cancer 1 Occurrences starting 09/14/2024 until 10/14/2025[facility] Work Phone: Comment on above:1 Occurrences starting 09/14/2024 until 10/14/2025 End: 38-64-9704Isfrg spine lumbosacral minimum 4 viewsXR LUMBAR PARS DEFECT 4V AP/LAT/BOTH OBL Radiology Routine Lumbar back pain 1 Occurrences starting 0 09/09/2022 until 10/09/2023[facility] Work Phone: Comment on above:1 Occurrences starting 09/09/2022 until 10/09/2023 End: 14-29-7346Xjogq spine lumbosacral minimum 4 viewsW[facility] Work Phone: Comment on above:1 Occurrences starting 09/09/2022 until 09/09/2022 End: 20-17-7945Xyniqspjb mammography bi 2-view breast inc cadMAM SCREENING Radiology Routine Encounter for screening mammogram for breast cancer 1 Occurrences starting 01/17/2022 until 02/16/2023[facility] Work Phone: Comment on above:1 Occurrences starting 01/17/2022 until 02/16/2023 End: 40-73-7027TG HIP GENERAL 3V PELV/AP/LAT RIGHTXR HIP GENERAL 3V PELV/AP/LAT RIGHT Radiology Routine Right hip pain 1 Occurrences starting 09/17/2022 until 10/17/2023[facility] Work Phone: Comment on above:1 Occurrences starting 09/17/[address] [place] [address] Immunizations Immunization DateImmunizationNotesCare DgzkykagSffeozfm01-75-1748edaqkt vaccine recombinantKimberly Sheets DO Work Phone: [facility] Medical CenterAaepwt97-51-8482tmkgcy vaccine recombinant Stacie Sheets DO Work Phone: [facility] CenterTvbdpg50-57-8644hsboots toxoid, reduced diphtheria toxoid, and acellular pertussis vaccine, adsorbedKimberly Sheets DO Work Phone: [facility] CenterIfwmzv19-91-0177blhrol vaccine, recombinant, adjuvanted, (SHINGRIX) 50 mcg/0.5 mL injectionKimberly Sheets DO Work Phone: [facility] Work Phone: Comment on above:Inject 0.5 mL intramuscularly now and repeat 2nd dose in 2-6 months Payers DatePayer CategoryPayerPolicy [id number] [place] Blue Shield [id number] [id number] MMO [employer] [id number] 2017-Present [phone] [address] [place] [address] [id number]. [id number] 2.16.840.1.516717.3.57[id number] 2.16.840.1.003946.3.579.[id number] 2.16.840.1.648246.3.579.2.640229-89-8198WtopoywXX142296657-13-9092Lfusgls [id number] 2.16.840.1.181[id number] 2.16.840.1.10157[id number] 2.16.840.1.532091.3.579.2.531 [id number] 2.16.840.1.141021.3.579.2.531 Social History DateTypeDetailFacilityStart: 01-35-4727Okskves smoking status NHISNever smoked tobaccoFisher-Titus Medical Center Work Phone: Start: 08-01-2021 End: 74-00-3019Tfshbky intakeCurrent drinker of alcohol (finding)[facility]: 54-00-2403Cxijogy SDOH Alcohol CommentwineCkindred hospital dayton ClinicStart: 02-53-3465Vcw Assigned At BirthNot on fileGood Samaritan Hospitaltart: 06-13-2021 End: 96-15-2102Pyxqrdps to SARS-CoV-2 (event)Not sureGood Samaritan Hospitaltart: 22-36-5498Poyrwva use and exposureSmokeless tobacco non-userFisher-Titus Medical Center Start: 83-48-5959Fac Assigned At [facility] Start: 09-09-2022 End: 76-33-3671Tnx Assigned At [facility] Work Phone: Start: 09-09-2022 End: 79-86-8651Kzeufcu of Social functionFisher-Titus Medical Center Work Phone: Start: 21-63-9812Xggln Depression Screening Assessment 0[facility] Work Phone: [facility] smoking status NHISTobacco smoking consumption unknownThree Rivers HealthcareStart: 66-99-2129Ukliil identityIdentifies as female gender (finding)[facility] Clinical Notes 09-27-2016 to 03-09-2025 Note Date & ZolpJtfeHzeophnh18-55-5391 NoteHNO ID: [id number] Author: MARIA LUISA LOWE Tech Service: Radiology Author Type: Certified Registered Nurse Practitioner Type: Progress Notes Filed: 03/09/2025 15:16 Note [...] PATIENT PRESENTS WITH AN IMPLANTABLE OR ATTACHED GAME MANAGER: No RADIOLOGY DEPARTMENT: General X-ray: Exam(s) Completed: Pelvis X-Ray: Pelvis with Hip Right and Wt. Bearing PERIPHERAL IV DATA: Not applicable SIGNED BY: Shane Artis March 09, 2025 3:16 PMWexner Medical CenterHlhkrgwi53-46-6886 NotePHARMACIST CONSULT - REFERRAL 03/02/25 Referring Provider: Alissa Cordero CNP Clinic: [facility] Saida Corbin is referred to clinic [...] a PCSK9i vs Leqvio. Lizzie Cotton PharmD [facility] Pharmacotherapy [facility] 03/02/25[facility]10-22-2025 NoteSpoke with patient, who had previously discussed [...] therapy plan for Leqvio. Lizzie Cotton PharmD [facility] Pharmacotherapy [facility] 03/02/25 10:33 AM[facility]20[facility] Note Cardiovascular Medicine [facility] SUBJECTIVE Chief Complaint Patient presents with [...] PND, dizziness/LH, palpitations, syncope. She works for [employer]. Works typically 6m out of the year. [...] Cyclobenzaprine Other Shaky, chest tightness, difficulty talking Zmhdhfxsz-Yqc-Fu-Acetaminophen Unknown Latex Other and Unknown Eqybluv-Fqd-Nfc Reductase Inhibitors Diarrhea, Other, GI intolerance and [...] Cholesterol 214, trig 182, (more content not included)...[facility]09-10-2025 NoteHNO ID: [id number] Author: STACIE FAIRBANKS, DO Service: ? Author [...] Latex Unknown Nyquil [Doxylamin-P* Unknown Pheniramine Unknown Flhsops-Vav-Nmm Red* Myalgia cramping Current Outpatient Medications Medication [...] to next visit - (more content not included)...[facility]09-10-2025 History of Present illness Narrative* Stacie Fairbanks [...] Latex Unknown Nyquil [Doxylamin-P* Unknown Pheniramine Unknown Juwxkxc-Lcl-Szp Red* Myalgia cramping Current Outpatient Medications Medication [...] M16.11 - refer to Dr. Brooks in [place] - CONSULT TO ORTHOPAEDICS 7. Mild intermittent [...] Comment: No reported history documented in this encounterFisher-Titus Medical Center05-08-2025 History of Present illness Narrative* Adore Shin MD - 09/16/2024 1:30 PM EDT Assessment/Plan Cataract, OU: Observe for now without intervention. The patient was advised to contact us if any change or worsening of vision documented in this encounterThree Rivers HealthcarePfephrnobp39-06-9013 NotePatient Outreach (AGFAMPLE) SAIDA CORBIN ([id number]) 1960 F Date Time Provider Department 09/14/24 [...] talking LATEX 12/26/2014 16 - Unknown NYQUIL (BTCWKGXUJ-GRQ-NJ-ACETAMIN*12/21/2015 16 - Unknown PHENIRAMINE 12/26/2014 16 - Unknown Date Reviewed: 10/01/2023 Reviewed by: Stacie Fairbanks DO - Fully Assessed Visit Diagnosis:Encounter for screening mammogram for breast cancer [Z12.31] Order(s):[facility] SCREENING W RANDI [[id number]] Order #: [id number] FUTURE Prescriptions as of 10/15/2024 - atorvastatin [...] 10/01/2023 Encounter Status:Closed by BASIM BOLIVAR on 10/15/24[facility] 01-26-2024 Telephone encounter Note* Telephone Encounter - Estela Odonnell Student - 01/26/2024 1:12 PM EDT pharmacy requesting refills as follows: Last office visit: 10/01/23 Last refill: 07/28/23 Requested Prescriptions Pending Prescriptions Disp Refills atorvastatin (LIPITOR) 40 mg tablet [Pharmacy Med Name: ATORVASTATIN 40 MG TABLET] 90 tablet 1 Sig: take 1 tablet by mouth every day Please review and advise. Tiffanie Bernardo [facility]09-16-2024 Miscellaneous Notes* Telephone Encounter - Estela Odonnell Student - 01/26/2024 1:12 PM EDT pharmacy requesting refills as follows: Last office visit: 10/01/23 Last refill: 07/28/23 Requested Prescriptions Pending Prescriptions Disp Refills atorvastatin (LIPITOR) 40 mg tablet [Pharmacy Med Name: ATORVASTATIN 40 MG TABLET] 90 tablet 1 Sig: take 1 tablet by mouth every day Please review and advise. Tiffanie Bernardo documented in this encounterFisher-Titus Medical Center08-05-2024 Telephone encounter Note * Telephone Encounter - Isadora Kan MA - 12/15/2023 3:39 PM EDT Patient phones requesting refills as follows: Last seen 10/01/23. Requested Prescriptions Pending Prescriptions Disp Refills albuterol HFA (PROVENTIL HFA, VENTOLIN HFA) 90 mcg/actuation inhaler 1 Each 3 Si puff(s) every 4 hours as needed Please review and advise. Isadora Kan MA [facility]08-05-2024 Miscellaneous Notes* Telephone Encounter - Isadora Kan MA - 12/15/2023 3:39 PM EDT Patient phones requesting refills as follows: Last seen 10/01/23. Requested Prescriptions Pending Prescriptions Disp Refills albuterol HFA (PROVENTIL HFA, VENTOLIN HFA) 90 mcg/actuation inhaler 1 Each 3 Si puff(s) every 4 hours as needed Please review and advise. Isadora Kan MA documented in this encounterFisher-Titus Medical Center05-22-2024 History of Present illness Narrative* Stacie Fairbanks [...] recommended Stacie Fairbanks DO documented in this encounterFisher-Titus Medical Center03-18-2024 Miscellaneous Notes* Telephone Encounter - Brynn Schrader [...] advise. Brynn Schrader MA documented in this encounterFisher-Titus Medical Center11-01-2023 Evaluation note* Encounter Date Diagnosis Assessment Notes [...] 6 months. Mar,Lumbar radiculopathy (ICD-10 - M54.16) [employer] Other 10-24-2023 Miscellaneous Notes* Telephone Encounter - [...] day Stacie Fairbanks DO documented in this encounterFisher-Titus Medical Center09-25-2023 Miscellaneous Notes* Telephone Encounter - Brynn Schrader [...] months Stacie Fairbanks DO documented in this encounterFisher-Titus Medical Center09-22-2023 Miscellaneous Notes* Telephone Encounter - Isadora Kan MA - 01/31/2023 2:39 PM EDT [facility] Prescriber Response Form regarding patient's amlodipine and simvastatin placed in Dr. Fairbanks green folder to be filled out signed. Isadora Kan MA documented in this encounterFisher-Titus Medical Center09-22-2023 History of Present illness Narrative* Stacie Fairbanks [...] the care of the neurosurgery dept at [facility], sees Maria Luisa Farooq NP She has [...] recommended Stacie Fairbanks DO documented in this encounterFisher-Titus Medical Center09-20-2023 Miscellaneous Notes* Telephone Encounter - Tameka Martini [...] Tameka Martini MA p documented in this encounterFisher-Titus Medical Center08-01-2023 Evaluation note* Encounter Date Diagnosis Assessment Notes [...] has 4lbs of pressure to the spine. [employer] Other 06-26-2023 Miscellaneous Notes* Telephone Encounter - [...] advise. Tameka Martini MA documented in this encounterFisher-Titus Medical Center06-22-2023 Evaluation note* Encounter Date Diagnosis Assessment Notes Treatment Notes Treatment Clinical Notes Oct, Lumbar radiculopathy (ICD-10 - M 54.16) I will orderxray Lumbar 6view along with bilateral Hip/Pelvis xray. Will order MRI Lumbar spine to rule out cord compression. Will refer to Aqu[facility] therapy at [facility]. Patient would likely benefit fromSacroiliac and Right [...] Z01.89) Oct,ost menopausal syndrome (ICD-10 - Z78.0) [employer] Other 05-15-2023 Miscellaneous Notes* Telephone Encounter - [...] a Dr. Garduno ortho fax number is [phone] Brynn Schrader MA documented in this encounterFisher-Titus Medical Center05-09-2023 Miscellaneous Notes* Telephone Encounter - Stacie Fairbanks DO - 09/17/2022 12:15 PM EDT She does not need to stop seeing the chiropractor, if she believes it is helping. However, if she has arthritis in the hip, progressive care manager probably will not help much. Does she have the name of anortho she would prefer to see? Stacie Fairbanks DO * Telephone Encounter - Tameka Martini MA - 09/17/2022 11:44 AM EDT Patient notified and voiced understanding. Patient is requesting referral to ortho (in [place]) she states she will follow up with [...] results Brynn Schrader MA documented in this encounterFisher-Titus Medical Center05-01-2023 History of Present illness Narrative* Stacie Fairbanks [...] the painful area She is following the [employer] plan for weight loss and that is [...] recommended Stacie Fairbanks DO documented in this encounterFisher-Titus Medical Center03-27-2023 Miscellaneous Notes* Telephone Encounter - Brynn Schrader [...] advise. Brynn Schrader MA documented in this encounterFisher-Titus Medical Center01-24-2023 Miscellaneous Notes* Telephone Encounter - Brynn Schrader [...] patient's mammogram results that she completed at [facility]. Placed in Dr. Fairbanks green folder to review. Please advise on results. Isadora Kan MA documented in this encounterCleveland [id number] Miscellaneous Notes* Telephone Encounter - Tameka Martini [...] increased. Tameka Martini MA documented in this encounterFisher-Titus Medical Center12-27-2022 Miscellaneous Notes* Telephone Encounter - Tameka Martini [...] advise. Tameka Martini MA documented in this [facility]09-30-2022 Miscellaneous Notes* Telephone Encounter - Tameka Martini [...] that? Stacie Fairbanks DO documented in this encounterFisher-Titus Medical Center09-08-2022 History of Present illness Narrative* Stacie Fairbanks DO - 01/17/2022 9:16 AM EDT SUBJECTIVE: 61 year old female here with her for annual routine pap and checkup. I have fully reviewed the past medical, surgical, social and family history and updated the Histories section of [employer]. She is following the [employer] diet plan [...] is under the care of Dr. Meek, programming intern. No LMP recorded. ALLERGIES Allergen Reactions Crestor [...] diet Stacie Fairbanks DO documented in this encounterFisher-Titus Medical Center06-07-2022 Miscellaneous Notes* Telephone Encounter - Isadora Kan MA - 10/16/2021 1:29 PM EDT Patient informed of fasting lab orders. Isadora Kan MA * Telephone Encounter - Stacie Fairbanks DO - 10/16/2021 1:03 PM EDT Order for blood work attached Stacie Fairbanks DO * Telephone Encounter - Isadora Kan MA - 10/16/2021 7:12 AM EDT ----- Message from Isdaora Kan MA sent at 07/16/2021 3:07 PM EST ----- Patient due for 3 month recheck vitamin D after starting 1000 units daily. Isadora Kan MA * Telephone Encounter - Isadora Kan MA - 10/16/2021 7:10 AM EDT ----- Message from Tameka Martini MA sent at 07/16/2021 3:04 PM EST ----- Remind patient time to recheck FLP/LFT after starting zocor. Tameka Martini MA documented in this encounterFisher-Titus Medical Center05-12-2022 Miscellaneous Notes* Telephone Encounter - Brynn Schrader MA - 09/20/2021 10:33 AM EDT pharmacy requesting refills as follows: Last Office Visit 07/13/21 nov 01/17/22. Last Refill 07/16/21. Pending Prescriptions Disp Refills SIMVASTATIN 20 MG TABLET 30 tablet 2 Sig: TAKE 1 TABLET BY MOUTH EVERYDAY AT BEDTIME CHINO: Yes Please review and advise. Brynn Schrader MA documented in this encounterFisher-Titus Medical Center04-15-2022 Miscellaneous Notes* Telephone Encounter - Tameka Martini [...] advise. Tameka Martini MA documented in [facility] Miscellaneous Notes* Telephone Encounter - Isadora Kan MA - 08/07/2021 1:53 PM EDT Script was sent in 07/16/21 for #30 with 2 refills, new script not needed until 10/15/21. Isadora Kan MA documented in this encounter[facility] Instructions* Patient Instructions* Stacie Fairbanks DO - 07/13/2021 9:31 AM EST Medical marijuana provider Address: [address] [place] [address] [address], [place] [phone] documented in this encounter[facility] History of Present illness Narrative* Stacie Fairbanks [...] recommended Stacie Fairbanks DO documented in this encounter[facility] History of Past illness Narrative* ProblemNoted DateResolved EimgGicoigibrzyvfd07/19/201712/05/2017 documented as of this encounter (statuses as of 08/01/2021) [facility] of [facility] illness Narrative* ProblemNoted Date Resolved ZgaeYyqonaigtxjvfe48/19/201712/05/2017documented as of this encounter (statuses as of 08/07/2021) [address]19-2017 History of Past illness Narrative* ProblemNoted Date Resolved WeklLwmyxcomwpijeq60/19/201712/05/2017documented as of this encounter (statuses as of 08/24/2021) [facility] Narrative* ProblemNoted Date Resolved GvfdByazeawbgksxrl40/19/201712/05/2017documented as of this encounter (statuses as of 09/20/2021) [facility] Narrative* ProblemNoted Date Resolved UvxdVbvswfctdtkkap50/19/201712/05/2017documented as of this encounter (statuses as of 10/16/2021) [facility] Narrative* ProblemNoted Date Resolved DphrPefsmhgbypltln86/19/201712/05/2017documented as of this encounter (statuses as of 02/01/2022) [facility] Narrative* ProblemNoted Date Resolved LtpuLzyicfaklzlsim19/19/201712/05/2017documented as of this encounter (statuses as of 02/08/2022) [address]19-2017 History of Past illness Narrative* ProblemNoted Date Resolved BjpaTxkjvpwpfsmntn97/19/201712/05/2017documented as of this encounter (statuses as of 05/13/2022) [address]19-2017 History of Past illness Narrative* ProblemNoted Date Resolved IkimUbvtbpuvophewb84/19/201712/05/2017documented as of this encounter (statuses as of 05/16/2022) [address]19-2017 History of Past illness Narrative* ProblemNoted Date Resolved KrppUvxnyhrbzeytsg16/19/201712/05/2017documented as of this encounter (statuses as of 06/05/2022) [facility] Narrative* ProblemNoted Date Resolved PwrkXzdeaiphdsnugq88/19/201712/05/2017documented as of this encounter (statuses as of 08/05/2022) [facility] Narrative* ProblemNoted Date Resolved EcnjBvekbgeebujzep60/19/201712/05/2017documented as of this encounter (statuses as of 09/10/2022) [address]19-2017 History of Past illness Narrative* ProblemNoted Date Resolved RamfDdgfvkiboeeipl65/19/201712/05/2017documented as of this encounter (statuses as of 09/10/2022) [address]19-2017 History of Past illness Narrative* ProblemNoted Date Resolved RtueRdtgfgvbefduvr13/19/201712/05/2017documented as of this encounter (statuses as of 09/17/2022) [address]19-2017 History of Past illness Narrative* ProblemNoted Date Resolved BfopIrxaoasbcsqaoy30/19/201712/05/2017documented as of this encounter (statuses as of 09/24/2022) [address]19-2017 History of Past illness Narrative* ProblemNoted Date Resolved WjufTuskzkiluvcaeh77/19/201712/05/2017documented as of this encounter (statuses as of 11/04/2022) [facility] Narrative* ProblemNoted Date Diagnosed DateResolved NiayBxwemmaxbofthe78/19/201712/05/2017documented as of this encounter (statuses as of 01/29/2023) [facility] Narrative* ProblemNoted Date Diagnosed DateResolved OmlmEikxxbmgjupajq96/19/201712/05/2017documented as of this encounter (statuses as of 02/01/2023) [facility] Narrative* ProblemNoted Date Diagnosed DateResolved MialWmhedmxyfcysmt35/19/201712/05/2017documented as of this encounter (statuses as of 02/03/2023) [facility] Narrative* ProblemNoted Date Diagnosed DateResolved HpfrSxmbdhtwflzlfc79/19/201712/05/2017documented as of this encounter (statuses as of 02/17/2023) [facility] Narrative* ProblemNoted Date Diagnosed DateResolved RmgaWaglzxohcwzeji40/19/201712/05/2017documented as of this encounter (statuses as of 03/04/2023) [facility] Narrative* ProblemNoted Date Diagnosed DateResolved CybaBwgslrfrugizgj36/19/201712/05/2017documented as of this encounter (statuses as of 07/28/2023) [facility]* Diagnosis Essential hypertension- Primary Unspecified essential hypertension Vitamin D deficiency Unspecified vitamin D deficiency Fibromyalgia Mylagia and myositis, unspecified BMI 36.0-36.9,adult Body Mass Index 36.0-36.9, adult Obesity, Class II, BMI 35-39.9 Obesity, unspecified [facility] Mixed hyperlipidemia [facility] Diagnosis Dermatitis Contact dermatitis and other eczema, due to unspecified cause [facility] Diagnosis Mixed hyperlipidemia [facility] Diagnosis Vitamin D deficiency- Primary Unspecified vitamin D deficiency Mixed hyperlipidemia [facility]* Diagnosis Well adult exam- Primary Routine general medical examination at a health care facility Essential hypertension Unspecified essential hypertension Mixed hyperlipidemia Vitamin D deficiency Unspecified vitamin D deficiency Weight loss Loss of weight Encounter for screening mammogram for breast cancer Obesity, Class I, BMI 30-34.9 Obesity, unspecified BMI 30.0-30.9,adult Body Mass Index 30.0-30.9, adult documented in this encounter [facility]* Diagnosis Mixed hyperlipidemia documented in this encounter [facility]* Diagnosis Mixed hyperlipidemia- Primary [facility]No assessment information [facility] Work Phone: Evaluation note* Diagnosis Essential hypertension- Primary Unspecified essential hypertension Sciatica, right side Lumbar back pain Lumbago Obesity, Class I, BMI 30-34.9 Obesity, unspecified [facility]* Diagnosis Lumbar back pain Lumbago documented in this encounter [facility]* Diagnosis Right hip pain- Primary Pain in joint, pelvic region and thigh [facility]* Diagnosis Primary osteoarthritis of right hip- Primary Primary localized osteoarthrosis, pelvic region and thigh documented in this encounter [facility] noteNo InformationNocox monett [employer] Other evaluation note* Diagnosis Mixed hyperlipidemia [facility]* Diagnosis Mixed hyperlipidemia- Primary [facility]* Diagnosis Essential hypertension- Primary Unspecified essential hypertension Dermatitis Contact dermatitis and other eczema, due to unspecified cause Mixed hyperlipidemia Fibromyalgia Mylagia and myositis, unspecified Chronic midline low back pain, unspecified whether sciatica present Obesity, Class I, BMI 30-34.9 Obesity, unspecified [facility]* Diagnosis Mixed hyperlipidemia [facility]* Diagnosis Essential hypertension- Primary Unspecified essential hypertension Mixed hyperlipidemia Chronic midline low back pain, unspecified whether sciatica present Obesity, Class I, BMI 30-34.9 Obesity, unspecified documented in this encounter [facility]* Diagnosis Mixed hyperlipidemia [facility]* Diagnosis Cortical age-related cataract of both eyes- Primary [facility] Diagnosis Encounter for screening mammogram for breast cancer documented in this encounter [facility]* Diagnosis Well adult exam- Primary Routine [...] 35-39.9 Obesity, unspecified documented in this encounter [facility] Narrative - Reported* Type Description Date Medical History appendicitis Medical HistoryHypertensionMedical Historyhigh cholesterolMedical History fibromyalgia [employer] 2[employer]0 Other reason for referral (narrative)* Diagnostic Procedure Only (Routine) - Pending ReviewSpecialtyDiagnoses / ProceduresReferred By ContactReferred To ContactBR IMAGING Diagnoses Encounter for screening mammogram for breast cancer Procedures MITCH SCREENING SCREENING MAMMOGRAPHY BI 2-VIEW BREAST INC CAD Stacie Fairbanks DO [address] [place] [id number] [facility] [address] [place] [address] Referral IDStatusAimeerebecca DateExpiration DateVisits RequestedVisits [id number] Review Auto-Generated Referral [facility] for referral (narrative)* Diagnostic Procedure Only (Routine) - ClosedSpecialtyDiagnoses / ProceduresReferred By ContactReferred To ContactXR IMAGING Diagnoses Lumbar back pain Procedures XR LUMBAR PARS DEFECT 4V AP/LAT/BOTH OBL RADEX SPINE LUMBOSACRAL MINIMUM 4 VIEWS Stacie Fairbanks DO [address] [place] [address] Xr Imaging Referral IDStatusAmanda DateExpiration DateVisits RequestedVisits [id number] Auto-Generated Referral * Transition of Care (Routine) - Ref Not RequiredSpecialtyDiagnoses / Procedures Referred By ContactReferred To ContactPain Management / [facility] Department Diagnoses Sciatica, right side Procedures CONSULT TO PAIN MGT Stacie Fairbanks, DO [address] [place] [address] Morris Malin MD [address] [place] [id number] Referral IDStatusReasonStcleveland DateExpiration DateVisits RequestedVisits [id number] Not Required PCP Requested Referral [facility] for referral (narrative)* Diagnostic Procedure Only (Routine) - ClosedSpecialtyDiagnoses / ProceduresReferred By ContactReferred To ContactXR IMAGING Diagnoses Lumbar back pain Procedures XR LUMBAR PARS DEFECT 4V AP/LAT/BOTH OBL RADEX SPINE LUMBOSACRAL MINIMUM 4 VIEWS Stacie Fairbanks, DO [address] [place] [address] Xr Imaging Referral IDStatusReasonStcleveland DateExpiration DateVisits RequestedVisits [id number] Auto-Generated Referral [facility] for referral (narrative)* Diagnostic Procedure Only (Routine) - Pending ReviewSpecialtyDiagnoses / ProceduresReferred By Contact Referred To ContactXR IMAGING Diagnoses Right hip pain Procedures XR HIP GENERAL 3V PELV/AP/LAT RIGHT RADEX HIP UNILATERAL WITH PELVIS 2-3 VIEWS Stacie Fairbanks DO [address] [place] [address] Xr Imaging Referral IDStatusReasonStart DateExpiration DateVisits RequestedVisits [id number] Review Auto-Generated Referral [facility] for visit Narrative* Diagnostic Procedure Only (Routine) - ClosedSpecialtyDiagnoses / ProceduresReferred By ContactReferred To Contact XR IMAGING Diagnoses Lumbar back pain Procedures XR LUMBAR PARS DEFECT 4V AP/LAT/BOTH OBL RADEX SPINE LUMBOSACRAL MINIMUM 4 VIEWS Stacie Fairbanks, DO [address] [place] [address] Xr Imaging Referral IDStatusReason[place] DateExpiration DateVisits RequestedVisits [id number] Auto-Generated Referral [facility] Referral UpdateNort [employer] Other Summary Purpose Family History No Family [...] right hip Procedures CONSULT TO ORTHOPAEDICS OFFICE/OUTPATIENT [facility] 60-74 MINUTES Stacie Fairbanks, DO [address] [place] [address] [address] Garduno [address] [place] [phone] Referral IDStatusReasonLos [place] DateExpiration DateVisits RequestedVisits [id number] PCP Requested Referral Reason evaluate and treat Diagnosis 1 Lumbar radiculopathy (M54.16) Referral Organization [facility] Ne urosurgery Referring Provider First Name Maria Luisa Referring Provider Last Name Oseas Referring Provider Specialty Nurse Pract itioner Referred Organization [facility] Referred Address [address] [place], [place],[address] Referred Provider Specialty Physical The rapist Referral Priority Routine Reason evaluate and treat Diagnosis 1 Lumbar radiculopathy (M54.16) Referral Organization [facility] Referring Provider First Name Maria Luisa Referring Provider Last Name Farooq Referring Provider Specialty Nurse Safia luo Referred Organization [facility] Referred Provider Malik Gutierrez Referred Address [address], [place],[address] Referred Provider Specialty Pain Medicin e Referral Priority Routine Reason evaluate and treat Diagnosis 1 Lumbar radiculopathy (M54.16) Referral Organization [facility] Referring Provider First Name Maria Luisa Referring Provider Last Name Oseas Referring Provider Specialty Nurse Pract valerio Referred Organization [facility] Referred Address [address] [place], [place],[address] Referred Provider Specialty Physical The rapist Referral Priority Routine General Notes Ana Lilia Reddy i 11/18/2022 12:03:26 PM > notes in chart Reason DECLINED evaluate and treat Diagnosis 1 Lumbar radiculopathy (M54.16) Referral Organization [facility] Referring Provider First Name Maria Luisa Referring Provider Last Name Oseas Referring Provider Specialty Nurse Safia luo Referred Organization [facility] Referred Provider Malik Gutierrez Referred Address [address] [place], [place],[address] Referred Provider Specialty Pain Medicin e Referral Priority Routine General Notes Kaelyn Fritz 023 10:08:59 AM >Received today. [facility]'s office request us to fill out form and fax referral to them and they will review the referral and call patient. Referral was fax Kaelyn Fritz 11/08/2022 09:16:50 AM >Spoke with Cee at [facility]'s office and patient declined to [...] 12/09/2022 10:33:08 AM >Spoke with Cee at [facility] office and patient did not call to schedule appointment. Kaelyn Fritz 12/09/2022 10:36:24 AM >Telephone encounter was sentClinical Notes Office [phone] Additional Source Comments INFORMATION SOURCE (unrecogn ized section and content) DATE CREATED AUTHOR 10/29/2017 [facility] DATE CREATED AUTHOR AUTHOR'S ORGANIZ ATION 12/24/2021 [facility] DATE CREATED AUTHOR AUTHOR'S ORGANIZ ATION 03/01/2023 [facility] DATE CREATED AUTHOR AUTHOR'S ORGANIZ ATION 06/20/[address] [facility] DATE CREATED AUTHOR AUTHOR'S ORGANIZ ATION 09/18/2024 [facility] DATE CREATED AUTHOR AUTHOR'S ORGANIZ ATION 01/21/2025 [facility] DATE CREATED AUTHOR AUTHOR'S ORGANIZ ATION 03/07/2025 [facility] DATE CREATED AUTHOR AUTHOR'S ORGANIZ ATION 03/11/2025 [facility] DATE CREATED AUTHOR AUTHOR'S ORGANIZ ATION 03/14/2025 [facility] Source Comments (unrecognize d section and content) In the event this informatio n is protected by the Federal Confidentiality of Alcohol and Drug Abuse Patient Records regulations: The Federal rules restrict any use of the information to criminally investigate or prosecute any alcohol or drug abuse patient.[facility] CenterIn the event this information is protected by the Federal Confidentiality of Alcohol and Drug Abuse Patient Records regulations: The Federal rules restrict any use of the information to criminally investigate or prosecute any alcohol or drug abuse patient.[facility] CenterIn the event this information is protected by the Federal Confidentiality of Alcohol and Drug Abuse Patient Records regulations: The Federal rules restrict any use of the information to criminally investigate or prosecute any alcohol or drug abuse patient.[facility] CenterIn the event this information is protected by the Federal Confidentiality of Alcohol and Drug Abuse Patient Records regulations: The Federal rules restrict any use of the information to criminally investigate or prosecute any alcohol or drug abuse patient.[facility] CenterIn the event this information is protected by the Federal Confidentiality of Alcohol and Drug Abuse Patient Records regulations: The Federal rules restrict any use of the information to criminally investigate or prosecute any alcohol or drug abuse patient.[facility] CenterIn the event this information is protected by the Federal Confidentiality of Alcohol and Drug Abuse Patient Records regulations: The Federal rules restrict any use of the information to criminally investigate or prosecute any alcohol or drug abuse patient.[facility] CenterIn the event this information is protected by the Federal Confidentiality of Alcohol and Drug Abuse Patient Records regulations: The Federal rules restrict any use of the information to criminally investigate or prosecute any alcohol or drug abuse patient.[facility] CenterIn the event this information is protected by the Federal Confidentiality of Alcohol and Drug Abuse Patient Records regulations: The Federal rules restrict any use of the information to criminally investigate or prosecute any alcohol or drug abuse patient.[facility] CenterIn the event this information is protected by the Federal Confidentiality of Alcohol and Drug Abuse Patient Records regulations: The Federal rules restrict any use of the information to criminally investigate or prosecute any alcohol or drug abuse patient.[facility] CenterIn the event this information is protected by the Federal Confidentiality of Alcohol and Drug Abuse Patient Records regulations: The Federal rules restrict any use of the information to criminally investigate or prosecute any alcohol or drug abuse patient.[facility] CenterIn the event this information is protected by the Federal Confidentiality of Alcohol and Drug Abuse Patient Records regulations: The Federal rules restrict any use of the information to criminally investigate or prosecute any alcohol or drug abuse patient.[facility] CenterIn the event this information is protected by the Federal Confidentiality of Alcohol and Drug Abuse Patient Records regulations: The Federal rules restrict any use of the information to criminally investigate or prosecute any alcohol or drug abuse patient.[facility] CenterIn the event this information is protected by the Federal Confidentiality of Alcohol and Drug Abuse Patient Records regulations: The Federal rules restrict any use of the information to criminally investigate or prosecute any alcohol or drug abuse patient.[facility] CenterIn the event this information is protected by the Federal Confidentiality of Alcohol and Drug Abuse Patient Records regulations: The Federal rules restrict any use of the information to criminally investigate or prosecute any alcohol or drug abuse patient.[facility] the event this information is protected by the Federal Confidentiality of Alcohol and Drug Abuse Patient Records regulations: The Federal rules restrict any use of the information to criminally investigate or prosecute any alcohol or drug abuse patient.[facility] CenterIn the event this information is protected by the Federal Confidentiality of Alcohol and Drug Abuse Patient Records regulations: The Federal rules restrict any use of the information to criminally investigate or prosecute any alcohol or drug abuse patient.[facility] CenterIn the event this information is protected by the Federal Confidentiality of Alcohol and Drug Abuse Patient Records regulations: The Federal rules restrict any use of the information to criminally investigate or prosecute any alcohol or drug abuse patient.[facility] CenterIn the event this information is protected by the Federal Confidentiality of Alcohol and Drug Abuse Patient Records regulations: The Federal rules restrict any use of the information to criminally investigate or prosecute any alcohol or drug abuse patient.[facility] CenterIn the event this information is protected by the Federal Confidentiality of Alcohol and Drug Abuse Patient Records regulations: The Federal rules restrict any use of the information to criminally investigate or prosecute any alcohol or drug abuse patient.[facility] CenterIn the event this information is protected by the Federal Confidentiality of Alcohol and Drug Abuse Patient Records regulations: The Federal rules restrict any use of the information to criminally investigate or prosecute any alcohol or drug abuse patient.[facility] CenterIn the event this information is protected by the Federal Confidentiality of Alcohol and Drug Abuse Patient Records regulations: The Federal rules restrict any use of the information to criminally investigate or prosecute any alcohol or drug abuse patient.[facility] CenterIn the event this information is protected by the Federal Confidentiality of Alcohol and Drug Abuse Patient Records regulations: The Federal rules restrict any use of the information to criminally investigate or prosecute any alcohol or drug abuse patient.[facility] CenterIn the event this information is protected by the Federal Confidentiality of Alcohol and Drug Abuse Patient Records regulations: The Federal rules restrict any use of the information to criminally investigate or prosecute any alcohol or drug abuse patient.[facility] CenterIn the event this information is protected by the Federal Confidentiality of Alcohol and Drug Abuse Patient Records regulations: The Federal rules restrict any use of the information to criminally investigate or prosecute any alcohol or drug abuse patient.[facility] CenterIn the event this information is protected by the Federal Confidentiality of Alcohol and Drug Abuse Patient Records regulations: The Federal rules restrict any use of the information to criminally investigate or prosecute any alcohol or drug abuse patient.[facility] CenterIn the event this information is protected by the Federal Confidentiality of Alcohol and Drug Abuse Patient Records regulations: The Federal rules restrict any use of the information to criminally investigate or prosecute any alcohol or drug abuse patient.[facility] CenterIn the event this information is protected by the Federal Confidentiality of Alcohol and Drug Abuse Patient Records regulations: The Federal rules restrict any use of the information to criminally investigate or prosecute any alcohol or drug abuse patient.[facility] Reason for Visit (unrecogniz ed section and content) ReasonCommentsHypertension6 month follow upReasonCommentsRefill RequestReason CommentsLab OrdersReasonCommentsF/U 6 MonthHTNReasonCommentsResultsReason CommentsHypertension6 month follow upReasonCommentsResultsReasonCommentsReferral RequestReasonCommentsFormNevada Regional [facility] Center Prescriber Response Form regarding patient's amlodipine and simvastatinReasonCommentsMedication ProblemReason CommentsHypertensionFollow up. Will be getting a nerve ablation in her back on 02/25/23 and is still doing therapy for 3 days a weekReasonCommentsHypertension Follow upReasonOnset DateCommentsRefill Alwmsds36/05/2024ReasonCommentsEye Exam CataractReasonCommentsWell Adult Care Teams (unrecognized sec tion and content) Team Status: Active Member Role Status Dates Stacie Fairbanks , DO Primary Care Provider Active Team Status: Active Member Role Status Dates Stacie Fairbanks , DO Primary Care Provider Active Maria Luisa Farooq [employer]-CAttending ProviderActive Team Status: Inactive Member Role Status Dates Stacie Fairbanks , DO Primary Care Provider Active Maria Luisa Farooq [employer]-CAttending ProviderActiveTeam MemberRelationshipSpecialty Start DateEnd Date Sheets, Stacie [...] DO PCP - General/14/15Team MemberRelationshipSpecialtyStart DateEnd Date Staice Fairbanks DO PCP - General/14/15Team MemberRelationshipSpecialtyStart DateEnd [...] 2023Team MemberRelationshipSpecialtyStart DateEnd Date Stacie Fairbanks DO [facility] General01/23/15Te MemberRelationshipSpecialtyStart DateEnd Date Magdi Stacie Martines [facility] General01/23/15 [facility] [address] [place] [address] 09/30//Team MemberRelationshipSpecialtyStart DateEnd Date Stacie Fairbanks DO [facility]01/23/15Te MemberRelationshipSpecialtyStart DateEnd Date Stacie Fairbanks DO [facility]01/23/15Te MemberRelationshipSpecialtyStart DateEnd Date Stacie Fairbanks DO [facility]01/23/15Te MemberRelationshipSpecialtyStart DateEnd Date Stacie Fairbanks DO [facility]01/23/15 Goals (unrecognized section and content) Goals [...] BE BASED ON THE PRIMARY CLINICAL RECORDS. [facility] CenterHelp[facility]. provides no warranty or guarantee of the accuracy or completeness of information in this document.
== END 2025-03-29 15:52 | disposition home or self-care (01) ==
LOC: LAB 15:51
DX: Z12.11 Encounter for screening for malignant neoplasm of colon (principal)
CPT/HCPCS: G0328

== ENCOUNTER 2025-03-29 15:54 | Outpatient (OUT) | payer BC, SELFPAY ==
--- NOTE | 2025-03-29 15:56 | CA_ITS ---
Patient Name: LUNA CORBIN MR#: [id number] : 1960 Exam Date: 03/29/2025 Ordering Doctor: ALISSA GARDUNO CNP ECHOCARDIOGRAM REPORT PROCEDURE: CA ECHO DOPPLER COMPLETE INDICATIONS: Benign hypertensive disease w/o CHF COMPARISON: None. DESCRIPTION: COMPLETE ECHOCARDIOGRAM Real-time transthoracic echocardiography with 2D, M-mode, spectral and color flow Doppler performed. QUALITY: Technical quality was good. LEFT VENTRICLE: Normal chamber size. Borderline left ventricular hypertrophy. LV EF: Global left ventricular systolic function is normal; visually estimated ejection fraction is 55 to 60%. No wall motion abnormalities. DIASTOLIC: Normal diastolic function. ATRIAL SEPTUM: Inadequately seen. LEFT ATRIUM: Normal chamber size. RIGHT ATRIUM: Normal chamber size. RIGHT VENTRICLE: Normal chamber size. Normal right ventricular systolic function. TRICUSPID VALVE: Normal mobility and thickness. No stenosis with trivial regurgitation. No evidence of pulmonary hypertension. RVSP is 30mmHg. MITRAL VALVE: Normal mobility and thickness. No evidence of mitral valve stenosis. There is no mitral annular calcification. Trivial mitral regurgitation. AORTIC VALVE: Normal trileaflet appearance. No visible sclerosis. Normal leaflet mobility. No evidence of aortic valve stenosis. Trivial aortic regurgitation. AORTIC ROOT: Normal diameter and appearance. PULMONIC VALVE: Normal thickness and mobility. No stenosis. No regurgitation. PERICARDIUM: Anterior free space; trivial effusion versus fat pad. IVC: Collapses with inspiration. The IVC is normal in size measuring 1.3cm. CONCLUSION: 1. Global left ventricular systolic function is normal; visually estimated ejection fraction is 55 to 60% 2. Normal right ventricular size and systolic function 3. Borderline left ventricular hypertrophy 4. Normal diastolic function 5. The left atrium is normal in size 6. No significant valvular abnormalities 7. Anterior free space; trivial effusion versus fat pad Adult Echocardiography Procedure Report Left Ventricle LVEDD (3.7 - 5.6 cm): 5.37 cm LVESD (2.2 - 4.0 cm): 3.67 cm LVIVS thickness (0.6 - 1.2 cm): 0.84 cm LVPW thickness (0.5 - 1.0 cm): 1.01 cm e': 0.11 m/s E - e': 6.87 LVOT Max Gradient: 4.59 mm[Hg] LVOT Area (cm2): 1.07 m/s Peak Velocity (LVOT): 1.07 m/s Mean Velocity (LVOT): 0.74 m/s LVOT Diameter 2.01 cm Left Ventricular Ejection Fraction: 67.47 % Left Atrium LA Volume Index (2D A2C): 31.30 ml/m2 Left Atrium Systolic Dimension: 4.09 cm Mitral Valve MV E to A Ratio: 0.73 Mitral Valve A-Wave Peak Velocity: 1.01 m/s Mitral Valve E-Wave Peak Velocity: 0.74 m/s Right Ventricle RV Internal Diastolic Dimension: 3.46 cm Aorta AO Root Diam: 3.01 cm Ascending Ao Diam: 3.01 cm Aortic Valve AoV Area (Peak Rosales): 2.52 cm2, 2.56 cm2 AoV Area (VTI): 2.69 cm2, 2.75 cm2 Peak Velocity(Antegrade Flow): 1.33 m/s, 1.37 m/s Peak Gradient(Antegrade Flow): 7.08 mm[Hg], 7.50 mm[Hg] Mean Velocity(Antegrade Flow): 0.85 m/s, 0.87 m/s Mean Gradient(Antegrade Flow): 3.23 mm[Hg], 3.46 mm[Hg] Velocity Time Integral: 27.14 cm, 28.30 cm Tricuspid Valve Peak Velocity (Regurgitant Flow): 2.39 m/s, 2.61 m/s Pulmonic Valve Mean Gradient: 3.83 mm[Hg], 3.21 mm[Hg] Mean Velocity: 0.91 m/s, 0.81 m/s Peak Velocity: 1.29 m/s Peak Gradient: 6.51 mm[Hg], 6.88 mm[Hg] Right Atrium Right Atrium Systolic Pressure: 34.08 ml, 34.08 ml Dictated by: Helen Meek M.D. on 03/30/2025 at 15:48 Approved by: Helen Meek M.D. on 03/30/2025 at 15:52
--- OUTSIDE RECORDS SUMMARY | 2025-03-29 15:59 | XMS_ITS | CCD ---
Author Organization [facility] Care Team Providers Care Sample Puller Name Role Phone CHAPARRO TAYLOR Unavailable Unavailable RHONDA BRENNER Unavailable Unavailable Sheets Stacie LOWE Primary Care Provider [phone] MISC, DR THOMAS Primary Care Unavailable ELTAHAWY, DR HART Attending Unavailable ELTAHAWY, DR HART Consulting Unavailable ELTAHAWY, DR HART Admitting Unavailable ALIS LOZOYA Consulting Unavailable MISC, DR THOMAS Consulting Unavailable ALISSA CORDERO Admitting Unavailable MISC, DR THOMAS Primary Care Unavailable ALISSA CORDERO Attending Unavailable ALISSA CORDERO Consulting Unavailable Sheets Stacie LOWE Primary Care Provider [phone] Sheets DOStacie Primary Care Provider Sheets, DO Stacie Martines Primary Care Provider Self, Referral Attending Provider Unavailable Maria Luisa Farooq Unavailable Sheets, DO Stacie Martines Primary Care Provider RAJNI Farooq Attending Provider STACIE FAIRBANKS Referring Unavailable SHEETS, STACIE C Primary Care Unavailable SHEETSLIANETLY C Referring Unavailable SHEETS, STACIE C Primary Care Unavailable Sheets, DO Stacie C Primary Care Provider Sheets, DO Stacie C Referring Provider [phone] Self, Referral Attending Provider Unavailable Maria Luisa Farooq Admitting Unavailable Maria Luisa Farooq Attending Unavailable Sheets, Stacie C Primary Care Unavailable Maria Luisa Farooq Admitting Unavailable Maria Luisa Farooq Attending Unavailable Sheets, Stacie C Primary Care Unavailable Oseas Maria Luisa Admitting Unavailable Maria Luisa Farooq Attending Unavailable Sheets, Stacie C Primary Care Unavailable Sheets, Stacie C Primary Care Unavailable Sheets, Stacie C Referring Unavailable Self, Referral Admitting Unavailable Self, Referral Attending Unavailable Sheets DOLianetca Martines Primary Care Provider [facility] Unavailable Primary Care Provider Unavailriaz e ADORE SHIN Attending Unavailable SHEETS, STACIE C Referring Unavailable SHEETS, STACIE C Primary Care Unavailable SHEETS, STACIE C Attending Unavailable SELF Referring Unavailable SHEETS, STACIE C Primary Care Unavailable ALISSA CORDERO Attending Unavailable ANTONI BROOKS Attending Unavailable SHEETS, STACIE C Referring Unavailable SHEETS, STACIE C Primary Care Unavailable SHEETS, STACIE C Primary Care Unavailable DOLORES ARIZA Referring Unavailable Allergies Allergy ClassificationReported Allergen(s)Allergy TypeDate of OnsetReaction(s) FacilityAcetaminophen / Dextromethorphan / Doxylamine / Pseudoephedrine (1 source)Acetaminophen / Dextromethorphan / Doxylamine / PseudoephedrineDrug Vwyjqja79-53-4574JksrniyRqpkjrzil ClinicBaclofen (1 source)BaclofenDrug Pmtqind04-74-3385Lxrkl: See [facility] cyclobenzaprine (1 source)cyclobenzaprineDrug Twtwdpl75-08-7722Uvquf: See [facility] CenterHMG-CoA Reductase Inhibitors (statins) (1 source)rosuvastatinDrug Gsfmzdb71-73-4261Gttylgws, Vomiting, Other: See [facility] CenterLatex (1 source)LatexSubstance Uexulve53-98-5495TemilhkPthufavej ClinicPheniramine (1 source)PheniramineDrug Gbxmnkf33-24-6955FfayuciTnmnwnspe Clinic (20 sources)Acetaminophen / Dextromethorphan / Doxylamine / Pseudoephedrine; Translations: [YCNBUNVFS-YBT-TC-ACETAMINOPHEN]Drug Hunaobj08-68-7206Kxkoqve [facility] (20 sources)Latex; Translations: [LATEX]Propensity to adverse reactions to drug 30-12-6324LrzfrndKevotvghj Clinic (20 sources)Pheniramine; Translations: [PHENIRAMINE]Drug Swwoujl61-44-1081 UnknownC[facility] (20 sources)rosuvastatin; Translations: [ROSUVASTATIN CALCIUM]Drug Allergy 57-88-9965Gfjzqaqp, Vomiting, Other: See CommentsC[facility] Clinic [facility] (1 source)LatexDrug allergy (disorder)52-69-8042Awq [facility]ository (1 source)PseudoephedrineDrug AllergyThe [facility] (1 source)strawberry allergenic extractDrug AllergyThe [facility] (6 sources)NyQuilDrug allergy (disorder)UnknownThe [facility] (14 sources)Baclofen; Translations: [BACLOFEN]Drug Vcruwas45-70-5982Sitox: See CommentsC[facility] Clinic [facility] (15 sources)cyclobenzaprine; Translations: [CYCLOBENZAPRINE]Drug Allergy 57-56-8909Vachg: See Comments, [facility] (1 source)AcetaminophenDrug Olbpbgl57-10-2741EomqxltnpEast [facility] (1 source)DextromethorphanDrug Shxmhxp73-54-2703WmcxfgyziEast [facility] (1 source)DoxylamineDrug Okmgpel16-23-5895VzcibdusqEast [facility] (1 source)LatexDrug allergy (disorder)76-74-3710CkiaysayeEast [facility] Hospital Rep[facility] (1 source)PseudoephedrineDrug Uvngcki59-87-3198NnsjqdgkiEast [facility] (1 source)LatexAllergy to ppbivxytp20-76-5000Zoitv, UnknownNOBoone Hospital Center (1 source)Propylamine derivative antihistaminePropensity to adverse reactions 26-09-8231XdnipgbVENT Healthcare (1 source)Rosuvastatin calciumPropensity to adverse ezvwrdwaf73-56-8834Yoguggyy, Other, GI intoleranceNOBoone Hospital Center (5 sources)HMG-CoA reductase inhibitor; Translations: [WIJGVBE-VBM-DEY REDUCTASE INHIBITORS]Drug Zzhgvnafgua22-89-2628UjmlrsqIkmwvhebv Clinic (1 source)ANTIHISTAMINES - ALKYLAMINE; Translations: [ANTIHISTAMINES - ALKYLAMINE]Propensity to adverse reactions to drug (disorder)12-26-2014 [facility] Repository Medications Current Medications MedicationDrug Class(es)DatesSig (Normalized)Sig (Original)[id number] 200 actuat albuterol 0.09 mg/actuat metered dose inhaler (20 sources)beta2-Adrenergic AgonistStart: 12-15-2023 End: 69-42-0631bemk 2 puff(s) by inhalation every four hours as neededalbuterol HFA (PROVENTIL HFA, VENTOLIN HFA) 90 mcg/actuation inhaler Indications: Mild intermittentasthma, uncomplicated (HCC) 2 puff(s) every 4 hours as needed 1 each 3 01/19/2025 Activetake 2 puff(s) by inhalation every four hoursalbuterol HFA 90 mcg/act inhaler Inhale 2 puffs every 4 (four) hours if needed ActiveComment on above:2 puff(s) every 4 hours as neededamLODIPine 5 mg oral tablet (20 sources)Dihydropyridine Calcium Channel BlockerStart: 26-94-9992gydw 1 tablet by mouth once dailyamLODIPine (NORVASC) 5 mg tablet Take 5 mg by mouth once daily. 08/09/2016 ActiveComment on above:Take 5 mg by mouth once daily. betamethasone 0.5 mg/ml topical cream (20 sources)CorticosteroidStart: 54-17-1482kjddjnhscghrl dipropionate (DIPROSONE) 0.05 % cream Indications: Dermatitis apply to affected area twice a day 45 g 5 06/09/2023 ActiveStart: 09-22-2020 End: 60-03-7115hcrvlsgmaailo dipropionate (DIPROSONE) 0.05 % cream Indications: Dermatitis Apply to affected area twice daily. APPLY TO AFFECTED AREA 45 g 5 01/31/2023 Activebetamethasone dipropionate, augmented (DIPROLENE) 0.05 % cream betamethasone, augmented 0.05 % topical cream ActiveComment on above: betamethasone, augmented 0.05 % topical creamApply to affected area twice daily. APPLY TO AFFECTED AREA TWICE A DAYApply to affected area twice daily. APPLY TO AFFECTED AREACBD gummies (5 sources)CBD gummies Activecholecalciferol 0.025 mg oral tablet (20 sources)Vitamin Dtake 1 tablet by mouth once dailycholecalciferol (VITAMIN D3) 1,000 unit tab tablet Take 1,000 Units by mouth once daily. Active cholecalciferol (Vitamin D-[address]) 25 MCG (1000 UT) tablet Take 1,000 Units by mouth in the morning. ActiveComment on above:Take 1,000 Units by mouth once daily.Fish Oils (5 sources)take 1 capsule by mouth once dailyFish Oil 1000 MG 1 capsule Orally Once a day Lbvrwa706 actuat fluticasone propionate 0.11 mg/actuat metered dose inhaler (20 sources)CorticosteroidStart: 01-11-5945btgi 1 puff(s) by inhalation twice dailyfluticasone (FLOVENT) 110 mcg/actuation inhaler Indications: Asthma, chronic, moderate persistent, uncomplicated (HCC) Inhale 1 Puff as instructed twice daily. 1 Inhaler 1 03/29/2016 ActiveComment on above:Inhale 1 Puff as instructed twice daily.ibuprofen 800 mg oral tablet (20 sources)Nonsteroidal Anti-inflammatory DrugStart: 07-27-2020 End: 39-85-4147lnuy 1 tablet by mouth every eight hours as needed for pain ibuprofen (MOTRIN) 800 mg tablet Indications: Chronic midline low back pain without sciatica Take 1tablet by mouth every 8 hours as needed for pain. 90 tablet 11 01/19/2025 ActiveComment on above:TAKE 1 TABLET BY MOUTH EVERY 8 HOURS NEEDEDlidocaine 0.05 mg/mg medicated patch (9 sources)Antiarrhythmic, Amide Local AnestheticStart: 74-25-9208Lckjwewre 5 % 1 patch remove after 12 hours Externally Once a day for 30 days Dec, ActiveMetamucil Fiber (5 sources)Metamucil Fiber Ecxxvt14 hr metoprolol succinate 25 mg extended release oral tablet (1 source)beta-Adrenergic Blockertake 1 tablet by mouth once dailymetoprolol succinate XL (Toprol-XL) 25 MG 24 hr tablet Take 25 mg by mouth Daily Active Multivitamin capsule (20 sources)take 1 capsule by mouth once dailyMultivitamin capsule Take 1 capsule by mouth once daily. Activetake 1 capsule by mouth once daily Multivitamin capsule Take 1 capsule by mouth once daily. 0 ActiveComment on above:Take 1 capsule by mouth once daily.MUSHROOM (1 source)MUSHROOM Mushroom coffee Activeomega-3 fatty acids (FISH OIL CONCENTRATE ORAL) (20 sources)omega-3 fatty acids (FISH OIL CONCENTRATE ORAL) Take by mouth. Activeomega-3 fatty acids (FISH OIL CONCENTRATE ORAL) Take by mouth. 0 Active Comment on above:Take by mouth.pravastatin sodium 40 mg oral tablet (1 source)HMG-CoA Reductase Inhibitortake 1 tablet by mouth in the morning pravastatin (Pravachol) 40 MG tablet Take 40 mg by mouth in the morning. Active rosuvastatin calcium 10 mg oral tablet (1 source)HMG-CoA Reductase InhibitorStart: 91-25-7036nxkswbyoghte (Crestor) 10 MG tablet Take by mouth 03/15/2024 ActivetraMADol hydrochloride 50 mg oral tablet (1 source)Opioid AgonistStart: 01-19-2025 End: 71-97-5804acgi 0.5-1 tablets by mouth every six hours as needed for pain traMADol (ULTRAM) 50 mg tablet Indications: Chronic midline low back pain without sciatica Take 0.5-1 tablets by mouth every 6 hours as needed for pain for up to 7 days. 28 tablet 01/19/2025 01/26/2025 ActiveVitamin C 1000 MG (5 sources)take 1 tablet by mouth once dailyVitamin C 1000 MG 1 tablet Orally Once a day ActiveWomens Multivitamin (5 sources)Womens Multivitamin ActiveZinc (5 sources)Zinc Active Completed/Discontinued Medications MedicationDrug Class(es)DatesSig (Normalized)Sig (Original)atorvastatin 40 mg oral tablet (11 sources)HMG-CoA Reductase InhibitorStart: 01-31-2023 End: 02-52-9405oyeb 1 tablet by mouth once dailyatorvastatin (LIPITOR) 40 mg tablet Indications: Mixed hyperlipidemia take 1 tablet by mouth every day 90 tablet 1 01/27/2024 01/19/2025 Discontinued (Other)Comment on above:Take 1 tablet by mouth once daily.take 1 tablet by mouth every daycyclobenzaprine hydrochloride 10 mg oral tablet (7 sources)Muscle RelaxantStart: 09-09-2022 End: 47-41-1508kskc 5-10 mg by mouth every twenty-four hours as needed cyclobenzaprine (FLEXERIL) 10 mg tablet Take 0.5-1 tablets by mouth at bedtime as needed. 30 tablet0 09/09/2022 01/31/2023 Discontinued (Other)Comment on above:Take 0.5-1 tablets by mouth at bedtime as needed.OTC PRODUCT (20 sources) End: 00-40-9968JFA PRODUCT CBD gummies as needed 01/19/2025 Discontinued (Other) OTC PRODUCT CBD gummies as needed ActiveOTC PRODUCT CBD gummies as needed 0 Active End: 33-95-9458XTF PRODUCT CBD oil occasionally 0 07/13/2021 Discontinued (Other)Comment on above:CBD gummies as neededCBD oil occasionallysimvastatin 40 mg oral tablet (20 sources)HMG-CoA Reductase InhibitorStart: 02-08-2022 End: 74-73-5813kowm 1 tablet by mouth once daily at bedtimesimvastatin (ZOCOR) 40 mg tablet Indications: Mixed hyperlipidemia take 1 tablet by mouth everyday a t bedtime 90 tablet 0 01/29/2023 01/31/2023 DiscontinuedStart: 07-16-2021 End: 29-66-4249gpdv 1 tablet by mouth once daily at bedtimesimvastatin (ZOCOR) 20 mg tablet Indications: Mixed hyperlipidemia TAKE 1 TABLET BY MOUTH EVERYDAY A T BEDTIME 30 tablet 2 09/20/2021 02/08/2022 DiscontinuedStart: 08-07-2020 End: 20-00-7228zykg 1 tablet by mouth once dailysimvastatin (ZOCOR) 10 mg tablet Indications: Mixed hyperlipidemia TAKE 1 TABLET BY MOUTH EVERY DAY90 tablet 0 08/07/2020 07/16/2021 DiscontinuedComment on above:TAKE 1 TABLET BY MOUTH EVERY DAYTake 1 tablet by mouth daily at bedtime.TAKE 1 TABLET BY MOUTH EVERYDAY AT BEDTIME Problems Active Problems Problem ClassificationProblemDateDocumented DateEpisodic/ChronicAsthma (2 sources)Mild intermittent asthma; Translations: [Mild intermittent asthma, uncomplicated]Onset: 301410-30-0156PwxnwxoTatgbvjx (1 source)Bilateral cortical age-related cataract eyes; Translations: [Cortical age-related cataract, bilateral]53-71-1515YdcnyoyToqpjeoro of lipid metabolism (20 sources)Mixed hyperlipidemia; Translations: [Mixed hyperlipidemia]Onset: 09-27-2016 Resolved: 801078-16-6736LvkwkkrIaowbklhd hypertension (20 sources)Essential hypertension; Translations: [Essential (primary) hypertension]Onset: 26-59-9411ChzfeedPnvifafkluni with complications and secondary hypertension (2 sources)Hypertensive heart disease without heart failure; Translations: [Hypertensive heart disease withoutheart failure]Onset: 83-87-7608Dlunncf Nutritional deficiencies (3 sources)Vitamin D deficiency; Translations: [Vitamin D deficiency, unspecified]ChronicOsteoarthritis (10 sources)Osteoarthritis of right hip joint; Translations: [Unilateral primary osteoarthritis, right hip]Onset: 74-98-2160SqbiyvsNxgvu connective tissue disease (2 sources)Trochanteric bursitis, right hipEpisodicOther nervous system disorders (1 source)Other chronic pain; Translations: [Chronic midline low back pain without sciatica]Onset: 95-30-5911GennmeyMgrzs non-traumatic joint disorders (1 source)Pain in right hip joint; Translations: [Pain in right hip]Episodic Other non-traumatic joint disorders (1 source)Pain in right hip; Translations: [Pain in right hip]Onset: 03-09-2025 EpisodicOther nutritional; endocrine; and metabolic disorders (20 sources)Body mass index 30+ - obesity; Translations: [Body mass index (BMI) 36.0-36.9, adult]Onset: 15-75-4803EsmeezkFsewt nutritional; endocrine; and metabolic disorders (8 sources)Obese class II; Translations: [Obesity, unspecified]Onset: 07-13-2021 ChronicOther nutritional; endocrine; and metabolic disorders (20 sources)Obese class I; Translations: [Obesity, unspecified]Onset: 07-13-2021 ChronicOther nutritional; endocrine; and metabolic disorders (3 sources)Body mass index (BMI) 33.0-33.9, adultChronicOther nutritional; endocrine; and metabolic disorders (1 source)Weight loss; Translations: [Abnormal weight loss]EpisodicOther screening for suspected conditions (not mental disorders or infectious disease) (4 sources)Patient encounter status; Translations: [Encounter for screening mammogram for malignant neoplasm of breast]Onset: 18-33-1745DteiwddyFmtcmadh codes; unclassified (2 sources)Asymptomatic menopausal stateEpisodicResidual codes; unclassified (3 sources)Other specified health status; Translations: [Other drug allergy] Onset: 355126-79-0054TyvvcymjHlbeirevo and history of mental health and substance abuse codes (2 sources)Encounter for screening for depressionEpisodicSpondylosis; intervertebral disc disorders; other back problems (9 sources)Inflammation of sacroiliac joint; Translations: [Sacroiliitis, not elsewhere classified]ChronicSpondylosis; intervertebral disc disorders; other back problems (20 sources)Sciatica; Translations: [Sciatica, right side]Onset: 10-31-2022 EpisodicUnclassified (1 source)Encounter for screening mammogram for malignant neoplasm of breast; Translations: [Encounter for screening mammogram for malignant neoplasm of breast]Onset: 90-95-6526Bbweonwapmva (1 source)Encounter for screening for osteoporosis; Translations: [Encounter for screening for osteoporosis]Onset: 48-99-1710Zysnycuhzyif (1 source)Chronic midline low back pain without sciatica; Translations: [Chronic midline low back pain without sciatica]Onset: 68-01-4971Vmsdofddfiqp (1 source)Obesity, Class II, BMI 35-39.9; Translations: [Obesity, Class II, BMI 35-39.9]Onset: 01-19-2025 Past or Other Problems Problem ClassificationProblemDateDocumented DateEpisodic/ChronicAllergic reactions (10 sources)Inflammatory dermatosis; Translations: [Dermatitis, unspecified] Onset: 69-72-7126LemuhmupRvogw connective tissue disease (20 sources)Fibromyalgia; Translations: [Fibromyalgia]Onset: 64-90-1614Ixiglzak Residual codes; unclassified (4 sources)Localized edema; Translations: [LOCALIZED EDEMA]Onset: 01-20-2021 EpisodicUnclassified (1 source)Patient encounter sttqsa74-63-6703 Results Test NameValueInterpretationReference RangeFacilityXR HIP 2V AP/LAT RTon 35-16-1689NQ HIP 2V AP/LAT RT* * *Final Report* * * DATE OF EXAM: Mar 09 2025 3:15PM AMANDA 5280 - XR HIP 2V AP/LAT RT / PROCEDURE REASON: M25.551-Pain in right hip * * * * Physician Interpretation * * * * EXAM(s): XR HIP 2V AP/LAT RT HISTORY: Indication: Pain in right hip Pt c/o posterior pain of right hip Pelvis (wt bearing if able), cross table lateral TECHNIQUE: Images: XR HIP 2V AP/LAT RT Comparison: Lumbar spine 09/09/2022. RESULT: Findings: Pelvis: No fractures or dislocations are seen. Right hip: No fractures or dislocations are seen. There is severe narrowing of the RIGHT hip joint. There is remodeling of the femoral head. There are mixed sclerotic and lucent changes in the femoral head as well as in the acetabulum. IMPRESSION: Findings as discussed under Results portion of report. Inspector Outside Production: PSCB Transcribe Date/Time: Mar 14 2025 8:30A Dictated by : JOSEPHINE SENIOR DO This examination was interpreted and the report reviewed and electronically signed by: JOSEPHINE SENIOR DO on Mar 14 2025 8:32AM EST [id number] [id number] by: LIZZIE COTTON on: 03/02/2025 10:40 AM Modules accepted: OrdersNormalUniversity of Texas Orthopedic HospitalDocumentationon [id number] Saida Corbin 1960 F Date Provider Department Center 03/02/2025 [id number] COTTON PHARMACO Medical [facility]avi Family History Family Status - Relation Status Age at Mother Father Reason for Visit and Comments: Pharmacist Consult - Referral [Other]NormalThe [facility] Office Visiton 31-72-9129Pozalc-up [id number] Saida Corbin 1960 Date Provider Department Center 03/01/2025 Add[place]-ALISSA CORDERO RL [place] Family History Family Status - Relation Status Age at Mother Father Level of Service:[id number] ID OFFICE/OUTPATIENT ESTABLISHED LOW MDM 20 MIN Reason for Visit and Comments: Follow-up [743117] - Patient is here today for a 1 year follow up. Patient is no longer taking any statins due to sever body aches and muscle pain. Patient states she using the mushroom coffee and feels so much better. Patient denies chest pain, sob/lopez, fatigue, Cardiac Arrest [268310] Hypertension [275101] Hyperlipidemia [182] Edema [[id number]] - Bilateral leg swellingNormalUniversMetroHealth Parma Medical CenterCBC panel Auto (Bld)on 85-68-3231Vrxjevfverg distribution width (RBC) [Ratio]13.0 %11.5 - 15.0 %[facility] HospitalHematocrit (Bld) [Volume fraction]42.7 %36.0 - 46.0 %[facility] HospitalHemoglobin (Bld) [Mass/Vol]14.2 g/dL11.5 - 15.5 g/dLCleveland Clinic [facility] HospitalInterpretation and review of laboratory resultsNormal [facility] HospitalH (RBC) [Entitic mass]29.6 pg26.0 - 34.0 pgCACMC Healthcare System Glenbeigh MCHC (RBC) [Mass/Vol]33.3 g/dL30.5 - 36.0 g/dLCleveland Clinic [facility] HospitalMCV (RBC) [Entitic vol]89.1 fL80.0 - 100.0 fLCACMC Healthcare System GlenbeighPlatelet mean volume (Bld) [Entitic vol]9.3 fL9.0 - 12.7 fLClevelgranville medical center ClinicPlatelets (Bld) [#/Vol]292 10*3/uL [facility] HospitalRBC (Bld) [#/Vol]4.79 10*6/uL3.90 - 5.20 m/uLCleveland Clinic [facility] HospitalWBC (Bld) [#/Vol]8.74 10*3/uLKettering Memorial HospitalErythrocyte distribution width (RBC) [Ratio]13.0 %Pthzrg43.5-15.0Maine Medical CenterComment on above:Order Comment: Specimen Type: BLOOD SPECIMEN Ordering Facility: [facility] Address: [address] [place], [place] [address]Performed By: #### [id number] #### [facility] CL[facility] [id number] [address] [place] [address] [facility] WESTHematocrit (Bld) [Volume fraction]42.7 % Thwlch79.0-46.0M[facility] Medical CenterComment on above:Order Comment: Specimen Type: BLOOD SPECIMEN Ordering Facility: [facility] Address: [address] [place], [place] [address]Performed By: #### 94139-2 #### [facility] CLIA [id number] [address] [place], [place] [id number] [place], [place] [address]Hemoglobin (Bld) [Mass/Vol]14.2 g/dL Xldsfm06.5-15.5ASt. James Parish HospitalComment on above:Order Comment: Specimen Type: BLOOD SPECIMEN Ordering Facility: [facility] Address: [address] [place], [place] [address]Performed By: #### 05839-0 #### [facility] CLIA [id number] [address] [place], [place] [id number] [place], [place] [address]MCH (RBC) [Entitic mass]29.6 pgNormal 26.0-34.0M[facility] Medical CenterComment on above:Order Comment: Specimen Type: BLOOD SPECIMEN Ordering Facility: [facility] Address: [address] [place], [place] [address]Performed By: #### 04390-7 #### [facility] CLIA [id number] [address]MCHC (RBC) [Mass/Vol]33.3 g/dLNormal 30.5-36.0M[facility] Medical CenterComment on above:Order Comment: Specimen Type: BLOOD SPECIMEN Ordering Facility: [facility] Address: [address] [place], [place] [address]Performed By: #### 10781-0 #### [facility] CLIA [id number] [address] [place] [id number] [facility] WESTMCV (RBC) [Entitic vol]89.1 fLNormal 80.0-100.0M[facility] Medical CenterComment on above:Order Comment: Specimen Type: BLOOD SPECIMEN Ordering Facility: [facility] Address: [address] [place], [place] [address]Performed By: #### 80725-3 #### [facility] CLIA [id number] [address]Platelet mean volume (Bld) [Entitic vol] 9.3 fLNormal9.0-12.7ASt. James Parish HospitalComment on above:Order Comment: Specimen Type: BLOOD SPECIMEN Ordering Facility: [facility] Address: [address] [place], [place] [address]Performed By: #### 69926-6 #### [facility] CLIA [id number] [address] [place] [address] [facility] WESTPlatepondville state hospital (d) [#/Vol]292 10*3/uLNormal 150-400M[facility] Medical CenterComment on above:Order Comment: Specimen Type: BLOOD SPECIMEN Ordering Facility: [facility] Address: [address] [place], [place] [address]Performed By: #### 06855-2 #### [facility] CLIA [id number] [address] [place] [address] [facility] (d) [#/Vol]4.79 10*6/uLNormal 3.90-5.20[facility] Medical CenterComment on above:Order Comment: Specimen Type: BLOOD SPECIMEN Ordering Facility: [facility] Address: [address] [place], [place] [id number] By: #### 89837-3 #### [facility] CLIA [id number] [address] [place] [address] [facility]W ([facility]) [#/Vol]8.74 10*3/uLNormal 3.70-11.00[facility] Medical CenterComment on above:Order Comment: Specimen Type: BLOOD SPECIMEN Ordering Facility: [facility] Address: [address] [place], [place] [address]Performed By: #### 69965-6 #### [facility] CLIA [id number] [address] [place] [address] [facility]ICAL WESTCNOVon 04-32-7784YOZKEgzjmg Visit (MARGO) SAIDA CORBIN ([id number]) 1960 F Date Time Provider Department 01/19/25 10:40 AM STACIE FAIRBANKS During your visit today, we recorded the following information about you: Temperature Pulse Respiration Blood pressure 97.9 degrees 65/minute 16/minute 128/64 Weight Height 99.8 kg 1.651 m Stacie Fairbanks, DO 01/19/2025 5:21 PM Signed Subjective Saida Corbin is a 64 year old female here for wellness Hyperlipidemia: - she stopped taking statins because she was having muscle cramping in her legs b/l. Back pain: - she has lower back pain and right hip pain from arthritis - she has a scooter that she uses when she goes out - she had a pool all summer that she walked in for therapy, but has pain when she walks - she takes tylenol, which is minimally effective - pain can wake her up at night if she exerts herself too much during the day ALLERGIES Allergen Reactions Baclofen Other: See Comments Shaky, chest tightness, difficulty talking Crestor [Rosuvastat* Diarrhea, Vomiting, Other: See Comments Nausea Cyclobenzaprine Other: See Comments Shaky, chest tightness, difficulty talking Latex Unknown Nyquil [Doxylamin-P* Unknown Pheniramine Unknown Shvowgb-Jyv-Qde Red* Myalgia cramping Current Outpatient Medications Medication Sig Dispense Refill MUSHROOM Mushroom coffee albuterol HFA (PROVENTIL HFA, VENTOLIN HFA) 90 mcg/actuation inhaler 2 puff(s) every 4 hours as needed 1 Each 3 betamethasone dipropionate (DIPROSONE) 0.05 % cream apply to affected area twice a day 45 g 5 ibuprofen (MOTRIN) 800 mg tablet TAKE 1 TABLET BY MOUTH EVERY 8 HOURS NEEDED 90 tablet 11 omega-3 fatty acids (FISH OIL CONCENTRATE ORAL) Take by mouth. Multivitamin capsule Take 1 capsule by mouth once daily. cholecalciferol (VITAMIN D3) 1,000 unit tab tablet Take 1,000 Units by mouth once daily. betamethasone dipropionate, augmented (DIPROLENE) 0.05 % cream betamethasone, augmented 0.05 % topical cream fluticasone (FLOVENT) 110 mcg/actuation inhaler Inhale 1 Puff as instructed twice daily. 1 Inhaler 1 atorvastatin (LIPITOR) 40 mg tablet take 1 tablet by mouth every day (Patient not taking: Reported on 01/19/2025) 90 tablet 1 OTC PRODUCT CBD gummies as needed (Patient not taking: Reported on 01/19/2025) amLODIPine (NORVASC) 5 mg tablet Take 5 mg by mouth once daily. No current facility-administered medications for this visit. ACTIVE PROBLEM LIST Essential Hypertension Mixed Hyperlipidemia Bmi 30.0-30.9,Adult Obesity, Class I, Bmi 30-34.9 Fibromyalgia Chronic Midline Low Back Pain Dermatitis Primary Osteoarthritis of Right Hip Obesity, Class II, Bmi 35-39.9 SOCIAL HISTORY[1] Family History Problem Relation Age of Onset Alzheimer's Disease Father Hypertension Father Prostate Cancer Father Hypertension Mother Reviewed past medical history, family history and surgeries. All medications and supplements were reviewed with the patient. HPI Review of Systems Constitutional: Negative for activity change, appetite change and unexpected weight change. Respiratory: Negative for chest tightness and shortness of breath. Cardiovascular: Negative for chest pain. Gastrointestinal: Negative for abdominal pain. Genitourinary: Negative for difficulty urinating. Musculoskeletal: Positive for back pain, gait problem and myalgias. Negative for arthralgias. Objective BP 144/82 Pulse 65 Temp 36.6 ?C (97.9 ?F) Resp 16 Ht 165.1 cm (5' 5 ) Wt 99.8 kg (220 lb) SpO2 95% BMI 36.61 kg/m? Physical Exam Constitutional: Appearance: Normal appearance. She is obese. HENT: Mouth/Throat: Dentition: Normal dentition. Eyes: General: Lids are normal. Conjunctiva/sclera: Conjunctivae normal. Pupils: Pupils are equal, [...] is no abdominal tenderness. Musculoskeletal: General: No tenderness. Normal range of motion. Cervical back: Normal range of motion and neck supple. No edema. Lymphadenopathy: Cervical: No cervical adenopathy. Skin: General: Skin is warm and dry. Findings: No erythema or rash. Nails: There is no clubbing. Neurological: Mental Status: She is alert and oriented to person, place, and time. Cranial Nerves: No cranial nerve deficit. Coordination: Coordination normal. Psychiatric: Judgm (more content not included)...NormalMaine Medical Center Comprehensive metabolic 2000 panelon [id number] [Mass/Vol]4.9 g/dL3.9 - 4.9 g/dLClefirelands regional medical center ClinicALP [Catalytic activity/Vol]131 U/LHigh34 - 123 U/L [facility] ClinicALT With P-5'-P [Catalytic activity/Vol]20 U/L7 - 38 U/L [facility] HospitalAnion gap [Moles/Vol]14 mmol/L8 - 15 mmol/LCleveland ClinicAST With P-5'-P [Catalytic activity/Vol]18 U/L13 - 35 U/LCleveland ClinicBilirubin [Mass/Vol]0.4 mg/dL0.2 - 1.3 mg/dLHallsville ClinicCalcium [Mass/Vol]10.2 mg/dL 8.5 - 10.2 mg/dLHallsville ClinicChloride [Moles/Vol]101 mmol/L98 - 107 mmol/L [facility] ClinicCO2 [Moles/Vol]25 mmol/L22 - 30 mmol/LCleveland ClinicCreatinine [Mass/Vol]0.78 mg/dL0.58 - 0.96 mg/dLHallsville ClinicGFR/1.73 sq M.predicted among non-blacks MDRD (S/P/Bld) [Vol rate/Area]85 mL/min/{1.73_m2}- PINF [facility] HospitalComment on above:Estimated Glomerular Filtration Rate (eGFR) is calculated using the 202 CKD-EPI creatinine equation. This equation utilizes serum creatinine, sex, and age as parameters. The creatinine assay has traceable calibration to isotope dilution-mass spectrometry. Refer to KDIGO guidelines for clinical interpretation. In patients with unstable renal function, e.g. those with acute kidney injury, the eGFRmay not accurately reflect actual GFR.Glucose [Mass/Vol]105 mg/jTBrqp45 - 99 mg/dLCleveland Clinic [facility] HospitalComment on above:The Mexican Diabetes Association (ADA) provides guidance for cutoff values for fasting glucose andrandom glucose. The ADA defines fasting as no [...] Standards of Medical Care in Diabetes 2016, Mexican Diabetes Association. Diabetes Care. 2016.39(Suppl 1). Potassium [Moles/Vol]4.6 mmol/L3.7 - 5.1 mmol/LCleveland ClinicProtein [Mass/Vol]7.5 g/dL6.3 - 8.0 g/dLHallsville ClinicSodium [Moles/Vol]140 mmol/L136 - 144 mmol/LCleveland ClinicUrea nitrogen [Mass/Vol]16 mg/dL7 - 21 mg/dL [facility] ClinicAlbumin [Mass/Vol]4.9 g/dLNormal3.9-4.9ASt. James Parish HospitalComment on above:Order Comment: Specimen Type: BLOOD SPECIMEN Ordering Facility: [facility] Address: [address] [place], [place] [address]Performed By: #### 36496-4, 69724-8 #### [facility] CL[facility] [id number] [address] STATES OF AMERICAALP [Catalytic activity/Vol]131 U/LHigh 34-123Maine Medical CenterComment on above:Order Comment: Specimen Type: BLOOD SPECIMEN Ordering Facility: [facility] Address: [address] [place], [place] [address]Performed By: #### 43380-9, 18992-9 #### [facility] CLIA [id number] [address] [place] [address] [place] AMERICAALT With P-5'-P [Catalytic activity/Vol] 20 U/LNormal7-38M[facility] Medical CenterComment on above:Order Comment: Specimen Type: BLOOD SPECIMEN Ordering Facility: [facility] Address: [address] [place], [place] [address]Performed By: #### 49094-5, 02324-5 #### [facility] CLIA [id number] [address] [place] [address] [place] AMERICAAnion gap [Moles/Vol]14 mmol/LNormal8-15 [facility] CenterComment on above:Order Comment: Specimen Type: BLOOD SPECIMEN Ordering Facility: [facility] Address: [address] [place], [place] [address]Performed By: #### 10712-2, 94781-8 #### [facility] CLIA [id number] [address] [place] [address] [place] AMERICAAST With P-5'-P [Catalytic activity/Vol] 18 U/KYzfdoq10-00KgxutMaine Medical CenterComment on above:Order Comment: Specimen Type: BLOOD SPECIMEN Ordering Facility: [facility] Address: [address] [place], [place] [address]Performed By: #### 62218-2, 85897-2 #### [facility] CLIA [id number] [address] [place] [address] [place] AMERICABilirubin [Mass/Vol]0.4 mg/dLNormal 0.2-1.3ASt. James Parish HospitalComment on above:Order Comment: Specimen Type: BLOOD SPECIMEN Ordering Facility: [facility] Address: [address] [place], [place] [address]Performed By: #### 22808-6, 01134-3 #### [facility] CLIA [id number] [address] [place] [address] [place] AMERICACalcium [Mass/Vol]10.2 mg/dLNormal 8.5-10.2ASt. James Parish HospitalComment on above:Order Comment: Specimen Type: BLOOD SPECIMEN Ordering Facility: [facility] Address: [address] [place], [place] [address]Performed By: #### 28739-2, 50720-7 #### [facility] CLIA [id number] [address] [place] [address] [place] AMERICAChloride [Moles/Vol]101 mmol/LNormal 98-107Maine Medical CenterComment on above:Order Comment: Specimen Type: BLOOD SPECIMEN Ordering Facility: [facility] Address: [address] [place], [place] [address]Performed By: #### 09938-8, 84688-5 #### [facility] CLIA [id number] [address] [place] [address] [place] AMERICACO2 [Moles/Vol]25 mmol/SMzynyw52-52UrxcpMaine Medical CenterComment on above:Order Comment: Specimen Type: BLOOD SPECIMEN Ordering Facility: [facility] Address: [address] [place], [place] [address]Performed By: #### 69928-5, 91939-5 #### [facility] CLIA [id number] [address] [place] [address] [place] AMERICACreatinine [Mass/Vol]0.78 mg/dLNormal 0.58-0.96M[facility] Medical CenterComment on above:Order Comment: Specimen Type: BLOOD SPECIMEN Ordering Facility: [facility] Address: [address] [place], [place] [address]Performed By: #### 78580-2, 93900-1 #### [facility] CLIA [id number] [address] [place] [address] [place] AMERICAeGFRcr SerPlBld CKD-EPI 631047 mL/min/1.73m???Normal>=60M[facility] Medical CenterComment on above:Order Comment: Specimen Type: BLOOD SPECIMEN Ordering Facility: [facility] Address: [address] [place], [place] [address]Result Comment: Estimated Glomerular Filtration Rate (eGFR) is calculated using the 2020 CKD-EPI cre atinine equation. This equation utilizes serum creatinine, sex, and age as parameters. The creatinine assay has traceable calibration to isotope dilution- mass spectrometry. Refer to KDIGO guidelines for clinical interpretation. In patients with unstable renal function, e.g. those with acute kidney injury, the eGFR may not accurately reflect actual GFR.Performed By: #### 72441-5, 53522-2 #### [facility] CLIA [id number] [address] [place] [address] [place] AMERICAGlucose [Mass/Vol]105 mg/dXSjue50-55EbvmyMaine Medical CenterComment on above:Order Comment: Specimen Type: BLOOD SPECIMEN Ordering Facility: [facility] Address: [address] [place], [place] [address]Result Comment: The [place] Diabetes Association (ADA) provides guidance for cutoff [...] Standards of Medical Care in Diabetes 2016, [place] Diabetes Association. Diabetes Care. 2016.39(Suppl 1).Performed By: #### 87823-9, 15068-1 #### [facility] CLIA [id number] [address] [place] [address] [place] AMERICAPotassium [Moles/Vol]4.6 mmol/LNormal 3.7-5.1ASt. James Parish HospitalComment on above:Order Comment: Specimen Type: BLOOD SPECIMEN Order[facility] Facility[facility] Address: [address] [place] [id number] By: #### 74579-8, 09141-5 #### [facility] CLIA [id number] [address] [place] [address] [place] AMERICAProtein [Mass/Vol]7.5 g/dLNormal6.3-8.0 [facility] CenterComment on above:Order Comment: Specimen Type: BLOOD SPECIMEN Ordering Facility: [facility] Address: [address] [place], [place] [address]Performed By: #### 04481-7, 11351-5 #### [facility] CLIA [id number] [address] [place] [address] [place] AMERICASodium [Moles/Vol]140 mmol/XEylqog382-396 [facility] CenterComment on above:Order Comment: Specimen Type: BLOOD SPECIMEN Order[facility] Facility: [facility] Address: [address] [place], [place] [address]Performed By: #### 45487-8, 34945-1 #### [facility] CLIA [id number] [address] [place] [address] [place] AMERICAUrea nitrogen [Mass/Vol]16 mg/dLNormal 7-21[facility] Medical CenterComment on above:Order Comment: Specimen Type: BLOOD SPECIMEN Order[facility] Facility[facility] Address: [address] [place], [place] [address]Performed By: #### 02035-1, 56785-0 #### [facility] CLIA [id number] [address] [place] [address] [place] AMERICALipid 1996 panelon [id number] [Mass/Vol]326 mg/dLHighNINF - 200 mg/dLCleveland Clinic [facility] HospitalComment on above:<200 mg/dL, Desirable 200-239 mg/dL, Borderline high >239 mg/dL, High Cholesterol in HDL [Mass/Vol]51 mg/dL39 - PINF mg/dLCleveland Clinic [facility] HospitalComment on above:40-59 mg/dL, Acceptable >59 mg/dL, High: Negative risk factor for coronary heart disease <40 mg/dL, Low: Positive risk factor for coronary heart disease Cholesterol in LDL [Mass/Vol]214 mg/dLHighNINF - 100 mg/dLCleveland Clinic [facility] Comment on above:<100 mg/dL, Optimal 100-129 mg/dL, Near optimal/above optimal 130-159 mg/dL, Borderline high 160-189 mg/dL, High >189 mg/dL, Very high Secondary prevention optimal LDL Cholesterol levels are recommended to be <70 mg/dL LDL cholesterol is calculated using the Alvarez-NIH equation. Cholesterol in LDL/Cholesterol in HDL [Mass ratio]4.20 {ratio}HighNINF - 2.54 [facility] HospitalComment on above:Reference: 1. National Cholesterol Education Program ATP III Guideline At-A-Glance Quick Desk Reference: National Heart, Lung, and Blood [place]. National Institutes of Health. 2001: NIH Publication No. 01-3305. 2. An International Atherosclerosis Society position paper: global recommendations for the management of dyslipidemia: executive summary, Atherosclerosis. 2014: 232(2):410-413. Cholesterol in VLDL [Mass/Vol]66 mg/dLHighNINF - 30 mg/dLCleveland Clinic [facility] Cholesterol non HDL [Mass/Vol]275 mg/dLHighNINF - 130 mg/dLCleveland Clinic [facility] Comment on above:<130 mg/dL, Optimal 130-159 mg/dL, Near optimal/above optimal 160-189 mg/dL, Borderline high 190-219 mg/dL, High >219 mg/dL, Very high Secondary prevention optimal non HDL Cholesterol levels are recommended to be <100 mg/dL Cholesterol.total/Cholesterol in HDL [Mass ratio]6.39 {ratio}HighNINF - 5.10 [facility] HospitalFasting Ywgy05frrLniutclez ClinicTriglyceride [Mass/Vol]298 mg/dLHighNINF - 150 mg/dLCleveland Clinic [facility] HospitalComment on above:<150 mg/dL, Normal 150-199 mg/dL, Borderline high 200-499 mg/dL, High >499 mg/dL, Very high Cholesterol [Mass/Vol]326 mg/dLHigh<200M[facility] Medical CenterComment on above:Order Comment: Specimen Type: BLOOD SPECIMEN Order[facility] Facility[facility] Address: [address] [place], [place] [address]Bbssuz Comment: <200 mg/dL, Desirable 200-239 mg/dL, Borderline high >239 mg/dL, HighPerformed By: #### 09200-0, 38933-4 #### [facility] CLIA [id number] [address] [place] [address] [place] OF [facility] MEDICAL CENTERCholesterol in HDL [Mass/Vol]51 mg/dL Normal>39[facility] Medical CenterComment on above:Order Comment: Specimen Type: BLOOD SPECIMEN Ordering Facility: [facility] Address: [address] [place] [address]Gpzxer Comment: 40-59 mg/dL, Acceptable >59 mg/dL, High: Negative risk factor for coronary heart disease <40 mg/dL, Low: Positive risk factor for coronary heart diseasePerformed By: #### 09581-4, 38578-9 #### [facility] CLIA [id number] [address] [place] [address] [place] AMERICACholesterol in LDL [Mass/Vol]214 mg/dL High<100[facility] Medical CenterComment on above:Order Comment: Specimen Type: BLOOD SPECIMEN Ordering Facility: [facility] Address: [address] [place], [place] [address]Result Comment: <100 mg/dL, Optimal 100-129 mg/dL, Near optimal/above optimal 130-159 mg/dL, Borderline high 160-189 mg/dL, High >189 mg/dL, Very high Secondary prevention optimal LDL Cholesterol levels are recommended to be <70 mg/dL LDL cholesterol is calculated using the Alvarez-NIH equation.Performed By: #### 02853-9, 17713-8 #### [facility] CLIA [id number] [address] [place] [address] [place] AMERICACholesterol in LDL/Cholesterol in HDL [Mass ratio]4.20 {ratio}High<2.54[facility] Medical CenterComment on above: Order Comment: Specimen Type: BLOOD SPECIMEN Ordering Facility: [facility] Address: [address] [place], [place] [address]Result Comment: Reference: 1. National Cholesterol Education Program ATP III Guideline At-A-Glance Quick Desk Reference: National Heart, Lung, and Blood Bybee. National Institutes of Health. 2001: NIH Publication No. 01-3305. 2. An International Atherosclerosis Society position paper: global recommendations for the management of dyslipidemia: executive summary, Atherosclerosis. 2014: 232(2):410-413.Performed By: #### 81799-4, 89037-2 #### [email or web address] CLIA [id number] [address] [place] [address] [place] AMERICACholesterol in VLDL [Mass/Vol]66 mg/dL High<30[facility] Medical CenterComment on above:Order Comment: Specimen Type: BLOOD SPECIMEN [facility] Facility[facility] Address: [address] [place], [place] [address]Performed By: #### 39017-9, 98774-6 #### [facility] CLIA [id number] [address] [place] [address] [place] AMERICACholesterol non HDL [Mass/Vol]275 mg/dL High<130M[facility] Medical CenterComment on above:Order Comment: Specimen Type: BLOOD SPECIMEN Ordering Facility: [facility] Address: [address] [place], [place] [address]Result Comment: <130 mg/dL, Optimal 130-159 mg/dL, Near optimal/above optimal 160-189 mg/dL, Borderline high 190-219 mg/dL, High >219 mg/dL, Very high Secondary prevention optimal non HDL Cholesterol levels are recommended to be <100 mg/dLPerformed By: #### 62318-8, 09970-5 #### [facility] CLIA [id number] [address] [place] [address] [place] AMERICACholesterol.total/Cholesterol in HDL [Mass ratio]6.39 {ratio}High<5.10ASt. James Parish HospitalComment on above: Order Comment: Specimen Type: BLOOD SPECIMEN [facility] Address: [address] [place], [place] [address]Performed By: #### 61831-1, 34072-3 #### [facility] CLIA [id number] [address] [place] [address] [place] AMERICAFASTING TIME11 hrsNormalASt. James Parish HospitalComment on above:Order Comment: Specimen Type: BLOOD SPECIMEN Order[facility] Facility[facility] Address: [address] [place], [place] [address]Performed By: #### 95549-0, 24376-3 #### [facility] CLIA [id number] [address] [place] [address] [place] AMERICATriglyceride [Mass/Vol]298 mg/dLHigh<150 [facility] CenterComment on above:Order Comment: Specimen Type: BLOOD SPECIMEN Ordering Facility[facility] Address: [address], [place], [place] [address]Nkyfyr Comment: <150 mg/dL, Normal 150-199 mg/dL, Borderline high 200-499 mg/dL, High >499 mg/dL, Very highPerformed By: #### 15426-2, 93800-3 #### [facility] CLIA [id number] [address] [place] [address] [facility] Panel Informationon 01-19-2025 Interpretation and review of laboratory resultsAbnoMary Rutan Hospital36on [id number] has been informed and will stay off the statin for 2 weeks and try pravastatin starting with every other day and increase to daily if tolerated. Prescription has been sent to the pharmacyNormalUniversMetroHealth Parma [facility]36Please have her hold off on any statins for 2 weeks. We can try pravastatin 40mg daily instead to see if she can tolerate this better. Start with every other day for 2 weeks then increase to daily if tolerated. ThanksNormalUniverskettering health dayton of [facility]36Patient called and states you had switched her from Atorvastatin to Rosuvastatin. Patient states she is having extreme muscle cramping with the Rosuvastatin and has stopped taking it. Patient wanted to know if you had any other suggestions on a different statin, if not she said she could tolerate the Atorvastatin much better. Please AdviseNormalUniverskettering health dayton of [facility]36on [id number] let her know her labs showed her blood counts, kidney function and liver function looked good. Her blood sugar was mildly elevated fasting. She should see her PCP for follow-up on this. Her cholesterol levels are fairly controlled, LDL (lousy/bad) cholesterol was at 105 - like to see this less than 100. We had discussed switching her rosuvastatin due to her muscle cramping. We can try her on rosuvastatin 10mg every other day then increase to daily after 1-2 weeks. Also recommend routine exercise, 30 mins of moderate intensity 5 days a week along with heart healthy diet. Follow-up lipid panel/LFTs in 3 months. Thanks![facility] HospitalMM screening mammo BI w/CADon [id number] screening mammo BI w/CADTHE [facility] [place] [address] [place] [address] Mammography Report Signed Patient: Saida Corbin MR#: [id number] : 1960 Acct:[id number] Age/Sex: 62 / F ADM Date: 06/07/23 Loc: [place] Room: Type: [facility] CLI Attending Dr: Referral Self Copies to: Stacie Fairbanks, DO SELF,REFERRAL Ordering Provider: SELF,REFERRAL Date of [...] Nicholas Man M.D.06/09/2023 7:49 AM Dictation Location: [facility] Transcribed By: [facility] 06/09/23 0749 Dictated By: Nicholas Man DO 06/09/23 0747 Signed By: 06/09/23 0749NoRiverview Health InstituteC panel Auto (Bld)on [id number] distribution width (RBC) [Ratio]12.6 %Pfsyju77.5-15.0Avon HospitalComment on above:Order Comment: Specimen Type: BLOOD SPECIMEN Order[facility] Facility[facility] Address: [address] [place], [place] [address]Performed By: #### 90470-0 #### [facility] [place] [id number] [address] [place] [address] [facility] HOSPITALHematocrit (Bld) [Volume fraction]42.0 % Gnrljj66.0-46.0Av HospitalComment on above:Order Comment: Specimen Type: BLOOD SPECIMEN Order[facility] Facility[facility] Address: [address] [place], [place] [address]Performed By: #### 83699-6 #### [facility] [place] [id number] [address] [place] [address] [facility] OF [facility]ICAL CENTERHemoglobin (Bld) [Mass/Vol]13.9 g/dL Rkfptj02.5-15.5Avo HospitalComment on above:Order Comment: Specimen Type: BLOOD SPECIMEN Order[facility] Facility[facility] Address: [address] [place], [place] [address]Performed By: #### 29773-7 #### [facility] [place] [id number] [address] [place] [address] [facility]ENTERH (RBC) [Entitic mass]29.0 pgNormal 26.0-34.0Av HospitalComment on above:Order Comment: Specimen Type: BLOOD SPECIMEN Order[facility] Facility[facility] Address: [address] [place], [place] [address]Performed By: #### 79965-8 #### [facility] IA [id number] [address] [place] [address] [place] OF [facility] CENTERMCHC (RBC) [Mass/Vol]33.1 g/dLNormal 30.5-36.0Av HospitalComment on above:Order Comment: Specimen Type: BLOOD SPECIMEN Order[facility] Facility[facility] Address: [address] [place], [place] [address]Performed By: #### 05951-3 #### [facility] IA [id number] [address] [place] [address] [facility] CENTERV (RBC) [Entitic vol]87.5 fLNormal 80.0-100.0Avon HospitalComment on above:Order Comment: Specimen Type: BLOOD SPECIMEN [facility] Address: [address] [place], [place] [address]Performed By: #### 02728-5 #### [facility] IA [id number] [address] [facility] [place] [address] [place] AMERICANucleated RBC (Bld) [#/Vol]10*3/uLNormal <0.01Avon HospitalComment on above:Order Comment: Specimen Type: BLOOD SPECIMEN [facility] Facility[facility] Address: [address] [place], [place] [address]Performed By: #### 16774-2 #### [facility] [place] [id number] [facility] [place] [address] [place] AMERICAPlatelet mean volume (Bld) [Entitic vol] 9.8 fLNormal9.0-12.7Avon HospitalComment on above:Order Comment: Specimen Type: BLOOD SPECIMEN Ordering Facility: [facility] Address: [address] [place], [place] [address]Performed By: #### 60397-0 #### [facility] IA [id number] [facility] [place] [address] [place] AMERICAPlatelets (Bld) [#/Vol]267 10*3/uLNormal 150-400Avon HospitalComment on above:Order Comment: Specimen Type: BLOOD SPECIMEN Ordering Facility: [facility] Address: [address] [place], [place] [address]Performed By: #### 03016-6 #### [facility] IA [id number] [facility] [place] [address] [place] AMERICARBC (Bld) [#/Vol]4.80 10*6/uLNormal 3.90-5.20Avon HospitalComment on above:Order Comment: Specimen Type: BLOOD SPECIMEN Ordering Facility: [facility] Address: [address] [place], [place] [address]Performed By: #### 58466-5 #### [facility] IA [id number] [address] [facility] [place] [address] [place] AMERICAWBC (Bld) [#/Vol]10.48 10*3/uLNormal 3.70-11.00Douglas HospitalComment on above:Order Comment: Specimen Type: BLOOD SPECIMEN Ordering Facility: [facility] Address: [address] [place], [place] [address]Performed By: #### 47359-0 #### [facility] IA [id number] [address] [place] [address] [place] AMERICAComprehensive metabolic 2000 panelon 25-77-8336Buokjdm [Mass/Vol]4.8 g/dLNormal3.9-4.9[facility] HospitalComment on above: Order Comment: Specimen Type: BLOOD SPECIMEN Ordering Facility: [facility] Address: [address] [place], [place] [address]Performed By: #### 52213-5, 83709-1 #### [facility] IA [id number] [address] [place] [address] [place] AMERICAALP [Catalytic activity/Vol]108 U/LNormal 34-123Douglas HospitalComment on above:Order Comment: Specimen Type: BLOOD SPECIMEN Ordering Facility: [facility] Address: [address] [place], [place] [address]Performed By: #### 77382-3, 79396-3 #### [facility] IA [id number] [address] [facility] [place] [address] [place] AMERICAALT [Catalytic activity/Vol]27 U/LNormal 7-38Douglas HospitalComment on above:Order Comment: Specimen Type: BLOOD SPECIMEN Ordering Facility: [facility] Address: [address] [place], [place] [address]Performed By: #### 00790-9, 00925-7 #### [facility] IA [id number] [address] [facility] [place] [address] [place] AMERICAAnion gap [Moles/Vol]11 mmol/LNormal9-18 Douglas HospitalComment on above:Order Comment: Specimen Type: BLOOD SPECIMEN Ordering Facility: [facility] Address: [address] [place], [place] [address]Performed By: #### 72594-9, 84698-2 #### [facility] CLIA [id number] [address] [place] [address] [place] AMERICAAST [Catalytic activity/Vol]22 U/LNormal 13-35Douglas HospitalComment on above:Order Comment: Specimen Type: BLOOD SPECIMEN Ordering Facility: [facility] Address: [address] [place], [place] [address]Performed By: #### 71774-8, 30012-9 #### [facility] CLIA [id number] [address] [place] [address] [place] AMERICABilirubin [Mass/Vol]0.4 mg/dLNormal 0.2-1.3Avon HospitalComment on above:Order Comment: Specimen Type: BLOOD SPECIMEN Ordering Facility: [facility] Address: [address] [place], [place] [address]Performed By: #### 10033-7, 52062-0 #### [facility] CLIA [id number] [address] [place] [address] [place] AMERICACalcium [Mass/Vol]9.9 mg/dLNormal8.5-10.2 Douglas HospitalComment on above:Order Comment: Specimen Type: BLOOD SPECIMEN Ordering Facility: [facility] Address: [address] [place], [place] [address]Performed By: #### 03820-1, 67585-8 #### [facility] CLIA [id number] [address] [place] [address] [place] AMERICAChloride [Moles/Vol]102 mmol/LNormal 97-105Av HospitalComment on above:Order Comment: Specimen Type: BLOOD SPECIMEN Ordering Facility: [facility] Address: [address] [place], [place] [address]Performed By: #### 09418-2, 14898-0 #### [facility] CLIA [id number] [address] [place] [address] [place] AMERICACO2 [Moles/Vol]28 mmol/XPjegnf26-54Qqqs HospitalComment on above:Order Comment: Specimen Type: BLOOD SPECIMEN Ordering Facility: [facility] Address: [address] [place], [place] [address]Performed By: #### 55573-8, 92911-1 #### [facility] CLIA [id number] [address] [place] [address] [place] AMERICACreatinine [Mass/Vol]0.63 mg/dLNormal 0.58-0.96Av HospitalComment on above:Order Comment: Specimen Type: BLOOD SPECIMEN Ordering Facility: [facility] Address: [address] [place], [place] [address]Performed By: #### 62132-7, 47590-5 #### [facility] CLIA [id number] [address] [place] [address] [place] AMERICACreatinine and Glomerular filtration rate.predicted panel (S/P/Bld)100 mL/min/1.73m???Normal>=60Av HospitalComment on above:Order Comment: Specimen Type: BLOOD SPECIMEN Ordering Facility: [facility] Address: [address] [place], [place] [id number] Comment: Estimated Glomerular Filtration Rate (eGFR) is calculated using the 2020 CKD-EPI cre atinine equation. This equation utilizes serum creatinine, sex, and age as parameters. The creatinine assay has traceable calibration to isotope dilution- mass spectrometry. Refer to KDIGO guidelines for clinical interpretation. In patients with unstable renal function, e.g. those with acute kidney injury, the eGFR may not accurately reflect actual GFR.Performed By: #### 24156-6, 14138-7 #### [facility] CLIA [id number] [address] [place] [address] [place] AMERICAGlucose [Mass/Vol]95 mg/iFAyvdlx85-34Kgvp HospitalComment on above:Order Comment: Specimen Type: BLOOD SPECIMEN Ordering Facility: [facility] Address: [address] [place], [place] [id number] Comment: The [place] Diabetes Association (ADA) provides guidance for cutoff [...] Standards of Medical Care in Diabetes 2016, [place] Diabetes Association. Diabetes Care. 2016.39(Suppl 1).Performed By: #### 60967-6, 36516-3 #### [facility] CLIA [id number] [address] [place] [address] [place] AMERICAPotassium [Moles/Vol]4.4 mmol/LNormal 3.7-5.1[facility] HospitalComment on above:Order Comment: Specimen Type: BLOOD SPECIMEN Ordering Facility: [facility] Address: [address] [place], [place] [address]Performed By: #### 54559-1, 92062-3 #### [facility] CLIA [id number] [address] [place] [address] [place] AMERICAProtein [Mass/Vol]7.4 g/dLNormal6.3-8.0 Douglas HospitalComment on above:Order Comment: Specimen Type: BLOOD SPECIMEN Order[facility] Facility[facility] Address: [address] [place], [place] [address]Performed By: #### 74317-6, 22906-8 #### [facility] CLIA [id number] [address] [place] [address] [place] AMERICASodium [Moles/Vol]141 mmol/BFwysyk813-038 Douglas HospitalComment on above:Order Comment: Specimen Type: BLOOD SPECIMEN Order[facility] Facility: [facility] Address: [address] [place], [place] [address]Performed By: #### 76458-4, 04534-6 #### [facility] CLIA [id number] [address] [facility] [place] [address] [place] AMERICAUrea nitrogen [Mass/Vol]16 mg/dLNormal 7-21Avon HospitalComment on above:Order Comment: Specimen Type: BLOOD SPECIMEN Ordering Facility: [facility] Address: [address] [place], [place] [address]Performed By: #### 77867-1, 76411-5 #### [facility] CLIA [id number] [address] [place] [address] [place] AMERICALipid 1996 panelon 08-56-0447Ordkfxxgtpt [Mass/Vol]203 mg/dLHigh<200Avon HospitalComment on above:Order Comment: Specimen Type: BLOOD SPECIMEN Ordering Facility: [facility] Address: [address] [place], [place] [address]Result Comment: <200 mg/dL, Desirable 200-239 mg/dL, Borderline high >239 mg/dL, HighPerformed By: #### 05014-3, 09999-1 #### [facility] CLIA [id number] [address] [place] [address] [place] AMERICACholesterol in HDL [Mass/Vol]55 mg/dL Normal>39Avon HospitalComment on above:Order Comment: Specimen Type: BLOOD SPECIMEN Ordering Facility: [facility] Address: [address] [place], [place] [id number] Comment: 40-59 mg/dL, Acceptable >59 mg/dL, High: Negative risk factor for coronary heart disease <40 mg/dL, Low: Positive risk factor for coronary heart diseasePerformed By: #### 61271-1, 01145-6 #### [facility] CLIA [id number] [address] [place] [address] [place] AMERICACholesterol in LDL [Mass/Vol]113 mg/dL High<100Avon HospitalComment on above:Order Comment: Specimen Type: BLOOD SPECIMEN Ordering Facility: [facility] Address: [address] [place], [place] [id number] Comment: <100 mg/dL, Optimal 100-129 mg/dL, Near optimal/above optimal 130-159 mg/dL, Borderline high 160-189 mg/dL, High >189 mg/dL, Very high Secondary prevention optimal LDL Cholesterol levels are recommended to be < 70 mg/dLPerformed By: #### 00520-5, 05213-7 #### [facility] CLIA [id number] [address] [facility] [place] [address] [place] AMERICACholesterol in LDL/Cholesterol in HDL [Mass ratio]2.05 {ratio}Normal<2.54Avon HospitalComment on above:Order Comment: Specimen Type: BLOOD SPECIMEN Ordering Facility: [facility] Address: [address] [place], [place] [address]Result Comment: Reference: 1. National Cholesterol Education Program ATP III Guideline At-A-Glance Quick Desk Reference: National Heart, Lung, and Blood [place]. National Institutes of Health. 2001: NIH Publication No. 01-3305. 2. An International Atherosclerosis Society position paper: global recommendations for the management of dyslipidemia: executive summary, Atherosclerosis. 2014: 232(2):410-413.Performed By: #### 53754-8, 79458-3 #### [facility] CLIA [id number] [address] [facility] [place] [address] [place] AMERICACholesterol in VLDL [Mass/Vol]35 mg/dL High<30Avon HospitalComment on above:Order Comment: Specimen Type: BLOOD SPECIMEN Ordering Facility: [facility] Address: [address] [place], [place] [id number] By: #### 25704-3, 03821-3 #### [facility] CLIA [id number] [address] [facility] [place] [address] [place] AMERICACholesterol non HDL [Mass/Vol]148 mg/dL High<130Avon HospitalComment on above:Order Comment: Specimen Type: BLOOD SPECIMEN Order[facility] Facility: [facility] Address: [address] [place] [id number] Comment: <130 mg/dL, Optimal 130-159 mg/dL, Near optimal/above optimal 160-189 mg/dL, Borderline high 190-219 mg/dL, High >219 mg/dL, Very high Secondary prevention optimal non HDL Cholesterol levels are recommended to be <100 mg/dLPerformed By: #### 14272-2, 77240-9 #### [facility] CLIA [id number] [address] [place] [address] [place] AMERICACholesterol.total/Cholesterol in HDL [Mass ratio]3.69 {ratio}Normal<5.10[facility] HospitalComment on above:Order Comment: Specimen Type: BLOOD SPECIMEN Order[facility] Facility: [facility] Address: [address] [place], [place] [address]Performed By: #### 02840-5, 57574-3 #### [facility] IA [id number] [address] [place] [address] [place] OF AMERICAFASTING TIME[address] [place] [address] Comment on above:Order Comment: Specimen Type: BLOOD SPECIMEN Ordering Facility: [facility] Address: [address] [place], [place] [address]Performed By: #### 38988-9, 20276-7 #### [facility] IA [id number] [address] [place] [address] [place] AMERICATriglyceride [Mass/Vol]173 mg/dLHigh<150 Douglas HospitalComment on above:Order Comment: Specimen Type: BLOOD SPECIMEN Ordering Facility: [facility] Address: [address] [place], [place] [address]Result Comment: <150 mg/dL, Normal 150-199 mg/dL, Borderline high 200-499 mg/dL, High >499 mg/dL, Very highPerformed By: #### 44480-9, 24427-4 #### [facility] IA [id number] [address] [place] [address] [place] AMERICAXR dexa axial skeletonon 54-45-8816XF dexa axial skeletonNortEnigmatec Other MR lumbar spine wo conon 24-58-2244BJ lumbar spine wo [facility] [place] [address] MRI Report Signed Patient: Saida Corbin MR#: [id number] : 1960 Acct:[id number] Age/Sex: 62 / F ADM Date: 12/02/22 Loc: [facility] Room: [facility] Attending Dr: Maria Luisa URBAN Copies [...] Colt Duran M.D.12/02/2022 2:13 PM Dictation Location: [facility]--13 Transcribed By: [facility] 12/02/22 1413 Dictated By: Colt Duran II, MD 12/02/22 1407 Signed By: 12/02/22 1413[facility] SystemMR lumbar spine wo con [facility] [employer] Other MR lumbar spine wo [facility] [employer] Other MR lumbar spine wo [address] [place] [address] [employer] Other MR lumbar spine wo [facility], [place] [address]Nwwom [employer] Other MR lumbar spine wo conMRI [facility] [employer] Other MR lumbar spine wo conSignedTierra Amarilla [employer] Other MR lumbar spine wo conPatient: Saida Corbin MR#: [id number] [employer] Other MR lumbar spine wo [id number] [employer] Other MR lumbar spine wo conDOB: 1960 Acct:[id number] [place] [employer] Other MR lumbar spine wo conAge/Sex: 62 / F ADM Date: 12/02/22[place] [employer] Other MR lumbar spine wo conLoc: ICMR Room: [facility] Stamps[employer] Other MR lumbar spine wo conAttending Dr: Maria Luisa Farooq BIOCHEMISTRY TECHNOLOGIST-[facility] [employer] Other MR lumbar spine wo conCopies to: Maria Luisa Farooq, BIOCHEMISTRY TECHNOLOGIST-[employer] Other MR lumbar spine wo conOrdering Provider: Maria Luisa Farooq, BIOCHEMISTRY TECHNOLOGIST-[employer] Other MR lumbar spine wo conDate of Service: 12/02/22[facility] HospitalEnigmatec Other MR lumbar spine wo conAccession #: ([id number]) MR/MR lumbar spine wo con: m54.16ImmusanT [employer] Other MR lumbar spine wo conMR lumbar spine wo con 12/02/2022 10:54 [facility] [employer] Other MR lumbar spine wo conSIGNS AND SYMPTOMS: Low back pain with right gluteal pain.St[employer] Other MR lumbar spine wo conPROTOCOL: Multiplanar multisequence MR images of the lumbar spine were obtained without IV contrast St[employer] Other MR lumbar spine wo conCOMPARISON: 09/09/2022[facility] Other MR lumbar spine wo conFINDINGS: The bones of the lumbar spine are in anatomic alignment. There is preservation ofSouthDoctors Other MR lumbar spine wo convertebral body heights. There is desiccation and mild disc height loss at L2-L3 and L3-L4. There isNoSouthDoctors Other MR lumbar spine wo conmoderate disc height loss at L4- L5. There is mild disc height loss at L5-S1. Mild Modic type IISouthDoctors Other MR lumbar spine wo confatty endplate degenerative changes noted at L3-L4, L4-5, and L5-S1. The marrow signal is withinSouthDoctors Other MR lumbar spine wo connormal limits, otherwise. The conus terminates at the inferior endplate of the L1 vertebral bodyStampsy Other MR lumbar spine wo conlevel. No epidural or paraspinous fluid collection is appreciated.[employer] Other MR lumbar spine wo conAt T12-L1: There is a normal disc, central canal, and neural foramen.[employer] Other MR lumbar spine wo conAt L1-L2: There is a normal disc, central canal, and neural foramen.[employer] Other MR lumbar spine wo conAt L2-L3: There is a broad-based disc bulge with facet hypertrophy. There is mild narrowing of [employer]Wait Other MR lumbar spine wo conspinal canal with no significant neural foraminal stenosis.[employer] Other MR lumbar spine wo conAt L3-L4: There is a broad-based disc bulge with facet hypertrophy. There is mild spinal canalNortEnigmatec Other MR lumbar spine wo connarrowing with mild to moderate right and mild left neural foraminal narrowing.[employer] Other MR lumbar spine wo conAt L4-L5: There is a broad-based disc bulge with facet hypertrophy. There is mild spinal canalNortEnigmatec Other MR lumbar spine wo constenosis. Endplate osteophyte formation is present. There is mild to moderate bilateral neuralNort [employer] Other MR lumbar spine wo conforaminal narrowing.[employer] Other MR lumbar spine wo conAt L5-S1: Facet hypertrophy is present bilaterally. No significant stenosis.[employer] Other MR lumbar spine wo conORDER #: [id number] MR/MR lumbar spine wo [facility] HospitalMind-NRG Other MR lumbar spine wo conIMPRESSION:St[employer] Other MR lumbar spine wo constenosis. Endplate osteophyte formation is present. There is mild to moderate bilateral neural fNMind-NRG Other MR lumbar spine wo conoraminal narrowing.[facility] [employer] Other MR lumbar spine wo conImpression dictated by: Colt Duran M.D.12/02/2022 2:13 [facility] [employer] Other MR lumbar spine wo conDictation Location: [facility]--13 [facility] [employer] Other MR lumbar spine wo conTranscribed By: PWS 12/02/[address] [place] [address] [employer] Other MR lumbar spine wo conDictated By: Colt Duran II, MD 12/02/[address] [place] [address] [employer] Other MR lumbar spine wo conSigned By:[facility] [employer] Other MR lumbar spine wo con12/02/[address] [place] [address] [employer] Other XR lumbar spine 6V w bendingon 19-46-1706QV lumbar spine 6V w bendingAdena Regional Medical Center [employer] Other XR lumbar spine 6V w bendingKaiser Permanente Medical Center [employer] Other XR lumbar spine 6V w [id number] [place] [address] [employer] Other XR lumbar spine 6V w bending[address] [employer] Other XR lumbar spine 6V w bendingXRNemours Children's Hospital [employer] Other XR lumbar spine 6V w bendingSiCedar County Memorial Hospital [employer] Other XR lumbar spine 6V w bendingPatient: Sadia Corbin MR#: [id number] [employer] Other XR lumbar spine 6V w [id number] [employer] Other XR lumbar spine 6V w bendingDOB: 1960 Acct:[id number] [employer] Other XR lumbar spine 6V w bendingAge/Sex: 62 / F ADM Date: 10/31/22[facility] HospitalEnigmatec Other XR lumbar spine 6V w bendingLoc: XD Room: Type: [facility] [employer] Other XR lumbar spine 6V w bendingAttending Dr: Maria Luisa Farooq [facility]WineNice Other XR lumbar spine 6V w bendingCopies to: Maria Luisa Farooq, [facility]ITALWineNice Other XR lumbar spine 6V w bendingOrdering Provider: Maria Luisa Farooq, [facility]ITALWineNice Other XR lumbar spine 6V w bendingDate of Service: 10/31/22 [employer] Other XR lumbar spine 6V w bendingAccession #: ([id number]) XR/XR lumbar spine 6V w bending: M54.16[facility] HospitalEnigmatec Other XR lumbar spine 6V w bendingLUMBAR SPINE WITH FLEXION, EXTENSION AND BENDING VIEWS - 6 views:[employer] Other XR lumbar spine 6V w bendingCLINICAL HISTORY: Low back pain radiating down the legs with numbness and tingling. No injury.[employer] Other XR lumbar spine 6V w bendingCOMPARISON: 09/09/2022[facility] Other XR lumbar spine 6V w bendingStanding AP neutral, right left bending and lateral views with neutral, flexion and extension wereSouthDoctors Other XR lumbar spine 6V w bendingobtained. No acute fractures are identified. There is minimal retrolisthesis of L4 and L5.[employer] Other XR lumbar spine 6V w bendingAlignment does not change significantly with flexion or extension. There is disc space narrowing atSouthDoctors Other XR lumbar spine 6V w bendingL4-5 and the lumbosacral junction. There is minor endplate spurring. There is lower lumbar facetNosamaritan hospital [employer] Other XR lumbar spine 6V w bendingdisease. The SI joints are intact. No paraspinal soft tissue abnormalities are present.[employer] Other XR lumbar spine 6V w bendingORDER #: [id number] XR/XR lumbar spine 6V w bendingNosamaritan hospital [employer] Other XR lumbar spine 6V w bendingIMPRESSION:[employer] Other XR lumbar spine 6V w bendingLOWER LUMBAR DEGENERATIVE CHANGES.[employer] Other XR lumbar spine 6V w bendingImpression dictated by: Maria Eugenia Yusuf M.D.10/31/2022 10:33 [facility] [employer] Other XR lumbar spine 6V w bendingDictation Location: [id number] [employer] Other XR lumbar spine 6V w bendingTranscribed By: PWS 10/31/22 [facility] RegionStampsy Other XR lumbar spine 6V w bendingDictated By: Maria Eugenia Yusuf MD 10/31/22 [facility] HospitalStamps[facility] Other XR lumbar spine 6V w bendingSigned By:[employer] Other XR lumbar spine 6V w uosinyu01/22/23 [facility] RegionStampsy Other XR lumbar spine 6V w bendingTHE [facility] [place] [address] [place] [address] XRay Report Signed Patient: Saida Corbin MR#: [id number] : 1960 Acct:[id number] Age/Sex: 62 / F ADM Date: 10/31/22 Loc: XD Room: [facility] Attending Dr: Maria Luisa URBAN Copies [...] Eugenia Yusuf M.D.10/31/2022 10:33 AM Dictation Location: [place] [address] Transcribed By: [facility] 10/31/22 1033 Dictated By: Maria Eugenia Yusuf MD 10/31/22 1032 Signed By: 10/31/22 1033[facility] Health SystemCB panel Auto (Bld)on 45-15-5921Urmtzpiubrv distribution width (RBC) [Ratio]12.5 %11.5 - 15.0 % [facility] HospitalHematocrit (Bld) [Volume fraction]43.6 %36.0 - 46.0 %[facility] HospitalHemoglobin (Bld) [Mass/Vol]14.4 g/dL11.5 - 15.5 g/dLAultman Orrville HospitalH (RBC) [Entitic mass]29.0 pg26.0 - 34.0 pgCCity HospitalHC (RBC) [Mass/Vol] 33.0 g/dL30.5 - 36.0 g/dLAultman Orrville HospitalV (RBC) [Entitic vol]87.9 fL80.0 - 100.0 fLClevelgranville medical center ClinicPlatelet mean volume (Bld) [Entitic vol]9.9 fL9.0 - 12.7 fLChighland district hospital ClinicPlatelets (Bld) [#/Vol]263 10*3/uL150 - 400 k/uLCleveland ClinicRBC (Bld) [#/Vol]4.96 10*6/uL3.90 - 5.20 m/[facility] Orthopedic CenterWBC (Bld) [#/Vol]8.87 10*3/uL3.70 - 11.00 k/[facility] Orthopedic CenterHepatic function 2000 panel on 23-34-0301Qthmbhx [Mass/Vol]4.7 g/dLNormal3.9-4.9Avon HospitalComment on above:Order Comment: Specimen Type: BLOOD SPECIMEN [facility] Facility: [facility] Address: [address] [place], [place] [address]Performed By: #### 04352-3 #### [facility] IA [id number] [address] [place] [address] [place] AMERICAALP [Catalytic activity/Vol]101 U/LNormal 34-123Av HospitalComment on above:Order Comment: Specimen Type: BLOOD SPECIMEN Order[facility] Facility: [facility] Address: [address] [place], [place] [address]Performed By: #### 48981-8 #### [facility] IA [id number] [address] [place] [address] [place] AMERICAALT [Catalytic activity/Vol]19 U/LNormal 7-38Av HospitalComment on above:Order Comment: Specimen Type: BLOOD SPECIMEN Order[facility] Facility: [facility] Address: [address] [place], [place] [address]Performed By: #### 83816-3 #### [facility] IA [id number] [address] [place] [address] [place] AMERICAAST [Catalytic activity/Vol]23 U/LNormal 13-35Av HospitalComment on above:Order Comment: Specimen Type: BLOOD SPECIMEN [facility] Facility: [facility] Address: [address] [place], [place] [address]Performed By: #### 17685-3 #### [facility] [place] [id number] [place] [address] [place] OF AMERICABilirubin [Mass/Vol]0.3 mg/dLNormal 0.2-1.3Avon HospitalComment on above:Order Comment: Specimen Type: BLOOD SPECIMEN Ordering Facility: [facility] Address: [address] [place], [place] [address]Performed By: #### 97948-6 #### [facility] CLIA [id number] [address] [place] [address] [place] AMERICABilirubin.conjugated [Mass/Vol]mg/dL Normal<0.2Avon HospitalComment on above:Order Comment: Specimen Type: BLOOD SPECIMEN Ordering Facility: [facility] Address: [address] [place], [place] [address]Performed By: #### 68642-3 #### [facility] CLIA [id number] [address] [place] [address] [place] AMERICAProtein [Mass/Vol]7.1 g/dLNormal6.3-8.0 Douglas HospitalComment on above:Order Comment: Specimen Type: BLOOD SPECIMEN Ordering Facility: [facility] Address: [address] [place], [place] [address]Performed By: #### 01674-5 #### [facility] IA [id number] [address] [place] [address] [place] OF AMERICALipid 1996 panelon 16-99-7178Pbdchmooyxx [Mass/Vol]216 mg/dLHigh<200Avon HospitalComment on above:Order Comment: Specimen Type: BLOOD SPECIMEN Ordering Facility: [facility] Address: [address] [place], [place] [address]Result Comment: <200 mg/dL, Desirable 200-239 mg/dL, Borderline high >239 mg/dL, HighPerformed By: #### 78384-7 #### [facility] CLIA [id number] [address] [place] [address] [place] AMERICACholesterol in HDL [Mass/Vol]53 mg/dL Normal>39Avon HospitalComment on above:Order Comment: Specimen Type: BLOOD SPECIMEN Ordering Facility: [facility] Address: [address] [place], [place] [address]Result Comment: 40-59 mg/dL, Acceptable >59 mg/dL, High: Negative risk factor for coronary heart disease <40 mg/dL, Low: Positive risk factor for coronary heart diseasePerformed By: #### 04325-8 #### [facility] CLIA [id number] [facility] [place] [address] [place] AMERICACholesterol in LDL [Mass/Vol]135 mg/dL High<100Avon HospitalComment on above:Order Comment: Specimen Type: BLOOD SPECIMEN Ordering Facility: [facility] Address: [address] [place], [place] [address]Result Comment: <100 mg/dL, Optimal 100-129 mg/dL, Near optimal/above optimal 130-159 mg/dL, Borderline high 160-189 mg/dL, High >189 mg/dL, Very high Secondary prevention optimal LDL Cholesterol levels are recommended to be < 70 mg/dLPerformed By: #### 75359-9 #### [facility] CLIA [id number] [address] [facility] [place] [address] [place] AMERICACholesterol in LDL/Cholesterol in HDL [Mass ratio]2.55 {ratio}High<2.54Avon HospitalComment on above:Order Comment: Specimen Type: BLOOD SPECIMEN Ordering Facility: [facility] Address: [address] [place], [place] [address]Result Comment: Reference: 1. National Cholesterol Education Program ATP III Guideline At-A-Glance Quick Desk Reference: National Heart, Lung, and Blood [place]. National Institutes of Health. 2001: NIH Publication No. 01-3305. 2. An International Atherosclerosis Society position paper: global recommendations for the management of dyslipidemia: executive summary, Atherosclerosis. 2014: 232(2):410-413.Performed By: #### 48099-4 #### [facility] CLIA [id number] [facility] [place] [address] [place] AMERICACholesterol in VLDL [Mass/Vol]28 mg/dL Normal<30Avon HospitalComment on above:Order Comment: Specimen Type: BLOOD SPECIMEN Ordering Facility: [facility] Address: [address] [place] [address]Performed By: #### 23743-8 #### [facility] IA [id number] [address] [place] [address] [place] AMERICACholesterol non HDL [Mass/Vol]163 mg/dL High<130Avon HospitalComment on above:Order Comment: Specimen Type: BLOOD SPECIMEN Ordering Facility: [facility] Address: [address] [place], [place] [address]Result Comment: <130 mg/dL, Optimal 130-159 mg/dL, Near optimal/above optimal 160-189 mg/dL, Borderline high 190-219 mg/dL, High >219 mg/dL, Very high Secondary prevention optimal non HDL Cholesterol levels are recommended to be <100 mg/dLPerformed By: #### 49209-8 #### [facility] IA [id number] [address] [place] [address] [place] AMERICACholesterol.total/Cholesterol in HDL [Mass ratio]4.08 {ratio}Normal<5.10Avo HospitalComment on above:Order Comment: Specimen Type: BLOOD SPECIMEN Ordering Facility: [facility] Address: [address] [place], [place] [address]Performed By: #### 80849-5 #### [facility] IA [id number] [address] [place] [address] [place] AMERICAFASTING [address] [place] [address] Comment on above:Order Comment: Specimen Type: BLOOD SPECIMEN Ordering Facility: [facility] Address: [address] [place], [place] [address]Performed By: #### 82991-7 #### [facility] IA [id number] [address] [place] [address] [place] AMERICATriglyceride [Mass/Vol]140 mg/dLNormal <150Avon HospitalComment on above:Order Comment: Specimen Type: BLOOD SPECIMEN Ordering Facility: [facility] Address: [address] [place], [place] [address]Result Comment: <150 mg/dL, Normal 150-199 mg/dL, Borderline high 200-499 mg/dL, High >499 mg/dL, Very highPerformed By: #### 47166-3 #### [facility] CLIA [id number] [address] [facility] [place] [address] [place] OF AMERICAVITAMIN D 25 HYDROXYon 68-44-400290- hydroxyvitamin D3 [Mass/Vol]76.7 ng/mL>=30.0 ng/mLCleveland ClinicComprehensive metabolic 1999 panelon 39-37-5336Ehgacjo [Mass/Vol]5.1 g/dLHigh3.9 - 4.9 g/dL [facility] ClinicALP [Catalytic activity/Vol]108 U/L34 - 123 U/LCleveland Clinic ALT With P-5'-P [Catalytic activity/Vol]30 U/L7 - 38 U/LCleveland ClinicAnion gap [Moles/Vol]11 mmol/L9 - 18 mmol/LCleveland ClinicAST With P-5'-P [Catalytic activity/Vol]24 U/L13 - 35 U/LCleveland ClinicBilirubin [Mass/Vol]0.3 mg/dL0.2 - 1.3 mg/dLHallsville ClinicCalcium [Mass/Vol]10.1 mg/dL8.5 - 10.2 mg/dLHallsville ClinicChloride [Moles/Vol]103 mmol/L97 - 105 mmol/LCleveland ClinicCO2 [Moles/Vol]28 mmol/L22 - 30 mmol/LCleveland ClinicCreatinine [Mass/Vol]0.62 mg/dL0.58 - 0.96 mg/dLCleveland Clinic [facility] HospitalEstimated Glomerular Filtration Brtu941 mL/min/1.73m>=60 mL/min/1.73mCleveland ClinicGlucose [Mass/Vol]107 mg/hOVfif45 - 99 mg/dLCleveland Clinic [facility] HospitalPotassium [Moles/Vol]4.5 mmol/L3.7 - 5.1 mmol/L [facility] ClinicProtein [Mass/Vol]7.4 g/dL6.3 - 8.0 g/dLHallsville ClinicSodium [Moles/Vol]142 mmol/L136 - 144 mmol/LCleveland ClinicUrea nitrogen [Mass/Vol]15 mg/dL7 - 21 mg/dLCleveland Clinic [facility] HospitalLipid 1995 panelon 64-57-9543Rroovxmbrlv [Mass/Vol]223 mg/dLHigh<200 mg/dLClefirelands regional medical center ClinicCholesterol in HDL [Mass/Vol]40 mg/dL>39 mg/dLClefirelands regional medical center ClinicCholesterol in LDL [Mass/Vol]150 mg/dLHigh<100 mg/dLClefirelands regional medical center ClinicCholesterol in LDL/Cholesterol in HDL [Mass ratio]3.75 {ratio}High<2.54Clefirelands regional medical center ClinicCholesterol in VLDL [Mass/Vol]33 mg/dLHigh<30 mg/dLHallsville ClinicCholesterol non HDL [Mass/Vol]183 mg/dLHigh<130 mg/dL Nixon ClinicCholesterol.total/Cholesterol in HDL [Mass ratio]5.58 {ratio} High<5.10[facility] HospitalFasting Time12 hrsCleMercy Health Springfield Regional Medical CenterTriglyceride [Mass/Vol]163 mg/dLHigh<150 mg/dLCleveland Clinic [facility] HospitalTSH BLDon 73-61-2922GKZ Qn2.300 m[IU]/L0.270 - 4.200 mIU/LCleveland ClinicLIPID PROFILEon 68-04-0758GXUP-HDL RATIO NORMSEE CentervilleComment on above:Result Comment: 3.3 - 4.4 LOW RISK 4.4 - 7.1 AVERAGE RISK 7.1 - 11.0 MODERATE RISK >11.0 HIGH RISKPerformed By: #### LIVER, LIPID #### [facility] [address] [address] [address] Ivelisse MendozaCholesterol [Mass/Vol]209 mg/dLCritically high<=200[facility] on above:Performed By: #### LIVER, LIPID #### [facility] [address] [address] [address] Ivelisse MendozaCholesterol in HDL [Mass/Vol]44 mg/aIAhnqcg67-61IxjDayton Children's Hospital on above:Performed By: #### LIVER, LIPID #### [facility] [address] [address] [address] Ivelisse MendozaCholesterol in LDL [Mass/Vol]147.4 mg/dLSelect Medical Cleveland Clinic Rehabilitation Hospital, BeachwoodComment on above:Performed By: #### LIVER, LIPID #### [facility] [address] [address] [address] Ivelisse MendozaCholesterol.total/Cholesterol in HDL [Mass ratio]4.8 {ratio} NormalThe [facility] HospitalComment on above:Performed By: #### LIVER, LIPID #### [facility] [address] [address] [address] Ivelisse Hollingsworth NORMAL> or = 60 mg/dl - LOW CARDIOVASCULAR RISK <40 mg/dl - HIGH CARDIOVASCULAR RISKSelect Medical Cleveland Clinic Rehabilitation Hospital, BeachwoodComment on above:Performed By: #### LIVER, LIPID #### [facility] [address] [address] [address] Ivelisse MendozaLDL CALC NORMALSEE BELOWSelect Medical Cleveland Clinic Rehabilitation Hospital, BeachwoodComment on above:Result Comment: <100 mg/dl OPTIMAL 100 - 129 mg/dl NEAR OR ABOVE OPTIMAL 130 - 159 mg/dl BORDERLINE HIGH 160 - 189 mg/dl HIGH >190 mg/dl VERY HIGH Performed By: #### LIVER, LIPID #### [facility] [address] [place] [address] Dr. Ivelisse MendozaTriglyceride [Mass/Vol]88 mg/dLNormal<=150[facility] Comment on above:Performed By: #### LIVER, LIPID #### [facility] [address] [place] [address] Dr. Ivelisse Alberts CALC17.6 mg/dLNoPremier Health Atrium Medical CenterCommclaren bay special care hospital on above: Performed By: #### LIVER, LIPID #### [facility] [address] [address] [address] Ivelisse Fu PROFILEon 60-15-1798Llemfdx [Mass/Vol]4.2 g/dLNormal3.4-5.0 The [facility] HospitalCommclaren bay special care hospital on above:Performed By: #### LIVER, LIPID #### [facility] [address] [place] [address] Dr. Ivelisse MendozaAlbumin/Globulin [Mass ratio]1.3 {ratio}NormalThe [facility] HospitalComment on above:Performed By: #### LIVER, LIPID #### [facility] [address] [address] [address] Ivelisse Vicente [Catalytic activity/Vol]101 U/LLndzpp58-491Nqw [facility] HospitalComment on above:Performed By: #### LIVER, LIPID #### [facility] [address] [address] [address] Ivelisse Vergara [Catalytic activity/Vol]38 U/JKkywmc08-64Ukl [facility] HospitalComment on above:Performed By: #### LIVER, LIPID #### [facility] [address] [address] [address] Ivelisse Martin [Catalytic activity/Vol]20 U/FWysbxf05-87Kdk [facility] HospitalComment on above:Performed By: #### LIVER, LIPID #### [facility] [address] [place] [address] Dr. Ivelisse MaritnI, CONJUGATED0.0 mg/dLNormal0.0-0.2The [facility] Comment on above:Performed By: #### LIVER, LIPID #### [facility] [address] [place] [address] Dr. Ivelisse Martinirubin [Mass/Vol]0.3 mg/dLNormal0.2-1.0The [facility] Comment on above:Performed By: #### LIVER, LIPID #### [facility] [address] [address] [address] Ivelisse MendozaGlobulin (S) [Mass/Vol]3.3 g/dLNormalThe [facility] HospitalComment on above:Performed By: #### LIVER, LIPID #### [facility] [address] [place] [address] Dr. Ivelisse MendozaProtein [Mass/Vol]7.5 g/dLNormal6.4-8.2The [facility] Comment on above:Performed By: #### LIVER, LIPID #### [facility] [address] [place], [place] [address] Dr. Ivelisse MendoazCBC panel Auto (Bld)on 26-72-5827Znpixflqiqn distribution width (RBC) [Ratio]13.3 %11.5 - 15.0 %[facility] HospitalHematocrit (Bld) [Volume fraction]43.3 %36.0 - 46.0 %[facility] HospitalHemoglobin (Bld) [Mass/Vol]14.2 g/dL 11.5 - 15.5 g/dLAultman Orrville HospitalH (RBC) [Entitic mass]29.2 pg26.0 - 34.0 pg [facility] HospitalHC (RBC) [Mass/Vol]32.8 g/dL30.5 - 36.0 g/dLCleveland Clinic [facility] MCV (RBC) [Entitic vol]88.9 fL80.0 - 100.0 fLChighland district hospital ClinicPlatelet mean volume (Bld) [Entitic vol]9.4 fL9.0 - 12.7 fLChighland district hospital ClinicPlatelets (Bld) [#/Vol]256 10*3/uL150 - 400 k/uLCleveland Clinic [facility] HospitalRBC (Bld) [#/Vol]4.87 10*6/uL 3.90 - 5.20 m/uLCleveland Clinic [facility] HospitalWBC (Bld) [#/Vol]9.43 10*3/uL3.70 - 11.00 k/uL [facility] HospitalComprehensive metabolic 2000 panelon 76-68-3729Qnkpjkh [Mass/Vol]5.0 g/dLHigh3.9 - 4.9 g/dLHallsville ClinicALP [Catalytic activity/Vol] 127 U/LHigh34 - 123 U/LCleveland ClinicALT With P-5'-P [Catalytic activity/Vol] 75 U/LHigh7 - 38 U/LCleveland ClinicAnion gap [Moles/Vol]14 mmol/L9 - 18 mmol/L [facility] HospitalAST With P-5'-P [Catalytic activity/Vol]40 U/LHigh13 - 35 U/L [facility] HospitalBilirubin [Mass/Vol]0.4 mg/dL0.2 - 1.3 mg/dLC[facility] Clinic [facility] Calcium [Mass/Vol]10.1 mg/dL8.5 - 10.2 mg/dLCleveland Clinic [facility] HospitalChloride [Moles/Vol] 103 mmol/L97 - 105 mmol/LCleveland ClinicCO2 [Moles/Vol]26 mmol/L22 - 30 mmol/L [facility] HospitalCreatinine [Mass/Vol]0.67 mg/dL0.58 - 0.96 mg/dLCleveland Clinic [facility] Estimated Glomerular Filtration Wmcp784 mL/min/1.73m>=60 mL/min/1.73mCACMC Healthcare System GlenbeighGlucose [Mass/Vol]107 mg/pELwkl24 - 99 mg/dLCleveland Clinic [facility] HospitalPotassium [Moles/Vol]4.3 mmol/L3.7 - 5.1 mmol/LClevelgranville medical center ClinicProtein [Mass/Vol]7.7 g/dL 6.3 - 8.0 g/dLKettering Health Miamisburgodium [Moles/Vol]143 mmol/L136 - 144 mmol/L [facility] HospitalUrea nitrogen [Mass/Vol]12 mg/dL7 - 21 mg/dLC[facility] Clinic [facility] LIPID PANEL BASICon 20-90-9387Cfsctkdrqxx [Mass/Vol]214 mg/dLHigh<200 mg/dL [facility] HospitalCholesterol in HDL [Mass/Vol]53 mg/dL>39 mg/dLC[facility] Clinic [facility] Cholesterol in LDL [Mass/Vol]125 mg/dLHigh<100 mg/dLCleveland Clinic [facility] HospitalCholesterol in LDL/Cholesterol in HDL [Mass ratio]2.36 {ratio}<2.54[facility] Cholesterol in VLDL [Mass/Vol]36 mg/dLHigh<30 mg/dLC[facility] Clinic [facility] HospitalCholesterol non HDL [Mass/Vol]161 mg/dLHigh<130 mg/dLC[facility] Clinic [facility] Cholesterol.total/Cholesterol in HDL [Mass ratio]4.04 {ratio}<5.10[facility] HospitalFasting Time12 hrsCleMercy Health Springfield Regional Medical CenterTriglyceride [Mass/Vol]182 mg/dLHigh<150 mg/dLCleveland Clinic [facility] HospitalVITAMIN D 25 HYDROXYon [id number]-oicnknpydrjtoy D3 [Mass/Vol]25.8 ng/mLLow30.0 - 100.0 ng/mLCleveland Cass Lake HospitalUS JAON DOP LEG LTon 69-87-0860VC JOAN DOP LEG LTLEFT LOWER EXTREMITY VENOUS DUPLEX CLINICAL HISTORY: Localized [...] Electronically authenticated by: ALIS LOZOYA Date: 2021-01-20 23:17[facility] Medical CenterURGICAL PATH REPORTon [id number] PATH REPORTSHighland District Hospital Department [id number] [place], [place] Name: SAIDA CORBIN : 1960 [facility] [id number] Number:Gender: Female[facility] 57 [facility] Attending Kyle TAYLOR: Provider: Ordering CHAPARRO TAYLOR Provider:Consulting: Surgical Pathology ReportACCESSION: COLLECTED DATE/TIME: RECEIVED DATE/TIME: PATHOLOGIST:[id number] 10/01/2017 16:30 EDT 10/02/2017 13:43 EDT DOLORES GALLEGO MD DiagnosisReport for [facility] FALLOPIAN TUBE AND OVARY:- OVARIAN MATURE CYSTIC TERATOMA; DERMOID CYST. - ASSOCIATED ATROPHIC OVARY WITH SIMPLE CYSTS AND CORPORA ALBICANS - FOCIOF DYSTROPHIC CALCIFICATION PRESENT. - ACCOMPANYING COMPLETE TRANSVERSE TRANSVERSE FALLOPIAN TUBE WITH FIMBRIATED END; NO PATHOLOGIC CHANGE.DOLORES RANGELOLOGIST(Electronic Signature)Date Verified 10/03/2017 VBClinical DataPRE-OP DIAGNOSIS: Not specifiedPOST-OP DIAGNOSIS: Left ovarian dermoid cystPROCEDURES: Diagnostic laparoscopy with left salpingo-oophorectomySPECIMEN: Left fallopian tube and left ovaryVISIT #[id number] / ambulatory surgeryGross DescriptionReceived in formalin is [...] It is hernandez pink and measures Accession [id number] Print Date10/03/2017 15:29 EDTNumber: Time: General Department [id number] [place], [place] [id number] Name: SAIDA CORBIN : 1960 [facility] [id number] Number:Gender: Female Location: [facility] 57 years Attending Kyle TAYLOR: Provider: Ordering CHAPARRO TAYLOR Provider:Consulting: Surgical Pathology ReportACCESSION: COLLECTED DATE/TIME: RECEIVED DATE/TIME: PATHOLOGIST:[id number] 10/01/2017 16:30 EDT 10/02/2017 13:43 EDT LASHONDA DAVIS, DOLORES HGrossDescription 4.8 x 3.5 x 2.0 cm. On cut section it is filled with hernandez yellow pasty material and hair. Buffing Wheel Operator sections are submitted in five cassettes.MP:vcb10/02/2017Tissue pathology report for: [facility], OHIOPATHOLOGY SERVICES PROVIDED BY [employer] (CLIA #[id number]) in cooperation with [facility] at [address] [place] [address] (CLIA #[id number])CodesCPT CODE: 88307 Accession [id number] Print Date10/03/2017 15:29EDTNumber: Time: Memorial HospitalComment on above:Performed By: #### [id number] ####[facility] [id number] [phone] Director: Denzel Juarez MD Vital Signs Date TimeVital SignValuePerforming QkqhteqhzPgwdifup40-92-5901 10:37-0400 Diastolic blood wgvzijya54 mm[Hg]Stacie Sheets DO Work Phone: [facility]09-10-2025 10:37-0400Systolic blood ogubhfdt999 mm[Hg]Stacie Sheets DO Work Phone: [facility]09-10-2025 10:09-0400Body pugrpf248.1 cmKimberly Sheets DO Work Phone: [facility]09-10-2025 10:09-0400Body mass index (BMI) [Ratio]36.61 kg/p6Cezopsol Sheets DO Work Phone: [facility]09-10-2025 10:09-0400Body temperature 97.9 [degF]Stacie Sheets DO Work Phone: [facility]09-10-2025 10:09-0400Body bfvnwe36.79 kgKimberly Sheets DO Work Phone: [facility]09-10-2025 10:09-0400Heart rate65 /min Stacie Sheets DO Work Phone: [facility]09-10-2025 10:09-0400Respiratory rate 16 /minKimberly Sheets DO Work Phone: [facility]09-10-2025 10:09-7658IhC1% (BldA) [Mass fraction]95 %Stacie Sheets DO Work Phone: [facility]05-22-2024 11:18-0400Body .7 cmKimberly Sheets DO Work Phone: [facility]05-22-2024 11:18-0400Body mass index (BMI) [Ratio]32.69 kg/x3Dzsvubex Sheets DO Work Phone: [facility]05-22-2024 11:18-0400Body temperature 97.59 [degF]Stacie Sheets DO Work Phone: [facility]05-22-2024 11:18-0400Body yzsyda27.52 kgKimberly Sheets DO Work Phone: [facility]05-22-2024 11:18-0400Diastolic blood blaiqsjq87 mm[Hg]Stacie Sheets DO Work Phone: [facility]05-22-2024 11:18-0400Heart rate62 /min Stacie Sheets DO Work Phone: [facility]05-22-2024 11:18-0400Respiratory rate 16 /minKimberly Sheets DO Work Phone: [facility]05-22-2024 11:18-4324IwJ5% (BldA) [Mass fraction]94 %Stacie Sheets DO Work Phone: [facility]05-22-2024 11:18-0400Systolic blood zlyhlssc355 mm[Hg]Stacie Sheets DO Work Phone: [facility]11-01-2023 09:20-0400Body xcifpz512.1 cmMaria Luisa Farooq Other [employer] Other 11-01-2023 09:20-0400Body mass index (BMI) [Ratio] 32.95 kg/a5Bmioweu Farooq Other [employer] Other 11-01-2023 09:20-0400Body jldhus07.81 kgJeva hospital Farooq Other [employer] Other 09-22-2023 10:140400Body lxktun065.7 cmKimberly Sheets DO Work Phone: [facility]09-22-2023 10:14040Body temperature 97.5 [degF]Stacie Sheets DO Work Phone: [facility]09-22-2023 10:14Body corhls49.72 kgKimberly Sheets DO Work Phone: [facility]09-22-2023 10:140Diastolic blood mm[Hg]Stacie Sheets DO Work Phone: [facility]09-22-2023 10:140Heart rate52 /min Stacie Sheets DO Work Phone: [facility]09-22-2023 10:140Respiratory rate 16 /minKimberly Sheets DO Work Phone: [facility]09-22-2023 10:146893TaI9% (BldA) [Mass fraction]96 %Stacie Sheets DO Work Phone: [facility]09-22-2023 10:14Systolic blood zbqabjzz589 mm[Hg]Stacie Sheets DO Work Phone: [facility]08-01-2023 09:20-0400Body bssech539.1 cmJeva hospital Farooq Other [employer] Other 08-01-2023 09:20-0400Body mass index (BMI) [Ratio] 33.94 kg/d6Isctemu Farooq Other [employer] Other 08-01-2023 09:20-0400Body .53 kgJessjackson Farooq Other [employer] Other 08-01-2023 09:20-0400Diastolic blood dpewkszq37 mm[Hg] Maria Luisa Farooq Other [employer] Other 08-01-2023 09:20-0400Systolic blood rfdouopl421 mm[Hg] Maria Luisa Farooq Other [employer] Other 06-22-2023 08:20-0400Body etwpnd433.1 cmMaria Luisa Farooq Other [employer] Other 06-22-2023 08:20-0400Body mass index (BMI) [Ratio] 33.78 kg/x2Odbrhqt Farooq Other [employer] Other Phone: [phone] 08:20-0400Body guazqf61.08 kgMaria Luisa Farooq Other [employer] Other 06-22-2023 08:20-0400Diastolic blood oioghthn76 mm[Hg] Maria Luisa Farooq Other [employer] Other 06-22-2023 08:20-0400Systolic blood naovevuu505 mm[Hg] Maria Luisa Farooq Other [employer] Other 05-01-2023 13:41-0400Body wdeaut274.7 cmKimberly Sheets DO Work Phone: [facility]05-01-2023 13:41-0400Body temperature 98.01 [degF]Stacie Sheets DO Work Phone: [facility]05-01-2023 13:41-0400Body .9 kgKimberly Sheets DO Work Phone: [facility]05-01-2023 13:41-0400Diastolic blood ctqrrnru88 mm[Hg]Stacie Sheets DO Work Phone: [facility]05-01-2023 13:41-0400Heart rate58 /min Stacie Sheets DO Work Phone: [facility]05-01-2023 13:41-0400Respiratory rate 16 /minKimberly Sheets DO Work Phone: [facility]05-01-2023 13:41-8365NeB9% (BldA) [Mass fraction]97 %Stacie Sheets DO Work Phone: [facility]05-01-2023 13:41-0400Systolic blood wlicuagi339 mm[Hg]Stacie Sheets DO Work Phone: [phone]09-08-2022 09:00-0400Body ppyepq795.7 cmKimberly Sheets DO Work Phone: [facility]09-08-2022 09:00-0400Body temperature 97.81 [degF]Stacie Sheets DO Work Phone: [phone] [place], [place] [address]209-08-2022 09:00-0400Body lswqse04.81 kgKimberly Sheets DO Work Phone: [phone]09-08-2022 09:00-0400Diastolic blood kndifmbk25 mm[Hg]Stacie Sheets DO Work Phone: [facility]09-08-2022 09:00-0400Heart rate59 /min Stacie Sheets DO Work Phone: [facility]09-08-2022 09:00-0400Respiratory rate 16 /minKimberly Sheets DO Work Phone: [facility]09-08-2022 09:00-0821XuH5% (BldA) [Mass fraction]98 %Stacie Sheets DO Work Phone: [facility]09-08-2022 09:00-0400Systolic blood vvxubcye334 mm[Hg]Stacie Sheets DO Work Phone: [facility]03-04-2022 09:12-0500Body .7 cmKimberly Sheets DO Work Phone: [facility]03-04-2022 09:12-0500Body temperature 97.9 [degF]Stacie Sheets DO Work Phone: [facility]03-04-2022 09:12-0500Body sobsfk379.5 kgKimberly Sheets DO Work Phone: [facility]03-04-2022 09:12-0500Diastolic blood kjebykgd45 mm[Hg]Stacie Sheets DO Work Phone: [facility]03-04-2022 09:12-0500Heart rate65 /min Stacie Sheets DO Work Phone: [facility]03-04-2022 09:12-0500Respiratory rate 16 /minKimberly Sheets DO Work Phone: [facility]03-04-2022 09:12-4522OfR6% (BldA) [Mass fraction]98 %Stacie Sheets DO Work Phone: [facility]03-04-2022 09:12-0500Systolic blood vuqqnibb503 mm[Hg]Stacie Sheets DO Work Phone: [facility] Encounters Encounter DateEncounter TypeCare ProviderFacilityStart: 03-09-2025 End: 37-06-8467utathwjphaPUCMFHS E SZIRAKYFacility:[facility] Start: 03-01-2025 End: 21-80-3158xjercbsemqEBWPVOA [facility] 01-19-2025 End: 46-74-6475pnfchneuirZTLITPWL C SHEETSFacility:[facility]tart: 01-19-2025 End: 56-39-6538Mpxuucz encounter procedureKimberly C Sheets DO Work Phone: [facility] HospitalComment on above:Well adult exam (Primary Dx); Essential hypertension; Mixed hyperlipidemia; Screening for colon cancer; Chronic midline low back pain without sciatica; Primary osteoarthritis of right hip; Mild intermittent asthma, uncomplicated (HCC); Statin intolerance; Obesity, Class II, BMI 35-39.9Start: 01-19-2025 End: 88-45-2611Gwfcieg encounter statusKihaoerly C Sheets DO Work Phone: [facility]: 01-19-2025 End: 11-95-9059cqjopuccvwTGEKIPVY C SHEETSFacility:[facility] SSDtart: 84-49-1018Ggwuxluir for general adult medical examination without abnormal findingsSTACIE FAIRBANKSLincolnHealthtart: 09-16-2024 End: 14-92-0567Bhwhix Logan Shin MD Work Phone: [facility] OPHTStart: 09-16-2024 End: 26-89-5532Dqhhgesamantha Shin MD Work Phone: [facility] OPHTStart: 09-16-2024 End: 72-81-6686Cnzddt outpatient new 45 minutesAdore Shin MD Work Phone: [facility] NB OPHTComment on above:Cortical age-related cataract of both eyes (Primary Dx)Start: 09-16-2024 End: 53-87-5242bwgdbgnsrpZCMOZ M ALLENNot AvailableStart: 09-14-2024 End: 45-93-5927jyfmwpczcwHhvkaous C Sheets DO Work Phone: [facility]: 01-24-2024 End: 20-54-3687VxusqjTrqgbhco C Sheets DO Work Phone: [facility] HospitalComment on above:Refill RequestStart: 69-24-4634ZqphxbWjrwwbgv C Sheets DO Work Phone: [facility] HospitalComment on above:Refill RequestStart: 10-01-2023 End: 46-71-0919Cvlnqtg encounter procedureKimberly C Sheets DO Work Phone: [facility] HospitalComment on above:Essential hypertension (Primary Dx); Mixed hyperlipidemia; Chronic midline low back pain, unspecified whether sciatica present; Obesity, Class I, BMI 30-34.9Start: 28-62-9367BgjjdcZitmgzqj C Sheets DO Work Phone: [facility] HospitalComment on above:Refill RequestStart: 06-07-2023 End: 51-07-3088tlfioofqlrIiohsywq C SheetsFacility:[facility]tart: 06-07-2023 End: 61-60-0022waiiewpzhtGP Stacie C Sheets Work Phone: [facility] Work Phone: Start: 06-07-2023 End: 04-13-1064Cxywega encounter procedureDO Stacie Sheets Work Phone: [facility] Work Phone: Start: 03-12-2023 End: 01-13-4694gsaslsrvrvKiqnhhs [employer] Other [employer] Other start: 36-17-5329Jngqcc outpatient visit 15 minutes [facility] Lu[facility]ooqH[facility]ersonville [facility] NeurosurgeryStart: 03-12-2023 End: 02-77-5268Sfrwnlt encounter procedureDO Stacie Sheets Work Phone: [facility] Work Phone: start: 38-33-2569Cuwhbkgjj encounterTameka Justin [facility] HospitalComment on above:ResultsStart: 02-27-2023 End: 78-46-0683kkuuzqlgknRSEJIKFS C SHEETSFacility:[facility]ertart: 30-36-4684Vfqoaulde encounterKimberly C Sheets DO Work Phone: [facility] CenterComment on above:Forms ([employer] Prescriber Response Form regarding patient's amlodipine and simvastatin)Medication ProblemStart: 01-31-2023 End: 31-59-3785Njopiqk encounter procedureKimberly C Sheets DO Work Phone: [facility] HospitalComment on above:Essential hypertension (Primary Dx); Dermatitis; Mixed hyperlipidemia; Fibromyalgia; Chronic midline low back pain, unspecified whether sciatica present; Obesity, Class I, BMI 30-34.9Start: 29-49-7715WqpgqiOribjszx C Sheets DO Work Phone: [facility] HospitalComment on above:Refill RequestStart: 12-10-2022 End: 63-16-5144tpbbysmfcvDsnwqic [employer] Other [employer] Other start: 74-27-0769Mcnrez outpatient visit 15 minutes [facility] Luisa [facility] NeurosurgeryStart: 12-09-2022 End: 50-60-9173yyexzvxcbgIlifqxt [employer] Other [employer] Other start: 15-98-7193Datbzjskc encounterMaria Luisa Farooq [facility] Referral CoordinatorStart: 12-02-2022 End: 04-68-7972ioxguhguqqHgptpni SpringerFacility:[facility] Rehabilitationtart: 12-02-2022 End: 41-60-8394alkjemfrfgXwmscye SpringerFacility:[facility] Rehabilitationtart: 42-83-8573Vklknvw encounter procedureDO Stacie Sheets Work Phone: [facility] Work Phone: Start: 12-02-2022 End: 83-03-4645utgvxssoopRZ Stacie C Sheets Work Phone: [facility] Work Phone: Start: 12-02-2022 End: 66-59-7750Hvnlsly encounter procedureDO Stacie Sheets Work Phone: [facility] Work Phone: Start: 61-08-8417WxryjvPrmoajgn C Sheets DO Work Phone: [facility] HospitalComment on above:Refill RequestStart: 13-35-2838Zjtjhvnpa for other specified special examinations [facility] NeurosurgeryStart: 59-76-6728Tqtzga outpatient new 45 minutesJemia [facility] NeurosurgeryStart: 10-31-2022 End: 60-94-9882nblvbxcbapFA Stacie C Sheets Work Phone: [facility] Work Phone: Start: 10-31-2022 End: 16-66-2534Ijdtrpx encounter procedureDO Stacie Sheets Work Phone: [facility] Work Phone: Start: 30-09-0511Gmmosetou encounterKimberly C Sheets DO Work Phone: [facility] HospitalComment on above:Referral RequestStart: 81-13-7489Dfnzdqlos encounterKimberly C Sheets DO Work Phone: [facility] HospitalComment on above:Results Start: 09-09-2022 End: 51-73-5091Wgwbptsire hospital visit by physicianLompoc Valley Medical CenterComment on above:Lumbar back pain [M54.50]Start: 09-09-2022 End: 86-05-5205Dbnyqka encounter procedureKimberly C Sheets DO Work Phone: [facility] HospitalComment on above:Essential hypertension (Primary Dx); Sciatica, right side; Lumbar back pain; Obesity, Class I, BMI 30-34.9Start: 68-79-3067FbizguBpqmlmhj C Sheets DO Work Phone: [facility] HospitalComment on above:Refill RequestStart: 67-22-8408Wjmpxnvvo encounterKimberly C Sheets DO Work Phone: [facility] HospitalComment on above:Results Start: 06-01-2022 End: 32-26-8113zbjkilovfrLTUQGPEA C SHEETSFacility:[facility] HospitalStart: 06-01-2022 End: 18-27-9611kdmntvsxfdNM Stacie C Sheets Work Phone: [facility] Work Phone: Start: 06-01-2022 End: 01-06-6165Ndagrwn encounter procedureDO Stacie Sheets Work Phone: [facility] Work Phone: Start: 77-93-9441Uoqxlwkbh encounterKimberly C Sheets DO Work Phone: [facility] HospitalComment on above:Lab Orders Start: 68-56-1916VgszlnZnbevlbc C Sheets DO Work Phone: [facility] HospitalComment on above:Refill RequestStart: 38-40-7242Gikncjlws encounterKimberly C Sheets DO Work Phone: [facility] HospitalComment on above:Results Start: 01-17-2022 End: 58-88-8920Djploly encounter procedureKimberly C Sheets DO Work Phone: [facility] HospitalComment on above:Well adult exam (Primary Dx); Essential hypertension; Mixed hyperlipidemia; Vitamin D deficiency; Weight loss; Encounter for screening mammogram for breast cancer; Obesity, Class I, BMI 30-34.9; BMI 30.0-30.9,adultStart: 01-17-2022 End: 10-89-3931Jnrsiqv encounter statusKimberly C Sheets DO Work Phone: [facility]art: 10-31-2021 End: 07-06-2083fsipharseoOL DOCTOR MISCFacility:A2Mafny: 73-55-6978Plpxpuhok encounterKimberly C Sheets DO Work Phone: [facility] HospitalComment on above:Lab Orders Start: 69-62-7178RalgoaQctqixla C Sheets DO Work Phone: [facility] HospitalComment on above:Refill RequestStart: 33-91-1215DztomlXqxdcjgc C Sheets DO Work Phone: [facility] HospitalComment on above:Refill RequestStart: 20-13-0249VhzvuvFioknnlx C Sheets DO Work Phone: [facility] HospitalComment on above:Refill RequestStart: 07-13-2021 End: 11-12-9928Rfyrobv encounter procedureKimberly C Sheets DO Work Phone: [facility] HospitalComment on above:Essential hypertension (Primary Dx); Vitamin D deficiency; Fibromyalgia; BMI 36.0-36.9,adult; Obesity, Class II, BMI 35-39.9Start: 01-20-2021 End: 78-30-9641rqzyuzhaxxXY DOCTOR MISCFacility:S3Xwmyp: 10-01-2017 End: 70-49-9510BkgtcwealwXZZZEI MOOREFacility:[facility] Procedures DateProcedureProcedure DetailPerforming ClinicianStart: 09-40-6510Lwwgf 1995 panel - Serum or PlasmaRehanaerly Sheets DO Work Phone: Start: 15-63-2048Dzqyw 1995 panel - Serum or Plasma Tameka Martini MAStart: 87-71-3099Tytg energy X-ray absorptiometryDO Stacie Sheets Work Phone: Start: 25-51-0300AZ lumbar spine wo conDO Stacie Sheets Work Phone: Start: 74-08-6398B-ray of lumbar spine, six views including bending viewsDO Stacie Sheets Work Phone: Start: 92-74-2594Pfsvq 1995 panel - Serum or Plasma Stacie Sheets DO Work Phone: Start: 59-40-4319HhyyfvdryqsBsgspxmq Sheets DO Work Phone: Start: 35-28-1430Vbcju depression screening assessment Stacie Sheets DO Work Phone: Start: 44-58-2239EefofhfscqqRxybbyvq Sheets DO Work Phone: Start: 41-96-0485Fbhct depression screening assessment Stacie Sheets DO Work Phone: Start: 61-82-6302GaycnbeqdllSikpxyzf Sheets DO Work Phone: Plan of Treatment DateCare ActivityDetailAuthorStart: 12-65-8309UBY Vaccine (1 - 1-dose 75+ series)RSV Vaccine (1 - 1-dose 75+ series)[facility]: 36-63-0505Zmxfk microalbumin profileKettering Health Miamisburgtart: 03-98-7038Wdjmh panelLipid Screening [facility]: 23-26-7331Uydcz 1996 panel - Serum or PlasmaLipid ScreeningK[facility]tering Health Miamisburgtart: 74-95-7271Fcflr panelLipid ScreeningK[facility]tering Health [facility]burgtart: 86-11-6481Jysbmedj ScreeningDiabetes ScreeningC[facility] Start: 11-80-2630Qnqaf 1996 panel - Serum or PlasmaLipid ScreeningK[facility]tering Health [facility]burgtart: 05-06-0321KLKBG SCREENLIPID SCREENKettering Health Miamisburgtart: 01-17-2027 LIPID SCREENLIPID SCREENKettering Health [facility]burgtart: 46-77-4197IXZCX SCREENLIPID SCREENKettering Health Miamisburgtart: 87-91-4144Wzwasbxj ScreeningDiabetes Screening [facility]: 71-13-9294Oeypxd PCP Team Chronic Disease VisitAnnual PCP Team Chronic Disease VisitKettering Health Miamisburgtart: 43-38-7135Xpfdbpc Screening Anxiety ScreeningCleMercy Health Springfield Regional Medical CenterComment on above:Postponed from 1978 (Postponed To Appropriate Date)Start: 98-36-5538Adniuqwlzd ScreeningDepression ScreeningCleMercy Health Springfield Regional Medical CenterComment on above:Postponed from 1978 (Postponed To Appropriate Date)Start: 65-27-0121Acjqgmdxljmv Vaccine: 50+ (1 of 1 - PCV) Pneumococcal Vaccine: 50+ (1 of 1 - PCV)[facility] HospitalComment on above: Postponed from 2010 (Declined at this time)Start: 00-06-1517Tlywkmtae for malignant neoplasm of cervixCervical Cancer ScreeningC[facility] Clinic [facility] HospitalComment on above:Postponed from 12/10/2021 (Declined at this time)Start: 04-25-2025 End: 77-60-1229Uhntuim encounter zwohymybn14/15/2025 11:20 AM EST Office Visit [facility] [address] [place] [address] Stacie Fairbanks DO [address], [place] [phone] rthip painNemaha County HospitalComment on above:rt hip painStart: 03-09-2025 End: 64-42-3430Cwphydw encounter vyqisjwho09/29/2025 3:15 PM EDT Office Visit Orthopaedics [address] [address] Antoni Brooks MD [address] [phone] Consult Primary osteoarthritis of right hip [M16.11] OrthopaedicsComment on above:Consult Primary osteoarthritis of right hip [M16.11]Start: 01-19-2025 End: 42-83-1750Rfujhci encounter ivcbmaqjp65/10/2025 10:40 AM EDT Office Visit [facility] [address] [place] [address] Stacie Fairbanks DO [address], [place] [phone] physicalNemaha County HospitalComment on above:physicalStart: 54-86-1897DYZPVJNG SCREENDIABETES SCREENKettering Health Miamisburgtart: 01-17-2025 Diabetes ScreeningDiabetes ScreeningKettering Health Miamisburgtart: 39-91-9753Hkxoih PCP Team Chronic Disease VisitAnnual PCP Team [facility] Disease VisitC[facility] Start: 64-63-6023DJ Controlled (<130/80)BP Controlled (<130/80)[facility] Start: 68-39-5808FDD Vaccine (1 - 1-dose 60+ series)RSV Vaccine (1 - 1-dose 60+ series)[facility] HospitalComment on above:Postponed from 2020 (Declined at this time)Start: 09-16-2024 End: 41-30-4743Hrdlmpf encounter oovesvmjv89/08/2025 1:30 PM EDT Office Visit [facility] [address] [place] [phone] Adore Shin MD [address] [place] [address] ArrivedNOMS DANIEL OPHTComment on above:ArrivedStart: 07-13-2024 COLORECTAL CANCER SCREENINGCOLORECTAL CANCER SCREENINGC[facility] Clinic [facility] HospitalComment on above:Postponed from 2005 (Postponed To Appropriate Date)Start: 83-38-6236PUBCSBHO SCREENDIABETES SCREENKettering Health Miamisburgtart: 07-13-2024 Screening for malignant neoplasm of colonColorectal Cancer ScreeningC[facility] Clinic [facility] HospitalComment on above:Postponed from 2005 (Postponed To Appropriate Date) Start: 20-32-6250Fiprygnkl for malignant neoplasm of breastMammogram Screening [facility]art: 32-66-4553LFCEYBTZC (FIT-DNA)COLOGUARD (FIT-DNA)[facility]: 58-10-3319Cedruwmuu for malignant neoplasm of colonCologuard (FIT-DNA)[facility]: 53-96-9416Bzstni PCP Team Chronic Disease Visit Annual PCP Team Chronic Disease VisitKettering Health Miamisburgtart: 84-66-7446CB Controlled (<130/80)BP Controlled (<130/80)[facility]: 06-70-3489JAY TESTINGHPV TESTINGKettering Health Miamisburgtart: 27-96-0405EYA TESTINGPAP TESTING [facility]: 82-92-2237Gagzmactw for malignant neoplasm of cervix [facility]: 48-75-6375JLSGFN PCP TEAM CHRONIC DISEASE VISITANNUAL PCP TEAM CHRONIC DISEASE VISITKettering Health Miamisburgtart: 15-71-6687SV CONTROLLED (<130/80)BP CONTROLLED (<130/80)[facility]: 23-84-5533UQ Breast - bilateral ScreeningChildren's Hospital for Rehabilitationtart: 89-40-1228Yaadlqnht mammography of bilateral breastsMM screening mammo BI w/CADChildren's Hospital for Rehabilitationtart: 70-58-5382PmedvjvpbpnSvzxjzwet ClinicStart: 06-01-2023 Screening for malignant neoplasm of breastMammogram ScreeningC[facility] Clinic [facility] Start: 31-60-6942Adcnbppkyj Health ScreeningBehavioral Health ScreeningKettering Health Miamisburgtart: 77-37-3851Uhobwrksba AssessmentDepression AssessmentKettering Health Miamisburgtart: 01-31-2023 End: 46-47-3369VIO panel - Blood by Automated countCBC Lab Routine Essential hypertension Expected: 01/31/2023, Expires: 04/02/2023[facility] Work Phone: Comment on above:Expected: 01/31/2023, Expires: 04/02/2023Start: 01-31-2023 End: 11-25-8952Vhcfbdovytkie metabolic 2000 panel - Serum or PlasmaCOMP METABOLIC PANEL Lab Routine Essential hypertension Expected: 01/31/2023, Expires: 04/02/2023[facility] Work Phone: Comment on above:Expected: 01/31/2023, Expires: 04/02/2023Start: 01-31-2023 End: 67-37-4472Tykhj 1996 panel - Serum or PlasmaLIPID PANEL BASIC Lab Routine Mixed hyperlipidemia Expected: 01/31/2023, Expires: 04/02/2023[facility] Work Phone: Comment on above:Expected: 01/31/2023, Expires: 04/02/2023Start: 34-12-2009Uhiiw depression screening assessmentDEPRESSION SCREENINGKettering Health Miamisburgtart: 55-78-7515OYASFF PCP TEAM CHRONIC DISEASE VISIT ANNUAL PCP TEAM CHRONIC DISEASE VISITKettering Health Miamisburgtart: 78-70-6569HP CONTROLLED (<130/80)BP CONTROLLED (<130/80)[facility]: 01-10-2023 Influenza vaccinationKettering Health Miamisburgtart: 23-18-2665Yszivqshj vaccination INFLUENZA (#1)[facility] HospitalComment on above:Postponed from 01/10/2022 (Declined at this time)Start: 86-53-9829IZGYCD PCP TEAM CHRONIC DISEASE VISIT ANNUAL PCP TEAM CHRONIC DISEASE VISITKettering Health Miamisburgtart: 90-08-9021KX CONTROLLED (<130/80)BP CONTROLLED (<130/80)[facility]: 07-13-2022 COVID-19 VACCINE (#1)COVID-19 VACCINE (#1)[facility] HospitalComment on above: Postponed from 1965 (Declined at this time)Postponed from 01/10/1961 (Declined at this time)Start: 97-42-4190LVLDF-19 VACCINE (1)COVID-19 VACCINE (1) [facility] HospitalComment on above:Postponed from 1965 (Declined at this time)Start: 62-37-0783PA Breast - bilateral ScreeningChildren's Hospital for Rehabilitationtart: 88-71-7978Rhwxnoycu mammography of bilateral breastsMM screening mammo BI w/CADChildren's Hospital for Rehabilitationtart: 78-34-3180HLUPZGTLEO ASSESSMENTDEPRESSION ASSESSMENTKettering Health [facility]burgtart: 05-10-2022 End: 40-48-2457Yjpthvr function 2000 panel - Serum or PlasmaHEPATIC FUNCTION PNL Lab Routine Mixed hyperlipidemia Expected: 05/10/2022, Expires: 2022 [facility] Work Phone: Comment on above:Expected: 05/10/2022, Expires: 2022Start: 05-10-2022 End: 30-27-9467Wlzsd 1996 panel - Serum or PlasmaLIPID PANEL BASIC Lab Routine Mixed hyperlipidemia Expected: 05/10/2022, Expires: 2022[facility] Work Phone: Comment on above:Expected: 05/10/2022, Expires: 2022Start: 93-07-6745WepiplwozywECBLIDWYCBmfpeqcyt ClinicStart: 01-10-2022 Influenza vaccinationINFLUENZA (Season Ended)[facility]: 12-10-2021 Screening for malignant neoplasm of cervixCervical Cancer ScreeningKettering Health Miamisburgtart: 23-12-5340Oqsyytrqk vaccinationINFLUENZA (#1)[facility] Comment on above:Postponed from 01/10/2021 (Declined at this time)Start: 10-16-2021 End: 36-99-9274XZZFMSH FUNCTION PNLHEPATIC FUNCTION PNL Lab Routine Mixed hyperlipidemia Expected: 10/16/2021, Expires: [address] [place] [address] Work Phone: Comment on above:Expected: 10/16/2021, Expires: 12/16/2021tart: 10-16-2021 End: 34-96-7819LJWBO PANEL BASICLIPID PANEL BASIC Lab Routine Mixed hyperlipidemia Expected: 10/16/2021, Expires: [address] [place] [address] Work Phone: Comment on above:Expected: 10/16/2021, Expires: 12/16/2021tart: 10-16-2021 End: 70-32-2203AZSZGCM D 25 HYDROXYVITAMIN D 25 HYDROXY Lab Routine Vitamin D deficiency Expected: 10/16/2021, Expires: [address] [place] [address] Work Phone: Comment on above:Expected: 10/16/2021, Expires: 12/16/2021tart: 24-22-3473Saigh depression screening assessmentDEPRESSION SCREENINGKettering Health Miamisburgtart: 69-66-1039QLMSTJEZIB ASSESSMENTDEPRESSION ASSESSMENTKettering Health [facility]burgtart: 30-51-1907Blyrxogdc for malignant neoplasm of colonColorectal Cancer ScreeningKettering Health Miamisburgtart: 24-30-5738Jjguxwhzqkw COLONOSCOPYK[facility]tering Health [facility]burgtart: 92-14-9566Mxzmlupwi for malignant neoplasm of colonColonoscopyKettering Health Miamisburgtart: 87-78-7864CIG Vaccine (1 - 1-dose 60+ series)RSV Vaccine (1 - 1-dose 60+ series)[facility]: 2010 Pneumococcal Vaccine: 50+ (1 of 1 - PCV)Pneumococcal Vaccine: 50+ (1 of 1 - PCV) [facility]: 61-69-5504QF COLONOGRAPHYCT COLONOGRAPHYC[facility] Clinic [facility] Start: 79-76-2623MECDW OCCULT BLOODFECAL OCCULT BLOODKettering Health Miamisburgtart: 47-84-0197Cnvougtzm for malignant neoplasm of colonKettering Health Miamisburgtart: 56-47-8289KKSQYXJRRIVUZYDPWFWRMENZVRFourciztv ClinicStart: 36-22-7697Vquosgo ScreeningAnxiety ScreeningKettering Health Miamisburgtart: 30-30-6519PE Controlled (<130/80)BP Controlled (<130/80)[facility]: 61-77-5299Opqpxlweqp ScreeningDepression ScreeningKettering Health Miamisburgtart: 10-35-1521GIWNL-19 VACCINE (#1)COVID-19 VACCINE (#1)[facility] HospitalCOLOGUARDCOLOGUARD Lab Routine Screening for colon cancer Ordered: 01/19/2025[facility] Work Phone: Comment on above:Ordered: 01/19/2025 End: 32-61-5179VYZ Breast - bilateral screeningMAM SCREENING W RANDI Radiology Routine Encounter for screening mammogram for breast cancer 1 Occurrences starting 09/14/2024 until 10/14/2025[facility] Work Phone: Comment on above:1 Occurrences starting 09/14/2024 until 10/14/2025 End: 51-85-8244Ixjfc spine lumbosacral minimum 4 viewsXR LUMBAR PARS DEFECT 4V AP/LAT/BOTH OBL Radiology Routine Lumbar back pain 1 Occurrences starting 0 09/09/2022 until 10/09/2023[facility] Work Phone: Comment on above:1 Occurrences starting 09/09/2022 until 10/09/2023 End: 21-97-2077Kbnlh spine lumbosacral minimum 4 viewsBlanchard Valley Health System Work Phone: Comment on above:1 Occurrences starting 09/09/2022 until 09/09/2022 End: 96-26-2038Jbdolomny mammography bi 2-view breast inc cadMAM SCREENING Radiology Routine Encounter for screening mammogram for breast cancer 1 Occurrences starting 01/17/2022 until 02/16/2023[facility] Work Phone: Comment on above:1 Occurrences starting 01/17/2022 until 02/16/2023 End: 20-70-2862YX HIP GENERAL 3V PELV/AP/LAT RIGHTXR HIP GENERAL 3V PELV/AP/LAT RIGHT Radiology Routine Right hip pain 1 Occurrences starting 09/17/2022 until 10/17/2023[facility] Work Phone: Comment on above:1 Occurrences starting 09/17/[address] [place] [address] Immunizations Immunization DateImmunizationNotesCare SgulpirqVepqdwvi66-81-8284gvxubp vaccine recombinantKimberly Sheets DO Work Phone: [facility] HospitalWqacci63-43-4768civiwk vaccine recombinant Stacie Sheets DO Work Phone: [facility] HospitalWyiutk36-03-1157xtgrvby toxoid, reduced diphtheria toxoid, and acellular pertussis vaccine, adsorbedKimberly Sheets DO Work Phone: [facility] HospitalParrbd27-59-5034wnpsjh vaccine, recombinant, adjuvanted, (SHINGRIX) 50 mcg/0.5 mL injectionKimberly Sheets DO Work Phone: [facility] Work Phone: Comment on above:Inject 0.5 mL intramuscularly now and repeat 2nd dose in 2-6 months Payers DatePayer CategoryPayerPolicy [id number] Blue Shield [id number] [id number] MMO SUPERMED PLUS [id number] 2017-Present [phone] [address] [place] [address] [id number] Social History DateTypeDetailFacilityStart: 23-65-8961Uaaqezj smoking status NHISNever smoked tobaccoCleveland Clinic [facility] Work Phone: Start: 08-01-2021 End: 18-30-9074Jgugjvh intakeCurrent drinker of alcohol (finding)[facility]: 19-60-7777Xogxlhw SDOH Alcohol CommentwineChighland district hospital ClinicStart: 76-37-3452Fpa Assigned At BirthNot on fileKettering Health Miamisburgtart: 06-13-2021 End: 88-24-1181Ggzkzrww to SARS-CoV-2 (event)Not sureKettering Health Miamisburgtart: 39-37-5924Twdapzu use and exposureSmokeless tobacco non-userC[facility] Clinic [facility] Start: 92-26-7781Xcu Assigned At [facility] Start: 09-09-2022 End: 56-51-3342Qrf Assigned At [facility] Work Phone: Start: 09-09-2022 End: 41-91-6187Kqabjav of Social functionCleveland Clinic [facility] Work Phone: Start: 59-48-5332Ntscp Depression Screening Assessment 0[facility] Work Phone: [facility] [place] smoking status NHISTobacco smoking consumption unknownSaint Mary's Health CenterStart: 21-10-4366Yrwraz identityIdentifies as female gender (finding)[facility] Clinical Notes 09-27-2016 to 03-09-2025 Note Date & LkyiHdtgPnawxkzu41-82-5628 NoteHNO ID: [id number] Author: MARIA LUISA LOWE Tech Service: Radiology Author Type: Spring Tier Type: Progress Notes Filed: 03/09/2025 15:16 Note Text: Radiology Service Progress Note PATIENT NAME: Saida Corbin DATE OF SERVICE: March 09, 2025 TIME: 3:16 PM PATIENT IDENTITY VERIFICATION COMPLETED USING TWO (2) IDENTIFIERS: Name and Date of confirmed by patient verbally. FALL SCREENING: Has the patient had 2 falls in the last year or 1 fall with injury or currently using an Ambulatory Assistive Device (Walker, Cane, Wheelchair, Crutches, etc.)? No PATIENT GENDER DATA: Assigned female at . status: : No status: NO. PATIENT RELEVANT IMPLANT DATA REVIEWED: Not Applicable PATIENT PRESENTS WITH AN IMPLANTABLE OR ATTACHED CAKE ICER: No RADIOLOGY DEPARTMENT: General X-ray: Exam(s) Completed: Pelvis X-Ray: Pelvis with Hip Right and Wt. Bearing PERIPHERAL IV DATA: Not applicable SIGNED BY: Shane Artis March 09, 2025 3:16 PMOhiohealth Nelsonville Health CenterQxojbghg07-64-7920 NotePHARMACIST CONSULT - REFERRAL 03/02/25 Referring Provider: Alissa Cordero CNP Clinic: [facility] Saida Corbin is referred to clinic pharmacists for lipid management (PMH of HTN, hyperlipidemia, LDL goal < 70, with most recent LDLc 214. Currently taking no prescription medications for hyperlipidemia, drinking mushroom coffee). Patient is intolerant of statins, has tried atorvastatin, rosuvastatin, and pravastatin with severe muscle pain with each. Electronic order received from patient's cardiology provider. Will call patient to discuss starting a PCSK9i vs Leqvio. Lizzie Cotton PharmD [facility] 03/02/25[facility]10-[facility]-2025 NoteSpoke with patient, who had previously discussed Leqvio with Marci at her appointment. Discussed the MOA of Leqvio and Repatha, as well as administration, side effects, insurance coverage and estimated LDL reduction. Reviewed most recent LDL with patient, as well as her goal of <70 mg/dL. Patient reports she is afraid of needles, so she would prefer to not give herself the injection. In addition, she has a history of side effects from medications, so she would prefer Leqvio since it does not remain in the body for a long period of time. She has not tried ezetimibe in the past, however, given the risk of muscle pain with this medication and the degree of LDL-lowering required to reach goal, this is not a preferred agent. Discussed lifestyle with patient. She reports that she does eat red meat, but she avoids fast food and desserts. She cooks with olive oil. Patient will work towards eating more fish and chicken and reducing red meat intake. Placed therapy plan for Leqvio. Lizzie Cotton PharmD [facility] 03/02/25 10:33 AMThe [facility]10-21-2025 Note Cardiovascular Medicine [facility] SUBJECTIVE Chief Complaint Patient presents with Follow-up Patient is here today for a 1 year follow up. Patient is no longer taking any statins due to sever body aches and muscle pain. Patient states she using the mushroom coffee and feels so much better. Patient denies chest pain, sob/lopez, fatigue, Cardiac Arrest Hypertension Hyperlipidemia Edema Bilateral leg swelling Saida Corbin is a 64 y.o. female here for follow-up. 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 Was worse with taking 40mg vs 20mg so she is currently only taking 20mg daily. Staying active, she was swimming over the summer. LE edema occurs at the end of the day. Stable. Denies c/o CP, dyspnea, orthopnea, PND, dizziness/LH, palpitations, syncope. She works for [employer]. Works typically 6m out of the year. Hoping to retire soon as her is retired. 03/01/2025 She was not able to tolerate any statins. We tried simvastatin, atorvastatin, pravastatin, and rosuvastatin. Muscle cramps were debilitating. She has been exercising, she did exercises in her pool this summer. BP at home had been running 120-130s/80s. Denies c/o CP, dyspnea, orthopnea, PND, LE edema, dizziness/LH, palpitations, syncope. Patient Active Problem List Diagnosis BMI 30.0-30.9,adult Cardiac arrest (CMS/HCC) Dermatitis Chronic midline low back pain Hot flashes Hypertensive disorder Mixed hyperlipidemia Primary osteoarthritis of right hip Past Medical History: Diagnosis Date Hyperlipidemia Hypertension No family history on file. Social History Tobacco Use Smoking status: Never Smokeless tobacco: Never Substance Use Topics Alcohol use: Yes Comment: occasional Drug use: Never Allergies Allergen Reactions Antihistamines - Alkylamine Unknown Baclofen Other Shaky, chest tightness, difficulty talking Cyclobenzaprine Other Shaky, chest tightness, difficulty talking Fduvohefo-Nta-Uf-Acetaminophen Unknown Latex Other and Unknown Mbkpfnp-Zte-Aty Reductase Inhibitors Diarrhea, Other, GI intolerance and Unknown Nausea Severe muscle cramping ROS Constitutional: Positive for weight gain (19# since Feb 2023). Cardiovascular: Positive for leg swelling (resolves by morning). Musculoskeletal: Positive for joint pain. All other systems reviewed and are negative. OBJECTIVE Visit Vitals BP 173/85 (BP Location: Right arm, Patient Position: Sitting) Pulse 75 Ht 1.651 m (5' 5 ) Wt 101 kg (222 lb) SpO2 95% BMI 36.94 kg/m??? Smoking Status Never BSA 2.15 m??? Medications: Current Outpatient Medications: ibuprofen 800 mg tablet, Take 800 mg by mouth every 8 (eight) hours if needed., Disp: , Rfl: traMADol (Ultram) 50 mg tablet, Take 50 mg by mouth if needed., Disp: , Rfl: amLODIPine (Norvasc) 5 mg tablet, TAKE 1 TABLET BY MOUTH EVERY DAY DIRECTED, Disp: 90 tablet, Rfl: 3 cholecalciferol (Vitamin D-3) 25 MCG (1000 units) tablet, Take 1,000 Units by mouth in the morning. (Patient not taking: Reported on 03/01/2025), Disp: , Rfl: Physical Exam Vitals reviewed. [...] Thought content normal. Judgment: Judgment normal. Labs: 03/01/2025 Chol 326, trig 298, HDL 51, LDL 214 Cr 0.78, BN 16, K 4.6, Na 140, eGFR 85, AST 18, ALT 20 02/26/2024 Hgb 13.7, plt 230 Cr 0.77, BUN 17, K 4.6, Na 143, eGFR >60, AST 21, ALT 36 Chol 190, trig 134, HDL 58, LDL 105 02/27/2023 Hgb 13.9, plt 267 Cr 0.63, BUN 16, K 4.4, Na 141, eGFR 100, AST 22, ALT 27 Chol 203, trig 173, HDL 55, LDL 113, VLDL 35 10/31/2021 AST 20, ALT 38 Chol 209, HDL 44, trig 88, LDL 147.4 Labs 07/13/2021: CBC-unremarkable CMP-creatinine 0.67, BUN 12, K4.3, GFR greater than 60, AST 48, ALT 75 Lipids: Cholesterol 214, trig 182, (more content not included)...[facility]09-10-2025 NoteHNO ID: [id number] Author: STACIE FAIRBANKS, DO Service: ? Author Type: Physician Type: Progress Notes Filed: 01/19/2025 17:21 Note Text: Subjective Saida Corbin is a 64 year old female here for wellness Hyperlipidemia: - she stopped taking statins because she was having muscle cramping in her legs b/l. Back pain: - she has lower back pain and right hip pain from arthritis - she has a scooter that she uses when she goes out - she had a pool all summer that she walked in for therapy, but has pain when she walks - she takes tylenol, which is minimally effective - pain can wake her up at night if she exerts herself too much during the day ALLERGIES Allergen Reactions Baclofen Other: See Comments Shaky, chest tightness, difficulty talking Crestor [Rosuvastat* Diarrhea, Vomiting, Other: See Comments Nausea Cyclobenzaprine Other: See Comments Shaky, chest tightness, difficulty talking Latex Unknown Nyquil [Doxylamin-P* Unknown Pheniramine Unknown Umxwmlo-Skv-Ecr Red* Myalgia cramping Current Outpatient Medications Medication Sig Dispense Refill MUSHROOM Mushroom coffee albuterol HFA (PROVENTIL HFA, VENTOLIN HFA) 90 mcg/actuation inhaler 2 puff(s) every 4 hours as needed 1 Each 3 betamethasone dipropionate (DIPROSONE) 0.05 % cream apply to affected area twice a day 45 g 5 ibuprofen (MOTRIN) 800 mg tablet TAKE 1 TABLET BY MOUTH EVERY 8 HOURS NEEDED 90 tablet 11 omega-3 fatty acids (FISH OIL CONCENTRATE ORAL) Take by mouth. Multivitamin capsule Take 1 capsule by mouth once daily. cholecalciferol (VITAMIN D3) 1,000 unit tab tablet Take 1,000 Units by mouth once daily. betamethasone dipropionate, augmented (DIPROLENE) 0.05 % cream betamethasone, augmented 0.05 % topical cream fluticasone (FLOVENT) 110 mcg/actuation inhaler Inhale 1 Puff as instructed twice daily. 1 Inhaler 1 atorvastatin (LIPITOR) 40 mg tablet take 1 tablet by mouth every day (Patient not taking: Reported on 01/19/2025) 90 tablet 1 OTC PRODUCT CBD gummies as needed (Patient not taking: Reported on 01/19/2025) amLODIPine (NORVASC) 5 mg tablet Take 5 mg by mouth once daily. No current facility-administered medications for this visit. ACTIVE PROBLEM LIST Essential Hypertension Mixed Hyperlipidemia Bmi 30.0-30.9,Adult Obesity, Class I, Bmi 30-34.9 Fibromyalgia Chronic Midline Low Back Pain Dermatitis Primary Osteoarthritis of Right Hip Obesity, Class II, Bmi 35-39.9 SOCIAL HISTORY[1] Family History Problem Relation Age of Onset Alzheimer's Disease Father Hypertension Father Prostate Cancer Father Hypertension Mother Reviewed past medical history, family history and surgeries. All medications and supplements were reviewed with the patient. HPI Review of Systems Constitutional: Negative for activity change, appetite change and unexpected weight change. Respiratory: Negative for chest tightness and shortness of breath. Cardiovascular: Negative for chest pain. Gastrointestinal: Negative for abdominal pain. Genitourinary: Negative for difficulty urinating. Musculoskeletal: Positive for back pain, gait problem and myalgias. Negative for arthralgias. Objective BP 144/82 Pulse 65 Temp 36.6 ?C (97.9 ?F) Resp 16 Ht 165.1 cm (5' 5 ) Wt 99.8 kg (220 lb) SpO2 95% BMI 36.61 kg/m? Physical Exam Constitutional: Appearance: Normal appearance. She is obese. HENT: Mouth/Throat: Dentition: Normal dentition. Eyes: General: Lids are normal. Conjunctiva/sclera: Conjunctivae normal. Pupils: Pupils are equal, [...] is no abdominal tenderness. Musculoskeletal: General: No tenderness. Normal range of motion. Cervical back: Normal range of motion and neck supple. No edema. Lymphadenopathy: Cervical: No cervical adenopathy. Skin: General: Skin is warm and dry. Findings: No erythema or rash. Nails: There is no clubbing. Neurological: Mental Status: She is alert and oriented to person, place, and time. Cranial Nerves: No cranial nerve deficit. Coordination: Coordination normal. Psychiatric: Judgment: Judgment normal. ASSESSMENT/PLAN: 1. Well adult exam - ICD9: V70.0, ICD10: Z00.00 (primary diagnosis) - Counseled on healthy diet and regular exercise 2. Essential hypertension - ICD9: 401.9, ICD10: I10 - Continue current medications - Recommend home blood pressure monitoring, to bring results to next visit - (more content not included)...[facility]09-10-2025 History of Present illness Narrative* Stacie Fairbanks DO - 01/19/2025 10:25 AM EDT Subjective Saida Corbin is a 64 year old female here for wellness Hyperlipidemia: - she stopped taking statins because she was having muscle cramping in her legs b/l. Back pain: - she has lower back pain and right hip pain from arthritis - she has a scooter that she uses when she goes out - she had a pool all summer that she walked in for therapy, but has pain when she walks - she takes tylenol, which is minimally effective - pain can wake her up at night if she exerts herself too much during the day ALLERGIES Allergen Reactions Baclofen Other: See Comments Shaky, chest tightness, difficulty talking Crestor [Rosuvastat* Diarrhea, Vomiting, Other: See Comments Nausea Cyclobenzaprine Other: See Comments Shaky, chest tightness, difficulty talking Latex Unknown Nyquil [Doxylamin-P* Unknown Pheniramine Unknown Yegazur-Uap-Slj Red* Myalgia cramping Current Outpatient Medications Medication Sig Dispense Refill MUSHROOM Mushroom coffee albuterol HFA (PROVENTIL HFA, VENTOLIN HFA) 90 mcg/actuation inhaler 2 puff(s) every 4 hours as needed 1 Each 3 betamethasone dipropionate (DIPROSONE) 0.05 % cream apply to affected area twice a day 45 g 5 ibuprofen (MOTRIN) 800 mg tablet TAKE 1 TABLET BY MOUTH EVERY 8 HOURS NEEDED 90 tablet 11 omega-3 fatty acids (FISH OIL CONCENTRATE ORAL) Take by mouth. Multivitamin capsule Take 1 capsule by mouth once daily. cholecalciferol (VITAMIN D3) 1,000 unit tab tablet Take 1,000 Units by mouth once daily. betamethasone dipropionate, augmented (DIPROLENE) 0.05 % cream betamethasone, augmented 0.05 % topical cream fluticasone (FLOVENT) 110 mcg/actuation inhaler Inhale 1 Puff as instructed twice daily. 1 Inhaler 1 atorvastatin (LIPITOR) 40 mg tablet take 1 tablet by mouth every day (Patient not taking: Reported on 01/19/2025) 90 tablet 1 OTC PRODUCT CBD gummies as needed (Patient not taking: Reported on 01/19/2025) amLODIPine (NORVASC) 5 mg tablet Take 5 mg by mouth once daily. No current facility-administered medications for this visit. ACTIVE PROBLEM LIST Essential Hypertension Mixed Hyperlipidemia Bmi 30.0-30.9,Adult Obesity, Class I, Bmi 30-34.9 Fibromyalgia Chronic Midline Low Back Pain Dermatitis Primary Osteoarthritis of Right Hip Obesity, Class II, Bmi 35-39.9 SOCIAL HISTORY[1] Family History Problem Relation Age of Onset Alzheimer's Disease Father Hypertension Father Prostate Cancer Father Hypertension Mother Reviewed past medical history, family history and surgeries. All medications and supplements were reviewed with the patient. HPI Review of Systems Constitutional: Negative for activity change, appetite change and unexpected weight change. Respiratory: Negative for chest tightness and shortness of breath. Cardiovascular: Negative for chest pain. Gastrointestinal: Negative for abdominal pain. Genitourinary: Negative for difficulty urinating. Musculoskeletal: Positive for back pain, gait problem and myalgias. Negative for arthralgias. Objective BP 144/82 Pulse 65 Temp 36.6 C (97.9 F) Resp 16 Ht 165.1 cm (5' 5 ) Wt 99.8 kg (220 lb) SpO2 95% BMI 36.61 kg/m Physical Exam Constitutional: Appearance: Normal appearance. She is obese. HENT: Mouth/Throat: Dentition: Normal dentition. Eyes: General: Lids are normal. Conjunctiva/sclera: Conjunctivae normal. Pupils: Pupils are equal, [...] is no abdominal tenderness. Musculoskeletal: General: No tenderness. Normal range of motion. Cervical back: Normal range of motion and neck supple. No edema. Lymphadenopathy: Cervical: No cervical adenopathy. Skin: General: Skin is warm and dry. Findings: No erythema or rash. Nails: There is no clubbing. Neurological: Mental Status: She is alert and oriented to person, place, and time. Cranial Nerves: No cranial nerve deficit. Coordination: Coordination normal. Psychiatric: Judgment: Judgment normal. ASSESSMENT/PLAN: 1. Well adult exam - ICD9: V70.0, ICD10: Z00.00 (primary diagnosis) - Counseled on healthy diet and regular exercise 2. Essential hypertension - ICD9: 401.9, ICD10: I10 - Continue current medications - Recommend home blood pressure monitoring, to bring results to next visit - Encouraged sodium restriction, DASH or Mediterranean diet - Recommend regular aerobic exercise - COMPLETE BLOOD COUNT 3. Mixed hyperlipidemia - ICD9: 272.2, ICD10: E78.2 - Saida stopped lipitor due to myalgias - LIPID PANEL, FASTING - COMPREHENSIVE METABOLIC PANEL 4. Screening for colon cancer - ICD9: V76.51, ICD10: Z12.11 - COLOGUARD 5. Chronic midline low back pain without sciatica - ICD9: 724.2, 338.29, ICD10: M54.50, G89.29 - trial of tramadol - IBUPROFEN 800 MG TABLET - TRAMADOL 50 MG TABLET 6. Primary osteoarthritis of right hip - ICD9: 715.15, ICD10: M16.11 - refer to Dr. Brooks in [place] - CONSULT TO ORTHOPAEDICS 7. Mild intermittent asthma, uncomplicated (HCC) - ICD9: 493.90, ICD10: J45.20 - ALBUTEROL SULFATE HFA 90 MCG/ACTUATION AEROSOL INHALER 8. Statin intolerance - ICD9: 995.27, ICD10: Z78.9 - pt stopped lipitor 9. Obesity, Class II, BMI 35-39.9 - ICD9: 278.00, ICD10: E66.812 - Lifestyle modification recommended Stacie Fairbanks DO PDMP website checked and validated. All prescriptions have been APPROPRIATELY filled. No suspiciousactivity was identified. 01/19/2025 by Stacie Fairbanks DO [1] Social History Tobacco Use Smoking status: Never Smokeless tobacco: Never Vaping Use Vaping status: Never Used Substance Use Topics Alcohol use: Yes Comment: wine Drug use: No Comment: No reported history documented in this encounterC[facility]05[facility] History of Present illness Narrative* Adore Shin MD - 09/16/2024 1:30 PM EDT Assessment/Plan Cataract, OU: Observe for now without intervention. The patient was advised to contact us if any change or worsening of vision documented in this encounterSaint Mary's Health [id number] NotePatient Outreach (AGFAMPLE) SAIDA CORBIN ([id number]) 1960 F Date Time Provider Department 09/14/24 STACIE FAIRBANKS During your visit today, we recorded the following information about you: Allergies As of Date: 09/14/2024 Noted Allergy Reaction BACLOFEN 01/31/2023 14 - Other: See Comments Comments: Shaky, chest tightness, difficulty talking CRESTOR (ROSUVASTATIN CALCIUM) 12/21/2015 6 - Diarrhea 11 - Vomiting 14 - Other: See Comments Comments: Nausea CYCLOBENZAPRINE 01/31/2023 14 - Other: See Comments Comments: Shaky, chest tightness, difficulty talking LATEX 12/26/2014 16 - Unknown NYQUIL (QBIMWXIZM-LDK-SD-ACETAMIN*12/21/2015 16 - Unknown PHENIRAMINE 12/26/2014 16 - Unknown Date Reviewed: 10/01/2023 Reviewed by: Stacie Fairbanks DO - Fully Assessed Visit Diagnosis:Encounter for screening mammogram for breast cancer [Z12.31] Order(s):[facility] SCREENING [facility]ANDI [[id number]] Order #: [id number] FUTURE Prescriptions as of 10/15/2024 - atorvastatin (LIPITOR) 40 mg tablet take 1 tablet by mouth every day - albuterol HFA (PROVENTIL HFA, VENTOLIN HFA) 90 mcg/actuation inhaler 2 puff(s) every 4 hours as needed - betamethasone dipropionate (DIPROSONE) 0.05 % cream apply to affected area twice a day - ibuprofen (MOTRIN) 800 mg tablet TAKE [...] Inhale 1 Puff as instructed twice daily. Problem List As Of Date 09/14/2024 Noted Resolved Essential hypertension [I10] 09/27/2016 Hyperlipidemia [E78.5] 09/27/2016 04/15/2017 Mixed hyperlipidemia [E78.2] 04/15/2017 BMI 30.0-30.9,adult [Z68.30] 03/24/2020 Obesity, Class I, BMI 30-34.9 [E66.811] 07/13/2021 Fibromyalgia [M79.7] 08/01/2021 Chronic midline low back pain [M54.50, G89.29] 02/16/2023 Dermatitis [L30.9] 02/16/2023 Primary osteoarthritis of right hip [M16.11] 10/01/2023 Encounter Status:Closed by BASIM BOLIVAR on 10/15/24[facility] 01-26-2024 Telephone encounter Note* Telephone Encounter - Estela Odonnell Student - 01/26/2024 1:12 PM EDT pharmacy requesting refills as follows: Last office visit: 10/01/23 Last refill: 07/28/23 Requested Prescriptions Pending Prescriptions Disp Refills atorvastatin (LIPITOR) 40 mg tablet [Pharmacy Med Name: ATORVASTATIN 40 MG TABLET] 90 tablet 1 Sig: take 1 tablet by mouth every day Please review and advise. Tiffanie Bernardo [facility]09-16-2024 Miscellaneous Notes* Telephone Encounter - Estela Odonnell Student - 01/26/2024 1:12 PM EDT pharmacy requesting refills as follows: Last office visit: 10/01/23 Last refill: 07/28/23 Requested Prescriptions Pending Prescriptions Disp Refills atorvastatin (LIPITOR) 40 mg tablet [Pharmacy Med Name: ATORVASTATIN 40 MG TABLET] 90 tablet 1 Sig: take 1 tablet by mouth every day Please review and advise. Tiffanie Bernardo documented in this encounterCleveland Clinic [facility]08-05-2024 Telephone encounter Note * Telephone Encounter - Isadora Kan MA - 12/15/2023 3:39 PM EDT Patient phones requesting refills as follows: Last seen 10/01/23. Requested Prescriptions Pending Prescriptions Disp Refills albuterol HFA (PROVENTIL HFA, VENTOLIN HFA) 90 mcg/actuation inhaler 1 Each 3 Si puff(s) every 4 hours as needed Please review and advise. Isadora Kan MA [facility]08-05-2024 Miscellaneous Notes* Telephone Encounter - Isadora Kan MA - 12/15/2023 3:39 PM EDT Patient phones requesting refills as follows: Last seen 10/01/23. Requested Prescriptions Pending Prescriptions Disp Refills albuterol HFA (PROVENTIL HFA, VENTOLIN HFA) 90 mcg/actuation inhaler 1 Each 3 Si puff(s) every 4 hours as needed Please review and advise. Isadora Kan MA documented in this encounterCleveland Clinic [facility]05-22-2024 History of Present illness Narrative* Stacie Fairbanks DO - 10/01/2023 11:25 AM EDT Subjective The history is provided [...] that it is summer and does not wantto go to PT at this time ALLERGIES [...] recommended Stacie Fairbanks DO documented in this encounterC[facility] Clinic [facility]03-18-2024 Miscellaneous Notes* Telephone Encounter - Brynn Schrader MA - 07/28/2023 7:29 AM EDT Pharmacy requesting refills as follows: Last Office Visit 01/31/23 nov 10/01/23. Last Refill 01/31/23. Requested Prescriptions Pending Prescriptions Disp Refills atorvastatin (LIPITOR) 40 mg tablet [Pharmacy Med Name: ATORVASTATIN 40 MG TABLET] 90 tablet 1 Sig: take 1 tablet by mouth every day Please review and advise. Brynn Schrader MA documented in this encounterCleveland Clinic [facility]11-01-2023 Evaluation note* Encounter Date Diagnosis Assessment Notes Treatment Notes Treatment Clinical Notes Mar, Sacroiliac inflammation (ICD-10 - M46.1) She is doing well. States sonservative thearpy, PT and Pain management are working well. States hasnot had any pain or concerns after recent Pain management procedure. Pharmacological management will continue with current medications as prescribed. Will follow up in 6 months. Mar,Lumbar radiculopathy (ICD-10 - M54.16) [facility] Other 10-24-2023 Miscellaneous Notes* Telephone Encounter - Tameka Martini MA - 03/04/2023 10:38 AM EDT Patient aware. Tameka Martini MA * Telephone Encounter - Tameka Martini MA - 03/04/2023 10:38 AM EDT ----- Message from Stacie Fairbanks DO sent at 03/04/2023 10:11 AM EDT ----- Please notify pt her cholesterol is slightly elevated, but greatly improved. She should continue her current meds, follow low fat high fiber diet, exercise 30 minutes per day Stacie Fairbanks DO documented in this encounterCleveland Clinic [facility]09-25-2023 Miscellaneous Notes* Telephone Encounter - Brynn Schrader MA - 02/03/2023 8:17 AM EDT Patient is informed Brynn Schrader MA * Telephone Encounter - Stacie Fairbanks DO - 01/31/2023 5:38 PM EDT Please call pt- there is a possible interaction between simvastatin and amlodipine. Because of that, I would like for her to stop taking simvastatin, and I will send in Rx for atorvastatin. I would like for her to get FLP/LFT in 3 months Stacie Fairbanks DO documented in this encounterC[facility] Miscellaneous Notes* Telephone Encounter - Isadora Kan MA - 01/31/2023 2:39 PM EDT [facility] Prescriber Response Form regarding patient's amlodipine and simvastatin placed in Dr. Fairbanks green folder to be filled out signed. Isadora Kan MA documented in this encounterCleveland Clinic [facility]09-[facility] History of Present illness Narrative* Stacie [...] the care of the neurosurgery dept at [facility], sees Maria Luisa Farooq NP She has [...] recommended Stacie Fairbanks DO documented in this encounterCleveland [facility]09-20-2023 Miscellaneous Notes* Telephone Encounter - Tameka Martini MA - 01/29/2023 7:21 AM EDT pt requesting refills: Last office visit 09/09/22. Last refill 11/04/22 nov 01/31/23 Requested Prescriptions Pending Prescriptions Disp Refills simvastatin (ZOCOR) 40 mg tablet [Pharmacy Med Name: SIMVASTATIN 40 MG TABLET] 90 tablet 0 Sig: take 1 tablet by mouth everyday at bedtime Please review and advise. Tameka Martini MA p documented in this encounterCleveland Clinic [facility]08-01-[facility]23 Evaluation note* Encounter Date Diagnosis Assessment Notes Treatment Notes Treatment Clinical Notes Dec, Sacroiliac inflammation (ICD-10 - M46.1) Dec,Lumbar stenosis without neurogenic claudication (ICD-10 - M48.061) [...] medications as prescribed. Follow-up in 12 weeks. Dec,MI 33.0-33.9,adult (ICD-10 - Z68.33)Education completed on diet, exercise, sugary and caloric intake. Education on 1lb weight has 4lbs of pressure to the spine. [facility] Other 06-26-2023 Miscellaneous Notes* Telephone Encounter - Tameka Martini MA - 11/04/2022 7:30 AM EDT Pharmacy requesting refills: Last office visit 09/09/2022. Last refill 08/05/2022 nov 03/13/2023 Requested Prescriptions Pending Prescriptions Disp Refills simvastatin (ZOCOR) 40 mg tablet [Pharmacy Med Name: SIMVASTATIN 40 MG TABLET] 90 tablet 0 Sig: TAKE 1 TABLET BY MOUTH EVERYDAY AT BEDTIME Please review and advise. Tameka Martini MA documented in this encounterCleveland [facility]06-[facility] Evaluation note* Encounter Date Diagnosis Assessment Notes Treatment Notes Treatment Clinical Notes Oct, Lumbar radiculopathy (ICD-10 - M 54.16) I will orderxray Lumbar 6view along with bilateral Hip/Pelvis xray. Will order MRI Lumbar spine to rule out cord compression. Will refer to Aqua therapy at [place]. Patient would likely benefit fromSacroiliac and Right Greater Trochanter Bursisit injection with [...] negative findings were considered in medical decision-making. Oct,reater trochanteric bursitis, right (ICD-10 - M70.61) Oct,Sacroiliac inflammation (ICD-10 - M46.1) Oct,MI 33.0-33.9,adult (ICD-10 - Z68.33) Oct,epression screening (ICD-10 - Z13.31) Oct,Encounter for screening for tobacco use (ICD-10 - Z01.89) Oct,ost menopausal syndrome (ICD-10 - Z78.0) [facility] Other 05-15-2023 Miscellaneous Notes* Telephone Encounter - Tameka Martini MA - 09/23/2022 3:39 PM EDT Lm on referral placed and faxed. Tameka Martini MA * Telephone Encounter - Stacie Fairbanks DO - 09/23/2022 2:05 PM EDT Referral to Dr. Garduno attached Stacie Fairbanks DO * Telephone Encounter - Brynn Schrader MA - 09/23/2022 1:53 PM EDT Patient called and left a message requesting a referral to a Dr. Garduno ortho fax number is [phone] Brynn Schrader MA documented in this encounterCleveland Clinic [facility]05-09-[facility]23 Miscellaneous Notes* Telephone Encounter - Stacie Fairbanks DO - 09/17/2022 12:15 PM EDT She does not need to stop seeing the chiropractor, if she believes it is helping. However, if she has arthritis in the hip, resident care manager probably will not help much. Does she have the name of anortho she would prefer to see? Stacie Fairbanks DO * Telephone Encounter - Tameka Martini MA - 09/17/2022 11:44 AM EDT Patient notified and voiced understanding. Patient is requesting referral to ortho (in [place]) she states she will follow up with [...] Fairbanks DO * Telephone Encounter - Brynn Schrader MA - 09/17/2022 8:50 AM EDT Patient is requesting x-ray results Brynn Schrader MA documented in this encounterCleveland Clinic [facility]05-01-[facility] History of Present illness Narrative* Stacie Fairbanks DO - 09/09/2022 2:13 PM EDT Subjective The [...] the painful area She is following the Tys[employer] plan for weight loss and that is [...] recommended Stacie Fairbanks DO documented in this encounterCleveland Clinic [facility]03-27-2023 Miscellaneous Notes* Telephone Encounter - Brynn Schrader MA - 08/05/2022 7:59 AM EDT Pharmacy requesting refills as follows: Last Office Visit 01/17/22. Last Refill 05/07/22. Requested Prescriptions Pending Prescriptions Disp Refills simvastatin (ZOCOR) 40 mg tablet [Pharmacy Med Name: SIMVASTATIN 40 MG TABLET] 90 tablet Sig: TAKE 1 TABLET BY MOUTH EVERYDAY AT BEDTIME Please review and advise. Brynn Schrader MA documented in this encounterCleveland Clinic [facility]01-24-2023 Miscellaneous Notes* Telephone Encounter - Brynn Schrader MA - 06/04/2022 5:09 PM EST Patient is informed Brynn Schrader MA * Telephone Encounter - Stacie Fairbanks DO - 06/04/2022 5:05 PM EST Please notify pt her mammogram showed benign findings, and a repeat in one year is recommended. Also, her blood work shows that her cholesterol has greatly improved, and her liver test was normal. She should continue her current medications Stacie Fairbanks DO * Telephone Encounter - Isadora Kan MA - 06/04/2022 3:59 PM EST Received patient's mammogram results that she completed at [facility]. Placed in Dr. Fairbanks green folder to review. Please advise on results. Isadora Kan MA documented in this encounterCleveland [phone] Miscellaneous Notes* Telephone Encounter - Tameka Martini MA - 05/14/2022 11:52 AM EST Patient notified. * Telephone Encounter - Stacie Fairbanks DO - 05/10/2022 8:16 PM EST Order attached Stacie Fairbanks DO * Telephone Encounter - Isadora Kan MA - 05/10/2022 7:43 AM EST ----- Message from Tameka Martini MA sent at 02/08/2022 1:26 PM EDT ----- Remind pt time to madelin lipid panel after medication increased. Tameka Martini MA documented in this encounterCleveland Clinic [facility]12-27-2022 Miscellaneous Notes* Telephone Encounter - Tameka Martini MA - 05/07/2022 9:02 AM EST Pharmacy requesting refills: Last office visit 01/17/2022. Last refill 02/08/2022 nov 07/18/2022 Requested Prescriptions Pending Prescriptions Disp Refills simvastatin (ZOCOR) 40 mg tablet [Pharmacy Med Name: SIMVASTATIN 40 MG TABLET] 30 tablet 2 Sig: TAKE 1 TABLET BY MOUTH EVERYDAY AT BEDTIME Please review and advise. Tameka Martini MA documented in this [facility]09-30-2022 Miscellaneous Notes* Telephone Encounter - Tameka Martini MA - 02/08/2022 2:41 PM EDT Reminder placed. Tameka Martini MA * Addendum Note - Stacie Fairbanks DO - 02/08/2022 1:36 PM EDTAddended by: STACIE FAIRBANKS on: 02/08/2022 01:36 PM Modules accepted: Orders * Telephone Encounter - Stacie Fairbanks DO - 02/08/2022 1:35 PM EDT Please put in reminder for FLP/LFT in 3 months thanks Stacie Fairbanks DO * Telephone Encounter - Tameka Martini MA - 02/08/2022 1:24 PM EDT Patient notified and is willing to increase medication. Pt is requesting us to order blood work in 3 months. Order placed. Tameka Martini MA * Telephone Encounter - Stacie Fairbanks DO - 02/07/2022 6:22 PM EDT Please call pt- her cholesterol is still elevated. I would like to increase her zocor to 40 mg per day - is she willing to do that? Stacie Fairbanks DO documented in this encounterCleveland Clinic [facility]09-08-2022 History of Present illness Narrative* Stacie Fairbanks DO - 01/17/2022 9:16 AM EDT SUBJECTIVE: 61 year old female here with her for annual routine pap and checkup. I have fully reviewed the past medical, surgical, social and family history and updated the Histories section of [facility]. She is following the optavia diet plan [...] is under the care of Dr. Meek, engagement specialist. No LMP recorded. ALLERGIES Allergen Reactions Crestor [...] diet Stacie Fairbanks DO documented in this encounterCleveland Clinic [facility]06-07-2022 Miscellaneous Notes* Telephone Encounter - Isadora Kan MA - 10/16/2021 1:29 PM EDT Patient informed of fasting lab orders. Isadora Kan MA * Telephone Encounter - Stacie Fairbanks DO - 10/16/2021 1:03 PM EDT Order for blood work attached Stacie Fairbanks DO * Telephone Encounter - Isadora Kan MA - 10/16/2021 7:12 AM EDT ----- Message from Isadora Kan MA sent at 07/16/2021 3:07 PM EST ----- Patient due for 3 month recheck vitamin D after starting 1000 units daily. Isadoar Kan MA * Telephone Encounter - Isadora Kan MA - 10/16/2021 7:10 AM EDT ----- Message from Tameka Martini MA sent at 07/16/2021 3:04 PM EST ----- Remind patient time to recheck FLP/LFT after starting zocor. Tameka Martini MA documented in this encounterCleveland Clinic [facility]05-12-2022 Miscellaneous Notes* Telephone Encounter - Brynn Schrader MA - 09/20/2021 10:33 AM EDT pharmacy requesting refills as follows: Last Office Visit 07/13/21 nov 01/17/22. Last Refill 07/16/21. Pending Prescriptions Disp Refills SIMVASTATIN 20 MG TABLET 30 tablet 2 Sig: TAKE 1 TABLET BY MOUTH EVERYDAY AT BEDTIME CHINO: Yes Please review and advise. Brynn Schrader MA documented in this encounterCleveland Clinic [facility]04-15-2022 Miscellaneous Notes* Telephone Encounter - Tameka Martini MA - 08/24/2021 3:13 PM EDT Pharmacy requesting refills: Last office visit 07/13/2021. Last refill on history ?? Last time it was filled 01/17/2022 Pending Prescriptions Disp Refills BETAMETHASONE DIPROPIONATE 0.05 % TOPICAL CREAM 45 g 5 Sig: APPLY TO AFFECTED AREA TWICE A DAY CHINO: Yes Please review and advise. Tameka Martini MA documented in this encounterCleveland Clinic [facility]03-29-2022 Miscellaneous Notes* Telephone Encounter - Isadora Kan MA - 08/07/2021 1:53 PM EDT Script was sent in 07/16/21 for #30 with 2 refills, new script not needed until 10/15/21. Isadora Kan MA documented in this encounterCleveland Clinic [facility]03-04-2022 Instructions* Patient Instructions* Stacie Fairbanks DO - 07/13/2021 9:31 AM EST Medical marijuana provider Address: [address] [place] [address] [address], [place] [id number] documented in this encounterCleveland Clinic [facility]03-04-2022 History of Present illness Narrative* Stacie [...] recommended Stacie Fairbanks DO documented in this encounterCleveland Clinic [facility]05-19-2017 History of Past illness Narrative* ProblemNoted DateResolved UkxmDtyxmsovlspyti06/19/201712/05/2017 documented as of this encounter (statuses as of 08/01/2021) [facility] History of Past illness Narrative* ProblemNoted Date Resolved AqtrYcpyqakvhqzprr53/19/201712/05/2017documented as of this encounter (statuses as of 08/07/2021) [address]19-2017 History of Past illness Narrative* ProblemNoted Date Resolved LqmuNubigaztmmuwkw70/19/201712/05/2017documented as of this encounter (statuses as of 08/24/2021) [facility] of Past illness Narrative* ProblemNoted Date Resolved YlqrDweevcepprhuos45/19/201712/05/2017documented as of this encounter (statuses as of 09/20/2021) [facility] of Past illness Narrative* ProblemNoted Date Resolved OjmhSfbouoajutjqaz81/19/201712/05/2017documented as of this encounter (statuses as of 10/16/2021) [facility] of Past illness Narrative* ProblemNoted Date Resolved MnvuDzmwrjwrauvqev62/19/201712/05/2017documented as of this encounter (statuses as of 02/01/2022) [facility] of [facility] illness Narrative* ProblemNoted Date Resolved GkmkPokvfmkeindcdf15/19/201712/05/2017documented as of this encounter (statuses as of 02/08/2022) [address]19-2017 History of Past illness Narrative* ProblemNoted Date Resolved OlmjDujpmirpzghrlp23/19/201712/05/2017documented as of this encounter (statuses as of 05/13/2022) [address]19-2017 History of Past illness Narrative* ProblemNoted Date Resolved OzjfPikuxelufgbvqk16/19/201712/05/2017documented as of this encounter (statuses as of 05/16/2022) [address]19-2017 History of Past illness Narrative* ProblemNoted Date Resolved FihdRgxhkokqitbkqp23/19/201712/05/2017documented as of this encounter (statuses as of 06/05/2022) [facility] of [facility] illness Narrative* ProblemNoted Date Resolved KfhwPbpfvyizfqkooh33/19/201712/05/2017documented as of this encounter (statuses as of 08/05/2022) [facility] of [facility] illness Narrative* ProblemNoted Date Resolved PofyKqegwotipsqdqo11/19/201712/05/2017documented as of this encounter (statuses as of 09/10/2022) [address]19-2017 History of Past illness Narrative* ProblemNoted Date Resolved AliiXoxspbybyrpdej03/19/201712/05/2017documented as of this encounter (statuses as of 09/10/2022) [address]19-2017 History of Past illness Narrative* ProblemNoted Date Resolved YojkSsjrsgwrizwkdw60/19/201712/05/2017documented as of this encounter (statuses as of 09/17/2022) [address]19-2017 History of Past illness Narrative* ProblemNoted Date Resolved BdegHrsjpdnlrjcdlp11/19/201712/05/2017documented as of this encounter (statuses as of 09/24/2022) [address]19-2017 History of Past illness Narrative* ProblemNoted Date Resolved KescPlyysnfcpceabh70/19/201712/05/2017documented as of this encounter (statuses as of 11/04/2022) [facility] Narrative* ProblemNoted Date Diagnosed DateResolved AljrLtyxdrmsjwvwkc56/19/201712/05/2017documented as of this encounter (statuses as of 01/29/2023) [facility] Narrative* ProblemNoted Date Diagnosed DateResolved ZfalFaoddynhrajdrg40/19/201712/05/2017documented as of this encounter (statuses as of 02/01/2023) [facility] Narrative* ProblemNoted Date Diagnosed DateResolved CotxUfkpijxvibikbf74/19/201712/05/2017documented as of this encounter (statuses as of 02/03/2023) [facility] of [facility] illness Narrative* ProblemNoted Date Diagnosed DateResolved SqkyTvjuxuwctbhrje49/19/201712/05/2017documented as of this encounter (statuses as of 02/17/2023) [facility] of [facility] Narrative* ProblemNoted Date Diagnosed DateResolved XcpqEcvkoooffdzpbq03/19/201712/05/2017documented as of this encounter (statuses as of 03/04/2023) [facility] of [facility] illness Narrative* ProblemNoted Date Diagnosed DateResolved DilrPhewniltrmsznx02/19/201712/05/2017documented as of this encounter (statuses as of 07/28/2023) [facility]* Diagnosis Essential hypertension- Primary Unspecified essential hypertension Vitamin D deficiency Unspecified vitamin D deficiency Fibromyalgia Mylagia and myositis, unspecified BMI 36.0-36.9,adult Body Mass Index 36.0-36.9, adult Obesity, Class II, BMI 35-39.9 Obesity, unspecified [facility] Diagnosis Mixed hyperlipidemia [facility] Diagnosis Dermatitis Contact dermatitis and other eczema, due to unspecified cause [facility]* Diagnosis Mixed hyperlipidemia [facility]* Diagnosis Vitamin D deficiency- Primary Unspecified vitamin D deficiency Mixed hyperlipidemia [facility]* Diagnosis Well adult exam- Primary Routine general medical examination at a health care facility Essential hypertension Unspecified essential hypertension Mixed hyperlipidemia Vitamin D deficiency Unspecified vitamin D deficiency Weight loss Loss of weight Encounter for screening mammogram for breast cancer Obesity, Class I, BMI 30-34.9 Obesity, unspecified BMI 30.0-30.9,adult Body Mass Index 30.0-30.9, adult documented in this encounter [facility]* Diagnosis Mixed hyperlipidemia documented in this encounter [facility]* Diagnosis Mixed hyperlipidemia- Primary documented in this encounter [facility] noteNo assessment information [facility] Work Phone: Evaluation note* Diagnosis Essential hypertension- Primary Unspecified essential hypertension Sciatica, right side Lumbar back pain Lumbago Obesity, Class I, BMI 30-34.9 Obesity, unspecified documented in this encounter [facility]* Diagnosis Lumbar back pain Lumbago documented in this encounter [facility]* Diagnosis Right hip pain- Primary Pain in joint, pelvic region and thigh documented in this encounter [facility]* Diagnosis Primary osteoarthritis of right hip- Primary Primary localized osteoarthrosis, pelvic region and thigh documented in this encounter [facility] noteNo InformationNosamaritan hospital [employer] Other evaluation note* Diagnosis Mixed hyperlipidemia documented in this encounter [facility]* Diagnosis Mixed hyperlipidemia- Primary documented in this encounter [facility]* Diagnosis Essential hypertension- Primary Unspecified essential hypertension Dermatitis Contact dermatitis and other eczema, due to unspecified cause Mixed hyperlipidemia Fibromyalgia Mylagia and myositis, unspecified Chronic midline low back pain, unspecified whether sciatica present Obesity, Class I, BMI 30-34.9 Obesity, unspecified documented in this encounter [facility]* Diagnosis Mixed hyperlipidemia documented in this encounter [facility]* Diagnosis Essential hypertension- Primary Unspecified essential hypertension Mixed hyperlipidemia Chronic midline low back pain, unspecified whether sciatica present Obesity, Class I, BMI 30-34.9 Obesity, unspecified documented in this encounter [facility]* Diagnosis Mixed hyperlipidemia documented in this encounter [facility]* Diagnosis Cortical age-related cataract of both eyes- Primary [facility]* Diagnosis Encounter for screening mammogram for breast cancer documented in this encounter [facility]* Diagnosis Well adult exam- Primary Routine general medical examination at a health care facility Essential hypertension Unspecified essential hypertension Mixed hyperlipidemia Screening for colon cancer Special screening for malignant neoplasms, colon Chronic midline low back pain without sciatica Primary osteoarthritis of right hip Primary localized osteoarthrosis, pelvic region and thigh Mild intermittent asthma, uncomplicated (HCC) Unspecified asthma Statin intolerance Other drug allergy Obesity, Class II, BMI 35-39.9 Obesity, unspecified documented in this encounter [facility] Narrative - Reported* Type Description Date Medical History appendicitis Medical HistoryHypertensionMedical Historyhigh cholesterolMedical History fibromyalgia [facility] Other reason for referral (narrative)* Diagnostic Procedure Only (Routine) - Pending ReviewSpecialtyDiagnoses / ProceduresReferred By ContactReferred To ContactBR IMAGING Diagnoses Encounter for screening mammogram for breast cancer Procedures MITCH SCREENING SCREENING MAMMOGRAPHY BI 2-VIEW BREAST INC CAD Stacie Fairbanks DO [address] [place] [address] [facility] [address] [place] [address] Referral IDStatusAimeerebecca DateExpiration DateVisits RequestedVisits [id number] Review Auto-Generated Referral [facility] for referral (narrative)* Diagnostic Procedure Only (Routine) - ClosedSpecialtyDiagnoses / ProceduresReferred By ContactReferred To ContactXR IMAGING Diagnoses Lumbar back pain Procedures XR LUMBAR PARS DEFECT 4V AP/LAT/BOTH OBL RADEX SPINE LUMBOSACRAL MINIMUM 4 VIEWS Stacie Fairbanks DO [address] [place] [address] Xr Imaging Referral IDStatusAmanda DateExpiration DateVisits RequestedVisits [id number] Auto-Generated Referral * Transition of Care (Routine) - Ref Not RequiredSpecialtyDiagnoses / Procedures Referred By ContactReferred To ContactPain Management / [facility] Department Diagnoses Sciatica, right side Procedures CONSULT TO PAIN MGT Stacie Fairbanks, DO [address] [place] [address] Morris Malin MD [address] [place] [id number] Referral IDStatusReasonStknoxville DateExpiration DateVisits RequestedVisits [id number] Not Required PCP Requested Referral [facility] for referral (narrative)* Diagnostic Procedure Only (Routine) - ClosedSpecialtyDiagnoses / ProceduresReferred By ContactReferred To ContactXR IMAGING Diagnoses Lumbar back pain Procedures XR LUMBAR PARS DEFECT 4V AP/LAT/BOTH OBL RADEX SPINE LUMBOSACRAL MINIMUM 4 VIEWS Stacie Fairbanks, DO [address] [place] [address] Xr Imaging Referral IDStatusReasonStknoxville DateExpiration DateVisits RequestedVisits [id number] Auto-Generated Referral [facility] for referral (narrative)* Diagnostic Procedure Only (Routine) - Pending ReviewSpecialtyDiagnoses / ProceduresReferred By Contact Referred To ContactXR IMAGING Diagnoses Right hip pain Procedures XR HIP GENERAL 3V PELV/AP/LAT RIGHT RADEX HIP UNILATERAL WITH PELVIS 2-3 VIEWS Stacie Fairbanks DO [address] [place] [address] Xr Imaging Referral IDStatusReasonStart DateExpiration DateVisits RequestedVisits [id number] Review Auto-Generated Referral [facility] for visit Narrative* Diagnostic Procedure Only (Routine) - ClosedSpecialtyDiagnoses / ProceduresReferred By ContactReferred To Contact XR IMAGING Diagnoses Lumbar back pain Procedures XR LUMBAR PARS DEFECT 4V AP/LAT/BOTH OBL RADEX SPINE LUMBOSACRAL MINIMUM 4 VIEWS Stacie Fairbanks, DO [address] [place] [address] Xr Imaging Referral IDStatusReasonPampa DateExpiration DateVisits RequestedVisits [id number] Auto-Generated Referral [facility] Referral UpdateNort [employer] Other Summary Purpose Family History No Family [...] Chief Complaint Low Back Pain F/U Screening Chief Complaint M54.16 m54.16 z78.0 Reason for Referral SpecialtyDiagnoses / ProceduresReferred By ContactReferred To Contact Diagnoses Primary osteoarthritis of right hip Procedures CONSULT TO ORTHOPAEDICS OFFICE/OUTPATIENT [facility] 60-74 MINUTES Stacie Fairbanks, DO [address] [place] [address] Uri Garduno [address] [place] [phone] Referral IDStatusReasonPampa DateExpiration DateVisits RequestedVisits [id number] PCP Requested Referral Reason evaluate and treat Diagnosis 1 Lumbar radiculopathy (M54.16) Referral Organization [facility] Referring Provider First Name Maria Luisa Referring Provider Last Name Oseas Referring Provider Specialty Nurse Pract itioner Referred Organization [facility] Referred Address [address], [place],[address] Referred Provider Specialty Physical The rapist Referral Priority Routine Reason evaluate and treat Diagnosis 1 Lumbar radiculopathy (M54.16) Referral Organization [facility] Referring Provider First Name Maria Luisa Referring Provider Last Name Farooq Referring Provider Specialty Nurse Safia luo Referred Organization [facility] Referred Provider Malik Gutierrez Referred Address [address], [place],[address] Referred Provider Specialty Pain Medicin e Referral Priority Routine Reason evaluate and treat Diagnosis 1 Lumbar radiculopathy (M54.16) Referral Organization [facility] Referring Provider First Name Maria Luisa Referring Provider Last Name Oseas Referring Provider Specialty Nurse Pract valerio Referred Organization [facility] Referred Address [address] [place], [place],[address] Referred Provider Specialty Physical The rapist Referral Priority Routine General Notes Ana Lilia Reddy i 11/18/2022 12:03:26 PM > notes in chart Reason DECLINED evaluate and treat Diagnosis 1 Lumbar radiculopathy (M54.16) Referral Organization [facility] Referring Provider First Name Maria Luisa Referring Provider Last Name Oseas Referring Provider Specialty Nurse Safia luo Referred Organization [facility] Referred Provider Malik Gutierrez Referred Address [address] [place], [place],[address] Referred Provider Specialty Pain Medicin e Referral Priority Routine General Notes Kaelyn Fritz 023 10:08:59 AM >Received today. [facility]'s office request us to fill out form and fax referral to them and they will review the referral and call patient. Referral was fax Kaelyn Fritz 11/08/2022 09:16:50 AM >Spoke with Cee at [facility]'s office and patient declined to [...] 12/09/2022 10:33:08 AM >Spoke with Cee at [facility]'s office and patient did not call to schedule appointment. Kaelyn Fritz 12/09/2022 10:36:24 AM >Telephone encounter was sentClinical Notes Office [phone] Additional Source Comments INFORMATION SOURCE (unrecogn ized section and content) DATE CREATED AUTHOR 10/29/2017 [facility] DATE CREATED AUTHOR AUTHOR'S ORGANIZ ATION 12/24/2021 [facility] DATE CREATED AUTHOR AUTHOR'S ORGANIZ ATION 03/01/2023 [facility] DATE CREATED AUTHOR AUTHOR'S ORGANIZ ATION 06/20/2023 [facility] DATE CREATED AUTHOR AUTHOR'S ORGANIZ ATION 09/18/2024 [facility] DATE CREATED AUTHOR AUTHOR'S ORGANIZ ATION 01/21/2025 [facility] DATE CREATED AUTHOR AUTHOR'S ORGANIZ ATION 03/07/2025 [facility] DATE CREATED AUTHOR AUTHOR'S ORGANIZ ATION 03/11/2025 [facility] DATE CREATED AUTHOR AUTHOR'S ORGANIZ ATION 03/14/2025 [facility] Source Comments (unrecognize d section and content) In the event this informatio n is protected by the Federal Confidentiality of Alcohol and Drug Abuse Patient Records regulations: The Federal rules restrict any use of the information to criminally investigate or prosecute any alcohol or drug abuse patient.[facility] the event this information is protected by the Federal Confidentiality of Alcohol and Drug Abuse Patient Records regulations: The Federal rules restrict any use of the information to criminally investigate or prosecute any alcohol or drug abuse patient.[facility] HospitalIn the event this information is protected by the Federal Confidentiality of Alcohol and Drug Abuse Patient Records regulations: The Federal rules restrict any use of the information to criminally investigate or prosecute any alcohol or drug abuse patient.[facility] HospitalIn the event this information is protected by the Federal Confidentiality of Alcohol and Drug Abuse Patient Records regulations: The Federal rules restrict any use of the information to criminally investigate or prosecute any alcohol or drug abuse patient.[facility] HospitalIn the event this information is protected by the Federal Confidentiality of Alcohol and Drug Abuse Patient Records regulations: The Federal rules restrict any use of the information to criminally investigate or prosecute any alcohol or drug abuse patient.[facility] HospitalIn the event this information is protected by the Federal Confidentiality of Alcohol and Drug Abuse Patient Records regulations: The Federal rules restrict any use of the information to criminally investigate or prosecute any alcohol or drug abuse patient.[facility] HospitalIn the event this information is protected by the Federal Confidentiality of Alcohol and Drug Abuse Patient Records regulations: The Federal rules restrict any use of the information to criminally investigate or prosecute any alcohol or drug abuse patient.[facility] HospitalIn the event this information is protected by the Federal Confidentiality of Alcohol and Drug Abuse Patient Records regulations: The Federal rules restrict any use of the information to criminally investigate or prosecute any alcohol or drug abuse patient.[facility] HospitalIn the event this information is protected by the Federal Confidentiality of Alcohol and Drug Abuse Patient Records regulations: The Federal rules restrict any use of the information to criminally investigate or prosecute any alcohol or drug abuse patient.[facility] HospitalIn the event this information is protected by the Federal Confidentiality of Alcohol and Drug Abuse Patient Records regulations: The Federal rules restrict any use of the information to criminally investigate or prosecute any alcohol or drug abuse patient.[facility] HospitalIn the event this information is protected by the Federal Confidentiality of Alcohol and Drug Abuse Patient Records regulations: The Federal rules restrict any use of the information to criminally investigate or prosecute any alcohol or drug abuse patient.[facility] HospitalIn the event this information is protected by the Federal Confidentiality of Alcohol and Drug Abuse Patient Records regulations: The Federal rules restrict any use of the information to criminally investigate or prosecute any alcohol or drug abuse patient.[facility] HospitalIn the event this information is protected by the Federal Confidentiality of Alcohol and Drug Abuse Patient Records regulations: The Federal rules restrict any use of the information to criminally investigate or prosecute any alcohol or drug abuse patient.[facility] HospitalIn the event this information is protected by the Federal Confidentiality of Alcohol and Drug Abuse Patient Records regulations: The Federal rules restrict any use of the information to criminally investigate or prosecute any alcohol or drug abuse patient.[facility] the event this information is protected by the Federal Confidentiality of Alcohol and Drug Abuse Patient Records regulations: The Federal rules restrict any use of the information to criminally investigate or prosecute any alcohol or drug abuse patient.[facility] HospitalIn the event this information is protected by the Federal Confidentiality of Alcohol and Drug Abuse Patient Records regulations: The Federal rules restrict any use of the information to criminally investigate or prosecute any alcohol or drug abuse patient.[facility] HospitalIn the event this information is protected by the Federal Confidentiality of Alcohol and Drug Abuse Patient Records regulations: The Federal rules restrict any use of the information to criminally investigate or prosecute any alcohol or drug abuse patient.[facility] HospitalIn the event this information is protected by the Federal Confidentiality of Alcohol and Drug Abuse Patient Records regulations: The Federal rules restrict any use of the information to criminally investigate or prosecute any alcohol or drug abuse patient.[facility] HospitalIn the event this information is protected by the Federal Confidentiality of Alcohol and Drug Abuse Patient Records regulations: The Federal rules restrict any use of the information to criminally investigate or prosecute any alcohol or drug abuse patient.[facility] HospitalIn the event this information is protected by the Federal Confidentiality of Alcohol and Drug Abuse Patient Records regulations: The Federal rules restrict any use of the information to criminally investigate or prosecute any alcohol or drug abuse patient.[facility] HospitalIn the event this information is protected by the Federal Confidentiality of Alcohol and Drug Abuse Patient Records regulations: The Federal rules restrict any use of the information to criminally investigate or prosecute any alcohol or drug abuse patient.[facility] HospitalIn the event this information is protected by the Federal Confidentiality of Alcohol and Drug Abuse Patient Records regulations: The Federal rules restrict any use of the information to criminally investigate or prosecute any alcohol or drug abuse patient.[facility] HospitalIn the event this information is protected by the Federal Confidentiality of Alcohol and Drug Abuse Patient Records regulations: The Federal rules restrict any use of the information to criminally investigate or prosecute any alcohol or drug abuse patient.[facility] HospitalIn the event this information is protected by the Federal Confidentiality of Alcohol and Drug Abuse Patient Records regulations: The Federal rules restrict any use of the information to criminally investigate or prosecute any alcohol or drug abuse patient.[facility] HospitalIn the event this information is protected by the Federal Confidentiality of Alcohol and Drug Abuse Patient Records regulations: The Federal rules restrict any use of the information to criminally investigate or prosecute any alcohol or drug abuse patient.[facility] HospitalIn the event this information is protected by the Federal Confidentiality of Alcohol and Drug Abuse Patient Records regulations: The Federal rules restrict any use of the information to criminally investigate or prosecute any alcohol or drug abuse patient.[facility] HospitalIn the event this information is protected by the Federal Confidentiality of Alcohol and Drug Abuse Patient Records regulations: The Federal rules restrict any use of the information to criminally investigate or prosecute any alcohol or drug abuse patient.[facility] Reason for Visit (unrecogniz ed section and content) ReasonCommentsHypertension6 month follow upReasonCommentsRefill RequestReason CommentsLab OrdersReasonCommentsF/U 6 MonthHTNReasonCommentsResultsReason CommentsHypertension6 month follow upReasonCommentsResultsReasonCommentsReferral RequestReasonCommentsFormLake Regional [facility] Prescriber Response Form regarding patient's amlodipine and simvastatinReasonCommentsMedication ProblemReason CommentsHypertensionFollow up. Will be getting a nerve ablation in her back on 02/25/23 and is still doing therapy for 3 days a weekReasonCommentsHypertension Follow upReasonOnset DateCommentsRefill Hxzdtxb89/05/2024ReasonCommentsEye Exam CataractReasonCommentsWell [facility] Teams (unrecognized sec tion and content) Team Status: Active Member Role Status Dates Stacie Fairbanks , DO Primary Care Provider Active Team Status: Active Member Role Status Dates Stacie Fairbanks , DO Primary Care Provider Active Maria Luisa Farooq BIOCHEMISTRY TECHNOLOGIST-CAttending ProviderActive Team Status: Inactive Member Role Status Dates Stacie Fairbanks , DO Primary Care Provider Active Maria Luisa Farooq BIOCHEMISTRY TECHNOLOGIST-CAttending ProviderActiveTeam MemberRelationshipSpecialty Start DateEnd Date Sheets, Stacie Martines, DO PCP - General9/14/15Team MemberRelationshipSpecialtyStart DateEnd Date Sheets, Stacie Martines, DO PCP - General9/14/15Team MemberRelationshipSpecialtyStart DateEnd Date Sheets, Stacie Martines, DO PCP - General9/14/15Team MemberRelationshipSpecialtyStart DateEnd Date Sheets, Stacie Martines, DO PCP - General9/14/15Team MemberRelationshipSpecialtyStart DateEnd Date Sheets, Stacie Martines, DO PCP - General9/14/15Team MemberRelationshipSpecialtyStart DateEnd Date Sheets, Stacie Martines, DO PCP - General/14/15 Team Status: Inactive Member Role Status Dates Stacie Fairbanks , DO Primary Care Provider Active Referral SelfAttending ProviderActiveTeam MemberRelationshipSpecialtyStart Date End Date Sheets, Stacie Martines, DO PCP - General9/14/15Team MemberRelationshipSpecialtyStart DateEnd Date Sheets, Stacie Martines, DO PCP - General9/14/15Team MemberRelationshipSpecialtyStart DateEnd Date SheetsStacie, DO PCP - General/14/15Team MemberRelationshipSpecialtyStart DateEnd Date Stacie Fairbanks DO PCP - General/14/15Team MemberRelationshipSpecialtyStart DateEnd Date Stacie Fairbanks DO PCP - General9/14/15Team MemberRelationshipSpecialtyStart DateEnd Date Stacie Fairbanks DO PCP - General/14/15Team MemberRelationshipSpecialtyStart DateEnd Date Stacie Fairbanks DO PCP - General/1415Team MemberRelationshipSpecialtyStart DateEnd Date Stacie Fairbanks DO PCP - General/1415Team MemberRelationshipSpecialtyStart DateEnd Date Stacie Fairbanks DO PCP - General1415 Team Status: Inactive Member Role Status Dates RAJNI William Attending Provider Active Start: March 12, 2023 End: March 12, 2023 Team Status: Inactive Member Role Status Dates Stacie Fairbanks DO Primary Care Prov ider, Referring Provider Active Start: June 07, 2023 End: June 07eferral SelfAttending ProviderActiveStart: June 07, 2023 End: June 07, 2023Team MemberRelationshipSpecialtyStart DateEnd Date Stacie Fairbanks DO [facility] General01/23/15Te MemberRelationshipSpecialtyStart DateEnd Date Magdi Stacie Martines [facility] General01/23/15 [facility] [address] [facility] [place] [address] 09/30//Team MemberRelationshipSpecialtyStart DateEnd Date Stacie Fairbanks DO [facility]01/23/15Te MemberRelationshipSpecialtyStart DateEnd Date Stacie Fairbanks DO [facility]01/23/15Te MemberRelationshipSpecialtyStart DateEnd Date Stacie Fairbanks DO [facility]01/23/15Te MemberRelationshipSpecialtyStart DateEnd Date Stacie Fairbanks DO [facility]01/23/15 Goals (unrecognized section and content) Goals may be documented in a n alternate sectionNo InformationGoals may be documented in an alternate sectionNo InformationNo InformationNo InformationNo InformationGoals may be documented in an alternate sectionGoals may be documented in an alternate section [...] BE BASED ON THE PRIMARY CLINICAL RECORDS. [facility] HospitalSunver[facility] [employer], [employer] [facility]. provides no warranty or guarantee of the accuracy or completeness of information in this document.
== END 2025-03-29 15:55 | disposition home or self-care (01) ==
LOC: CARD 15:54
PROVIDERS: Visit Provider Nurse Practitioner Family
DX: I11.9 Hypertensive heart disease without heart failure (principal); Z12.11 Encounter for screening for malignant neoplasm of colon
CPT/HCPCS: 93306; G0328